=== PATIENT | male | born 1945 | race Caucasian/White ===

== ENCOUNTER 2016-07-05 16:38 | Emergency (ER) | payer MEDICARE, OTHER ==
[2016-07-05] MEDS ORDERED: BABY ASPIRIN 81 MG CHEW PO ONE (16:47)
[2016-07-05] MEDS ORDERED: Nitrostat 0.4 MG (ED) SL ONE ×2 (16:47→17:14)
--- NOTE | 2016-07-05 16:55 | ERPHSYRPT ---
- History of Present Illness Time Seen by Provider: 07/05/16 16:50 Historian: patient Exam Limitations: no limitations Physician History: Pt. presents with CP starting at 10:30AM today, dull, intermittent throughout the day lasting 5-10 min each time. States he also had SOB, nausea, weakness and palpitations, but not diaphoresis. States he tried mowing yard this afternoon as well which made the chest pain worse. Pt. with previous cardiac history and stents. Denies any recent illness or injuries. Timing/Duration: today Activities at Onset: activity (mowing yard), rest Quality: dullness Location: substernal Chest Pain Radiation: no radiation Severity of Pain-Max: mild Severity of Pain-Current: mild (3/10) Modifying Factors: Improves With: exertion (worsens) Associated Symptoms: nausea, palpitations, shortness of breath, No vomiting, No cough, No hurts to breathe, No edema Prior Chest Pain/Cardiac Workup: angina, cardiac cath Nitro Today/Relief: no nitro taken today Aspirin Treatment Today: 81 mg x 1 Allergies/Adverse Reactions: sulfamethoxazole [From Bactrim] Allergy (Intermediate, Verified 07/05/16 16:54) Hives Home Medications: Omeprazole 20 MG [Prilosec 20 mg] 20 mg PO DAILY 11/30/11 [History] Tamsulosin HCl 0.4 mg [Flomax 0.4 MG] 0.4 mg PO HS 11/30/11 [History] Methadone HCl 10 mg [DOLOPHINE 10MG Tablet] 20 mg PO BID 10/04/13 [History ] Aspirin 81 gm Chew [Baby Aspirin 81 mg Chew] 81 mg PO DAILY 12/18/13 [ History] Levetiracetam [Keppra] 750 mg PO BID 12/18/13 [History] Lisinopril [Zestril] 12.5 mg PO DAILY 12/18/13 [History] Pravastatin Sodium [Pravachol] 20 mg PO HS 10/17/15 [History] Quetiapine Fumarate 25 mg [Seroquel 25 MG] 12.5 mg PO DAILY 01/18/16 [ History] Hx Tetanus, Diphtheria Vaccination/Date Given: Yes (up to date) Hx Influenza Vaccination/Date Given: Yes Hx Pneumococcal Vaccination/Date Given: Yes - Review of Systems Constitutional: Lethargy, No Fever, No Chills Eyes: No Symptoms Ears, Nose, & Throat: No Symptoms Respiratory: No Cough Cardiac: Chest Pain, No Edema, No Syncope Abdominal/Gastrointestinal: No Abdominal Pain, No Nausea, No Vomiting, No Diarrhea Genitourinary Symptoms: No Dysuria Musculoskeletal: No Back Pain, No Neck Pain Skin: No Rash Neurological: No Dizziness, No Focal Weakness, No Sensory Changes Psychological: No Symptoms Endocrine: No Symptoms All Other Systems: Reviewed and Negative - Past Medical History Pertinent Past Medical History: Yes Neurological History: No Pertinent History ENT History: No Pertinent History Cardiac History: High Cholesterol, Hypertension, Myocardial Infarction ([place]) Respiratory History: No Pertinent History Endocrine Medical History: No Pertinent History Musculoskeletal History: Arthritis, Osteoarthritis GI Medical History: GERD, GI Bleed History: No Pertinent History Psycho-Social History: No Pertinent History Male Reproductive Disorders: No Pertinent History Other Medical History: Stents in heart and L leg, hx of prostate infections, 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 cardaic stents x2. lt leg stents x2 - Social History Smoking Status: Former smoker How long have you smoked: 40 years Exposure to second hand smoke: No Drug Use: none Patient Lives Alone: Yes - Physical Exam General Appearance: mild distress, alert Eye Exam: PERRL/EOMI, eyes nml inspection Ears, Nose, Throat Exam: normal ENT inspection, moist mucous membranes Neck Exam: normal inspection, non-tender, supple, full range of motion Respiratory Exam: normal breath sounds, lungs clear, No respiratory distress Cardiovascular Exam: regular rate/rhythm, normal heart sounds Gastrointestinal/Abdomen Exam: soft, No tenderness, No mass Back Exam: normal inspection, No CVA tenderness, No vertebral tenderness Extremity Exam: normal inspection, normal range of motion Neurologic Exam: alert, oriented x 3, cooperative, normal mood/affect, sensation nml, No motor deficits Skin Exam: normal color, warm, dry - Course Nursing assessment & vital signs reviewed: Yes EKG Interpreted by Me: RATE (97), Sinus Mir, Left [place] Deviation, LAFB, Right Bundle Branch Block, Non-specific ST Changes (flipped T's aVL) Ordered Tests: Active Orders 24 hr Category Date Time Status Licensed Massage Therapist STAT Care 07/05/16 16:47 Active EKG-ER Only STAT Care 07/05/16 16:47 Active IV Insertion STAT Care 07/05/16 16:47 Active Oxygen-ED Only NASAL CANNULA 2 lpm Care 07/05/16 16:47 Active CHEST 1 VIEW (PORTABLE) Stat Exams 07/05/16 16:48 Taken BMP Stat Lab 07/05/16 17:00 Completed CBC W DIFF Stat Lab 07/05/16 17:00 Completed CK-Creatinine Phosphokinase Stat Lab 07/05/16 17:00 Completed TROPONIN Q3H Lab 07/05/16 17:00 Completed TROPONIN Q3H Lab 07/05/16 20:00 Ordered TROPONIN Q3H Lab 07/05/16 23:00 Ordered TROPONIN Q3H Lab 07/06/16 02:00 Ordered TROPONIN Q3H Lab 07/06/16 05:00 Ordered Medication Summary Discontinued Medications Generic Name Dose Route Start Last Admin Trade Name Freq PRN Reason Stop Dose Admin Aspirin 324 mg 07/05/16 16:47 07/05/16 17:23 Baby Aspirin 81 Mg Chew PO 07/05/16 16:48 324 mg STAT ONE Administration Sodium Chloride 250 mls @ 999 mls/hr 07/05/16 16:47 07/05/16 17:17 Sodium Chloride 0.9% 1000 Ml IV 07/05/16 17:02 999 mls/hr .Q16M STA Administration Sodium Chloride Confirm 07/05/16 17:14 Sodium Chloride 0.9% 1000 Ml Administered 07/05/16 17:15 Dose 1,000 mls @ ud .ROUTE .STK-MED ONE Nitroglycerin 0.4 mg 07/05/16 16:47 07/05/16 17:17 Nitrostat 0.4 Mg (Ed) SL 07/05/16 16:48 0.4 mg STAT ONE Administration Nitroglycerin Confirm 07/05/16 17:14 Nitrostat 0.4 Mg (Ed) Administered 07/05/16 17:15 Dose 0.4 mg SL .STK-MED ONE Lab/Rad Data: Laboratory Result Diagrams 07/05/16 17:00 07/05/16 17:00 Laboratory Results 07/05/16 07/05/16 07/05/16 Range/Units 17:00 17:00 17:00 WBC 5.2 (4.0-10.5) K/mm3 RBC 3.66 L (4.1-5.6) M/mm3 Hgb 11.8 L (12.5-18.0) gm/dl Hct 35.9 L (42-50) % MCV 98.1 (78-100) fl MCH 32.2 H (26-32) pg MCHC 32.9 (32-36) g/dl RDW 12.6 (11.5-14.0) % Plt Count 122 L (150-450) K/mm3 MPV 10.8 H (6-9.5) fl Gran % 60.6 (36.0-66.0) % Lymphocytes % 29.3 (24.0-44.0) % Monocytes % 7.6 (0.0-12.0) % Eosinophils % 2.1 (0.00-5.0) % Basophils % 0.4 (0.0-0.4) % Basophils # 0.02 (0-0.4) Sodium 140 (136-145) mEq/L Potassium 4.1 (3.5-5.1) mEq/L Chloride 104 (98-107) mEq/L Carbon Dioxide 26.6 (21-32) mEq/L Anion Gap 13.7 (5-15) MEQ/L BUN 21 H (9-20) mg/dL Creatinine 1.49 H (0.55-1.30) mg/dl Estimated GFR 50 ML/MIN Glucose 116 H (70-110) MG/DL Calcium 9.4 (8.5-10.1) mg/dL Creatine Kinase 128 (39-308) U/L Troponin I < 0.017 (0.000-0.056) ng/ml - Progress Progress: improved Air Movement: good Progress Note: 07/05/16 18:10 Pt. given ASA X4, Nitro .4mg and IVF's with good relief of chest pain. Pt. stable and lying comfortably Discussed with Dr.: Other (Dr. Penn, hand patcher, agreed to accept at [facility]) - Departure Time of Disposition: 18:11 Departure Disposition: Transfer ([facility]) Clinical Impression: Chest pain Condition: Stable Critical Care Time: No
[2016-07-05 17:03] LABS: BASOPHIL % 0.4 % (0.0-0.4); Eosinophil % 2.1 % (0.00-5.0); Granulocytes % 60.6 % (36.0-66.0); Lymphocytes % 29.3 % (24.0-44.0); Mean Cell Volume 98.1 fl (78-100); Mean Corpuscular Hemoglobin 32.2 pg (26-32); Mean Platelet Volume 10.8 fl (6-9.5); Monocytes % 7.6 % (0.0-12.0); Platelet Count 122 K/mm3 (150-450); Red Blood Count 3.66 M/mm3 (4.1-5.6); Red Cell Distribution Width 12.6 % (11.5-14.0); White Blood Count 5.2 K/mm3 (4.0-10.5)
[2016-07-05] MEDS ORDERED: Sodium Chloride 0.9% 1000 ML 1,000 ML ONE (17:14)
[2016-07-05 17:30] LABS: ANION GAP 13.7 MEQ/L (5-15); Carbon Dioxide 26.6 mEq/L (21-32); Potassium 4.1 mEq/L (3.5-5.1)
[2016-07-05 19:16] VITALS: BP 141/74; PULSE 55; O2SAT 97
[2016-07-05] MEDS ORDERED: BABY ASPIRIN 81 MG CHEW ONE (20:17)
--- NOTE | 2016-07-06 08:37 | XRAY ---
Indication: Chest pain. Comparison: October 06, 2008. Portable chest remains clear again with incidental calcified granulomas. Heart and mediastinal structures within normal limits for AP portable projection. Bony thorax intact. Impression: Stable nonacute chest with again evidence for old granulomatous disease.
== END 2016-07-05 19:16 | disposition short-term general hospital (02) ==
LOC: ED 16:38
DX: R07.9 Chest pain, unspecified (principal); R11.0 Nausea; R00.2 Palpitations; R06.02 Shortness of breath; I25.2 Old myocardial infarction; I10 Essential (primary) hypertension; E78.00 Pure hypercholesterolemia, unspecified; Z79.82 Long term (current) use of aspirin; Z79.899 Other long term (current) drug therapy
CPT/HCPCS: 36000; 36415; 71010; 80048; 82550; 84484; 85025; 93005; 93041; 99285; A9270-GY

== ENCOUNTER 2017-11-29 15:40 | Emergency (ER) | payer MEDICARE, OTHER ==
[2017-11-29] MEDS ORDERED: Cardizem IV 50 MG/10 ML IV ONE ×3 (15:59→16:11)
[2017-11-29] MEDS ORDERED: CARDIZEM DRIP 100 MG/100 ML D5W 100 ML IV PRN ×2 (16:00→16:22)
[2017-11-29] MEDS ORDERED: Sodium Chloride 0.9% 1000 ML 1,000 ML IV SCH (16:00)
[2017-11-29] MEDS ORDERED: ENOXAPARIN SODIUM SQ ONE ×2 (16:03→16:10)
--- NOTE | 2017-11-29 16:17 | ERPHSYRPT ---
- History of Present Illness Time Seen by Provider: 11/29/17 16:00 Historian: patient Exam Limitations: clinical condition Patient Subjective Stated Complaint: has had CP since Saturday.. went to Dr Saleh office and they sent him here to be evaluated. is being weaned off of methadone. states pain increases with movment and deep breathing. no n/v + SOB Triage Nursing Assessment: alert and oriented. states CP since saturday. nothing has made oit better. lips slightly cyanotic on arrival../ Placed on 2L NC. staets slight SOB but denies n/v denies cough. Lungs clear bilaterally. states pain increases slightly with deep breathing and movement. no edema noted. Physician History: PATIENT WITH A HISTORY OF MYOCARDIAL INFARCTION, CORONARY STENTS, PERIPHERAL VASCULAR DISEASE, CHRONIC RENAL INSUFFICIENCY AND HYPERTENSION, COMPLAINS OF SUBSTERNAL ACHING PRESSURE DISCOMFORT PERSISTENT FOR 2 DAYS ASSOCIATED WITH DYSPNEA. DENIES COUGH, FEVER, PALPITATIONS, RADIATION OF PAIN TO NECK, JAW OR ARMS. PATIENT IS PRESENTLY BENG WEANED OFF METHADONE THROUGH THE [facility] SINCE 2017. Timing/Duration: day(s) Activities at Onset: none Quality: aching Location: substernal Chest Pain Radiation: no radiation Severity of Pain-Max: mild Severity of Pain-Current: mild Modifying Factors: Improves With: nothing Associated Symptoms: shortness of breath Prior Chest Pain/Cardiac Workup: cardiac cath, heart attack Nitro Today/Relief: 0.4 mg x 1, provided by ED Aspirin Treatment Today: 81 mg x 1, provided at home Allergies/Adverse Reactions: sulfamethoxazole [From Bactrim] Allergy (Intermediate, Verified 07/05/16 16:54) Hives Home Medications: Omeprazole 20 MG [Prilosec 20 mg] 20 mg PO DAILY 11/30/11 [History] Tamsulosin HCl 0.4 mg [Flomax 0.4 MG] 0.4 mg PO HS 11/30/11 [History] Methadone HCl 10 mg [DOLOPHINE 10MG Tablet] 2.5 mg PO QID 10/04/13 [ History] Aspirin 81 gm Chew [Baby Aspirin 81 mg Chew] 81 mg PO DAILY 12/18/13 [ History] Levetiracetam [Keppra] 750 mg PO BID 12/18/13 [History] Lisinopril [Zestril] 12.5 mg PO DAILY 12/18/13 [History] Pravastatin Sodium [Pravachol] 20 mg PO HS 10/17/15 [History] Quetiapine Fumarate 25 mg [Seroquel 25 MG] 12.5 mg PO DAILY 01/18/16 [ History] Hx Tetanus, Diphtheria Vaccination/Date Given: Yes (up to date) Hx Influenza Vaccination/Date Given: Yes Hx Pneumococcal Vaccination/Date Given: Yes - Review of Systems Constitutional: No Fever, No Chills Eyes: No Symptoms Ears, Nose, & Throat: No Symptoms Respiratory: No Symptoms, No Cough, No Dyspnea Cardiac: Chest Pain, No Edema, No Syncope Abdominal/Gastrointestinal: No Symptoms, No Abdominal Pain, No Nausea, No Vomiting, No Diarrhea Genitourinary Symptoms: No Symptoms, No Dysuria Musculoskeletal: No Symptoms, No Back Pain, No Neck Pain Skin: No Symptoms, No Rash Neurological: No Dizziness, No Focal Weakness, No Sensory Changes Psychological: No Symptoms Endocrine: No Symptoms All Other Systems: Reviewed and Negative - Past Medical History Pertinent Past Medical History: Yes Neurological History: No Pertinent History ENT History: No Pertinent History Cardiac History: High Cholesterol, Hypertension, Myocardial Infarction ([place]) Respiratory History: No Pertinent History Endocrine Medical History: No Pertinent History Musculoskeletal History: Arthritis, Osteoarthritis GI Medical History: GERD, GI Bleed History: No Pertinent History Psycho-Social History: No Pertinent History Male Reproductive Disorders: No Pertinent History Other Medical History: Stents in heart and L leg, hx of prostate infections, 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 cardaic stents x2. lt leg stents x2 - Social History Smoking Status: Former smoker How long have you smoked: 40 years Exposure to second hand smoke: No Drug Use: none Patient Lives Alone: No - Nursing Vital Signs Nursing Vital Signs: Initial Vital Signs Temperature 97.8 F 11/29/17 15:51 Pulse Rate 112 H 11/29/17 15:51 Respiratory Rate 18 11/29/17 15:51 Blood Pressure 136/95 11/29/17 15:51 O2 Sat by Pulse Oximetry 98 11/29/17 15:51 Pain Scale Pain Intensity 2 - Physical Exam SpO2: 98 Oxygen Delivery: Room Air - Course EKG Interpreted by Me: RATE, Left [place] Deviation (ATRIAL FIBRILLATION RATE 109) - Radiology Exams Chest X-ray Interpretation: Interpreted by me, Negative, No Infiltrates - CT Exams Chest CT Interpretation: Tele-radiologist Report (NO EVIDENCE OF PULMONARY EMBOLISM) Ordered Tests: Active Orders 24 hr Category Date Time Status Postal Support Employee STAT Care 11/29/17 15:59 Active EKG-ER Only STAT Care 11/29/17 15:58 Active IV Insertion STAT Care 11/29/17 15:58 Active Oxygen-ED Only NASAL CANNULA 2 lpm Care 11/29/17 15:58 Active CHEST 1 VIEW (PORTABLE) Stat Exams 11/29/17 15:59 Taken CHEST WITH CONTRAST [CT] Stat Exams 11/29/17 16:45 Taken CBC W DIFF Stat Lab 11/29/17 16:20 Completed CMP Stat Lab 11/29/17 16:20 Completed D-DIMER QUANTITATION Stat Lab 11/29/17 16:20 Completed NT PRO BNP Stat Lab 11/29/17 16:20 Completed PROTIME WITH INR Stat Lab 11/29/17 16:20 Completed TROPONIN Q3H Lab 11/29/17 16:20 Completed TROPONIN Q3H Lab 11/29/17 19:20 Received TROPONIN Q3H Lab 11/29/17 22:15 Ordered TROPONIN Q3H Lab 11/30/17 01:15 Ordered TROPONIN Q3H Lab 11/30/17 04:15 Ordered Medication Summary Generic Name Dose Route Start Last Admin Trade Name Freq PRN Reason Stop Dose Admin Sodium Chloride 1,000 mls @ 50 mls/hr 11/29/17 16:00 11/29/17 16:15 Sodium Chloride 0.9% 1000 Ml IV 12/29/17 15:59 50 mls/hr .Q20H HUNTER Administration Diltiazem HCl 100 mls @ 5 mls/hr 11/29/17 16:22 Cardizem Drip 100 Mg/100 Ml D5w IV 12/29/17 16:21 .Q20H PRN HEART RATE/ A-FIB Protocol 5 MG/HR Discontinued Medications Generic Name Dose Route Start Last Admin Trade Name Freq PRN Reason Stop Dose Admin Aspirin 243 mg 11/29/17 18:02 11/29/17 18:21 Baby Aspirin 81 Mg Chew PO 11/29/17 18:03 243 mg STAT ONE Administration Aspirin Confirm 11/29/17 18:20 Baby Aspirin 81 Mg Chew Administered 11/29/17 18:21 Dose 243 mg .ROUTE .STK-MED ONE Diltiazem HCl 15 mg 11/29/17 15:59 11/29/17 16:16 Cardizem Iv 50 Mg/10 Ml IV 11/29/17 16:00 15 mg STAT ONE Administration Diltiazem HCl Confirm 11/29/17 16:10 Cardizem Iv 50 Mg/10 Ml Administered 11/29/17 16:11 Dose 50 mg IV .STK-MED ONE Diltiazem HCl Confirm 11/29/17 16:11 Cardizem Iv 50 Mg/10 Ml Administered 11/29/17 16:12 Dose 50 mg IV .STK-MED ONE Enoxaparin Sodium 100 mg 11/29/17 16:03 11/29/17 16:27 Enoxaparin Sodium SQ 11/29/17 16:04 100 mg STAT ONE Administration Enoxaparin Sodium Confirm 11/29/17 16:10 Enoxaparin Sodium Administered 11/29/17 16:11 Dose 120 mg SQ .STK-MED ONE Diltiazem HCl 100 mls @ 10 mls/hr 11/29/17 16:00 11/29/17 16:23 Cardizem Drip 100 Mg/100 Ml D5w IV 12/29/17 15:59 10 mg/hr .Q10H PRN 10 mls/hr HEART RATE/ A-FIB Administration Protocol 10 MG/HR Nitroglycerin 1 gm 11/29/17 17:58 11/29/17 18:04 Nitro-Bid 2% Ud Packets TOP 11/29/17 17:59 1 gm STAT ONE Administration Nitroglycerin Confirm 11/29/17 18:01 Nitro-Bid 2% Ud Packets Administered 11/29/17 18:02 Dose 1 gm .ROUTE .STK-MED ONE Lab/Rad Data: Laboratory Result Diagrams 11/29/17 16:20 11/29/17 16:20 Laboratory Results 11/29/17 11/29/17 11/29/17 Range/Units 16:20 16:20 16:20 WBC (4.0-10.5) K/mm3 RBC (4.1-5.6) M/mm3 Hgb (12.5-18.0) gm/dl Hct (42-50) % MCV (78-100) fl MCH (26-32) pg MCHC (32-36) g/dl RDW (11.5-14.0) % Plt Count (150-450) K/mm3 MPV (6-9.5) fl Gran % (36.0-66.0) % Eos # (Auto) (0-0.5) Absolute Lymphs (auto) (1.0-4.6) Absolute Monos (auto) (0.0-1.3) Lymphocytes % (24.0-44.0) % Monocytes % (0.0-12.0) % Eosinophils % (0.00-5.0) % Basophils % (0.0-0.4) % Absolute Granulocytes (1.4-6.9) Basophils # (0-0.4) PT 12.7 (8.83-12.87) SECONDS INR 1.09 (0.8-3.0) D-Dimer 1417 H* (215-500) ng/mL Sodium 139 (137-145) mmol/L Potassium 4.5 (3.5-5.1) mmol/L Chloride 103 (98-107) mmol/L Carbon Dioxide 26 (22-30) mmol/L Anion Gap 15.1 H (5-15) MEQ/L BUN 16 (9-20) mg/dL Creatinine 1.33 H (0.66-1.25) mg/dL Estimated GFR 56.2 ML/MIN Glucose 99 (74-106) mg/dL Calcium 9.7 (8.4-10.2) mg/dL Total Bilirubin 1.10 (0.2-1.3) mg/dL AST 25 (17-59) U/L ALT 20 (0-50) U/L Alkaline Phosphatase 63 (38-126) U/L Troponin I < 0.012 (0.000-0.034) ng/mL NT-Pro-B Natriuret Pep 754 (0-900) pg/mL Serum Total Protein 7.4 (6.3-8.2) g/dL Albumin 4.3 (3.5-5.0) g/dL 11/29/17 Range/Units 16:20 WBC 5.3 (4.0-10.5) K/mm3 RBC 4.01 L (4.1-5.6) M/mm3 Hgb 13.2 (12.5-18.0) gm/dl Hct 38.3 L (42-50) % MCV 95.5 (78-100) fl MCH 32.9 H (26-32) pg MCHC 34.5 (32-36) g/dl RDW 12.1 (11.5-14.0) % Plt Count 151 (150-450) K/mm3 MPV 10.6 H (6-9.5) fl Gran % 54.8 (36.0-66.0) % Eos # (Auto) 0.13 (0-0.5) Absolute Lymphs (auto) 1.70 (1.0-4.6) Absolute Monos (auto) 0.51 (0.0-1.3) Lymphocytes % 32.4 (24.0-44.0) % Monocytes % 9.7 (0.0-12.0) % Eosinophils % 2.5 (0.00-5.0) % Basophils % 0.6 (0.0-0.4) % Absolute Granulocytes 2.88 (1.4-6.9) Basophils # 0.03 (0-0.4) PT (8.83-12.87) SECONDS INR (0.8-3.0) D-Dimer (215-500) ng/mL Sodium (137-145) mmol/L Potassium (3.5-5.1) mmol/L Chloride (98-107) mmol/L Carbon Dioxide (22-30) mmol/L Anion Gap (5-15) MEQ/L BUN (9-20) mg/dL Creatinine (0.66-1.25) mg/dL Estimated GFR ML/MIN Glucose (74-106) mg/dL Calcium (8.4-10.2) mg/dL Total Bilirubin (0.2-1.3) mg/dL AST (17-59) U/L ALT (0-50) U/L Alkaline Phosphatase (38-126) U/L Troponin I (0.000-0.034) ng/mL NT-Pro-B Natriuret Pep (0-900) pg/mL Serum Total Protein (6.3-8.2) g/dL Albumin (3.5-5.0) g/dL - Progress Progress: improved Progress Note: 11/29/17 16:46 ADMINISTERED CARDIZEM INFUSION 5MG/HR, LOVENOX 100MG SUBQ, DDIMER 1411 Discussed with : Other (DISCUSSED WITH DR GARCIA AT [address] [facility]IA [facility]) - Departure Time of Disposition: 19:30 Departure Disposition: Transfer Clinical Impression: ACUTE CHEST PAIN, NEW ONSET ATRIAL FIBRILLATION Condition: Stable Critical Care Time: No Referrals: PATRICIA PALACIO [Primary Care Provider] -
[2017-11-29 16:20] LABS: BASOPHIL % 0.6 % (0.0-0.4); Basophil (Absolute #) 0.03 (0-0.4); Eosinophil % 2.5 % (0.00-5.0); Eosinophil (Absolute #) 0.13 (0-0.5); Granulocyte Absolute (ANC) 2.88 (1.4-6.9); Granulocytes % 54.8 % (36.0-66.0); Hematocrit 38.3 % (42-50); Hemoglobin 13.2 gm/dl (12.5-18.0); Lymphocytes % 32.4 % (24.0-44.0); Mean Cell Volume 95.5 fl (78-100); Mean Corpuscular Hemoglobin 32.9 pg (26-32); Mean Corpuscular Hgb Concent. 34.5 g/dl (32-36); Mean Platelet Volume 10.6 fl (6-9.5); Monocyte (Absolute #) 0.51 (0.0-1.3); Monocytes % 9.7 % (0.0-12.0); Platelet Count 151 K/mm3 (150-450); Red Blood Count 4.01 M/mm3 (4.1-5.6); Red Cell Distribution Width 12.1 % (11.5-14.0); White Blood Count 5.3 K/mm3 (4.0-10.5)
[2017-11-29 16:35] LABS: INR 1.09 (0.8-3.0)
[2017-11-29 16:49] LABS: ALBUMIN 4.3 g/dL (3.5-5.0); ANION GAP 15.1 MEQ/L (5-15); BILIRUBIN,TOTAL 1.1 mg/dL (0.2-1.3); Calcium 9.7 mg/dL (8.4-10.2); Creatinine 1 1.33 mg/dL (0.66-1.25); Potassium 4.5 mmol/L (3.5-5.1); Total Protein 7.4 g/dL (6.3-8.2)
[2017-11-29] MEDS ORDERED: NITRO-BID 2% UD PACKETS TOP ONE (17:58)
[2017-11-29] MEDS ORDERED: NITRO-BID 2% UD PACKETS ONE (18:01)
[2017-11-29] MEDS ORDERED: BABY ASPIRIN 81 MG CHEW PO ONE (18:02)
[2017-11-29] MEDS ORDERED: BABY ASPIRIN 81 MG CHEW ONE (18:20)
[2017-11-29 19:43] VITALS: BP 128/76; PULSE 76; O2SAT 97
--- NOTE | 2017-11-29 20:51 | XRAY ---
Indication: Chest pain/pressure. Chills. Comparison: July 05, 2016. Portable chest remains clear again with a few incidental calcified granulomas. Heart is not enlarged. Bony thorax intact again with mild degenerative changes. No new/acute findings. Impression: Nonacute chest with chronic features.
--- NOTE | 2017-11-29 20:52 | XRAY ---
Indication: Chest pain. Elevated d-dimer. Atrial fibrillation. Multiple contiguous axial images obtained through the chest using 100 cc Isovue 370 contrast and PE protocol. Comparison: None There is good opacification of the pulmonary arteries to include the lobar and segmental branches. No filling defect or pulmonary embolus. Heart is not enlarged. Aorta is normal in course and caliber. Tiny precarinal and right hilar calcified nodes. No pathologic mediastinal/hilar lymphadenopathy. Examination of the lung parenchyma demonstrates a few tiny calcified granulomas. No suspicious pulmonary mass, infiltrate, or effusion. Bony thorax intact with mild degenerative changes throughout the spine. Limited upper abdomen demonstrates partially visualized bilateral renal cysts, largest on the right measuring 4.6 cm. Impression: 1. Negative pulmonary embolus. No acute cardiopulmonary abnormalities. 2. Evidence for old granulomatous disease. 3. Bilateral renal cysts. Comment: Preliminary interpretation was made by [facility]. No discrepancy. CTDI is 22.69
== END 2017-11-29 19:48 | disposition short-term general hospital (02) ==
LOC: ED 15:40
DX: R07.9 Chest pain, unspecified (principal); I48.91 Unspecified atrial fibrillation; R06.00 Dyspnea, unspecified; I10 Essential (primary) hypertension; I25.2 Old myocardial infarction; Z79.899 Other long term (current) drug therapy
CPT/HCPCS: 36000; 36415; 71045; 71260; 80053; 83880; 84484; 85025; 85379; 85610; 93005; 93041; 96360; 96365; 96372; 96374; 99285; J1650; A9270-GY

== ENCOUNTER 2018-02-08 10:37 | Emergency (ER) | payer MEDICARE, OTHER ==
--- NOTE | 2018-02-08 11:22 | ERPHSYRPT ---
- History of Present Illness Time Seen by Provider: 02/08/18 11:00 Source: patient, family Patient Subjective Stated Complaint: pt reports approx 2 months ago he was slowly weaned off his Keppra, states that 2 weeks ago he was completely off, states he was having trouble with sleep and had to resume taking the Keppra. pt states that he began having chest pain saturday02/04/18 and stayed overnight at [place] to be observed, reports he was released Saturday and has not slept any since then. pt states he saw JESSY Guevara yesterday and was given hydroxyzine which has not helped. Triage Nursing Assessment: pt is aox3, pupils perrl, afebrile, pt resps easy and non labored, radial pulses strong and equal, pt skin is pink warm dry. pt denies pain. Physician History: 72 y/o white male presents with anxiety and insomnia since saturday. pt was on keppra for sleep but was weaned off of this. pt has a cardiac hx and was evaluated and observed at [facility] this past Saturday over to Saturday. pt was seen by his pcp, Yina Hutchinson [employer], yesterday and given hydroxyzine without help in tx his insomnia. pt denies soa and cp today. pt specifically states he just needs something to help him sleep. Timing/Duration: day(s) (3) Severity: moderate Associated Symptoms: denies symptoms, No nausea, No vomiting, No abdominal pain , No shortness of breath, No chest pain, No loss of appetite Allergies/Adverse Reactions: sulfamethoxazole [From Bactrim] Allergy (Intermediate, Verified 02/08/18 11:14) Hives Home Medications: Tamsulosin HCl 0.4 mg [Flomax 0.4 MG] 0.4 mg PO HS 11/30/11 [History] Methadone HCl 10 mg [DOLOPHINE 10MG Tablet] 2.5 mg PO BID 10/04/13 [ History] Aspirin 81 gm Chew [Baby Aspirin 81 mg Chew] 81 mg PO DAILY 12/18/13 [ History] Levetiracetam [Keppra] 750 mg PO BID 12/18/13 [History] Lisinopril [Zestril] 12.5 mg PO DAILY 12/18/13 [History] Pravastatin Sodium [Pravachol] 40 mg PO HS 10/17/15 [History] Quetiapine Fumarate 25 mg [Seroquel 25 MG] 12.5 mg PO DAILY 01/18/16 [ History] Apixaban [Eliquis 2.5 mg Tablet] 2.5 mg PO BID 02/08/18 [History] Hydroxyzine HCl 25 mg [Atarax 25 mg] 25 mg PO HS 02/08/18 [History] Levothyroxine Sodium 25 Mcg [Synthroid 25 Mcg] 25 mcg PO DAILY 02/08/18 [ History] Metoprolol Tartrate 25 mg [Lopressor 25MG Tab] 25 mg PO BID 02/08/18 [ History] Sacubitril/Valsartan [Entresto 24 mg-26 mg Tablet] 24 mg PO BID 02/08/18 [ History] Hx Tetanus, Diphtheria Vaccination/Date Given: Yes Hx Influenza Vaccination/Date Given: Yes Hx Pneumococcal Vaccination/Date Given: Yes Immunizations Up to Date: Yes - Review of Systems Constitutional: No Symptoms, No Fever Eyes: No Symptoms Ears, Nose, & Throat: No Symptoms Respiratory: No Symptoms Cardiac: No Symptoms Abdominal/Gastrointestinal: No Symptoms Genitourinary Symptoms: No Symptoms Musculoskeletal: No Symptoms Skin: No Symptoms Neurological: No Symptoms Psychological: Anxiety, Other (insomnia) Endocrine: No Symptoms Hematologic/Lymphatic: No Symptoms Immunological/Allergic: No Symptoms All Other Systems: Reviewed and Negative - Past Medical History Pertinent Past Medical History: Yes Neurological History: No Pertinent History ENT History: No Pertinent History Cardiac History: High Cholesterol, Hypertension, Myocardial Infarction ([place]) Respiratory History: No Pertinent History Endocrine Medical History: No Pertinent History Musculoskeletal History: Arthritis, Osteoarthritis GI Medical History: GERD, GI Bleed History: No Pertinent History Psycho-Social History: No Pertinent History Male Reproductive Disorders: No Pertinent History Other Medical History: Stents in heart and L leg, hx of prostate infections, 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 cardaic stents x2. lt leg stents x2. heart cath 01/2018 - Social History Smoking Status: Never smoker How long have you smoked: 40 years Exposure to second hand smoke: No Drug Use: none Patient Lives Alone: No - Nursing Vital Signs Nursing Vital Signs: Initial Vital Signs Temperature 97.5 F 02/08/18 10:59 Pulse Rate 94 H 02/08/18 10:59 Respiratory Rate 20 02/08/18 10:59 Blood Pressure 135/87 02/08/18 10:59 O2 Sat by Pulse Oximetry 97 02/08/18 10:59 Pain Scale Pain Intensity 0 - Physical Exam General Appearance: mild distress, alert, anxiety Eye Exam: PERRL/EOMI, eyes nml inspection Ears, Nose, Throat Exam: normal ENT inspection, moist mucous membranes Neck Exam: normal inspection, non-tender, supple, full range of motion Respiratory Exam: normal breath sounds, lungs clear, airway intact, No chest tenderness, No respiratory distress, No accessory muscle use, No rhonchi, No wheezing, No stridor Cardiovascular Exam: regular rate/rhythm, normal heart sounds, normal peripheral pulses Gastrointestinal/Abdomen Exam: soft, normal bowel sounds, No tenderness, No guarding Rectal Exam: not done Back Exam: normal inspection, normal range of motion, No CVA tenderness, No vertebral tenderness Extremity Exam: normal inspection, normal range of motion, pelvis stable Neurologic Exam: alert, oriented x 3, cooperative, 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 follow up with your primary doctor for further management Prescriptions: Lorazepam 0.5 mg [Ativan 0.5 MG] 0.5 mg PO BID PRN #6 tablet PRN Reason: Insomnia
[2018-02-08 12:00] VITALS: BP 107/74; PULSE 64; O2SAT 95
== END 2018-02-08 12:00 | disposition home or self-care (01) ==
LOC: ED 10:37
DX: G47.00 Insomnia, unspecified (principal); F41.9 Anxiety disorder, unspecified; Z79.899 Other long term (current) drug therapy; Z79.01 Long term (current) use of anticoagulants; I10 Essential (primary) hypertension; I25.2 Old myocardial infarction
CPT/HCPCS: 99283

== ENCOUNTER 2018-03-30 16:07 | Emergency (ER) | payer MEDICARE, OTHER ==
[2018-03-30] MEDS ORDERED: Sodium Chloride 0.9% 1000 ML 1,000 ML IV STA (17:00)
--- NOTE | 2018-03-30 17:00 | ERPHSYRPT ---
- History of Present Illness Time Seen by Provider: 03/30/18 16:55 Source: patient Exam Limitations: no limitations Patient Subjective Stated Complaint: states started on amiordarone one week ago and since then has felt weak and dizzy. also having lower back pain with dark urine. Triage Nursing Assessment: ambulated to room per self. slightly unsteady on feet. resp easy. having lower back pain. Physician History: A 72-year-old male complaining of worsening overall weakness for the past one week. His urine has been very dark colored for the past week. He complains of chills. He also has a cough. Last week he started amiodarone for cardiac arrhythmia. His past medical history is significant for BPH, HTN, high cholesterol, hypothyroidism, cardiac arrhythmia, and seizure disorder. Timing/Duration: week(s) (1), gradual onset, worse Severity: severe Modifying Factors: Improves With: nothing Associated Symptoms: malaise, weakness Allergies/Adverse Reactions: sulfamethoxazole [From Bactrim] Allergy (Intermediate, Verified 03/30/18 16:27) Hives Home Medications: Tamsulosin HCl 0.4 mg [Flomax 0.4 MG] 0.4 mg PO HS 11/30/11 [History] Aspirin 81 gm Chew [Baby Aspirin 81 mg Chew] 81 mg PO DAILY 12/18/13 [ History] Levetiracetam [Keppra] 375 mg PO DAILY 12/18/13 [History] Pravastatin Sodium [Pravachol] 40 mg PO HS 10/17/15 [History] Quetiapine Fumarate 25 mg [Seroquel 25 MG] 25 mg PO TID 01/18/16 [History] Apixaban [Eliquis 2.5 mg Tablet] 2.5 mg PO BID 02/08/18 [History] Levothyroxine Sodium 25 Mcg [Synthroid 25 Mcg] 25 mcg PO DAILY 02/08/18 [ History] Metoprolol Tartrate 25 mg [Lopressor 25MG Tab] 25 mg PO BID 02/08/18 [ History] Sacubitril/Valsartan [Entresto 24 mg-26 mg Tablet] 24 mg PO BID 02/08/18 [ History] Amiodarone HCl 200 mg PO BID 03/30/18 [History] Hx Tetanus, Diphtheria Vaccination/Date Given: No Hx Influenza Vaccination/Date Given: Yes Hx Pneumococcal Vaccination/Date Given: Yes - Review of Systems Constitutional: Fatigue, Weakness Eyes: No Symptoms Ears, Nose, & Throat: No Symptoms Respiratory: Cough Cardiac: No Chest Pain, No Edema, No Syncope Abdominal/Gastrointestinal: No Abdominal Pain, No Nausea, No Vomiting, No Diarrhea Genitourinary Symptoms: Dysuria Musculoskeletal: No Back Pain, No Neck Pain Skin: No Rash Neurological: No Dizziness, No Focal Weakness, No Sensory Changes Psychological: No Symptoms Endocrine: No Symptoms Hematologic/Lymphatic: No Symptoms Immunological/Allergic: No Symptoms All Other Systems: Reviewed and Negative - Past Medical History Pertinent Past Medical History: Yes Neurological History: No Pertinent History ENT History: No Pertinent History Cardiac History: Arrhythmia, High Cholesterol, Hypertension, Myocardial Infarction ([place]) Respiratory History: No Pertinent History Endocrine Medical History: No Pertinent History Musculoskeletal History: Arthritis, Osteoarthritis GI Medical History: GERD, GI Bleed History: No Pertinent History Psycho-Social History: No Pertinent History Male Reproductive Disorders: No Pertinent History Other Medical History: Stents in heart and L leg, hx of prostate infections, 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 cardaic stents x2. lt leg stents x2. heart cath 01/2018 - Social History Smoking Status: Former smoker How long have you smoked: 40 years Exposure to second hand smoke: No Drug Use: none Patient Lives Alone: Yes - Nursing Vital Signs Nursing Vital Signs: Initial Vital Signs Pulse Rate 63 03/30/18 16:11 Respiratory Rate 18 03/30/18 16:11 Blood Pressure 129/79 03/30/18 16:11 O2 Sat by Pulse Oximetry 94 L 03/30/18 16:11 Pain Scale Pain Intensity 5 - Physical Exam General Appearance: moderate distress Eye Exam: PERRL/EOMI, eyes nml inspection Ears, Nose, Throat Exam: normal ENT inspection, TMs normal, pharynx normal, moist mucous membranes Neck Exam: normal inspection, non-tender, supple, full range of motion Respiratory Exam: normal breath sounds, lungs clear, No respiratory distress Cardiovascular Exam: regular rate/rhythm, normal heart sounds, normal peripheral pulses Gastrointestinal/Abdomen Exam: soft, normal bowel sounds, No tenderness, No mass Rectal Exam: not done Back Exam: normal inspection, normal range of motion, No CVA tenderness, No vertebral tenderness Extremity Exam: normal inspection, normal range of motion, pelvis stable Neurologic Exam: alert, oriented x 3, cooperative, normal mood/affect, nml cerebellar function, nml station & gait, sensation nml, No motor deficits Skin Exam: normal color, warm, dry, No rash Lymphatic Exam: No adenopathy SpO2 Interpretation: normal SpO2: 94 O2 Delivery: Room Air - Course EKG Interpreted by Me: RATE, Sinus Rhythm, Left [place] Deviation, NORMAL INTERVALS , NORMAL QRS, NORMAL ST-T, Other (comp EKG 12/08/17.) Ordered Tests: Active Orders 24 hr Category Date Time Status Clean Catch Urine Specimen STAT Care 03/30/18 17:00 Active EKG-ER Only STAT Care 03/30/18 17:00 Active IV Insertion STAT Care 03/30/18 17:00 Active CHEST 2 VIEWS (PA AND LAT) Stat Exams 03/30/18 17:01 Taken BLOOD CULTURE Stat Lab 03/30/18 17:35 Received CBC W DIFF Stat Lab 03/30/18 16:45 Completed CMP Stat Lab 03/30/18 16:45 Completed CULTURE,URINE Stat Lab 03/30/18 17:00 Received Lactic Acid Stat Lab 03/30/18 17:00 Completed TROPONIN Q3H Lab 03/30/18 16:45 Completed TROPONIN Q3H Lab 03/30/18 20:15 Ordered TROPONIN Q3H Lab 03/30/18 23:15 Ordered TROPONIN Q3H Lab 03/31/18 02:15 Ordered TROPONIN Q3H Lab 03/31/18 05:15 Ordered UA W/RFX UR CULTURE Stat Lab 03/30/18 17:00 Completed Medication Summary Generic Name Dose Route Start Last Admin Trade Name Freq PRN Reason Stop Dose Admin Ceftriaxone Sodium/Dextrose 1 g in 50 mls @ 100 mls/hr 03/30/18 18:26 Rocephin 1 Gm-D5w 50 Ml Bag IV 03/30/18 18:55 STAT STA Discontinued Medications Generic Name Dose Route Start Last Admin Trade Name Freq PRN Reason Stop Dose Admin Sodium Chloride 1,000 mls @ 999 mls/hr 03/30/18 17:00 03/30/18 18:20 Sodium Chloride 0.9% 1000 Ml IV 03/30/18 18:00 Infused .Q1H1M STA Infusion Sodium Chloride Confirm 03/30/18 17:04 Sodium Chloride 0.9% 1000 Ml Administered 03/30/18 17:05 Dose 1,000 mls @ ud .ROUTE .STK-MED ONE Lab/Rad Data: Laboratory Result Diagrams 03/30/18 16:45 03/30/18 16:45 Laboratory Results 03/30/18 03/30/18 03/30/18 Range/Units 17:00 17:00 16:45 WBC (4.0-10.5) K/mm3 RBC (4.1-5.6) M/mm3 Hgb (12.5-18.0) gm/dl Hct (42-50) % MCV (78-100) fl MCH (26-32) pg MCHC (32-36) g/dl RDW (11.5-14.0) % Plt Count (150-450) K/mm3 MPV (6-9.5) fl Gran % (36.0-66.0) % Eos # (Auto) (0-0.5) Absolute Lymphs (auto) (1.0-4.6) Absolute Monos (auto) (0.0-1.3) Lymphocytes % (24.0-44.0) % Monocytes % (0.0-12.0) % Eosinophils % (0.00-5.0) % Basophils % (0.0-0.4) % Absolute Granulocytes (1.4-6.9) Basophils # (0-0.4) Sodium (137-145) mmol/L Potassium (3.5-5.1) mmol/L Chloride (98-107) mmol/L Carbon Dioxide (22-30) mmol/L Anion Gap (5-15) MEQ/L BUN (9-20) mg/dL Creatinine (0.66-1.25) mg/dL Estimated GFR ML/MIN Glucose (74-106) mg/dL Lactic Acid 1.1 (0.4-2.0) Calcium (8.4-10.2) mg/dL Total Bilirubin (0.2-1.3) mg/dL AST (17-59) U/L ALT (0-50) U/L Alkaline Phosphatase (38-126) U/L Troponin I < 0.012 (0.000-0.034) ng/mL Serum Total Protein (6.3-8.2) g/dL Albumin (3.5-5.0) g/dL Urine Color RED (YELLOW) Urine Appearance CLOUDY (CLEAR) Urine pH 6.0 (5-6) Ur Specific [place] 1.019 (1.005-1.025) Urine Protein 100 (Negative) Urine Ketones NEGATIVE (NEGATIVE) Urine Blood LARGE (0-5) Rahul/ul Urine Nitrite NEGATIVE (NEGATIVE) Urine Bilirubin NEGATIVE (NEGATIVE) Urine Urobilinogen 2 (0-1) mg/dL Ur Leukocyte Esterase NEGATIVE (NEGATIVE) Urine WBC (Auto) 3-5 (0-5) /HPF Urine RBC (Auto) >101 (0-2) /HPF U Epithel Cells (Auto) NONE (FEW) /HPF Urine Bacteria (Auto) MODERATE (NEGATIVE) /HPF Urine Culture Reflexed YES (NO) Urine Glucose NEGATIVE (NEGATIVE) mg/dL 03/30/18 03/30/18 Range/Units 16:45 16:45 WBC 6.6 (4.0-10.5) K/mm3 RBC 4.00 L (4.1-5.6) M/mm3 Hgb 13.4 (12.5-18.0) gm/dl Hct 38.5 L (42-50) % MCV 96.3 (78-100) fl MCH 33.5 H (26-32) pg MCHC 34.8 (32-36) g/dl RDW 13.4 (11.5-14.0) % Plt Count 136 L (150-450) K/mm3 MPV 11.3 H (6-9.5) fl Gran % 62.3 (36.0-66.0) % Eos # (Auto) 0.08 (0-0.5) Absolute Lymphs (auto) 1.65 (1.0-4.6) Absolute Monos (auto) 0.74 (0.0-1.3) Lymphocytes % 25.0 (24.0-44.0) % Monocytes % 11.2 (0.0-12.0) % Eosinophils % 1.2 (0.00-5.0) % Basophils % 0.3 (0.0-0.4) % Absolute Granulocytes 4.12 (1.4-6.9) Basophils # 0.02 (0-0.4) Sodium 139 (137-145) mmol/L Potassium 4.2 (3.5-5.1) mmol/L Chloride 108 H (98-107) mmol/L Carbon Dioxide 20 L (22-30) mmol/L Anion Gap 14.8 (5-15) MEQ/L BUN 34 H (9-20) mg/dL Creatinine 1.85 H (0.66-1.25) mg/dL Estimated GFR 38.4 ML/MIN Glucose 95 (74-106) mg/dL Lactic Acid (0.4-2.0) Calcium 9.6 (8.4-10.2) mg/dL Total Bilirubin 1.90 H (0.2-1.3) mg/dL AST 22 (17-59) U/L ALT 19 (0-50) U/L Alkaline Phosphatase 53 (38-126) U/L Troponin I (0.000-0.034) ng/mL Serum Total Protein 7.6 (6.3-8.2) g/dL Albumin 4.3 (3.5-5.0) g/dL Urine Color (YELLOW) Urine Appearance (CLEAR) Urine pH (5-6) Ur Specific [place] (1.005-1.025) Urine Protein (Negative) Urine Ketones (NEGATIVE) Urine Blood (0-5) Rahul/ul Urine Nitrite (NEGATIVE) Urine Bilirubin (NEGATIVE) Urine Urobilinogen (0-1) mg/dL Ur Leukocyte Esterase (NEGATIVE) Urine WBC (Auto) (0-5) /HPF Urine RBC (Auto) (0-2) /HPF U Epithel Cells (Auto) (FEW) /HPF Urine Bacteria (Auto) (NEGATIVE) /HPF Urine Culture Reflexed (NO) Urine Glucose (NEGATIVE) mg/dL - Departure Time of Disposition: 18:29 Departure Disposition: Home Clinical Impression: UTI (urinary tract infection) Condition: Stable Critical Care Time: No Referrals: PATRICIA PALACIO [Primary Care Provider] - Additional Instructions: You have an infection in your urinary bladder. You were given Rocephin 1 g and fluids by IV in the ER. Take ciprofloxacin 500 mg 2 times a day for 7 days. Follow-up with your primary medical doctor within the week. Prescriptions: Ciprofloxacin HCl [Cipro] 500 mg PO BID #14 tablet
[2018-03-30] MEDS ORDERED: Sodium Chloride 0.9% 1000 ML 1,000 ML ONE (17:04)
[2018-03-30 17:15] LABS: BASOPHIL % 0.3 % (0.0-0.4); Basophil (Absolute #) 0.02 (0-0.4); Eosinophil % 1.2 % (0.00-5.0); Eosinophil (Absolute #) 0.08 (0-0.5); Granulocyte Absolute (ANC) 4.12 (1.4-6.9); Granulocytes % 62.3 % (36.0-66.0); Hematocrit 38.5 % (42-50); Hemoglobin 13.4 gm/dl (12.5-18.0); Lymphocyte (Absolute #) 1.65 (1.0-4.6); Mean Cell Volume 96.3 fl (78-100); Mean Corpuscular Hemoglobin 33.5 pg (26-32); Mean Corpuscular Hgb Concent. 34.8 g/dl (32-36); Mean Platelet Volume 11.3 fl (6-9.5); Monocyte (Absolute #) 0.74 (0.0-1.3); Monocytes % 11.2 % (0.0-12.0); Platelet Count 136 K/mm3 (150-450); Red Cell Distribution Width 13.4 % (11.5-14.0); White Blood Count 6.6 K/mm3 (4.0-10.5)
[2018-03-30 17:35] LABS: ALBUMIN 4.3 g/dL (3.5-5.0); ANION GAP 14.8 MEQ/L (5-15); BILIRUBIN,TOTAL 1.9 mg/dL (0.2-1.3); Calcium 9.6 mg/dL (8.4-10.2); Creatinine 1 1.85 mg/dL (0.66-1.25); Potassium 4.2 mmol/L (3.5-5.1); Total Protein 7.6 g/dL (6.3-8.2)
[2018-03-30 18:18] LABS: Appearance CLOUDY (CLEAR); Bacteria MODERATE /HPF (NEGATIVE); Bilirubin NEGATIVE (NEGATIVE); Blood LARGE Ery/ul (0-5); Glucose NEGATIVE (NEGATIVE); Ketones NEGATIVE (NEGATIVE); Leukocyte Esterase NEGATIVE (NEGATIVE); Nitrite NEGATIVE (NEGATIVE); Protein,Urine Dip 100 (Negative); Specific Gravity 1.019 (1.005-1.025); Urobilinogen 2 mg/dL (0-1)
[2018-03-30 18:20] LABS: RBC >101 /HPF (0-2)
[2018-03-30] MEDS ORDERED: ROCEPHIN 1 Gm-D5w 50 ml Bag** 1 G/50 ML IVPB IV STA (18:26)
[2018-03-30] MEDS ORDERED: ROCEPHIN 1 Gm-D5w 50 ml Bag** 1 G/50 ML IVPB IV ONE (18:30)
[2018-03-30 18:57] VITALS: BP 119/77; PULSE 56; O2SAT 95
--- NOTE | 2018-03-30 20:43 | XRAY ---
Indication: Cough and weakness. Comparison: January 27, 2018. PA/lateral chest remains clear again with incidental calcified granulomas. Heart and mediastinal structures within normal limits. Bony thorax intact. Impression: Stable nonacute chest with again evidence for old granulomatous disease.
== END 2018-03-30 19:10 | disposition home or self-care (01) ==
LOC: ED 16:07
DX: N39.0 Urinary tract infection, site not specified (principal); E78.00 Pure hypercholesterolemia, unspecified; I10 Essential (primary) hypertension; G40.909 Epilepsy, unspecified, not intractable, without status epilepticus; E03.9 Hypothyroidism, unspecified; M19.90 Unspecified osteoarthritis, unspecified site; K21.9 Gastro-esophageal reflux disease without esophagitis; Z79.01 Long term (current) use of anticoagulants; Z79.899 Other long term (current) drug therapy; I25.2 Old myocardial infarction
CPT/HCPCS: 36000; 36415; 71046; 80053; 81001; 83605; 84484; 85025; 87040; 87086; 93005; 96360; 96365; 99284; J0696

== ENCOUNTER 2018-05-13 09:28 | Emergency (ER) | payer MEDICARE, OTHER ==
--- NOTE | 2018-05-13 09:47 | ERPHSYRPT ---
- History of Present Illness Time Seen by Provider: 05/13/18 09:45 Historian: patient Exam Limitations: no limitations Physician History: 72 y/o white male presents with mild lower abd pain. pt has a h/o diverticulitis. he was tx 12 days ago with antibx for this. sx improved, however , pelvic tenderness persists. pt also has to sit down to urinate because he is having trouble discerning between passing flatus and solid stool. Timing/Duration: day(s) (4 or 5 days) Quality: aching, pressure Abdominal Pain Onset Location: suprapubic Pain Radiation: no radiation Severity of Pain-Max: mild Severity of Pain-Current: mild Modifying Factors: Improves With: defecating, urinating Associated Symptoms: No chest pain, No diaphoresis, No nausea, No vomiting Previous symptoms: same symptoms as today Allergies/Adverse Reactions: sulfamethoxazole [From Bactrim] Allergy (Intermediate, Verified 05/13/18 09:34) Hives Home Medications: Tamsulosin HCl 0.4 mg [Flomax 0.4 MG] 0.4 mg PO HS 11/30/11 [History] Aspirin 81 gm Chew [Baby Aspirin 81 mg Chew] 81 mg PO DAILY 12/18/13 [ History] Levetiracetam [Keppra] 375 mg PO DAILY 12/18/13 [History] Pravastatin Sodium [Pravachol] 40 mg PO HS 10/17/15 [History] Quetiapine Fumarate 25 mg [Seroquel 25 MG] 25 mg PO TID 01/18/16 [History] Apixaban [Eliquis 2.5 mg Tablet] 2.5 mg PO BID 02/08/18 [History] Levothyroxine Sodium 25 Mcg [Synthroid 25 Mcg] 25 mcg PO DAILY 02/08/18 [ History] Metoprolol Tartrate 25 mg [Lopressor 25MG Tab] 25 mg PO BID 02/08/18 [ History] Sacubitril/Valsartan [Entresto 24 mg-26 mg Tablet] 24 mg PO BID 02/08/18 [ History] Amiodarone HCl 200 mg PO BID 03/30/18 [History] Hx Tetanus, Diphtheria Vaccination/Date Given: No Hx Influenza Vaccination/Date Given: Yes Hx Pneumococcal Vaccination/Date Given: Yes - Review of Systems Constitutional: No Symptoms Eyes: No Symptoms Ears, Nose, & Throat: No Symptoms Respiratory: No Symptoms Cardiac: No Symptoms Abdominal/Gastrointestinal: Abdominal Pain (suprapubic), No Nausea, No Vomiting , No Diarrhea, No Constipation Genitourinary Symptoms: No Symptoms Musculoskeletal: No Symptoms Skin: No Symptoms Neurological: No Symptoms Psychological: No Symptoms Endocrine: No Symptoms Hematologic/Lymphatic: No Symptoms Immunological/Allergic: No Symptoms All Other Systems: Reviewed and Negative - Past Medical History Pertinent Past Medical History: Yes Neurological History: No Pertinent History ENT History: No Pertinent History Cardiac History: Arrhythmia, High Cholesterol, Hypertension, Myocardial Infarction ([place]) Respiratory History: No Pertinent History Endocrine Medical History: No Pertinent History Musculoskeletal History: Arthritis, Osteoarthritis GI Medical History: GERD, GI Bleed History: No Pertinent History Psycho-Social History: No Pertinent History Male Reproductive Disorders: No Pertinent History Other Medical History: Stents in heart and L leg, hx of prostate infections, 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 cardaic stents x2. lt leg stents x2. heart cath 01/2018 - Social History Smoking Status: Former smoker How long have you smoked: 40 years Exposure to second hand smoke: No Drug Use: none Patient Lives Alone: Yes - Nursing Vital Signs Nursing Vital Signs: Initial Vital Signs Temperature 97.3 F 05/13/18 09:39 Pulse Rate 54 L 05/13/18 09:39 Respiratory Rate 16 05/13/18 09:39 Blood Pressure 131/74 05/13/18 09:39 O2 Sat by Pulse Oximetry 97 05/13/18 09:39 Pain Scale Pain Intensity 3 - Physical Exam General Appearance: mild distress, alert, anxiety Eye Exam: PERRL/EOMI Ears, Nose, Throat Exam: normal ENT inspection, moist mucous membranes Neck Exam: normal inspection, non-tender, supple, full range of motion Respiratory Exam: normal breath sounds, lungs clear, airway intact, No chest tenderness, No respiratory distress Cardiovascular Exam: regular rate/rhythm, normal heart sounds, normal peripheral pulses Gastrointestinal/Abdomen Exam: soft, normal bowel sounds, tenderness (mild suprapubic), No guarding, No rebound Rectal Exam: not done Back Exam: normal inspection, normal range of motion, No CVA tenderness, No vertebral tenderness Extremity Exam: normal inspection, normal range of motion, pelvis stable Neurologic Exam: alert, oriented x 3, cooperative, credit assessment analyst II-XII nml as tested Skin Exam: normal color, warm, dry Lymphatic Exam: No adenopathy SpO2 Interpretation: normal O2 Delivery: Room Air Ordered Tests: Active Orders 24 hr Category Date Time Status Clean Catch Urine Specimen STAT Care 05/13/18 10:09 Active IV Insertion STAT Care 05/13/18 10:09 Active ABDOMEN AND PELVIS W/0 CONTRAS [CT] Stat Exams 05/13/18 10:11 Completed AMYLASE Stat Lab 05/13/18 10:00 Completed CBC W DIFF Stat Lab 05/13/18 10:00 Completed CMP Stat Lab 05/13/18 10:00 Completed LIPASE Stat Lab 05/13/18 10:00 Completed Lactic Acid Stat Lab 05/13/18 10:46 Completed UA W/RFX UR CULTURE Stat Lab 05/13/18 10:09 Uncollected Medication Summary Generic Name Dose Route Start Last Admin Trade Name Freq PRN Reason Stop Dose Admin Sodium Chloride 1,000 mls @ 999 mls/hr 05/13/18 10:09 05/13/18 10:51 Sodium Chloride 0.9% 1000 Ml IV 05/13/18 11:09 999 mls/hr .Q1H1M STA Administration Discontinued Medications Generic Name Dose Route Start Last Admin Trade Name Freq PRN Reason Stop Dose Admin Sodium Chloride Confirm 05/13/18 10:50 Sodium Chloride 0.9% 1000 Ml Administered 05/13/18 10:51 Dose 1,000 mls @ ud .ROUTE .STK-MED ONE Lab/Rad Data: Laboratory Result Diagrams 05/13/18 10:00 05/13/18 10:00 Laboratory Results 05/13/18 05/13/18 05/13/18 Range/Units 10:46 10:00 10:00 WBC 4.9 (4.0-10.5) K/mm3 RBC 3.80 L (4.1-5.6) M/mm3 Hgb 12.8 (12.5-18.0) gm/dl Hct 38.1 L (42-50) % MCV 100.3 H (78-100) fl MCH 33.6 H (26-32) pg MCHC 33.6 (32-36) g/dl RDW 13.9 (11.5-14.0) % Plt Count 144 L (150-450) K/mm3 MPV 11.7 H (6-9.5) fl Gran % 63.1 (36.0-66.0) % Eos # (Auto) 0.07 (0-0.5) Absolute Lymphs (auto) 1.24 (1.0-4.6) Absolute Monos (auto) 0.49 (0.0-1.3) Lymphocytes % 25.2 (24.0-44.0) % Monocytes % 9.9 (0.0-12.0) % Eosinophils % 1.4 (0.00-5.0) % Basophils % 0.4 (0.0-0.4) % Absolute Granulocytes 3.11 (1.4-6.9) Basophils # 0.02 (0-0.4) Sodium 138 (137-145) mmol/L Potassium 4.4 (3.5-5.1) mmol/L Chloride 109 H (98-107) mmol/L Carbon Dioxide 22 (22-30) mmol/L Anion Gap 11.3 (5-15) MEQ/L BUN 27 H (9-20) mg/dL Creatinine 1.73 H (0.66-1.25) mg/dL Estimated GFR 41.5 ML/MIN Glucose 103 (74-106) mg/dL Lactic Acid 1.1 (0.4-2.0) Calcium 9.4 (8.4-10.2) mg/dL Total Bilirubin 1.10 (0.2-1.3) mg/dL AST 31 (17-59) U/L ALT 26 (0-50) U/L Alkaline Phosphatase 30 L (38-126) U/L Serum Total Protein 6.8 (6.3-8.2) g/dL Albumin 3.8 (3.5-5.0) g/dL Amylase 76 (30-110) U/L Lipase 129 (23-300) U/L - Progress Progress: unchanged Progress Note: 05/13/18 11:07 ct scan abd/pelvis-left mid ureteral 5mm stone without hydronephrosis or hydroureter. Counseled pt/family regarding: lab results, diagnosis, need for follow-up, rad results - Departure Time of Disposition: 11:09 Departure Disposition: Home Clinical Impression: Left ureteral calculus Condition: Stable Critical Care Time: No Referrals: MARISA RAYO [Primary Care Provider] - Additional Instructions: drink plenty of fluids. add ibuprofen 3 times daily with food for pain. follow up with primary doctor for further management
[2018-05-13 09:50] VITALS: O2SAT 97
[2018-05-13] MEDS ORDERED: Sodium Chloride 0.9% 1000 ML 1,000 ML IV STA (10:09)
[2018-05-13 10:25] LABS: BASOPHIL % 0.4 % (0.0-0.4); Basophil (Absolute #) 0.02 (0-0.4); Eosinophil % 1.4 % (0.00-5.0); Eosinophil (Absolute #) 0.07 (0-0.5); Granulocyte Absolute (ANC) 3.11 (1.4-6.9); Granulocytes % 63.1 % (36.0-66.0); Hematocrit 38.1 % (42-50); Hemoglobin 12.8 gm/dl (12.5-18.0); Lymphocyte (Absolute #) 1.24 (1.0-4.6); Lymphocytes % 25.2 % (24.0-44.0); Mean Cell Volume 100.3 fl (78-100); Mean Corpuscular Hgb Concent. 33.6 g/dl (32-36); Mean Platelet Volume 11.7 fl (6-9.5); Monocyte (Absolute #) 0.49 (0.0-1.3); Monocytes % 9.9 % (0.0-12.0); Platelet Count 144 K/mm3 (150-450); Red Cell Distribution Width 13.9 % (11.5-14.0); White Blood Count 4.9 K/mm3 (4.0-10.5)
[2018-05-13 10:26] LABS: Mean Corpuscular Hemoglobin 33.6 pg (26-32)
[2018-05-13 10:33] LABS: ALBUMIN 3.8 g/dL (3.5-5.0); ANION GAP 11.3 MEQ/L (5-15); BILIRUBIN,TOTAL 1.1 mg/dL (0.2-1.3); Calcium 9.4 mg/dL (8.4-10.2); Creatinine 1 1.73 mg/dL (0.66-1.25); Potassium 4.4 mmol/L (3.5-5.1); Total Protein 6.8 g/dL (6.3-8.2)
[2018-05-13] MEDS ORDERED: Sodium Chloride 0.9% 1000 ML 1,000 ML ONE (10:50)
--- NOTE | 2018-05-13 11:01 | XRAY ---
Indication: Lower abdomen pain. Diverticulitis. Multiple contiguous axial images obtained through the abdomen and pelvis without contrast as ordered. Comparison: January 18, 2016. Lung bases demonstrate stable tiny bibasilar calcified granulomas. No infiltrate or effusion. Heart is not enlarged. New small hiatal hernia. Noncontrasted stomach and bowel loops appear nonobstructed. Normal appendix. Again mild diffuse scattered colonic fecal debris throughout. Mild descending/sigmoid diverticulosis without diverticulitis. No free fluid/air. New 5 mm left mid ureter calculus, approximately L5 level without hydronephrosis or hydroureter. Stable bilateral renal cysts, mild right hydronephrosis, nonobstructing left lower renal micro-calculi, and calcified splenic granulomas. Remaining liver, gallbladder, pancreas, spleen, adrenal glands, kidneys, ureters, and bladder appear unremarkable for noncontrast exam. Remains mild/moderate aortoiliac calcifications with distal 3.1 cm AAA. Osseous structures intact again with mild osteopenia and mild degenerative changes throughout the spine. Stable small fatty right inguinal hernia. Impression: 1. New 5 mm left mid ureter calculus without hydronephrosis/hydroureter. 2. New small hiatal hernia. 3. Again fecal stasis without obstruction and colonic diverticulosis without diverticulitis. 4. Stable bilateral renal cysts, nonobstructing left renal micro-calculi, chronic right hydronephrosis, small fatty right inguinal hernia, mild distal AAA, and evidence for granulomatous disease. CT DI 22.38
[2018-05-13] MEDS ORDERED: TORAdol 30 mg Injection IV ONE (11:08)
[2018-05-13 11:22] VITALS: BP 121/71; PULSE 49
[2018-05-13] MEDS ORDERED: TORAdol 30 mg Injection ONE (11:29)
[2018-05-13 11:36] LABS: Appearance CLEAR (CLEAR); Bilirubin NEGATIVE (NEGATIVE); Blood MODERATE Ery/ul (0-5); Glucose NEGATIVE (NEGATIVE); Ketones NEGATIVE (NEGATIVE); Leukocyte Esterase NEGATIVE (NEGATIVE); Nitrite NEGATIVE (NEGATIVE); Protein,Urine Dip NEGATIVE (Negative); RBC 26-50 /HPF (0-2); Specific Gravity 1.011 (1.005-1.025); Urobilinogen NEGATIVE mg/dL (0-1)
[2018-05-13 11:37] LABS: Bacteria FEW /HPF (NEGATIVE); Epithelial Cells FEW /HPF (FEW)
== END 2018-05-13 12:03 | disposition home or self-care (01) ==
LOC: ED 09:28
DX: N20.1 Calculus of ureter (principal); E78.00 Pure hypercholesterolemia, unspecified; I10 Essential (primary) hypertension; I25.2 Old myocardial infarction; K21.9 Gastro-esophageal reflux disease without esophagitis; M19.90 Unspecified osteoarthritis, unspecified site; Z79.01 Long term (current) use of anticoagulants; Z79.899 Other long term (current) drug therapy
CPT/HCPCS: 36000; 36415; 74176; 80053; 81001; 82150; 83605; 83690; 85025; 87086; 96360; 96374; 99284; J1885

== ENCOUNTER 2018-06-20 05:57 | Day surgery (SDC) | payer MEDICARE, OTHER ==
[2018-06-20] MEDS ORDERED: DIPRIVAN 200 MG/20 ML IV ONE (05:58)
[2018-06-20] MEDS ORDERED: Lactated Ringers 1,000 ML IV SCH (06:30)
[2018-06-20] MEDS ORDERED: Lactated Ringers 1,000 ML IV ONE ×2 (06:32→08:02)
[2018-06-20 08:45] VITALS: O2SAT 97
--- NOTE | 2018-06-20 08:51 | OP ---
SURGERY DATE/TIME: 06/20/2018 0733 PREOPERATIVE DIAGNOSIS: History of colon polyps. POSTOPERATIVE DIAGNOSIS: Proximal transverse colon polyp and sigmoid diverticulosis. PROCEDURE: Colonoscopy with polypectomy. SURGEON: Dr. Watson. ANESTHESIA: MAC. Medications given by anesthesia department. HISTORY: The patient is a 72 year-old white male patient presenting now for colonoscopic evaluation. He reports he had previous colonoscopy the first one he had colon polyps removed. The patient was felt the need to have endoscopic evaluation. He was appraised of the risks of the procedure including the risk of perforation, phlebitis, untoward reaction to medication, bleeding and missed lesions. The patient verbalized his understanding and desired to have the procedure performed. DESCRIPTION OF PROCEDURE: The patient was given the medications by the anesthesia department. He had continuous pulse oximetry, ECG monitoring, intermittent blood pressure monitoring and tidal CO2 monitoring during the examination. He was placed in the left lateral decubitus position. A digital rectal examination was performed and revealed normal anal sphincter tone, no masses and normal prostate. The flexible Olympus pediatric colonoscope was used to intubate the rectum. A view of the colon was developed sequentially to the cecum. Upon insertion and withdrawal was noted a small polyp in the transverse colon proximal area measuring approximately 1 cm in size. It was pedunculated. It was removed using polypectomy snare and electrocautery and retrieval of the polyp for pathologic evaluation. There was also noted to be mild sigmoid diverticulosis. No other mucosal lesions were encountered. The scope was removed from the patient who tolerated the procedure well and was sent back to OP recovery in good condition. The prep was noted to be fair to good.
[2018-06-20 08:53] VITALS: BP 129/70; PULSE 61
== END 2018-06-20 09:00 | disposition home or self-care (01) ==
LOC: SDC 05:57
PROVIDERS: ATTEND Family Medicine
DX: Z12.11 Encounter for screening for malignant neoplasm of colon (principal); D12.3 Benign neoplasm of transverse colon; K57.30 Diverticulosis of large intestine without perforation or abscess without bleeding; Z86.010 Personal history of colon polyps
CPT/HCPCS: 88305; 99100; J2704

== ENCOUNTER 2020-02-22 10:00 | Day surgery (SDC) | payer MEDICARE, OTHER ==
--- NOTE | 2020-02-22 08:31 | HP ---
DATE OF SURGERY: 02/22/2020 HISTORY OF PRESENT ILLNESS: The patient is a 74 year old who developed some pain and some increased discomfort when he walks in the right inguinal area four years ago. He had left inguinal hernia repair in the past. PAST MEDICAL HISTORY: Heart disease, chronic depression, epilepsy, coronary artery disease, atrial fibrillation in the past. History of Dupuytren's in the past. Hypercholesterolemia, hypertension. Pacemaker defibrillator in the past by cardiology. PAST SURGICAL HISTORY: Left inguinal hernia repair in the past. He had left little finger surgery in the past. Pacemaker in the past. Stents in the past. Endoscopy in the past. MEDICATIONS: Ventolin HFA for some lung disease. Pravastatin. Toprol. Aspirin. Loratadine. Levothyroxine for some hyperthyroidism. Hydrocodone. Fluoxetine. Flomax. Ezetimibe. Eliquis. Entresto in the past. ALLERGIES: BACTRIM. SULFA. FAMILY HISTORY: Diabetes, heart disease. SOCIAL HISTORY: No smoking or alcohol abuse. REVIEW OF SYSTEMS: Fourteen systems reviewed pertinent for as noted above and per admission assessment. No chest pain or palpitations. He received cardiac clearance from Dr. Hernandez. PHYSICAL EXAMINATION: GENERAL: No acute distress. HEENT: Sclerae nonicteric. NECK: No JVD. CHEST: Equal excursion, nonlabored breathing currently. CVS: Regular rate and rhythm. ABDOMEN: Soft. No peritoneal signs. Right inguinal hernia on exam. No evidence of left recurrence at the moment. EXTREMITIES: No significant edema. NEURO: Alert, oriented, moving extremities symmetrically. PSYCH: Appropriate mood and affect. IMPRESSION: Right inguinal hernia. Discussed options with the patient in detail of open versus laparoscopic or robotic-assisted laparoscopic. He prefers to proceed with open approach locally at [facility]. Risks and benefits explained in detail but not limited to. He was shown the risk sheet, explained the procedure in detail but not limited to bleeding or infection, risk of ingrown hair or suture reaction, risk of mesh infection possibly requiring removal of mesh, risk of swelling or firmness over the incision, risk of hematoma or seroma formation, risk of black, blue and bruising, risk of urinary retention, risk of hernia recurrence, risk of aches, pains, burning; numbness lower abdomen, groin, thigh or scrotal area possible skilled nursing or chronic in nature up to 10 to 12%, possibly high risk of intermittent aches or twinge possible worse chronic aches and pain, possibly interfering with sexual function from the pain standpoint with risk of sensory nerve irritation, scar formation, general risk of anesthesia, deep venous thrombosis, pulmonary embolism, pneumonia but not limited to as well as overall risk of hernia recurrence. He understands and agrees with the planned procedure. We had a long discussion of various options and prefers to proceed with open repair right inguinal hernia with mesh as an outpatient.
[~2020-02-22 10:00] MED LIST: Lactated Ringers 1,000 ML IV ONE; Sensorcaine 0.25% 10 ML ONE
[2020-02-22] MEDS ORDERED: CEFAZOLIN 2 GM-D5W BAG** 2 GM/50 ML ML IV SCH (10:30)
[2020-02-22] MEDS ORDERED: Lactated Ringers 1,000 ML IV SCH (10:30)
[2020-02-22] MEDS ORDERED: Zofran 4 MG/2 ML VIAL ONE (11:18)
[2020-02-22] MEDS ORDERED: SUBLIMAZE 100 MCG/2 ML ONE ×2 (11:18→13:32)
[2020-02-22] MEDS ORDERED: Xylocaine-Mpf 2% 5 Ml Vial ONE ×2 (11:18→11:47)
[2020-02-22] MEDS ORDERED: Decadron 4 MG INJ ONE (11:18)
[2020-02-22] MEDS ORDERED: DIPRIVAN 200 MG/20 ML IV ONE (11:18)
[2020-02-22] MEDS ORDERED: TORAdol 30 mg Injection ONE (11:19)
[2020-02-22] MEDS ORDERED: PHENYLEPHRINE HCL ONE (12:48)
[2020-02-22] MEDS ORDERED: Naropin 0.5% 30 ML VIAL ONE (13:14)
[2020-02-22] MEDS ORDERED: Hydromorphone 1 mg/ml Injection ONE (13:32)
[2020-02-22] MEDS ORDERED: MORPHINE SULFATE 10 MG/ML ONE (14:00)
[2020-02-22] MEDS ORDERED: Compazine 10 MG/2 ML ONE (14:09)
[2020-02-22 15:41] VITALS: PULSE 81
[2020-02-22 15:42] VITALS: BP 134/88; O2SAT 97
--- NOTE | 2020-02-23 08:09 | OP ---
SURGERY DATE/TIME: 02/22/2020 1141 PREOPERATIVE DIAGNOSIS: Right inguinal hernia. POSTOPERATIVE DIAGNOSIS: Right inguinal hernia including cord lipoma. PROCEDURES: 1) Repair of large right inguinal hernia with mesh. 2) Excision of cord lipoma. SURGEON: Dr. Darnell Worthington. ANESTHESIA: General. ESTIMATED BLOOD LOSS: Minimal. INDICATIONS: As noted above. Risks and benefits explained in detail and not limited to and consent obtained. The site was confirmed and marked with the patient. DESCRIPTION OF PROCEDURE AND FINDINGS: The patient is taken to the operating room. General anesthesia induced. He was prepped and draped in usual sterile fashion. After official time out and no disagreement with planned procedure, a transverse incision made right inguinal area. Dissection carried down through a large amount of adipose tissue down to the external oblique and split in the direction of its fibers towards the external ring. The visible ilioinguinal hypogastric nerve branch carefully protected. The cord was mobilized up off the pubic tubercle with Claire drain. The Cremasteric fibers . There were a couple of cord lipomas out laterally and actually one medially and these were isolated and high ligated with 3-0 Vicryl suture ligature and passed off. A large hernia sac was carefully from the cord structures. It was opened. It had a sliding component and large amount of adipose tissue hanging off the colon. This took some time to free this up. It was finally able to be reduced back in the abdomen this is high ligated with 0 Prolene. The direct hernia component was imbricated downwards with 0 PDS to a more normal sized internal ring. A 2 x 4 piece of mesh cut to appropriate dimensions with keyhole cuts secured to fascia overlying pubic tubercle with 0 Prolene run along Leodan's ligament, shelving portion of the inguinal ligament and laterally past the internal ring with 0 Prolene. 0 Prolene used to transfix the tails of the mesh laterally with the internal ring together with 0 Prolene used to transfix the aponeurosis to the rectus sheath medially. 0 Vicryl used to transfix the aponeurosis to the internal oblique superiorly avoiding the visible branch of the iliohypogastric nerve. The mesh is lying nice and flat in a tension-free manner. The new internal ring was felt to be not too tight. Copious amount of irrigation irrigating until clear. Good hemostasis noted. External oblique closed with 0 Vicryl, Nita closed with 3-0 Vicryl. Subcu closed with 3-0 Vicryl. Skin closed with 4-0 Vicryl. 0.25% Marcaine local injected along the skin incision back towards the origin of the inguinal nerve and back towards the anterior iliac spine transversus abdominal area. The patient tolerated the procedure well. There was no family available to discuss the findings with at this time.
== END 2020-02-22 15:50 | disposition home or self-care (01) ==
LOC: SDC 10:00
PROVIDERS: ATTEND Surgery
DX: K40.90 Unilateral inguinal hernia, without obstruction or gangrene, not specified as recurrent (principal); D17.6 Benign lipomatous neoplasm of spermatic cord; Z79.899 Other long term (current) drug therapy; Z79.01 Long term (current) use of anticoagulants
CPT/HCPCS: 49505; 55520; C1781; 99100; J0690; J1100; J1170; J1885; J2270; J2370; J2405; J2704; J2795; J3010

== ENCOUNTER 2020-08-07 21:07 | Emergency (ER) | payer MEDICARE, OTHER ==
[2020-08-07] MEDS ORDERED: Sodium Chloride 0.9% 1000 ML 1,000 ML IV SCH (21:15)
[2020-08-07] MEDS ORDERED: Sodium Chloride 0.9% 1000 ML 1,000 ML ONE (21:26)
[2020-08-07 21:46] LABS: Absolute Neutrophil Ct (ANC) 2.87 (1.4-6.9); BASOPHIL % 0.3 % (0.0-0.4); Basophil (Absolute #) 0.02 (0-0.4); Eosinophil (Absolute #) 0.18 (0-0.5); Hematocrit 36.5 % (42-50); Lymphocytes % 36.9 % (24.0-44.0); Mean Cell Volume 95.8 fl (78-100); Mean Corpuscular Hemoglobin 31.5 pg (26-32); Mean Corpuscular Hgb Concent. 32.9 g/dl (32-36); Mean Platelet Volume 10.5 fl (7.5-11.0); Monocyte (Absolute #) 0.69 (0.0-1.3); Monocytes % 11.6 % (0.0-12.0); Neutrophil % 48.2 % (36.0-66.0); Platelet Count 150 K/mm3 (150-450); Red Blood Count 3.81 M/mm3 (4.1-5.6); Red Cell Distribution Width 12.6 % (11.5-14.0)
--- NOTE | 2020-08-07 21:49 | ERPHSYRPT ---
- History of Present Illness Time Seen by Provider: 08/07/20 21:20 Source: patient Exam Limitations: no limitations Patient Subjective Stated Complaint: Patient states " I have been feeling like I can't catch my breath since I got up this morning around 0600." Triage Nursing Assessment: . Physician History: Kevin is a 74-year-old white male who presents with a complaint of shortness of air. He had a heart ablation 1 week ago at [facility] in [place]. He has a pacemaker and a defibrillator he is on Eliquis his medications also include aspirin 81 he denies any chest pain he has been very fatigued and short of breath with any exertion but denies any fever chills or sweats. He mowed the yard all day Saturday and thinks that he may have dehydrated himself causing the weakness and the shortness of breath. Timing/Duration: yesterday Activities at Onset: other (Mowing 2 days ago) Severity of Dyspnea-Max: moderate Severity of Dyspnea-Current: moderate Possible Cause: occasional episodes Modifying Factors: Improves With: activity, exertion Associated Symptoms: denies symptoms Allergies/Adverse Reactions: sulfamethoxazole [From Bactrim] Allergy (Intermediate, Verified 08/07/20 21:10) Hives Home Medications: Tamsulosin HCl 0.4 mg [Flomax 0.4 MG] 0.4 mg PO HS 11/30/11 [History] Pravastatin Sodium [Pravachol] 40 mg PO HS 10/17/15 [History] Levothyroxine Sodium 25 Mcg [Synthroid 25 Mcg] 25 mcg PO DAILY 02/08/18 [History] Metoprolol Tartrate 25 mg [Lopressor 25MG Tab] 12.5 mg PO BID 02/08/18 [History] Sacubitril/Valsartan [Entresto 24 mg-26 mg Tablet] 12 mg PO BID 02/08/18 [History] Fluoxetine HCl 20 mg [Prozac 20 MG] 10 mg PO DAILY 06/11/18 [History] Dofetilide [Tikosyn] 500 mcg PO BID 02/22/20 [History] Ezetimibe 10 mg [Zetia 10 MG] 10 mg PO DAILY 02/22/20 [History] Magnesium Oxide 400 mg [Mag-Ox 400] 400 mg PO BID 08/07/20 [History] Hx Tetanus, Diphtheria Vaccination/Date Given: Yes Hx Influenza Vaccination/Date Given: Yes Hx Pneumococcal Vaccination/Date Given: Yes Immunizations Up to Date: Yes Travel Risk - International Travel Have you traveled outside of the country in past 3 weeks: No - Coronavirus Screening Are you exhibiting any of the following symptoms?: Yes Symptoms: Cough: New Onset, Shortness of Breath, Headaches/Body Aches/Fatigue Close contact with a COVID-19 positive Pt in past 14-21 Days: No - Vaccine Status Have you recieved a Covid-19 vaccination: Yes 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[employer] - Vaccination Dates Date of 2cond Vaccination (if applicable): 05/08/20 - Review of Systems Constitutional: No Fever, No Chills Eyes: No Symptoms Ears, Nose, & Throat: No Symptoms Respiratory: Dyspnea, Dyspnea on Exertion (HENDRIX), No Cough Cardiac: No Chest Pain, No Edema, No Syncope Abdominal/Gastrointestinal: No Abdominal Pain, No Nausea, No Vomiting, No Diarrhea Genitourinary Symptoms: No Dysuria Musculoskeletal: No Back Pain, No Neck Pain Skin: No Rash Neurological: No Dizziness, No Focal Weakness, No Sensory Changes Psychological: No Symptoms Endocrine: No Symptoms All Other Systems: Reviewed and Negative - Past Medical History Pertinent Past Medical History: Yes Neurological History: Peripheral Neuropathy ENT History: No Pertinent History Cardiac History: High Cholesterol, Hypertension, Myocardial Infarction ([place]), Other Respiratory History: No Pertinent History Endocrine Medical History: Hypothyroidism Musculoskeletal History: Arthritis GI Medical History: GERD, GI Bleed History: No Pertinent History Psycho-Social History: No Pertinent History Male Reproductive Disorders: No Pertinent History Other Medical History: Pacemaker Defibrillator, Heart Ablasion (08/02/20), Cardiac Stents x3 (1999), 2 stents in LLE (2000) - Past Surgical History Past Surgical History: Yes Neuro Surgical History: No Pertinent History Cardiac: Cardiac Catheterization, Cardiac Stent Respiratory: No Pertinent History Gastrointestinal: Hernia Repair Genitourinary: Other Musculoskeletal: No Pertinent History Male Surgical History: No Pertinent History Other Surgical History: TURP - 2013. cardaic stents x2. lt leg stents x2. heart cath 01/2018 - Social History Smoking Status: Former smoker How long have you smoked: 40 years Exposure to second hand smoke: Yes Drug Use: none Patient Lives Alone: Yes - Nursing Vital Signs Nursing Vital Signs: Initial Vital Signs Temperature 97.6 F 08/07/20 21:09 Pulse Rate 70 08/07/20 21:09 Respiratory Rate 18 08/07/20 21:09 Blood Pressure 135/82 08/07/20 21:09 O2 Sat by Pulse Oximetry 97 08/07/20 21:09 Pain Scale Pain Intensity 0 - Physical Exam General Appearance: mild distress, alert Eye Exam: PERRL/EOMI Neck Exam: normal inspection, supple Respiratory Exam: normal breath sounds, lungs clear Cardiovascular/Chest Exam: normal heart sounds, regular rate/rhythm Abdominal/Gastrointestinal Exam: soft, No tenderness, No distention, No mass Extremity Exam: non-tender, normal range of motion, normal inspection, no calf tenderness, no pedal edema Neurologic Exam: alert, oriented x 3, cooperative, 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 tested, sensation nml, No motor deficits Skin Exam: normal color, warm, No dry SpO2 Interpretation: normal SpO2: 97 O2 Delivery: Room Air - Course EKG Interpreted by Me: RATE (70 paced rhythm), Left Bundle Branch Block - Radiology Exams Chest X-ray Interpretation: Interpreted by me, Other (CHF) - CT Exams Chest CT Interpretation: Tele-radiologist Report Ordered Tests: Active Orders 24 hr Category Date Time Status EKG-ER Only STAT Care 08/07/20 21:14 Active Oxygen-ED Only Nasal Cannula 2 lpm Care 08/07/20 21:14 Active CHEST 1 VIEW (PORTABLE) Stat Exams 08/07/20 21:14 Taken CHEST WITH CONTRAST [CT] Stat Exams 08/08/20 00:12 Taken AMYLASE Stat Lab 08/07/20 21:39 Completed CBC W DIFF Stat Lab 08/07/20 21:39 Completed CMP Stat Lab 08/07/20 21:39 Completed D-DIMER QUANTITATIVE Stat Lab 08/07/20 21:39 Completed LIPASE Stat Lab 08/07/20 21:39 Completed Lactic Acid Stat Lab 08/07/20 21:58 Completed MAGNESIUM Stat Lab 08/07/20 21:39 Completed NT PRO BNP Stat Lab 08/07/20 21:39 Completed PROTIME WITH INR Stat Lab 08/07/20 21:39 Completed TROPONIN Q3H Lab 08/07/20 21:39 Completed TROPONIN Q3H Lab 08/08/20 00:20 Completed TROPONIN Q3H Lab 08/08/20 03:15 Ordered TROPONIN Q3H Lab 08/08/20 06:15 Ordered TROPONIN Q3H Lab 08/08/20 09:15 Ordered UA W/RFX UR CULTURE Stat Lab 08/07/20 22:47 Completed Medication Summary Generic Name Dose Route Start Last Admin Trade Name Freq PRN Reason Stop Dose Admin Sodium Chloride 1,000 mls @ 50 mls/hr 08/07/20 21:15 08/07/20 21:28 Sodium Chloride 0.9% 1000 Ml IV 09/06/20 21:14 50 mls/hr .Q20H HUNTER Administration Discontinued Medications Generic Name Dose Route Start Last Admin Trade Name Freq PRN Reason Stop Dose Admin Furosemide 40 mg 08/07/20 22:53 08/07/20 23:29 Lasix 40 Mg/4 Ml IV 08/07/20 22:54 40 mg STAT ONE Administration Furosemide Confirm 08/07/20 23:28 Lasix 40 Mg/4 Ml Administered 08/07/20 23:29 Dose 40 mg .ROUTE .[employer] ONE Lab/Rad Data: Laboratory Result Diagrams 08/07/20 21:39 08/07/20 21:39 Laboratory Results 08/08/20 08/07/20 08/07/20 Range/Units 00:20 22:47 21:58 WBC (4.0-10.5) K/mm3 RBC (4.1-5.6) M/mm3 Hgb (12.5-18.0) gm/dl Hct (42-50) % MCV (78-100) fl MCH (26-32) pg MCHC (32-36) g/dl RDW (11.5-14.0) % Plt Count (150-450) K/mm3 MPV (7.5-11.0) fl Gran % (36.0-66.0) % Eos # (Auto) (0-0.5) Absolute Lymphs (auto) (1.0-4.6) Absolute Monos (auto) (0.0-1.3) Lymphocytes % (24.0-44.0) % Monocytes % (0.0-12.0) % Eosinophils % (0.00-5.0) % Basophils % (0.0-0.4) % Absolute Granulocytes (1.4-6.9) Basophils # (0-0.4) PT (9.4-12.5) SECONDS INR (0.8-3.0) D-Dimer (215-500) ng/mL Sodium (137-145) mmol/L Potassium (3.5-5.1) mmol/L Chloride (98-107) mmol/L Carbon Dioxide (22-30) mmol/L Anion Gap (5-15) MEQ/L BUN (9-20) mg/dL Creatinine (0.66-1.25) mg/dL Estimated GFR ML/MIN Glucose (74-106) mg/dL Lactic Acid 0.9 (0.4-2.0) Calcium (8.4-10.2) mg/dL Magnesium (1.6-2.3) mg/dL Total Bilirubin (0.2-1.3) mg/dL AST (17-59) U/L ALT (0-50) U/L Alkaline Phosphatase (38-126) U/L Troponin I 0.072 H* (0.000-0.034) ng/mL NT-Pro-B Natriuret Pep (0-900) pg/mL Serum Total Protein (6.3-8.2) g/dL Albumin (3.5-5.0) g/dL Amylase (30-110) U/L Lipase (23-300) U/L Urine Color YELLOW (YELLOW) Urine Appearance CLEAR (CLEAR) Urine pH 6.0 (5-6) Ur Specific [place] 1.009 (1.005-1.025) Urine Protein NEGATIVE (Negative) Urine Ketones NEGATIVE (NEGATIVE) Urine Blood NEGATIVE (0-5) Rahul/ul Urine Nitrite NEGATIVE (NEGATIVE) Urine Bilirubin NEGATIVE (NEGATIVE) Urine Urobilinogen NEGATIVE (0-1) mg/dL Ur Leukocyte Esterase NEGATIVE (NEGATIVE) Urine WBC (Auto) NONE SEEN (0-5) /HPF Urine RBC (Auto) NONE (0-2) /HPF U Epithel Cells (Auto) NONE (FEW) /HPF Urine Bacteria (Auto) NONE (NEGATIVE) /HPF Urine Mucus (Auto) SLIGHT (NEGATIVE) /HPF Urine Culture Reflexed NO (NO) Urine Glucose NEGATIVE (NEGATIVE) mg/dL 08/07/20 08/07/20 08/07/20 Range/Units 21:39 21:39 21:39 WBC (4.0-10.5) K/mm3 RBC (4.1-5.6) M/mm3 Hgb (12.5-18.0) gm/dl Hct (42-50) % MCV (78-100) fl MCH (26-32) pg MCHC (32-36) g/dl RDW (11.5-14.0) % Plt Count (150-450) K/mm3 MPV (7.5-11.0) fl Gran % (36.0-66.0) % Eos # (Auto) (0-0.5) Absolute Lymphs (auto) (1.0-4.6) Absolute Monos (auto) (0.0-1.3) Lymphocytes % (24.0-44.0) % Monocytes % (0.0-12.0) % Eosinophils % (0.00-5.0) % Basophils % (0.0-0.4) % Absolute Granulocytes (1.4-6.9) Basophils # (0-0.4) PT 18.8 H (9.4-12.5) SECONDS INR 1.59 (0.8-3.0) D-Dimer 687 H* (215-500) ng/mL Sodium 137 (137-145) mmol/L Potassium 4.4 (3.5-5.1) mmol/L Chloride 105 (98-107) mmol/L Carbon Dioxide 24 (22-30) mmol/L Anion Gap 12.8 (5-15) MEQ/L BUN 25 H (9-20) mg/dL Creatinine 1.15 (0.66-1.25) mg/dL Estimated GFR > 60.0 ML/MIN Glucose 114 H (74-106) mg/dL Lactic Acid (0.4-2.0) Calcium 9.5 (8.4-10.2) mg/dL Magnesium 1.9 (1.6-2.3) mg/dL Total Bilirubin 1.20 (0.2-1.3) mg/dL AST 39 (17-59) U/L ALT 24 (0-50) U/L Alkaline Phosphatase 53 (38-126) U/L Troponin I 0.076 H* (0.000-0.034) ng/mL NT-Pro-B Natriuret Pep 3670 H (0-900) pg/mL Serum Total Protein 6.9 (6.3-8.2) g/dL Albumin 4.0 (3.5-5.0) g/dL Amylase 68 (30-110) U/L Lipase 45 (23-300) U/L Urine Color (YELLOW) Urine Appearance (CLEAR) Urine pH (5-6) Ur Specific [place] (1.005-1.025) Urine Protein (Negative) Urine Ketones (NEGATIVE) Urine Blood (0-5) Rahul/ul Urine Nitrite (NEGATIVE) Urine Bilirubin (NEGATIVE) Urine Urobilinogen (0-1) mg/dL Ur Leukocyte Esterase (NEGATIVE) Urine WBC (Auto) (0-5) /HPF Urine RBC (Auto) (0-2) /HPF U Epithel Cells (Auto) (FEW) /HPF Urine Bacteria (Auto) (NEGATIVE) /HPF Urine Mucus (Auto) (NEGATIVE) /HPF Urine Culture Reflexed (NO) Urine Glucose (NEGATIVE) mg/dL 08/07/20 Range/Units 21:39 WBC 6.0 (4.0-10.5) K/mm3 RBC 3.81 L (4.1-5.6) M/mm3 Hgb 12.0 L (12.5-18.0) gm/dl Hct 36.5 L (42-50) % MCV 95.8 (78-100) fl MCH 31.5 (26-32) pg MCHC 32.9 (32-36) g/dl RDW 12.6 (11.5-14.0) % Plt Count 150 (150-450) K/mm3 MPV 10.5 (7.5-11.0) fl Gran % 48.2 (36.0-66.0) % Eos # (Auto) 0.18 (0-0.5) Absolute Lymphs (auto) 2.20 (1.0-4.6) Absolute Monos (auto) 0.69 (0.0-1.3) Lymphocytes % 36.9 (24.0-44.0) % Monocytes % 11.6 (0.0-12.0) % Eosinophils % 3.0 (0.00-5.0) % Basophils % 0.3 (0.0-0.4) % Absolute Granulocytes 2.87 (1.4-6.9) Basophils # 0.02 (0-0.4) PT (9.4-12.5) SECONDS INR (0.8-3.0) D-Dimer (215-500) ng/mL Sodium (137-145) mmol/L Potassium (3.5-5.1) mmol/L Chloride (98-107) mmol/L Carbon Dioxide (22-30) mmol/L Anion Gap (5-15) MEQ/L BUN (9-20) mg/dL Creatinine (0.66-1.25) mg/dL Estimated GFR ML/MIN Glucose (74-106) mg/dL Lactic Acid (0.4-2.0) Calcium (8.4-10.2) mg/dL Magnesium (1.6-2.3) mg/dL Total Bilirubin (0.2-1.3) mg/dL AST (17-59) U/L ALT (0-50) U/L Alkaline Phosphatase (38-126) U/L Troponin I (0.000-0.034) ng/mL NT-Pro-B Natriuret Pep (0-900) pg/mL Serum Total Protein (6.3-8.2) g/dL Albumin (3.5-5.0) g/dL Amylase (30-110) U/L Lipase (23-300) U/L Urine Color (YELLOW) Urine Appearance (CLEAR) Urine pH (5-6) Ur Specific [place] (1.005-1.025) Urine Protein (Negative) Urine Ketones (NEGATIVE) Urine Blood (0-5) Rahul/ul Urine Nitrite (NEGATIVE) Urine Bilirubin (NEGATIVE) Urine Urobilinogen (0-1) mg/dL Ur Leukocyte Esterase (NEGATIVE) Urine WBC (Auto) (0-5) /HPF Urine RBC (Auto) (0-2) /HPF U Epithel Cells (Auto) (FEW) /HPF Urine Bacteria (Auto) (NEGATIVE) /HPF Urine Mucus (Auto) (NEGATIVE) /HPF Urine Culture Reflexed (NO) Urine Glucose (NEGATIVE) mg/dL - Progress Progress: improved Air Movement: good Blood Culture(s) Obtained: No Antibiotics given: No - Departure Departure Disposition: Home Clinical Impression: Congestive heart failure (CHF) Condition: Stable Critical Care Time: Yes Critical Care Time(excluding separately billable procedures): Critical 30-74 mins Referrals: FABIENNE ZIEGLER [Primary Care Provider] - Instructions: Heart Failure, Shortness of Breath (Dyspnea) (DC) Prescriptions: Furosemide 20 mg [Lasix 20 mg] 20 mg PO DAILY 30 Days #30 tablet
[2020-08-07 21:56] LABS: INR 1.59 (0.8-3.0); PROTIME 18.8 SECONDS (9.4-12.5)
[2020-08-07 22:11] LABS: ALKALINE PHOSPHATASE 53 U/L (38-126); AMYLASE 68 U/L (30-110); ANION GAP 12.8 MEQ/L (5-15); BLOOD UREA NITROGEN 25 mg/dL (9-20); CHLORIDE 105 mmol/L (98-107); Calcium 9.5 mg/dL (8.4-10.2); Carbon Dioxide 24 mmol/L (22-30); Creatinine 1 1.15 mg/dL (0.66-1.25); EST GLOMERULAR FILTRATION RATE > 60.0 ML/MIN; Glucose 114 mg/dL (74-106); LIPASE 45 U/L (23-300); MAGNESIUM 1.9 mg/dL (1.6-2.3); NT PRO BNP 3670 pg/mL (0-900); Potassium 4.4 mmol/L (3.5-5.1); SGOT/AST 39 U/L (17-59); SGPT/ALT 24 U/L (0-50); SODIUM 137 mmol/L (137-145); Total Protein 6.9 g/dL (6.3-8.2)
[2020-08-07] MEDS ORDERED: Lasix 40 MG/4 ML IV ONE (22:53)
[2020-08-07 23:24] LABS: Appearance CLEAR (CLEAR); Bilirubin NEGATIVE (NEGATIVE); Blood NEGATIVE Ery/ul (0-5); Glucose NEGATIVE (NEGATIVE); Ketones NEGATIVE (NEGATIVE); Leukocyte Esterase NEGATIVE (NEGATIVE); Nitrite NEGATIVE (NEGATIVE); Protein,Urine Dip NEGATIVE (Negative); Specific Gravity 1.009 (1.005-1.025); Urobilinogen NEGATIVE mg/dL (0-1)
[2020-08-07] MEDS ORDERED: Lasix 40 MG/4 ML ONE (23:28)
[2020-08-07 23:35] LABS: Mucus SLIGHT /HPF (NEGATIVE); WBC NONE SEEN /HPF (0-5)
[2020-08-08 02:52] VITALS: O2SAT 97
[2020-08-08 04:05] VITALS: BP 99/75; PULSE 68
--- NOTE | 2020-08-08 08:56 | XRAY ---
Indication: Elevated d-dimer. Status post heart ablation 1 week ago. Multiple contiguous axial images obtained through the chest using 100 cc Isovue 370 contrast and PE protocol. Comparison: November 29, 2017. There is good opacification of the pulmonary arteries to include the lobar and segmental branches. No pulmonary embolus. Heart not enlarged with new left dual-lead pacemaker. Aorta minimally arteriosclerotic without aneurysm/dissection. Stable tiny precarinal and right hilar calcified nodes. No pathologic mediastinal/hilar lymphadenopathy. Lungs demonstrates new patchy right lung airspace disease with small effusion. Stable bilateral dependent atelectasis and tiny bilateral calcified granulomas. Bony thorax again with mild osteopenia and mild degenerative changes throughout the spine. Limited upper abdomen again demonstrates splenic calcified granulomas and partially visualized bilateral renal cysts. Impression: 1. Continued negative for pulmonary embolus. 2. New patchy right lung airspace disease with small effusion 3. Again incidental bilateral renal cysts, chronic bony findings, and old granulomatous disease.. Comment: Preliminary interpretation was made by [facility]. No critical discrepancy.
--- NOTE | 2020-08-08 09:14 | XRAY ---
Indication: Short of breath. Comparison: April 08, 2019. Portable chest less inflated with new patchy right lung airspace disease. Remaining heart and left lung unremarkable again with incidental left pacemaker and tiny calcified granulomas. Bony thorax intact again with osteopenia and degenerative changes.
== END 2020-08-08 03:20 | disposition home or self-care (01) ==
LOC: ED 21:07
DX: I50.9 Heart failure, unspecified (principal); Z95.810 Presence of automatic (implantable) cardiac defibrillator; Z79.899 Other long term (current) drug therapy; I10 Essential (primary) hypertension; G62.9 Polyneuropathy, unspecified; E78.00 Pure hypercholesterolemia, unspecified; I21.9 Acute myocardial infarction, unspecified; E03.9 Hypothyroidism, unspecified; M19.90 Unspecified osteoarthritis, unspecified site
CPT/HCPCS: 36415; 71045; 71260; 80053; 81001; 82150; 83605; 83690; 83735; 83880; 84484; 85025; 85379; 85610; 93005; 96360; 96361; 96374; 99285; 99291; J1940

== ENCOUNTER 2020-08-14 14:07 | Emergency (ER) | payer MEDICARE, OTHER ==
--- NOTE | 2020-08-14 15:06 | ERPHSYRPT ---
- History of Present Illness Time Seen by Provider: 08/14/20 14:30 Source: patient Exam Limitations: no limitations Patient Subjective Stated Complaint: pt here for cyst to left side of chest, he states it has been there for 2 years but has been getting bigger for 2-3 days and is painful Triage Nursing Assessment: pt alert, resp easy, skin w/d/p. face mask in place. has redness and swelling to left side of chest Physician History: Patient is a 74-year-old white male who presents with a complaint of a painful enlarging lesion on his left chest near the the left of margin of the sternum he has had a cystic-like lesion there for a long time but in the last 2 or 3 days it has begun to swell its more than tripled in size. It is very painful it is hot to the touch. Timing/Duration: day(s) (3) Quality: painful Severity: moderate Location: other Associated Symptoms: swelling/mass/lumps Allergies/Adverse Reactions: sulfamethoxazole [From Bactrim] Allergy (Intermediate, Verified 08/14/20 14:19) Hives Home Medications: Tamsulosin HCl 0.4 mg [Flomax 0.4 MG] 0.4 mg PO HS 11/30/11 [History] Pravastatin Sodium [Pravachol] 40 mg PO HS 10/17/15 [History] Levothyroxine Sodium 25 Mcg [Synthroid 25 Mcg] 25 mcg PO DAILY 02/08/18 [History] Metoprolol Tartrate 25 mg [Lopressor 25MG Tab] 12.5 mg PO BID 02/08/18 [History] Sacubitril/Valsartan [Entresto 24 mg-26 mg Tablet] 12 mg PO BID 02/08/18 [History] Fluoxetine HCl 20 mg [Prozac 20 MG] 10 mg PO DAILY 06/11/18 [History] Dofetilide [Tikosyn] 500 mcg PO BID 02/22/20 [History] Ezetimibe 10 mg [Zetia 10 MG] 10 mg PO DAILY 02/22/20 [History] Magnesium Oxide 400 mg [Mag-Ox 400] 400 mg PO BID 08/07/20 [History] Hx Tetanus, Diphtheria Vaccination/Date Given: Yes Hx Influenza Vaccination/Date Given: Yes Hx Pneumococcal Vaccination/Date Given: Yes Immunizations Up to Date: Yes Travel Risk - International Travel Have you traveled outside of the country in past 3 weeks: No - Coronavirus Screening Are you exhibiting any of the following symptoms?: No Close contact with a COVID-19 positive Pt in past 14-21 Days: No - Vaccine Status Have you recieved a Covid-19 vaccination: Yes 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: [employer] - Vaccination Dates Date of 2cond Vaccination (if applicable): 05/08 - Review of Systems Constitutional: No Fever, No Chills Eyes: No Symptoms Ears, Nose, & Throat: No Symptoms Respiratory: No Cough, No Dyspnea Cardiac: No Chest Pain, No Edema, No Syncope Abdominal/Gastrointestinal: No Abdominal Pain, No Nausea, No Vomiting, No Diarrhea Genitourinary Symptoms: No Dysuria Musculoskeletal: No Back Pain, No Neck Pain Skin: No Rash Neurological: No Dizziness, No Focal Weakness, No Sensory Changes Psychological: No Symptoms Endocrine: No Symptoms All Other Systems: Reviewed and Negative - Past Medical History Pertinent Past Medical History: Yes Neurological History: Peripheral Neuropathy ENT History: No Pertinent History Cardiac History: High Cholesterol, Hypertension, Myocardial Infarction ([place]), Other Respiratory History: No Pertinent History Endocrine Medical History: Hypothyroidism Musculoskeletal History: Arthritis GI Medical History: GERD, GI Bleed History: No Pertinent History Psycho-Social History: No Pertinent History Male Reproductive Disorders: No Pertinent History Other Medical History: Pacemaker Defibrillator, Heart Ablasion (08/02/20), Cardiac Stents x3 (1999), 2 stents in LLE (2000) - Past Surgical History Past Surgical History: Yes Neuro Surgical History: No Pertinent History Cardiac: Cardiac Catheterization, Cardiac Stent Respiratory: No Pertinent History Gastrointestinal: Hernia Repair Genitourinary: Other Musculoskeletal: No Pertinent History Male Surgical History: No Pertinent History Other Surgical History: TURP - 2013. cardaic stents x2. lt leg stents x2. heart cath 01/2018 - Social History Smoking Status: Former smoker How long have you smoked: 40 years Exposure to second hand smoke: Yes Drug Use: none Patient Lives Alone: Yes - Nursing Vital Signs Nursing Vital Signs: Initial Vital Signs Temperature 97.9 F 08/14/20 14:14 Pulse Rate 72 08/14/20 14:14 Respiratory Rate 18 08/14/20 14:14 Blood Pressure 130/82 08/14/20 14:14 Pain Scale Pain Intensity 4 - Physical Exam General Appearance: mild distress, alert Eye Exam: PERRL/EOMI, eyes nml inspection Ears, Nose, Throat Exam: normal ENT inspection, pharynx normal, moist mucous membranes Neck Exam: normal inspection, non-tender, supple, full range of motion Respiratory Exam: normal breath sounds, lungs clear, No respiratory distress Cardiovascular Exam: regular rate/rhythm, normal heart sounds Gastrointestinal/Abdomen Exam: soft, mass, No tenderness Back Exam: normal inspection, normal range of motion, No CVA tenderness, No vertebral tenderness Extremity Exam: normal inspection, normal range of motion Neurologic Exam: alert, oriented x 3, cooperative, normal mood/affect, sensation nml, No motor deficits Skin Exam: normal color, warm, dry, other (This left anterior chest at the left margin of the sternum center of the lesion is fluctuant) Procedures - Incision and Drainage Time of Procedure: 15:03 Anesthesia: 1% Lidocaine cc's of anesthesia: other (10) Blade Size: 11 I & D Procedure: hibiclens prep, sterile dressing applied, irrigated with normal saline, gauze wick placed Results: large amount pus - Course Nursing assessment & vital signs reviewed: Yes - Progress Progress: improved - Departure Departure Disposition: Home Clinical Impression: Abscess Condition: Good Critical Care Time: No Referrals: FABIENNE ZIEGLER [Primary Care Provider] - Instructions: Abscess Incision and Drainage (DC) Prescriptions: clindamycin HCL [Cleocin HCl] 300 mg PO TID 7 Days #21 capsule
[2020-08-14 15:11] VITALS: BP 123/77; PULSE 78; O2SAT 97
== END 2020-08-14 15:20 | disposition home or self-care (01) ==
LOC: ED 14:07
DX: L02.213 Cutaneous abscess of chest wall (principal); R07.89 Other chest pain; Z79.899 Other long term (current) drug therapy; E78.00 Pure hypercholesterolemia, unspecified; I10 Essential (primary) hypertension; I25.2 Old myocardial infarction; E03.9 Hypothyroidism, unspecified; Z98.61 Coronary angioplasty status
CPT/HCPCS: 10060; 87070; 99283

== ENCOUNTER 2020-12-18 16:57 | Emergency (ER) | payer MEDICARE, OTHER ==
[2020-12-18] MEDS ORDERED: Sodium Chloride 0.9% 1000 ML 1,000 ML IV SCH (17:15)
[2020-12-18 17:44] LABS: Absolute Neutrophil Ct (ANC) 2.24 (1.4-6.9); BASOPHIL % 0.4 % (0.0-0.4); Basophil (Absolute #) 0.02 (0-0.4); Eosinophil % 2.7 % (0.00-5.0); Eosinophil (Absolute #) 0.13 (0-0.5); Hematocrit 38.5 % (42-50); Hemoglobin 12.9 gm/dl (12.5-18.0); Lymphocyte (Absolute #) 1.81 (1.0-4.6); Lymphocytes % 38.1 % (24.0-44.0); Mean Corpuscular Hemoglobin 32.5 pg (26-32); Mean Corpuscular Hgb Concent. 33.5 g/dl (32-36); Mean Platelet Volume 10.5 fl (7.5-11.0); Monocyte (Absolute #) 0.55 (0.0-1.3); Monocytes % 11.6 % (0.0-12.0); Neutrophil % 47.2 % (36.0-66.0); Platelet Count 144 K/mm3 (150-450); Red Blood Count 3.97 M/mm3 (4.1-5.6); Red Cell Distribution Width 12.8 % (11.5-14.0); White Blood Count 4.8 K/mm3 (4.0-10.5)
--- NOTE | 2020-12-18 17:48 | ERPHSYRPT ---
- History of Present Illness Time Seen by Provider: 12/18/20 17:45 Source: patient Exam Limitations: no limitations Patient Subjective Stated Complaint: double vision, stiff neck, FUENTES x yesterday afternoon Triage Nursing Assessment: pt to ED c/o double vision, stiff neck and FUENTES onset yesterday afternoon. denies injury or trauma to areas. visual acuity 20/50 with both eyes and 20/50 for each eye separately. rates 5/10 neck pain and 2/10 FUENTES. denies hx cva or dm. A&Ox4. Physician History: Patient is 75-year-old male with significant past medical history of congestive heart failure atrial fibrillation ventricular arrhythmias hypertension coronary artery disease and patient is on Eliquis for anticoagulation started having a headache since yesterday and double vision since today morning. So he got concerned and came to the emergency room. He denies any nausea vomiting syncopal episode chest pain blood in the stool or urine. Patient did not have the same type of symptoms before. Patient says that when he closed 1 eye you can see a single reason he closed a I he still comes a single visit s/p open both of his eyes the vision becomes stacked means one on each other. Patient says the peripheral vision appears to be okay. Timing/Duration: yesterday Severity: mild Character of Deficits: vision problems, other (headache) Allergies/Adverse Reactions: sulfamethoxazole [From Bactrim] Allergy (Intermediate, Verified 08/14/20 14:19) Hives Home Medications: Tamsulosin HCl 0.4 mg [Flomax 0.4 MG] 0.4 mg PO HS 11/30/11 [History] Pravastatin Sodium [Pravachol] 40 mg PO HS 10/17/15 [History] Levothyroxine Sodium 25 Mcg [Synthroid 25 Mcg] 25 mcg PO DAILY 02/08/18 [History] Metoprolol Tartrate 25 mg [Lopressor 25MG Tab] 25 mg PO BID 02/08/18 [History] Sacubitril/Valsartan [Entresto 24 mg-26 mg Tablet] 12 mg PO BID 02/08/18 [History] Dofetilide [Tikosyn] 500 mcg PO BID 02/22/20 [History] Ezetimibe 10 mg [Zetia 10 MG] 10 mg PO DAILY 02/22/20 [History] Magnesium Oxide 400 mg [Mag-Ox 400] 400 mg PO BID 08/07/20 [History] Hx Tetanus, Diphtheria Vaccination/Date Given: Yes Hx Influenza Vaccination/Date Given: Yes Hx Pneumococcal Vaccination/Date Given: Yes Immunizations Up to Date: Yes Travel Risk - International Travel Have you traveled outside of the country in past 3 weeks: No - Coronavirus Screening Are you exhibiting any of the following symptoms?: Yes Symptoms: Headaches/Body Aches/Fatigue Close contact with a COVID-19 positive Pt in past 14-21 Days: No - Vaccine Status Have you recieved a Covid-19 vaccination: Yes 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[employer] - Vaccination Dates Date of 2cond Vaccination (if applicable): april - Review of Systems Constitutional: No Fever, No Chills Eyes: No Symptoms, Vision Changes Ears, Nose, & Throat: No Symptoms Respiratory: No Cough, No Dyspnea Cardiac: No Chest Pain, No Edema, No Syncope Abdominal/Gastrointestinal: No Abdominal Pain, No Nausea, No Vomiting, No Diarrhea Genitourinary Symptoms: No Dysuria Musculoskeletal: No Back Pain, No Neck Pain Skin: No Rash Neurological: No Dizziness, No Focal Weakness, No Sensory Changes Psychological: No Symptoms Endocrine: No Symptoms All Other Systems: Reviewed and Negative - Past Medical History Pertinent Past Medical History: Yes Neurological History: Peripheral Neuropathy ENT History: No Pertinent History Cardiac History: Arrhythmia, High Cholesterol, Hypertension, Myocardial Infarction ([place]), Other Respiratory History: No Pertinent History Endocrine Medical History: Hypothyroidism Musculoskeletal History: Arthritis GI Medical History: GERD, GI Bleed History: No Pertinent History Psycho-Social History: No Pertinent History Male Reproductive Disorders: No Pertinent History Other Medical History: Pacemaker Defibrillator, Heart Ablasion (08/02/20), Cardiac Stents x3 (1999), 2 stents in LLE (2000) - Past Surgical History Past Surgical History: Yes Neuro Surgical History: No Pertinent History Cardiac: Cardiac Catheterization, Cardiac Stent Respiratory: No Pertinent History Gastrointestinal: Hernia Repair Genitourinary: Other Musculoskeletal: No Pertinent History Male Surgical History: No Pertinent History Other Surgical History: TURP - 2013. cardaic stents x2. lt leg stents x2. heart cath 01/2018 - Social History Smoking Status: Former smoker How long have you smoked: 40 years Exposure to second hand smoke: Yes Drug Use: none Patient Lives Alone: Yes - Nursing Vital Signs Nursing Vital Signs: Initial Vital Signs Temperature 97.3 F 12/18/20 17:02 Pulse Rate 81 12/18/20 17:02 Respiratory Rate 18 12/18/20 17:02 Blood Pressure 169/99 12/18/20 17:02 O2 Sat by Pulse Oximetry 96 12/18/20 17:02 Pain Scale Pain Intensity 5 - [place] Coma Scale Best Eye Response (Jovana): (4) open spontaneously Best Verbal Response ([place]): (5) oriented Best Motor Response ([place]): (6) obeys commands J[place] Total: 15 - Physical Exam General Appearance: no apparent distress, alert Eye Exam: bilateral eye: PERRL, EOMI Ears, Nose, Throat Exam: normal ENT inspection, moist mucous membranes Neck Exam: normal inspection, non-tender, supple Respiratory: normal breath sounds, lungs clear, airway intact, No respiratory distress Cardiovascular: regular rate/rhythm, No edema Gastrointestinal: soft, No tenderness, No distention Back Exam: normal inspection Extremity Exam: normal inspection, No pedal edema 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, 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: 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 Coordination/Gait: normal finger to nose, normal gait Skin Exam: normal color, warm, dry, No rash SpO2: 96 - Course Nursing assessment & vital signs reviewed: Yes EKG Interpreted by Me: Non-specific ST Changes, Other - CT Exams Head CT Interpretation: Tele-radiologist Report, No/Intracranial Hemorrhag Ordered Tests: Active Orders 24 hr Category Date Time Status HEAD WITHOUT CONTRAST [CT] Stat Exams 12/18/20 17:24 Taken CBC W DIFF Stat Lab 12/18/20 17:40 Completed CMP Stat Lab 12/18/20 17:40 Completed Erythrocyte Sedimentation Rate Stat Lab 12/18/20 17:40 Completed PROTIME WITH INR Stat Lab 12/18/20 17:40 Completed TROPONIN Stat Lab 12/18/20 17:40 Completed Medication Summary Generic Name Dose Route Start Last Admin Trade Name Freq PRN Reason Stop Dose Admin Sodium Chloride 1,000 mls @ 50 mls/hr 12/18/20 17:15 12/18/20 17:53 Sodium Chloride 0.9% 1000 Ml IV 01/17/21 17:14 50 mls/hr .Q20H HUNTER Administration Lab/Rad Data: Laboratory Result Diagrams 12/18/20 17:40 12/18/20 17:40 Laboratory Results 12/18/20 12/18/20 12/18/20 Range/Units 17:40 17:40 17:40 WBC (4.0-10.5) K/mm3 RBC (4.1-5.6) M/mm3 Hgb (12.5-18.0) gm/dl Hct (42-50) % MCV (78-100) fl MCH (26-32) pg MCHC (32-36) g/dl RDW (11.5-14.0) % Plt Count (150-450) K/mm3 MPV (7.5-11.0) fl Gran % (36.0-66.0) % Eos # (Auto) (0-0.5) Absolute Lymphs (auto) (1.0-4.6) Absolute Monos (auto) (0.0-1.3) Lymphocytes % (24.0-44.0) % Monocytes % (0.0-12.0) % Eosinophils % (0.00-5.0) % Basophils % (0.0-0.4) % Absolute Granulocytes (1.4-6.9) Basophils # (0-0.4) ESR (0-15) mm/hr PT 16.5 H (9.4-12.5) SECONDS INR 1.40 (0.8-3.0) Sodium 141 (137-145) mmol/L Potassium 4.3 (3.5-5.1) mmol/L Chloride 106 (98-107) mmol/L Carbon Dioxide 25 (22-30) mmol/L Anion Gap 13.6 (5-15) MEQ/L BUN 24 H (9-20) mg/dL Creatinine 1.18 (0.66-1.25) mg/dL Estimated GFR > 60.0 ML/MIN Glucose 110 H (74-106) mg/dL Calcium 9.5 (8.4-10.2) mg/dL Total Bilirubin 0.80 (0.2-1.3) mg/dL AST 29 (17-59) U/L ALT 24 (0-50) U/L Alkaline Phosphatase 61 (38-126) U/L Troponin I < 0.012 (0.000-0.034) ng/mL Serum Total Protein 7.2 (6.3-8.2) g/dL Albumin 4.2 (3.5-5.0) g/dL 12/18/20 Range/Units 17:40 WBC 4.8 (4.0-10.5) K/mm3 RBC 3.97 L (4.1-5.6) M/mm3 Hgb 12.9 (12.5-18.0) gm/dl Hct 38.5 L (42-50) % MCV 97.0 (78-100) fl MCH 32.5 H (26-32) pg MCHC 33.5 (32-36) g/dl RDW 12.8 (11.5-14.0) % Plt Count 144 L (150-450) K/mm3 MPV 10.5 (7.5-11.0) fl Gran % 47.2 (36.0-66.0) % Eos # (Auto) 0.13 (0-0.5) Absolute Lymphs (auto) 1.81 (1.0-4.6) Absolute Monos (auto) 0.55 (0.0-1.3) Lymphocytes % 38.1 (24.0-44.0) % Monocytes % 11.6 (0.0-12.0) % Eosinophils % 2.7 (0.00-5.0) % Basophils % 0.4 (0.0-0.4) % Absolute Granulocytes 2.24 (1.4-6.9) Basophils # 0.02 (0-0.4) ESR 11 (0-15) mm/hr PT (9.4-12.5) SECONDS INR (0.8-3.0) Sodium (137-145) mmol/L Potassium (3.5-5.1) mmol/L Chloride (98-107) mmol/L Carbon Dioxide (22-30) mmol/L Anion Gap (5-15) MEQ/L BUN (9-20) mg/dL Creatinine (0.66-1.25) mg/dL Estimated GFR ML/MIN Glucose (74-106) mg/dL Calcium (8.4-10.2) mg/dL Total Bilirubin (0.2-1.3) mg/dL AST (17-59) U/L ALT (0-50) U/L Alkaline Phosphatase (38-126) U/L Troponin I (0.000-0.034) ng/mL Serum Total Protein (6.3-8.2) g/dL Albumin (3.5-5.0) g/dL - Progress Progress: unchanged Counseled pt/family regarding: lab results, diagnosis, need for follow-up (follow up with caretaker grounds pan), rad results - Departure Departure Disposition: Home Clinical Impression: Double vision with both eyes open Congestive heart failure (CHF) Qualifiers: Heart failure type: combined systolic and diastolic Heart failure chronicity: chronic Qualified Code(s): I50.42 - Chronic combined systolic (congestive) and diastolic (congestive) heart failure HTN (hypertension) Qualifiers: Hypertension type: primary hypertension Qualified Code(s): I10 - Essential (primary) hypertension CAD (coronary artery disease) Qualifiers: Coronary Disease-Associated Artery/Lesion type: [place] artery [place] vs. trans planted heart: [place] heart Associated angina: without angina Qualified Code(s): I25.10 - Atherosclerotic heart disease of [place] coronary artery without angina pectoris Condition: Stable Critical Care Time: Yes Critical Care Time(excluding separately billable procedures): Critical 30-74 mins Referrals: FABIENNE ZIEGLER MD [Primary Care Provider] - Follow Up with PCP (follow up with dr ziegler and Dr. Love(Business Instructor) Pan) Instructions: Heart Failure, Double Vision (DC) Additional Instructions: Discharge/Care Plan KAY DELACRUZ was seen on 12/18/20 in the Emergency Room. The patient was counseled regarding Diagnosis,Lab results, Imaging studies, need for follow up and when to return to the Emergency Room. Prescriptions given: Discharge Note I have spoken with the patient and/or caregivers. I have explained the patient's condition, diagnosis and treatment plan based on the information available to me at this time. I have answered the patient's and/or caregiver's questions and addressed any concerns. The patient and/or caregivers have as good understanding of the patient's diagnosis, condition and treatment plan as can be expected at this point. The vital signs have been stable. The patient's condition is stable and appropriate for discharge from the emergency department. The patient will pursue further outpatient evaluation with the primary care physician or other designated or consulting physician as outlined in the discharge instructions. The patient and/or caregivers are agreeable to this plan of care and follow-up instructions have been explained in detail. The patient and/or caregivers have received these instruction. The patient/and or caregivers are aware that any significant change in condition or worsening of symptoms should prompt an immediate return to this or the closest emergency department or call 911. KAY DELACRUZ was seen on 12/18/20 n the Emergency Room. At that time you were treated for an emergent condition, during your visit Laboratory, Radiology and/or other procedures may have been ordered. It is very important that you follow-up with your Primary Care Physician FABIENNE ZIEGLER within the next 24-48 hours to review your Emergency Room visit and the final results of testing that was ordered. Some test results such as Urine Cultures, Blood Cultures, and other cultures if ordered will not be finalized for 24-48 hours. If you do not have a Primary Care Provider please call the medical records department at [phone] to obtain a copy of your results or you may sign into our patient portal to obtain these results by visiting us @ [email or web address] and completing the following steps: 1. Click on the Patient Portal link 2. Click the Patient Self Enrollment Link to complete the enrollment form and entering your 3. Once the enrollment form is completed you will receive an email with a temporary ID and password at the email address you provided. 4. Next choose a user name and password. Your user name must be at least 4 characters long and your password must be at least 4 characters long. 5. Choose a security question from the list and provide your answer to the question. If you already have signed into the Health Portal you may access your Health Care Information 10/09 by the following steps: 1. Login to our website @ [email or web address] 2. Enter your original user name and password. FAQS The [facility] Health Portal is an online tool that contains your Lab Results, Ra diology Reports, Visit History, Discharge Instructions and Health Summary Lab and Radiology Results will not be available for 72 hours on the portal. The Portal is a secure site, passwords are encryted and URLs are re-written so they cannot be copied and pasted. You and authorized family members are the only ones who can access your Portal. Also there is a timeout feature that protects your information if you leave the Portal page open. If you have technical difficulty please use the Contact Us link on the page this will allow you to submit any questions you have regarding the Portal or you may contact the Medical Record Department at [phone].
[2020-12-18] MEDS ORDERED: Sodium Chloride 0.9% 1000 ML 1,000 ML ONE (17:51)
[2020-12-18 18:01] LABS: INR 1.4 (0.8-3.0); PROTIME 16.5 SECONDS (9.4-12.5)
[2020-12-18 18:02] LABS: Erythrocyte Sedimentation Rate 11 mm/hr (0-15)
[2020-12-18 18:07] LABS: ALBUMIN 4.2 g/dL (3.5-5.0); ALKALINE PHOSPHATASE 61 U/L (38-126); ANION GAP 13.6 MEQ/L (5-15); BLOOD UREA NITROGEN 24 mg/dL (9-20); CHLORIDE 106 mmol/L (98-107); Calcium 9.5 mg/dL (8.4-10.2); Carbon Dioxide 25 mmol/L (22-30); Creatinine 1 1.18 mg/dL (0.66-1.25); EST GLOMERULAR FILTRATION RATE > 60.0 ML/MIN; Glucose 110 mg/dL (74-106); Potassium 4.3 mmol/L (3.5-5.1); SGOT/AST 29 U/L (17-59); SGPT/ALT 24 U/L (0-50); SODIUM 141 mmol/L (137-145); Total Protein 7.2 g/dL (6.3-8.2)
[2020-12-18 18:51] VITALS: BP 118/75; PULSE 68; O2SAT 97
--- NOTE | 2020-12-18 19:48 | XRAY ---
Indication: Double vision. Stroke. Current blood thinner therapy. Multiple contiguous axial images obtained through the head without contrast. Comparison: None Age-appropriate global atrophy and minimal periventricular degenerative micro-ischemia bilaterally. No acute intracranial hemorrhage, abnormal extra-axial fluid collection, or mass effect. [place]-white matter differentiation preserved. Fourth ventricle is midline without hydrocephalus. Bony calvarium intact. Visualized paranasal sinuses and mastoid air cells are clear. Impression: Nonacute senile brain. Comment: Preliminary interpretation made by [facility]. No critical discrepancy.
== END 2020-12-18 18:51 | disposition critical access hospital (66) ==
LOC: ED 16:57
DX: I25.10 Atherosclerotic heart disease of native coronary artery without angina pectoris (principal); I10 Essential (primary) hypertension; I25.2 Old myocardial infarction; E78.00 Pure hypercholesterolemia, unspecified; E03.9 Hypothyroidism, unspecified; Z95.810 Presence of automatic (implantable) cardiac defibrillator
CPT/HCPCS: 36000; 36415; 70450; 80053; 84484; 85025; 85610; 85652; 99284; 99291

== ENCOUNTER 2021-06-14 14:17 | Observation (INO) | payer MEDICARE, OTHER ==
[2021-06-14] MEDS ORDERED: Magnesium 1 Gm / 100 Ml D5W*** 100 ML IV ONE ×2 (14:46→14:51)
[2021-06-14] MEDS ORDERED: DUONEB 0.5-3 MG/3 ml Neb IH ONE (14:49)
[2021-06-14] MEDS: DUONEB 0.5-3 MG/3 ml Neb IH ONE ×2 (15:07→15:13)
[2021-06-14 15:09] LABS: ALBUMIN 4.4 g/dL (3.5-5.0); ALKALINE PHOSPHATASE 59 U/L (38-126); ANION GAP 17.5 MEQ/L (5-15); Absolute Neutrophil Ct (ANC) 3.68 (1.4-6.9); BLOOD UREA NITROGEN 29 mg/dL (9-20); Basophil (Absolute #) 0.02 (0-0.4); CHLORIDE 106 mmol/L (98-107); Calcium 9.7 mg/dL (8.4-10.2); Carbon Dioxide 22 mmol/L (22-30); Creatinine 1 1.12 mg/dL (0.66-1.25); EST GLOMERULAR FILTRATION RATE > 60.0 ML/MIN; Eosinophil (Absolute #) 0.13 (0-0.5); Glucose 119 mg/dL (74-106); Hematocrit 42.6 % (42-50); Hemoglobin 14.8 gm/dl (12.5-18.0); Lymphocyte (Absolute #) 2.18 (1.0-4.6); Lymphocytes % 32.9 % (24.0-44.0); MAGNESIUM 1.8 mg/dL (1.6-2.3); Mean Cell Volume 93.4 fl (78-100); Mean Corpuscular Hemoglobin 32.5 pg (26-32); Mean Corpuscular Hgb Concent. 34.7 g/dl (32-36); Mean Platelet Volume 10.9 fl (7.5-11.0); Monocyte (Absolute #) 0.62 (0.0-1.3); Monocytes % 9.4 % (0.0-12.0); NT PRO BNP 522 pg/mL (0-1800); Neutrophil % 55.4 % (36.0-66.0); Platelet Count 157 K/mm3 (150-450); Potassium 4.2 mmol/L (3.5-5.1); Red Blood Count 4.56 M/mm3 (4.1-5.6); Red Cell Distribution Width 13.1 % (11.5-14.0); SGOT/AST 29 U/L (17-59); SGPT/ALT 24 U/L (0-50); SODIUM 141 mmol/L (137-145); Total Protein 7.3 g/dL (6.3-8.2); White Blood Count 6.6 K/mm3 (4.0-10.5)
--- NOTE | 2021-06-14 15:13 | XRAY ---
Indication: Short of breath. Comparison: August 07, 2020. Portable chest better inflated and now clear again with a few incidental calcified granulomas. Heart not enlarged again with left dual-lead pacemaker. Bony thorax intact again with osteopenia and degenerative changes. Impression: Nonacute chest with chronic features.
[2021-06-14 15:27] LABS: Bacteria RARE /HPF (NEGATIVE); Mucus MODERATE /HPF (NEGATIVE); RBC 0-2 /HPF (0-2)
[2021-06-14 15:33] LABS: Appearance CLEAR (CLEAR); Bilirubin NEGATIVE (NEGATIVE); Glucose NEGATIVE (NEGATIVE); Ketones NEGATIVE (NEGATIVE); Ph 5.5 (5-6); Protein,Urine Dip TRACE (Negative); RBC NEGATIVE Ery/ul (0-5); Specific Gravity 1.025 (1.005-1.025)
[2021-06-14 15:34] LABS: Nitrite NEGATIVE (NEGATIVE); Urine Cultured Indicated? NO; Urobilinogen 0.2 mg/dL (0-1)
[2021-06-14 15:35] LABS: Dipstick done @ ? MAIN LAB
--- NOTE | 2021-06-14 16:09 | ERPHSYRPT ---
- History of Present Illness Time Seen by Provider: 06/14/21 14:19 Source: patient Exam Limitations: no limitations Patient Subjective Stated Complaint: 'I have been short of breath since last night, last time this happened i had water on my lungs" Triage Nursing Assessment: patient states he feels short of breath but no chest pain since last night. 21 breaths /min. vitals othrwise within normal limits Physician History: 75-year-old male with a history of atrial fibrillation on Eliquis with pacemaker/defibrillator placement, hypertension, hyperlipidemia, hypothyroidism presented in the ER with chief complaint of shortness of breath/palpitations with resting and activity without any known significant aggravating or relieving factors. Patient reports this started last night and is going on intermittently. Has some chest tightness pressure generalized without any radiation. Also reports feeling dizzy and lightheaded with palpitations. Denies any cough fever or chills. Patient has PVCs/bigeminy on presentation. Taking Eliquis religiously. Timing/Duration: yesterday, constant, gradual onset, worse Activities at Onset: activity, rest Severity of Dyspnea-Max: moderate Severity of Dyspnea-Current: moderate Possible Cause: unknown cause Modifying Factors: Improves With: nothing Associated Symptoms: chest pain/discomfort, dizziness, heaviness, tightness, No cough, No painful breathing Allergies/Adverse Reactions: sulfamethoxazole [From Bactrim] Allergy (Intermediate, Verified 08/14/20 14:19) Hives Home Medications: Tamsulosin HCl 0.4 mg [Flomax 0.4 MG] 0.4 mg PO QAM 11/30/11 [History] Pravastatin Sodium [Pravachol] 40 mg PO HS 10/17/15 [History] Levothyroxine Sodium 25 Mcg [Synthroid 25 Mcg] 25 mcg PO DAILY 02/08/18 [History] Metoprolol Tartrate 25 mg [Lopressor 25MG Tab] 25 mg PO BID 02/08/18 [History] Sacubitril/Valsartan [Entresto 24 mg-26 mg Tablet] 0.5 tab PO BID 02/08/18 [History] Dofetilide [Tikosyn] 500 mcg PO BID 02/22/20 [History] Ezetimibe 10 mg [Zetia 10 MG] 10 mg PO DAILY 02/22/20 [History] Magnesium Oxide 400 mg [Mag-Ox 400] 400 mg PO DAILY 08/07/20 [History] Apixaban [Eliquis 5 mg Tablet] 5 mg PO BID 06/14/21 [History] Aspirin EC 81 mg [Ecotrin 81 mg] 81 mg PO DAILY 06/14/21 [History] Cholecalciferol (Vitamin D3) [Vitamin D] 1 each PO DAILY 06/14/21 [History] Furosemide 20 mg [Lasix 20 mg] 20 mg PO DAILY 06/14/21 [History] Hx Tetanus, Diphtheria Vaccination/Date Given: No Hx Influenza Vaccination/Date Given: No Hx Pneumococcal Vaccination/Date Given: Yes Travel Risk - International Travel Have you traveled outside of the country in past 3 weeks: No - Coronavirus Screening Are you exhibiting any of the following symptoms?: No Close contact with a COVID-19 positive Pt in past 14-21 Days: No - Vaccine Status Have you recieved a Covid-19 vaccination: Yes [employer]: Moderna - Vaccination Dates Date of 2cond Vaccination (if applicable): unknown - Review of Systems Constitutional: No Symptoms Eyes: No Symptoms Ears, Nose, & Throat: No Symptoms Respiratory: Dyspnea Cardiac: Chest Pain, Palpitations Abdominal/Gastrointestinal: No Symptoms Genitourinary Symptoms: No Symptoms Musculoskeletal: No Symptoms Skin: No Symptoms Psychological: No Symptoms Endocrine: No Symptoms Hematologic/Lymphatic: No Symptoms Immunological/Allergic: No Symptoms - Past Medical History Pertinent Past Medical History: Yes Neurological History: Peripheral Neuropathy ENT History: No Pertinent History Cardiac History: Arrhythmia, High Cholesterol, Hypertension, Myocardial Infarction ([place]), Other Respiratory History: No Pertinent History Endocrine Medical History: Hypothyroidism Musculoskeletal History: Arthritis GI Medical History: GERD, GI Bleed History: No Pertinent History Psycho-Social History: No Pertinent History Male Reproductive Disorders: No Pertinent History Other Medical History: Pacemaker Defibrillator, Heart Ablasion (08/02/20), Cardiac Stents x3 (1999), 2 stents in LLE (2000) - Past Surgical History Past Surgical History: Yes Neuro Surgical History: No Pertinent History Cardiac: Cardiac Catheterization, Cardiac Stent Respiratory: No Pertinent History Gastrointestinal: Hernia Repair Genitourinary: Other Musculoskeletal: No Pertinent History Male Surgical History: No Pertinent History Other Surgical History: TURP - 2013. cardaic stents x2. lt leg stents x2. heart cath 01/2018 - Social History Smoking Status: Former smoker How long have you smoked: 40 years Exposure to second hand smoke: Yes Drug Use: none Patient Lives Alone: Yes - Nursing Vital Signs Nursing Vital Signs: Initial Vital Signs Temperature 97.9 F 06/14/21 14:19 Pulse Rate 91 H 06/14/21 14:19 Respiratory Rate 20 06/14/21 14:19 Blood Pressure 142/78 06/14/21 14:19 O2 Sat by Pulse Oximetry 99 06/14/21 14:19 Pain Scale Pain Intensity 0 - Physical Exam General Appearance: no apparent distress, alert Eye Exam: PERRL/EOMI, eyes nml inspection Ears, Nose, Throat Exam: hearing grossly normal, normal ENT inspection, normal pharynx Neck Exam: normal inspection, non-tender, supple, full range of motion Respiratory Exam: normal breath sounds, rhonchi Cardiovascular/Chest Exam: normal heart sounds, regular rate/rhythm Abdominal/Gastrointestinal Exam: soft, normal bowel sounds, No tenderness Extremity Exam: non-tender, normal range of motion Neurologic Exam: alert, oriented x 3, cooperative Skin Exam: normal color SpO2 Interpretation: normal SpO2: 94 O2 Delivery: Room Air - Course EKG Interpreted by Me: RATE (89), A-fib, NORMAL AXIS, prolonged QT interval, Left Bundle Branch Block, Other (Ventricular bigeminy. Second EKG time 3:58 PM. Rate 72, rhythm sinus rhythm, left axis deviation, left bundle branch block, prolonged QT interval. PVC, ST depression in lateral leads) Ordered Tests: Active Orders 24 hr Category Date Time Status Bedrest ROUTINE Activity 06/14/21 18:34 Active Up With Assistance ROUTINE Activity 06/14/21 18:34 Active Glass Blower Helper STAT Care 06/14/21 14:45 Completed Code Status Order ROUTINE Care 06/14/21 18:34 Active EKG-ER Only STAT Care 06/14/21 14:44 Completed Fall Protocol Q1H Care 06/14/21 18:34 Active IV Care Q6H Care 06/14/21 18:34 Active IV Insertion STAT Care 06/14/21 14:[address] in Observation ROUTINE Care 06/14/21 18:34 Active Mau Hose, Apply ROUTINE Care 06/14/21 18:34 Active Weight,Daily 0600 Care 06/14/21 18:34 Active Heart-Healthy Diet Diet 06/14/21 Breakfast Active CHEST 1 VIEW (PORTABLE) Stat Exams 06/14/21 14:45 Completed CBC W DIFF AM.LAB Lab 06/15/21 04:00 Ordered CBC W DIFF Stat Lab 06/14/21 14:30 Completed CMP AM.LAB Lab 06/15/21 04:00 Ordered CMP Stat Lab 06/14/21 14:30 Completed MAG [MAGNESIUM] Stat Lab 06/14/21 14:30 Completed MAGNESIUM Stat Lab 06/14/21 14:30 Completed NT PRO BNP Stat Lab 06/14/21 14:30 Completed TROPONIN Q3H Lab 06/14/21 14:30 Completed TROPONIN Q3H Lab 06/14/21 17:15 Completed TROPONIN Q3H Lab 06/14/21 20:31 Completed TROPONIN Q3H Lab 06/14/21 23:28 Completed TROPONIN Q3H Lab 06/15/21 02:45 Ordered UA W/RFX CULTURE Stat Lab 06/14/21 14:57 Completed Transfer Order Routine Transfer 06/14/21 Completed Medication Summary Generic Name Dose Route Start Last Admin Trade Name Freq PRN Reason Stop Dose Admin Acetaminophen 650 mg 06/14/21 18:34 06/14/21 21:24 Acetaminophen 325 Mg Tablet PO 07/14/21 18:33 650 mg Q4H PRN PRN Administration PAIN AND/OR FEVER Albuterol/Ipratropium 3 ml 06/14/21 18:34 Ipratropium/Albuterol Sulfate 3 Ml Ampul.Neb IH 07/14/21 18:33 Q4HPRN PRN SHORTNESS OF BREATH/WHEEZING Apixaban 5 mg 06/14/21 22:00 06/14/21 21:24 Apixaban 2.5 Mg Tablet PO 07/14/21 21:59 5 mg BID HUNTER Administration Metoprolol Tartrate 25 mg 06/14/21 22:00 06/14/21 21:24 Metoprolol Tartrate 25 Mg Tab PO 07/14/21 21:59 25 mg BID HUNTER Administration Pantoprazole Sodium 40 mg 06/15/21 10:00 Pantoprazole 40 Mg Vial IV 07/15/21 09:59 Q24H10 HUNTER Sacubitril/Valsartan 0.5 tablet 06/14/21 22:00 06/14/21 21:24 Sacubitril/Valsartan 1 Tablet Tablet PO 07/14/21 21:59 0.5 tablet BID HUNTER Administration Simvastatin 40 mg 06/14/21 22:00 06/14/21 21:23 Simvastatin 20 Mg Tablet PO 07/14/21 21:59 40 mg HS HUNTER Administration Discontinued Medications Generic Name Dose Route Start Last Admin Trade Name Maria Teresa PRN Reason Stop Dose Admin Albuterol/Ipratropium 3 ml 06/14/21 14:44 06/14/21 15:13 Ipratropium/Albuterol Sulfate 3 Ml Ampul.Neb IH 06/14/21 14:45 3 ml STAT ONE Administration Albuterol/Ipratropium Confirm 06/14/21 14:49 Ipratropium/Albuterol Sulfate 3 Ml Ampul.Neb Administered 06/14/21 14:50 Dose 3 ml IH .STK-MED ONE Magnesium Sulfate/Dextrose 100 mls @ 200 mls/hr 06/14/21 14:46 06/14/21 14:54 Magnesium 1 Gm / 100 Ml D5w IV 06/14/21 15:15 200 mls/hr STAT ONE Administration Magnesium Sulfate/Dextrose Confirm 06/14/21 14:51 Magnesium 1 Gm / 100 Ml D5w Administered 06/14/21 14:52 Dose 100 mls @ ud IV .STK-MED ONE Lab/Rad Data: Laboratory Result Diagrams 06/14/21 14:30 06/14/21 14:30 Laboratory Results 06/14/21 06/14/21 06/14/21 Range/Units 17:15 17:10 14:57 WBC (4.0-10.5) K/mm3 RBC (4.1-5.6) M/mm3 Hgb (12.5-18.0) gm/dl Hct (42-50) % MCV (78-100) fl MCH (26-32) pg MCHC (32-36) g/dl RDW (11.5-14.0) % Plt Count (150-450) K/mm3 MPV (7.5-11.0) fl Gran % (36.0-66.0) % Eos # (Auto) (0-0.5) Absolute Lymphs (auto) (1.0-4.6) Absolute Monos (auto) (0.0-1.3) Lymphocytes % (24.0-44.0) % Monocytes % (0.0-12.0) % Eosinophils % (0.00-5.0) % Basophils % (0.0-0.4) % Absolute Granulocytes (1.4-6.9) Basophils # (0-0.4) Sodium (137-145) mmol/L Potassium (3.5-5.1) mmol/L Chloride (98-107) mmol/L Carbon Dioxide (22-30) mmol/L Anion Gap (5-15) MEQ/L BUN (9-20) mg/dL Creatinine (0.66-1.25) mg/dL Estimated GFR ML/MIN Glucose (74-106) mg/dL Calcium (8.4-10.2) mg/dL Magnesium (1.6-2.3) mg/dL Total Bilirubin (0.2-1.3) mg/dL AST (17-59) U/L ALT (0-50) U/L Alkaline Phosphatase (38-126) U/L Troponin I < 0.012 (0.000-0.034) ng/mL NT-Pro-B Natriuret Pep (0-1800) pg/mL Serum Total Protein (6.3-8.2) g/dL Albumin (3.5-5.0) g/dL Urinalys Dipstick Clnc MAIN LAB Urine Color YELLOW (YELLOW) Urine Appearance CLEAR (CLEAR) Urine pH 5.5 (5-6) Ur Specific [place] 1.025 (1.005-1.025) POC Urine Protein Conf TRACE (Negative) Urine Ketones NEGATIVE (NEGATIVE) Urine Nitrite NEGATIVE (NEGATIVE) Urine Bilirubin NEGATIVE (NEGATIVE) Urine Urobilinogen 0.2 (0-1) mg/dL Urine Leukocytes NEGATIVE (NEGATIVE) Urine WBC (Auto) 3-5 (0-5) /HPF Urine RBC (Auto) 0-2 (0-2) /HPF U Hyaline Cast (Auto) 6-10 (0-2) /LPF Urine Bacteria (Auto) RARE (NEGATIVE) /HPF Urine RBC NEGATIVE (0-5) Rahul/ul Urine Mucus (Auto) MODERATE (NEGATIVE) /HPF Ur Culture Indicated? NO Urine Glucose NEGATIVE (NEGATIVE) mg/dL Influenza Type A Ag NEGATIVE (NEGATIVE) Influenza Type B Ag NEGATIVE (NEGATIVE) RSV (PCR) NEGATIVE (Negative) SARS-CoV-2 (PCR) NEGATIVE (NEGATIVE) 06/14/21 06/14/21 06/14/21 Range/Units 14:30 14:30 14:30 WBC (4.0-10.5) K/mm3 RBC (4.1-5.6) M/mm3 Hgb (12.5-18.0) gm/dl Hct (42-50) % MCV (78-100) fl MCH (26-32) pg MCHC (32-36) g/dl RDW (11.5-14.0) % Plt Count (150-450) K/mm3 MPV (7.5-11.0) fl Gran % (36.0-66.0) % Eos # (Auto) (0-0.5) Absolute Lymphs (auto) (1.0-4.6) Absolute Monos (auto) (0.0-1.3) Lymphocytes % (24.0-44.0) % Monocytes % (0.0-12.0) % Eosinophils % (0.00-5.0) % Basophils % (0.0-0.4) % Absolute Granulocytes (1.4-6.9) Basophils # (0-0.4) Sodium 141 (137-145) mmol/L Potassium 4.2 (3.5-5.1) mmol/L Chloride 106 (98-107) mmol/L Carbon Dioxide 22 (22-30) mmol/L Anion Gap 17.5 H (5-15) MEQ/L BUN 29 H (9-20) mg/dL Creatinine 1.12 (0.66-1.25) mg/dL Estimated GFR > 60.0 ML/MIN Glucose 119 H (74-106) mg/dL Calcium 9.7 (8.4-10.2) mg/dL Magnesium 1.8 1.8 (1.6-2.3) mg/dL Total Bilirubin 1.20 (0.2-1.3) mg/dL AST 29 (17-59) U/L ALT 24 (0-50) U/L Alkaline Phosphatase 59 (38-126) U/L Troponin I < 0.012 (0.000-0.034) ng/mL NT-Pro-B Natriuret Pep 522 (0-1800) pg/mL Serum Total Protein 7.3 (6.3-8.2) g/dL Albumin 4.4 (3.5-5.0) g/dL Urinalys Dipstick Clnc Urine Color (YELLOW) Urine Appearance (CLEAR) Urine pH (5-6) Ur Specific [place] (1.005-1.025) POC Urine Protein Conf (Negative) Urine Ketones (NEGATIVE) Urine Nitrite (NEGATIVE) Urine Bilirubin (NEGATIVE) Urine Urobilinogen (0-1) mg/dL Urine Leukocytes (NEGATIVE) Urine WBC (Auto) (0-5) /HPF Urine RBC (Auto) (0-2) /HPF U Hyaline Cast (Auto) (0-2) /LPF Urine Bacteria (Auto) (NEGATIVE) /HPF Urine RBC (0-5) Rahul/ul Urine Mucus (Auto) (NEGATIVE) /HPF Ur Culture Indicated? Urine Glucose (NEGATIVE) mg/dL Influenza Type A Ag (NEGATIVE) Influenza Type B Ag (NEGATIVE) RSV (PCR) (Negative) SARS-CoV-2 (PCR) (NEGATIVE) 06/14/21 Range/Units 14:30 WBC 6.6 (4.0-10.5) K/mm3 RBC 4.56 (4.1-5.6) M/mm3 Hgb 14.8 (12.5-18.0) gm/dl Hct 42.6 (42-50) % MCV 93.4 (78-100) fl MCH 32.5 H (26-32) pg MCHC 34.7 (32-36) g/dl RDW 13.1 (11.5-14.0) % Plt Count 157 (150-450) K/mm3 MPV 10.9 (7.5-11.0) fl Gran % 55.4 (36.0-66.0) % Eos # (Auto) 0.13 (0-0.5) Absolute Lymphs (auto) 2.18 (1.0-4.6) Absolute Monos (auto) 0.62 (0.0-1.3) Lymphocytes % 32.9 (24.0-44.0) % Monocytes % 9.4 (0.0-12.0) % Eosinophils % 2.0 (0.00-5.0) % Basophils % 0.3 (0.0-0.4) % Absolute Granulocytes 3.68 (1.4-6.9) Basophils # 0.02 (0-0.4) Sodium (137-145) mmol/L Potassium (3.5-5.1) mmol/L Chloride (98-107) mmol/L Carbon Dioxide (22-30) mmol/L Anion Gap (5-15) MEQ/L BUN (9-20) mg/dL Creatinine (0.66-1.25) mg/dL Estimated GFR ML/MIN Glucose (74-106) mg/dL Calcium (8.4-10.2) mg/dL Magnesium (1.6-2.3) mg/dL Total Bilirubin (0.2-1.3) mg/dL AST (17-59) U/L ALT (0-50) U/L Alkaline Phosphatase (38-126) U/L Troponin I (0.000-0.034) ng/mL NT-Pro-B Natriuret Pep (0-1800) pg/mL Serum Total Protein (6.3-8.2) g/dL Albumin (3.5-5.0) g/dL Urinalys Dipstick Clnc Urine Color (YELLOW) Urine Appearance (CLEAR) Urine pH (5-6) Ur Specific [place] (1.005-1.025) POC Urine Protein Conf (Negative) Urine Ketones (NEGATIVE) Urine Nitrite (NEGATIVE) Urine Bilirubin (NEGATIVE) Urine Urobilinogen (0-1) mg/dL Urine Leukocytes (NEGATIVE) Urine WBC (Auto) (0-5) /HPF Urine RBC (Auto) (0-2) /HPF U Hyaline Cast (Auto) (0-2) /LPF Urine Bacteria (Auto) (NEGATIVE) /HPF Urine RBC (0-5) Rahul/ul Urine Mucus (Auto) (NEGATIVE) /HPF Ur Culture Indicated? Urine Glucose (NEGATIVE) mg/dL Influenza Type A Ag (NEGATIVE) Influenza Type B Ag (NEGATIVE) RSV (PCR) (Negative) SARS-CoV-2 (PCR) (NEGATIVE) - Progress Progress: improved, re-examined Air Movement: good Progress Note: 06/14/21 17:27 75-year-old is evaluated for palpitation/shortness of breath/chest discomfort. Patient is anticoagulated. EKG showed bigeminy. I have given him magnesium and it improved bigeminy and also his symptoms. Lab work grossly unremarkable including troponin. Patient is anticoagulated and do not need to work him up for PE and has oxygen saturation around 97% on room air, not tachypneic or tachycardic. Discussed with Dr. Blanchard, recommended consultation with Dr. Ontiveros before admission. I have discussed with Dr. Ontiveros recommended observation for chest pain and tele cardiology consultation if needed. Discussed with Dr. Blanchard again and patient is admitted. Blood Culture(s) Obtained: No Antibiotics given: No Discussed with Dr.: Pereira, Other Will see patient in: hospital (observation) Counseled pt/family regarding: lab results, diagnosis, rad results - Departure Departure Disposition: Observation Clinical Impression: Palpitations Chest pain Qualifiers: Chest pain type: unspecified Qualified Code(s): R07.9 - Chest pain, unspecified Condition: Stable Critical Care Time: No
[2021-06-14 17:54] LABS: INFLUENZA A NEGATIVE (NEGATIVE); INFLUENZA B NEGATIVE (NEGATIVE); RESPIRATORY SYNCTIAL VIRUS NEGATIVE (Negative); SARS-CoV-2 Xpert Express NEGATIVE (NEGATIVE)
[2021-06-14] MEDS ORDERED: TYLENOL 325 MG PO PRN (18:34)
[2021-06-14] MEDS ORDERED: DUONEB 0.5-3 MG/3 ml Neb IH PRN (18:34)
[2021-06-14] MEDS: ZOCOR 20MG PO SCH (21:23)
[2021-06-14] MEDS: ELIQUIS 2.5 MG TABLET PO SCH (21:24)
[2021-06-14] MEDS: Lopressor 25MG Tab PO SCH (21:24)
[2021-06-14] MEDS ORDERED: ENTRESTO 49 MG-51 MG TABLET PO SCH (22:00)
[2021-06-15 03:48] LABS: Basophil (Absolute #) 0.02 (0-0.4); Eosinophil % 1.8 % (0.00-5.0); Eosinophil (Absolute #) 0.11 (0-0.5); Hematocrit 39.5 % (42-50); Hemoglobin 13.6 gm/dl (12.5-18.0); Lymphocyte (Absolute #) 2.31 (1.0-4.6); Lymphocytes % 37.6 % (24.0-44.0); Mean Cell Volume 94.5 fl (78-100); Mean Corpuscular Hemoglobin 32.5 pg (26-32); Mean Corpuscular Hgb Concent. 34.4 g/dl (32-36); Monocyte (Absolute #) 0.61 (0.0-1.3); Monocytes % 9.9 % (0.0-12.0); Neutrophil % 50.4 % (36.0-66.0); Platelet Count 132 K/mm3 (150-450); Red Blood Count 4.18 M/mm3 (4.1-5.6); White Blood Count 6.2 K/mm3 (4.0-10.5)
[2021-06-15 04:00] LABS: ALBUMIN 3.9 g/dL (3.5-5.0); ALKALINE PHOSPHATASE 48 U/L (38-126); ANION GAP 14.2 MEQ/L (5-15); BLOOD UREA NITROGEN 30 mg/dL (9-20); CHLORIDE 108 mmol/L (98-107); Calcium 9.2 mg/dL (8.4-10.2); Carbon Dioxide 21 mmol/L (22-30); Creatinine 1 1.12 mg/dL (0.66-1.25); EST GLOMERULAR FILTRATION RATE > 60.0 ML/MIN; Glucose 110 mg/dL (74-106); Potassium 4.1 mmol/L (3.5-5.1); SGOT/AST 31 U/L (17-59); SGPT/ALT 22 U/L (0-50); SODIUM 139 mmol/L (137-145); Total Protein 6.7 g/dL (6.3-8.2)
[2021-06-15] MEDS ORDERED: MEDICATION INTERVENTION MC SCH (07:15)
[2021-06-15] MEDS: Flomax 0.4 MG PO SCH (09:20)
[2021-06-15] MEDS: SYNTHROID 25 MCG PO SCH (09:20)
[2021-06-15] MEDS: Zetia 10 MG PO SCH (09:20)
[2021-06-15] MEDS: ECOTRIN 81 MG PO SCH (09:20)
[2021-06-15] MEDS: ENTRESTO 49 MG-51 MG TABLET PO SCH ×2 (09:20→22:20)
[2021-06-15] MEDS: VITAMIN D PO SCH (09:20)
[2021-06-15] MEDS: LASIX 20 MG PO SCH (09:20)
[2021-06-15] MEDS: MAG-OX 400 PO SCH (09:20)
[2021-06-15] MEDS: ELIQUIS 2.5 MG TABLET PO SCH ×2 (09:20→22:21)
[2021-06-15] MEDS: PROTONIX 40 MG IV IV SCH (09:21)
[2021-06-15] MEDS: Lopressor 25MG Tab PO SCH ×2 (09:21→22:21)
[2021-06-15] MEDS ORDERED: DOFETILIDE 500 MCG PO SCH (10:00)
[2021-06-15] MEDS: PATIENT OWN MEDICATION PO SCH (22:21)
[2021-06-15] MEDS: ZOCOR 20MG PO SCH (22:21)
[2021-06-16 04:56] LABS: Hematocrit 40.1 % (42-50); Hemoglobin 13.4 gm/dl (12.5-18.0); Mean Cell Volume 96.2 fl (78-100); Mean Corpuscular Hemoglobin 32.1 pg (26-32); Mean Corpuscular Hgb Concent. 33.4 g/dl (32-36); Platelet Count 128 K/mm3 (150-450); Red Blood Count 4.17 M/mm3 (4.1-5.6); Red Cell Distribution Width 13.2 % (11.5-14.0); White Blood Count 6.5 K/mm3 (4.0-10.5)
[2021-06-16 05:02] LABS: ANION GAP 13.4 MEQ/L (5-15); BLOOD UREA NITROGEN 32 mg/dL (9-20); CHLORIDE 106 mmol/L (98-107); Calcium 9.3 mg/dL (8.4-10.2); Carbon Dioxide 26 mmol/L (22-30); EST GLOMERULAR FILTRATION RATE > 60.0 ML/MIN; Glucose 120 mg/dL (74-106); Potassium 4.5 mmol/L (3.5-5.1); SODIUM 141 mmol/L (137-145)
[2021-06-16 08:22] VITALS: BP 123/76; PULSE 108; O2SAT 96
[2021-06-16] MEDS: MAG-OX 400 PO SCH (08:52)
[2021-06-16] MEDS: PROTONIX 40 MG IV IV SCH (08:52)
[2021-06-16] MEDS: Flomax 0.4 MG PO SCH (08:52)
[2021-06-16] MEDS: PATIENT OWN MEDICATION PO SCH (08:52)
[2021-06-16] MEDS: ECOTRIN 81 MG PO SCH (08:53)
[2021-06-16] MEDS: Lopressor 25MG Tab PO SCH (08:53)
[2021-06-16] MEDS: VITAMIN D PO SCH (08:53)
[2021-06-16] MEDS: ENTRESTO 49 MG-51 MG TABLET PO SCH (08:53)
[2021-06-16] MEDS: SYNTHROID 25 MCG PO SCH (08:53)
[2021-06-16] MEDS: Zetia 10 MG PO SCH (08:53)
[2021-06-16] MEDS: LASIX 20 MG PO SCH (08:53)
[2021-06-16] MEDS: ELIQUIS 2.5 MG TABLET PO SCH (08:54)
--- NOTE | 2021-06-23 20:56 | PCM.SSS ---
History of Present Illness - Chief Complaint Chief Complaint: SOB Date: 06/16/21 History of Present Illness: is a 75 year old male. Pt. presented to ER for sob, pt. thought he may have chf, but in ER found to have bigeminy which was treated successfully with m ag iv. Pt. global marketing specialist recommended hospitalization at [facility] for repeat labs and observation. - Review of Systems Constitutional: No Fever, No Chills Eyes: No Symptoms Ears, Nose, & Throat: No Symptoms Respiratory: Short Of Breath, No Cough Cardiac: No Chest Pain, No Edema, No Syncope Abdominal/Gastrointestinal: No Abdominal Pain, No Nausea, No Vomiting, No Diarrhea Genitourinary Symptoms: No Dysuria Musculoskeletal: No Back Pain, No Neck Pain Skin: No Rash Neurological: No Dizziness, No Focal Weakness, No Sensory Changes Psychological: No Symptoms Endocrine: No Symptoms Hematologic/Lymphatic: No Symptoms Immunological/Allergic: No Symptoms Medications & Allergies Home Medications: Home Medication List Tamsulosin HCl 0.4 mg [Flomax 0.4 MG] 0.4 mg PO QAM 11/30/11 [History Conf irmed 06/14/21] Pravastatin Sodium [Pravachol] 40 mg PO HS 10/17/15 [History Confirmed 06/14/21] Levothyroxine Sodium 25 Mcg [Synthroid 25 Mcg] 25 mcg PO DAILY 02/08/18 [History Confirmed 06/14/21] Metoprolol Tartrate 25 mg [Lopressor 25MG Tab] 25 mg PO BID 02/08/18 [History Confirmed 06/14/21] Sacubitril/Valsartan [Entresto 24 mg-26 mg Tablet] 0.5 tab PO BID 02/08/18 [History Confirmed 06/14/21] Dofetilide [Tikosyn] 500 mcg PO BID 02/22/20 [History Confirmed 06/14/21] Ezetimibe 10 mg [Zetia 10 MG] 10 mg PO DAILY 02/22/20 [History Confirmed 06/14/21] Magnesium Oxide 400 mg [Mag-Ox 400] 400 mg PO DAILY 08/07/20 [History Confirmed 06/14/21] Apixaban [Eliquis 5 mg Tablet] 5 mg PO BID 06/14/21 [History Confirmed 06/14/21] Aspirin EC 81 mg [Ecotrin 81 mg] 81 mg PO DAILY 06/14/21 [History Confirmed 06/14/21] Cholecalciferol (Vitamin D3) [Vitamin D] 1 each PO DAILY 06/14/21 [History Confirmed 06/14/21] Furosemide 20 mg [Lasix 20 mg] 20 mg PO DAILY 06/14/21 [History Confirmed 06/14/21] Allergies/Adverse Reactions: Allergies Allergy/AdvReac Type Severity Reaction Status Date / Time sulfamethoxazole Allergy Intermediate Hives Verified 08/14/20 14:19 [From Bactrim] - Past Medical History Past Medical History: Yes Neurological History: Peripheral Neuropathy ENT History: No Pertinent History Cardiac History: Arrhythmia, High Cholesterol, Hypertension, Myocardial Infarction ([place]), Other Respiratory History: No Pertinent History Endocrine Medical History: Hypothyroidism Musculoskelatal History: Arthritis GI Medical History: GERD, GI Bleed History: No Pertinent History Pyscho-Social History: No Pertinent History Male Reproductive Disorders: No Pertinent History Comment: Pacemaker Defibrillator, Heart Ablasion (08/02/20), Cardiac Stents x3 (1999), 2 stents in LLE (2000) - Past Surgical History Past Surgical History: Yes Neuro Surgical History: No Pertinent History Cardiac History: Cardiac Catheterization, Cardiac Stent Respiratory Surgery: No Pertinent History GI Surgical History: Hernia Repair Genitourinary Surgical Hx: Other Musculskeletal Surgical Hx: No Pertinent History Male Surgical History: No Pertinent History Other Surgical History: TURP - 2013. cardaic stents x2. lt leg stents x2. heart cath 01/2018 - Social History Smoking Status: Former smoker How long have you smoked: 40 years Exposure to second hand smoke: Yes Alcohol: None Drug Use: none Assessment/Plan (1) Dyspnea Status: Acute Code(s): R06.00 - DYSPNEA, UNSPECIFIED (2) Palpitations Status: Acute Code(s): R00.2 - PALPITATIONS Hospital Summary - Hospital Course Hospital Course: Pt. admitted and symptoms resolved, further evaluations were negative and patient was stable for discharge to follow-up with his global marketing specialist. - Vitals & Intake/Output Vital Signs: Vital Signs Temperature 97.7 F 06/16/21 08:00 Pulse Rate 108 H 06/16/21 08:00 Respiratory Rate 17 06/16/21 08:00 Blood Pressure 123/76 06/16/21 08:00 O2 Sat by Pulse Oximetry 96 06/16/21 08:00 - Lab Result Diagrams: 06/16/21 04:15 06/16/21 04:15 - Procedures and Test Procedures and Tests throughout Hospitalization: Therapy Orders & Screens 06/14/21 15:15 Respiratory Therapy Assessment DAILY Comment: 06/14/21 23:36 Oxygen Nasal Cannula 2 lpm Comment: Diagnosis: SOB - Discharge Discharge Date: 06/16/21 Disposition: Home, Self-Care Condition: Stable Prescriptions: No Action Tamsulosin HCl 0.4 mg [Flomax 0.4 MG] 0.4 mg PO QAM Pravastatin Sodium [Pravachol] 40 mg PO HS Metoprolol Tartrate 25 mg [Lopressor 25MG Tab] 25 mg PO BID Levothyroxine Sodium 25 Mcg [Synthroid 25 Mcg] 25 mcg PO DAILY Sacubitril/Valsartan [Entresto 24 mg-26 mg Tablet] 0.5 tab PO BID Ezetimibe 10 mg [Zetia 10 MG] 10 mg PO DAILY Dofetilide [Tikosyn] 500 mcg PO BID Magnesium Oxide 400 mg [Mag-Ox 400] 400 mg PO DAILY Furosemide 20 mg [Lasix 20 mg] 20 mg PO DAILY Cholecalciferol (Vitamin D3) [Vitamin D] 1 each PO DAILY Apixaban [Eliquis 5 mg Tablet] 5 mg PO BID Aspirin EC 81 mg [Ecotrin 81 mg] 81 mg PO DAILY Instructions: Shortness of Breath (Dyspnea) (DC) Follow up with: FABIENNE ZIEGLER MD [Primary Care Provider] - 06/23/21 2:00 pm Forms: Discharge Instructions
== END 2021-06-16 09:17 | disposition home or self-care (01) ==
LOC: ED 14:17 → MED SURG 18:17
PROVIDERS: ADMIT Family Medicine; ATTEND Family Medicine
DX: R06.00 Dyspnea, unspecified (principal); R00.2 Palpitations; R07.9 Chest pain, unspecified; I48.91 Unspecified atrial fibrillation; I10 Essential (primary) hypertension; R42 Dizziness and giddiness; E78.00 Pure hypercholesterolemia, unspecified; I25.2 Old myocardial infarction; Z79.01 Long term (current) use of anticoagulants; Z79.899 Other long term (current) drug therapy; Z20.828 Contact with and (suspected) exposure to other viral communicable diseases
CPT/HCPCS: 0241U; 36000; 36415; 71045; 80048; 80053; 81015; 83735; 83880; 84484; 85025; 85027; 93005; 93041; 93268; 94640; 94760; 94762; 96374; 99285; G0378; J3475; A9270-GY

== ENCOUNTER 2021-09-15 08:42 | Emergency (ER) | payer MEDICARE, OTHER ==
--- NOTE | 2021-09-15 09:02 | ERPHSYRPT ---
- History of Present Illness Time Seen by Provider: 09/15/21 08:55 Source: patient, family Exam Limitations: no limitations Patient Subjective Stated Complaint: PT states "It all started on saturday. I get so short of breath when I lay down. Also I have had loose stool and diarrhea." Triage Nursing Assessment: Pt presented alert and oriented X 3, skin pwd. Pt ambulates with an upright steady gait, able to speak in clear full sentences pt in slightly tachypneic. Pt resting comfortably on the bed. Physician History: This is a 75-year-old white male patient of Dr. 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 Patient states everything started approximately 4 days ago in terms of the above symptoms. However he has had 2-3 work-ups for similar complaints in the last several weeks. Patient has been having diarrheal/loose stools. Patient was given a prescription of Levaquin (10-day supply) to help with those symptoms. He has approximately 4 to 5 tablets left. He is nauseated. He has had some mild abdominal cramping. Patient does have a history of CHF. He uses CPAP machine. He is not on any supplemental oxygen. He did not qualify after recent inpatient work-up and evaluation for similar complaints. Patient states that symptoms improved with oxygen. Patient states that he feels anxious especially in the last 4 days. Patient has a history of coronary artery disease and has had cardiac stents placed, he has a pacemaker placed, he has a diagnosis of atrial fibrillation and is on Eliquis. Patient has a history of hypothyroidism, hypertension, hyperlipidemia, gastroesophageal reflux disease and peripheral vascular disease (stents placed). Patient is a former smoker. Patient also complains of insomnia in the last 4 days. He presents with a room air oxygenation level of 99%. Timing/Duration: day(s) (Several), intermittent, other (More constant symptoms the last 4 days) Severity: mild Associated Symptoms: shortness of breath, chest pain Allergies/Adverse Reactions: sulfamethoxazole [From Bactrim] Allergy (Intermediate, Verified 08/14/20 14:19) Hives Home Medications: Tamsulosin HCl 0.4 mg [Flomax 0.4 MG] 0.4 mg PO QAM 11/30/11 [History] Pravastatin Sodium [Pravachol] 40 mg PO HS 10/17/15 [History] Levothyroxine Sodium 25 Mcg [Synthroid 25 Mcg] 25 mcg PO DAILY 02/08/18 [History] Metoprolol Tartrate 25 mg [Lopressor 25MG Tab] 25 mg PO BID 02/08/18 [History] Sacubitril/Valsartan [Entresto 24 mg-26 mg Tablet] 0.5 tab PO BID 02/08/18 [History] Dofetilide [Tikosyn] 500 mcg PO BID 02/22/20 [History] Ezetimibe 10 mg [Zetia 10 MG] 10 mg PO DAILY 02/22/20 [History] Magnesium Oxide 400 mg [Mag-Ox 400] 400 mg PO DAILY 08/07/20 [History] Apixaban [Eliquis 5 mg Tablet] 5 mg PO BID 06/14/21 [History] Aspirin EC 81 mg [Ecotrin 81 mg] 81 mg PO DAILY 06/14/21 [History] Cholecalciferol (Vitamin D3) [Vitamin D] 1 each PO DAILY 06/14/21 [History] Furosemide 20 mg [Lasix 20 mg] 20 mg PO DAILY 06/14/21 [History] Aspirin [Aspirin EC] 81 mg PO 09/15/21 [History] Levofloxacin [Levofloxacin 500 MG Tablet] 500 mg PO DAILY 09/15/21 [History] Hx Tetanus, Diphtheria Vaccination/Date Given: No Hx Influenza Vaccination/Date Given: No Hx Pneumococcal Vaccination/Date Given: Yes Immunizations Up to Date: Yes Travel Risk - International Travel Have you traveled outside of the country in past 3 weeks: No - Coronavirus Screening Are you exhibiting any of the following symptoms?: Yes Symptoms: Shortness of Breath, Vomiting/Diarrhea Close contact with a COVID-19 positive Pt in past 14-21 Days: No - Vaccine Status Have you recieved a Covid-19 vaccination: Yes Song Plugger: Moderna - Vaccination Dates Date of 2cond Vaccination (if applicable): unknown - Review of Systems Constitutional: No Symptoms Eyes: No Symptoms Ears, Nose, & Throat: No Symptoms Respiratory: No Symptoms Cardiac: Chest Pain Abdominal/Gastrointestinal: Abdominal Pain, Nausea, Diarrhea Genitourinary Symptoms: No Symptoms Musculoskeletal: No Symptoms Skin: No Symptoms Neurological: No Symptoms Psychological: Anxiety Endocrine: No Symptoms Hematologic/Lymphatic: No Symptoms Immunological/Allergic: No Symptoms All Other Systems: Reviewed and Negative - Past Medical History Pertinent Past Medical History: Yes Neurological History: Peripheral Neuropathy ENT History: No Pertinent History Cardiac History: Arrhythmia, High Cholesterol, Hypertension, Myocardial Infarction ([place]), Other Respiratory History: No Pertinent History Endocrine Medical History: Hypothyroidism Musculoskeletal History: Arthritis GI Medical History: GERD, GI Bleed History: No Pertinent History Psycho-Social History: No Pertinent History Male Reproductive Disorders: No Pertinent History Other Medical History: Pacemaker Defibrillator, Heart Ablasion (08/02/20), Cardiac Stents x3 (1999), 2 stents in LLE (2000) - Past Surgical History Past Surgical History: Yes Neuro Surgical History: No Pertinent History Cardiac: Cardiac Catheterization, Cardiac Stent Respiratory: No Pertinent History Gastrointestinal: Hernia Repair Genitourinary: Other Musculoskeletal: No Pertinent History Male Surgical History: No Pertinent History Other Surgical History: TURP - 2013. cardaic stents x2. lt leg stents x2. heart cath 01/2018 - Social History Smoking Status: Former smoker How long have you smoked: 40 years Exposure to second hand smoke: Yes Drug Use: none Patient Lives Alone: Yes - Nursing Vital Signs Nursing Vital Signs: Initial Vital Signs Temperature 98.0 F 09/15/21 08:45 Pulse Rate 52 L 09/15/21 08:45 Respiratory Rate 26 H 09/15/21 08:45 Blood Pressure 109/77 09/15/21 08:45 O2 Sat by Pulse Oximetry 99 09/15/21 08:45 Pain Scale Pain Intensity 5 - Physical Exam General Appearance: no apparent distress, alert, anxiety Eye Exam: PERRL/EOMI, eyes nml inspection Ears, Nose, Throat Exam: normal ENT inspection, moist mucous membranes Neck Exam: normal inspection, non-tender, supple, full range of motion Respiratory Exam: normal breath sounds, chest tenderness, lungs clear, airway intact, No respiratory distress Cardiovascular Exam: normal heart sounds, normal peripheral pulses, other (Paced rhythm) Gastrointestinal/Abdomen Exam: soft, normal bowel sounds, No tenderness, No guarding Rectal Exam: not done Back Exam: normal inspection, normal range of motion, No CVA tenderness, No vertebral tenderness Extremity Exam: normal inspection, normal range of motion, pelvis stable Neurologic Exam: alert, oriented x 3, cooperative, 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 No acute ischemic changes. Comparison EKG was performed on 06/14/2021. Today's EKG now shows atrial paced rhythm compared to a normal sinus rhythm and left bundle branch block that was present on the twelve-lead EKG dated 06/14/2021) Ordered Tests: Active Orders 24 hr Category Date Time Status EKG-ER Only STAT Care 09/15/21 09:04 Active IV Insertion STAT Care 09/15/21 09:02 Active ABDOMEN AND PELVIS W/0 CONTRAS [CT] Stat Exams 09/15/21 09:03 Completed AMYLASE Stat Lab 09/15/21 09:17 Completed CBC W DIFF Stat Lab 09/15/21 09:17 Completed CMP Stat Lab 09/15/21 09:17 Completed D-DIMER QUANTITATIVE Stat Lab 09/15/21 09:17 Completed LIPASE Stat Lab 09/15/21 09:17 Completed Lactic Acid Stat Lab 09/15/21 09:10 Completed MAG [MAGNESIUM] Stat Lab 09/15/21 10:03 Completed NT PRO BNP Stat Lab 09/15/21 09:17 Completed T4 (Thyroxine) Stat Lab 09/15/21 09:26 Completed TROPONIN Q3H Lab 09/15/21 09:17 Completed TROPONIN Q3H Lab 09/15/21 09:26 Received TROPONIN Q3H Lab 09/15/21 10:38 Completed TROPONIN Q3H Lab 09/15/21 15:15 Ordered TROPONIN Q3H Lab 09/15/21 18:15 Ordered TROPONIN Routine Lab 09/15/21 21:15 Ordered TSH [TSH, 3RD Generation] Stat Lab 09/15/21 09:26 Completed UA W/RFX CULTURE Stat Lab 09/15/21 09:26 Results Medication Summary Generic Name Dose Route Start Last Admin Trade Name Freq PRN Reason Stop Dose Admin Sodium Chloride 1,000 mls @ 100 mls/hr 09/15/21 09:15 09/15/21 09:13 Sodium Chloride 0.9% 1000 Ml IV 10/15/21 09:14 100 mls/hr .Q10H HUNTER Administration Lab/Rad Data: Laboratory Result Diagrams 09/15/21 09:17 09/15/21 09:17 Laboratory Results 09/15/21 09/15/21 09/15/21 Range/Units 10:38 10:03 09:26 WBC (4.0-10.5) x10^3/uL RBC (4.1-5.6) x10^6/uL Hgb (12.5-18.0) g/dL Hct (42-50) % MCV (78-100) fL MCH (26-32) pg MCHC (32-36) g/dL RDW (11.5-14.0) % Plt Count (150-450) x10^3/uL MPV (7.5-11.0) fL Gran % (36.0-66.0) % Immature Gran % (Auto) (0.00-0.4) % Nucleat RBC Rel Count (0.00-0.1) % Eos # (Auto) (0-0.5) x10^3/uL Immature Gran # (Auto) (0.00-0.03) x10^3u/L Absolute Lymphs (auto) (1.0-4.6) x10^3/uL Absolute Monos (auto) (0.0-1.3) x10^3/uL Absolute Nucleated RBC (0.00-0.01) x10^3u/L Lymphocytes % (24.0-44.0) % Monocytes % (0.0-12.0) % Eosinophils % (0.00-5.0) % Basophils % (0.0-0.4) % Absolute Granulocytes (1.4-6.9) x10^3/uL Basophils # (0-0.4) x10^3/uL D-Dimer (0.0-0.50) mg/L Sodium (137-145) mmol/L Potassium (3.5-5.1) mmol/L Chloride (98-107) mmol/L Carbon Dioxide (22-30) mmol/L Anion Gap (5-15) MEQ/L BUN (9-20) mg/dL Creatinine (0.66-1.25) mg/dL Estimated GFR ML/MIN Glucose (74-106) mg/dL Lactic Acid (0.4-2.0) Calcium (8.4-10.2) mg/dL Magnesium 2.0 (1.6-2.3) mg/dL Total Bilirubin (0.2-1.3) mg/dL AST (17-59) U/L ALT (0-50) U/L Alkaline Phosphatase (38-126) U/L Troponin I < 0.012 (0.000-0.034) ng/mL NT-Pro-B Natriuret Pep (0-1800) pg/mL Serum Total Protein (6.3-8.2) g/dL Albumin (3.5-5.0) g/dL Amylase (30-110) U/L Lipase (23-300) U/L Thyroxine (T4) 9.20 (5.53-10.96) ug/dL TSH 3rd Generation (0.47-4.68) mIU/L Urinalys Dipstick Clnc Urine Color (YELLOW) Urine Appearance (CLEAR) Urine pH (5-6) Ur Specific Cross[place] (1.005-1.025) POC Urine Protein Conf (Negative) Urine Ketones (NEGATIVE) Urine Nitrite (NEGATIVE) Urine Bilirubin (NEGATIVE) Urine Urobilinogen (0-1) mg/dL Urine Leukocytes (NEGATIVE) Urine WBC (Auto) (0-5) /HPF Urine RBC (Auto) (0-2) /HPF U Hyaline Cast (Auto) (0-2) /LPF U Epithel Cells (Auto) (FEW) /HPF Urine Bacteria (Auto) Urine RBC (0-5) Rahul/ul Urine Mucus (Auto) (NEGATIVE) /HPF Ur Culture Indicated? Urine Glucose (NEGATIVE) mg/dL Influenza Type A Ag (NEGATIVE) Influenza Type B Ag (NEGATIVE) RSV (PCR) (Negative) SARS-CoV-2 (PCR) (NEGATIVE) 09/15/21 09/15/21 09/15/21 Range/Units 09:26 09:26 09:17 WBC (4.0-10.5) x10^3/uL RBC (4.1-5.6) x10^6/uL Hgb (12.5-18.0) g/dL Hct (42-50) % MCV (78-100) fL MCH (26-32) pg MCHC (32-36) g/dL RDW (11.5-14.0) % Plt Count (150-450) x10^3/uL MPV (7.5-11.0) fL Gran % (36.0-66.0) % Immature Gran % (Auto) (0.00-0.4) % Nucleat RBC Rel Count (0.00-0.1) % Eos # (Auto) (0-0.5) x10^3/uL Immature Gran # (Auto) (0.00-0.03) x10^3u/L Absolute Lymphs (auto) (1.0-4.6) x10^3/uL Absolute Monos (auto) (0.0-1.3) x10^3/uL Absolute Nucleated RBC (0.00-0.01) x10^3u/L Lymphocytes % (24.0-44.0) % Monocytes % (0.0-12.0) % Eosinophils % (0.00-5.0) % Basophils % (0.0-0.4) % Absolute Granulocytes (1.4-6.9) x10^3/uL Basophils # (0-0.4) x10^3/uL D-Dimer (0.0-0.50) mg/L Sodium (137-145) mmol/L Potassium (3.5-5.1) mmol/L Chloride (98-107) mmol/L Carbon Dioxide (22-30) mmol/L Anion Gap (5-15) MEQ/L BUN (9-20) mg/dL Creatinine (0.66-1.25) mg/dL Estimated GFR ML/MIN Glucose (74-106) mg/dL Lactic Acid (0.4-2.0) Calcium (8.4-10.2) mg/dL Magnesium (1.6-2.3) mg/dL Total Bilirubin (0.2-1.3) mg/dL AST (17-59) U/L ALT (0-50) U/L Alkaline Phosphatase (38-126) U/L Troponin I (0.000-0.034) ng/mL NT-Pro-B Natriuret Pep (0-1800) pg/mL Serum Total Protein (6.3-8.2) g/dL Albumin (3.5-5.0) g/dL Amylase (30-110) U/L Lipase (23-300) U/L Thyroxine (T4) (5.53-10.96) ug/dL TSH 3rd Generation 6.900 H (0.47-4.68) mIU/L Urinalys Dipstick Clnc MAIN LAB Urine Color LT.YELLOW (YELLOW) Urine Appearance CLEAR (CLEAR) Urine pH 6.5 (5-6) Ur Specific [place] 1.015 (1.005-1.025) POC Urine Protein Conf NEGATIVE (Negative) Urine Ketones NEGATIVE (NEGATIVE) Urine Nitrite NEGATIVE (NEGATIVE) Urine Bilirubin NEGATIVE (NEGATIVE) Urine Urobilinogen 0.2 (0-1) mg/dL Urine Leukocytes NEGATIVE (NEGATIVE) Urine WBC (Auto) NONE (0-5) /HPF Urine RBC (Auto) NONE (0-2) /HPF U Hyaline Cast (Auto) 3-5 (0-2) /LPF U Epithel Cells (Auto) NONE (FEW) /HPF Urine Bacteria (Auto) Pending Urine RBC NEGATIVE (0-5) Rahul/ul Urine Mucus (Auto) SLIGHT (NEGATIVE) /HPF Ur Culture Indicated? Pending Urine Glucose NEGATIVE (NEGATIVE) mg/dL Influenza Type A Ag NEGATIVE (NEGATIVE) Influenza Type B Ag NEGATIVE (NEGATIVE) RSV (PCR) NEGATIVE (Negative) SARS-CoV-2 (PCR) NEGATIVE (NEGATIVE) 09/15/21 09/15/21 09/15/21 Range/Units 09:17 09:17 09:17 WBC (4.0-10.5) x10^3/uL RBC (4.1-5.6) x10^6/uL Hgb (12.5-18.0) g/dL Hct (42-50) % MCV (78-100) fL MCH (26-32) pg MCHC (32-36) g/dL RDW (11.5-14.0) % Plt Count (150-450) x10^3/uL MPV (7.5-11.0) fL Gran % (36.0-66.0) % Immature Gran % (Auto) (0.00-0.4) % Nucleat RBC Rel Count (0.00-0.1) % Eos # (Auto) (0-0.5) x10^3/uL Immature Gran # (Auto) (0.00-0.03) x10^3u/L Absolute Lymphs (auto) (1.0-4.6) x10^3/uL Absolute Monos (auto) (0.0-1.3) x10^3/uL Absolute Nucleated RBC (0.00-0.01) x10^3u/L Lymphocytes % (24.0-44.0) % Monocytes % (0.0-12.0) % Eosinophils % (0.00-5.0) % Basophils % (0.0-0.4) % Absolute Granulocytes (1.4-6.9) x10^3/uL Basophils # (0-0.4) x10^3/uL D-Dimer 0.24 (0.0-0.50) mg/L Sodium (137-145) mmol/L Potassium (3.5-5.1) mmol/L Chloride (98-107) mmol/L Carbon Dioxide (22-30) mmol/L Anion Gap (5-15) MEQ/L BUN (9-20) mg/dL Creatinine (0.66-1.25) mg/dL Estimated GFR ML/MIN Glucose (74-106) mg/dL Lactic Acid (0.4-2.0) Calcium (8.4-10.2) mg/dL Magnesium (1.6-2.3) mg/dL Total Bilirubin (0.2-1.3) mg/dL AST (17-59) U/L ALT (0-50) U/L Alkaline Phosphatase (38-126) U/L Troponin I 0.013 (0.000-0.034) ng/mL NT-Pro-B Natriuret Pep 1250 (0-1800) pg/mL Serum Total Protein (6.3-8.2) g/dL Albumin (3.5-5.0) g/dL Amylase (30-110) U/L Lipase (23-300) U/L Thyroxine (T4) (5.53-10.96) ug/dL TSH 3rd Generation (0.47-4.68) mIU/L Urinalys Dipstick Clnc Urine Color (YELLOW) Urine Appearance (CLEAR) Urine pH (5-6) Ur Specific [place] (1.005-1.025) POC Urine Protein Conf (Negative) Urine Ketones (NEGATIVE) Urine Nitrite (NEGATIVE) Urine Bilirubin (NEGATIVE) Urine Urobilinogen (0-1) mg/dL Urine Leukocytes (NEGATIVE) Urine WBC (Auto) (0-5) /HPF Urine RBC (Auto) (0-2) /HPF U Hyaline Cast (Auto) (0-2) /LPF U Epithel Cells (Auto) (FEW) /HPF Urine Bacteria (Auto) Urine RBC (0-5) Rahul/ul Urine Mucus (Auto) (NEGATIVE) /HPF Ur Culture Indicated? Urine Glucose (NEGATIVE) mg/dL Influenza Type A Ag (NEGATIVE) Influenza Type B Ag (NEGATIVE) RSV (PCR) (Negative) SARS-CoV-2 (PCR) (NEGATIVE) 09/15/21 09/15/21 09/15/21 Range/Units 09:17 09:17 09:10 WBC 6.0 (4.0-10.5) x10^3/uL RBC 4.27 (4.1-5.6) x10^6/uL Hgb 13.9 (12.5-18.0) g/dL Hct 40.8 L (42-50) % MCV 95.6 (78-100) fL MCH 32.6 H (26-32) pg MCHC 34.1 (32-36) g/dL RDW 12.8 (11.5-14.0) % Plt Count 147 L (150-450) x10^3/uL MPV 10.6 (7.5-11.0) fL Gran % 64.6 (36.0-66.0) % Immature Gran % (Auto) 0.3 (0.00-0.4) % Nucleat RBC Rel Count 0.0 (0.00-0.1) % Eos # (Auto) 0.12 (0-0.5) x10^3/uL Immature Gran # (Auto) 0.02 (0.00-0.03) x10^3u/L Absolute Lymphs (auto) 1.40 (1.0-4.6) x10^3/uL Absolute Monos (auto) 0.53 (0.0-1.3) x10^3/uL Absolute Nucleated RBC 0.00 (0.00-0.01) x10^3u/L Lymphocytes % 23.5 L (24.0-44.0) % Monocytes % 8.9 (0.0-12.0) % Eosinophils % 2.0 (0.00-5.0) % Basophils % 0.7 (0.0-0.4) % Absolute Granulocytes 3.86 (1.4-6.9) x10^3/uL Basophils # 0.04 (0-0.4) x10^3/uL D-Dimer (0.0-0.50) mg/L Sodium 137 (137-145) mmol/L Potassium 4.9 (3.5-5.1) mmol/L Chloride 107 (98-107) mmol/L Carbon Dioxide 18 L (22-30) mmol/L Anion Gap 17.5 H (5-15) MEQ/L BUN 25 H (9-20) mg/dL Creatinine 1.37 H (0.66-1.25) mg/dL Estimated GFR 53.8 ML/MIN Glucose 117 H (74-106) mg/dL Lactic Acid 1.4 (0.4-2.0) Calcium 9.7 (8.4-10.2) mg/dL Magnesium (1.6-2.3) mg/dL Total Bilirubin 2.00 H (0.2-1.3) mg/dL AST 43 (17-59) U/L ALT 23 (0-50) U/L Alkaline Phosphatase 59 (38-126) U/L Troponin I (0.000-0.034) ng/mL NT-Pro-B Natriuret Pep (0-1800) pg/mL Serum Total Protein 7.9 (6.3-8.2) g/dL Albumin 4.5 (3.5-5.0) g/dL Amylase 83 (30-110) U/L Lipase 56 (23-300) U/L Thyroxine (T4) (5.53-10.96) ug/dL TSH 3rd Generation (0.47-4.68) mIU/L Urinalys Dipstick Clnc Urine Color (YELLOW) Urine Appearance (CLEAR) Urine pH (5-6) Ur Specific [place] (1.005-1.025) POC Urine Protein Conf (Negative) Urine Ketones (NEGATIVE) Urine Nitrite (NEGATIVE) Urine Bilirubin (NEGATIVE) Urine Urobilinogen (0-1) mg/dL Urine Leukocytes (NEGATIVE) Urine WBC (Auto) (0-5) /HPF Urine RBC (Auto) (0-2) /HPF U Hyaline Cast (Auto) (0-2) /LPF U Epithel Cells (Auto) (FEW) /HPF Urine Bacteria (Auto) Urine RBC (0-5) Rahul/ul Urine Mucus (Auto) (NEGATIVE) /HPF Ur Culture Indicated? Urine Glucose (NEGATIVE) mg/dL Influenza Type A Ag (NEGATIVE) Influenza Type B Ag (NEGATIVE) RSV (PCR) (Negative) SARS-CoV-2 (PCR) (NEGATIVE) - Progress Progress Note: 09/15/21 09:37 CAT scan of the abdomen and pelvis without contrast shows no acute intra- abdominal or intrapelvic findings. There is no change from that similar study performed 1 week ago Counseled pt/family regarding: lab results, diagnosis, need for follow-up, rad results - Departure Departure Disposition: Home Clinical Impression: Anxiety about health, Insomnia, Shortness of breath Condition: Stable Critical Care Time: No Referrals: FABIENNE ZIEGLER MD [Primary Care Provider] - Follow up/PCP as directed Additional Instructions: Take your medication as prescribed. Follow-up with your retail management trainee today to make arrangements for follow-up appointment for further evaluation. Call your primary care provider's office today and make arrangements for follow-up appointment for further evaluation and management. Prescriptions: Lorazepam 1 mg [Ativan 1 MG] 1 mg PO Q8H PRN PRN #8 tablet PRN Reason: Anxiety
[2021-09-15] MEDS ORDERED: Sodium Chloride 0.9% 1000 ML 1,000 ML ONE (09:12)
[2021-09-15] MEDS ORDERED: Sodium Chloride 0.9% 1000 ML 1,000 ML IV SCH (09:15)
[2021-09-15 09:18] LABS: Absolute Neutrophil Ct (ANC) 3.86 x10^3/uL (1.4-6.9); Basophil (Absolute #) 0.04 x10^3/uL (0-0.4); Eosinophil (Absolute #) 0.12 x10^3/uL (0-0.5); Hematocrit 40.8 % (42-50); Hemoglobin 13.9 g/dL (12.5-18.0); Lymphocytes % 23.5 % (24.0-44.0); Mean Cell Volume 95.6 fL (78-100); Mean Corpuscular Hemoglobin 32.6 pg (26-32); Mean Corpuscular Hgb Concent. 34.1 g/dL (32-36); Mean Platelet Volume 10.6 fL (7.5-11.0); Monocyte (Absolute #) 0.53 x10^3/uL (0.0-1.3); Monocytes % 8.9 % (0.0-12.0); Neutrophil % 64.6 % (36.0-66.0); Platelet Count 147 x10^3/uL (150-450); Red Blood Count 4.27 x10^6/uL (4.1-5.6); Red Cell Distribution Width 12.8 % (11.5-14.0)
[2021-09-15 09:30] LABS: ALBUMIN 4.5 g/dL (3.5-5.0); ANION GAP 17.5 MEQ/L (5-15); Calcium 9.7 mg/dL (8.4-10.2); Creatinine 1 1.37 mg/dL (0.66-1.25); EST GLOMERULAR FILTRATION RATE 53.8 ML/MIN; Potassium 4.9 mmol/L (3.5-5.1); Total Protein 7.9 g/dL (6.3-8.2)
--- NOTE | 2021-09-15 09:35 | XRAY ---
Indication: Abdomen pain one month. Diarrhea. Multiple contiguous axial images obtained through the abdomen and pelvis without contrast. Comparison: September 08, 2021 Lung bases again demonstrates a few tiny calcified granulomas. No infiltrate or effusion. Heart not enlarged again with pacer leads. Noncontrasted stomach and bowel loops remain nonobstructed again with scattered descending/sigmoid diverticulosis without diverticulitis. Normal appendix. No free fluid/air. Stable splenic calcified granulomas and multiple bilateral renal cysts. Right kidney also demonstrates stable mild hydronephrosis with proximal ureteral distention again presumed chronic. Stable enlarged prostate gland. Remaining liver, gallbladder, pancreas, spleen, adrenal glands, kidneys, ureters, and bladder are unremarkable for noncontrast exam. Stable moderate scattered vascular calcifications and 3.1 cm distal AAA. Impression: No change compared to CT abdomen/pelvis 7 days ago. Again chronic mild right hydronephrosis/hydroureter, bilateral renal cysts, enlarged prostate gland, colonic diverticulosis, arteriosclerotic disease with distal AAA, and old granulomatous disease.
[2021-09-15 10:19] LABS: INFLUENZA A NEGATIVE (NEGATIVE); INFLUENZA B NEGATIVE (NEGATIVE); RESPIRATORY SYNCTIAL VIRUS NEGATIVE (Negative); SARS-CoV-2 Xpert Express NEGATIVE (NEGATIVE)
[2021-09-15 10:30] LABS: Mucus SLIGHT /HPF (NEGATIVE)
[2021-09-15 10:39] LABS: Appearance CLEAR (CLEAR); Bilirubin NEGATIVE (NEGATIVE); Dipstick done @ ? MAIN LAB; Glucose NEGATIVE (NEGATIVE); Ketones NEGATIVE (NEGATIVE); Nitrite NEGATIVE (NEGATIVE); Ph 6.5 (5-6); Protein,Urine Dip NEGATIVE (Negative); RBC NEGATIVE Ery/ul (0-5); Specific Gravity 1.015 (1.005-1.025); Urobilinogen 0.2 mg/dL (0-1)
[2021-09-15 12:03] LABS: Urine Cultured Indicated? NO
[2021-09-15 12:06] VITALS: BP 114/83; PULSE 73; O2SAT 97
== END 2021-09-15 12:35 | disposition home or self-care (01) ==
LOC: ED 08:42
DX: F45.9 Somatoform disorder, unspecified (principal); R06.02 Shortness of breath; G47.00 Insomnia, unspecified; R19.7 Diarrhea, unspecified; R07.9 Chest pain, unspecified; I10 Essential (primary) hypertension; E78.5 Hyperlipidemia, unspecified; I48.91 Unspecified atrial fibrillation; Z79.01 Long term (current) use of anticoagulants; Z79.899 Other long term (current) drug therapy; Z20.828 Contact with and (suspected) exposure to other viral communicable diseases
CPT/HCPCS: 0241U; 36000; 36415; 74176; 80053; 81015; 82150; 83605; 83690; 83735; 83880; 84436; 84443; 84484; 85025; 85379; 93005; 99284

== ENCOUNTER 2022-02-22 09:29 | Observation (INO) | payer MEDICARE, OTHER ==
[2022-02-22] MEDS ORDERED: Sodium Chloride 0.9% 1000 ML 1,000 ML IV STA (10:11)
[2022-02-22] MEDS ORDERED: Zofran 4 MG/2 ML VIAL IV ONE (10:11)
[2022-02-22] MEDS ORDERED: MORPHINE SULFATE 4 MG INJ IV ONE (10:11)
[2022-02-22] MEDS ORDERED: Sodium Chloride 0.9% 1000 ML 1,000 ML ONE (10:23)
[2022-02-22] MEDS ORDERED: MORPHINE SULFATE 4 MG INJ ONE (10:23)
[2022-02-22] MEDS ORDERED: Zofran 4 MG/2 ML VIAL ONE (10:23)
[2022-02-22 10:29] LABS: Absolute Neutrophil Ct (ANC) 10.32 x10^3/uL (1.4-6.9); Basophil (Absolute #) 0.03 x10^3/uL (0-0.4); Eosinophil % 0.4 % (0.00-5.0); Eosinophil (Absolute #) 0.05 x10^3/uL (0-0.5); Hematocrit 47.6 % (42-50); Hemoglobin 15.8 g/dL (12.5-18.0); Lymphocyte (Absolute #) 1.28 x10^3/uL (1.0-4.6); Lymphocytes % 10.4 % (24.0-44.0); Mean Cell Volume 96.4 fL (78-100); Mean Corpuscular Hgb Concent. 33.2 g/dL (32-36); Mean Platelet Volume 10.8 fL (7.5-11.0); Monocyte (Absolute #) 0.64 x10^3/uL (0.0-1.3); Monocytes % 5.2 % (0.0-12.0); Neutrophil % 83.6 % (36.0-66.0); Platelet Count 185 x10^3/uL (150-450); Red Blood Count 4.94 x10^6/uL (4.1-5.6); Red Cell Distribution Width 12.8 % (11.5-14.0); White Blood Count 12.4 x10^3/uL (4.0-10.5)
[2022-02-22 11:30] LABS: ANION GAP 16.4 MEQ/L (5-15); BILIRUBIN,TOTAL 1.5 mg/dL (0.2-1.3); Calcium 9.9 mg/dL (8.4-10.2); Creatinine 1 1.7 mg/dL (0.66-1.25); EST GLOMERULAR FILTRATION RATE 41.9 ML/MIN; Potassium 4.5 mmol/L (3.5-5.1); Total Protein 8.6 g/dL (6.3-8.2)
--- NOTE | 2022-02-22 12:17 | ERPHSYRPT ---
- History of Present Illness Time Seen by Provider: 02/22/22 10:00 Historian: patient Exam Limitations: no limitations Patient Subjective Stated Complaint: C/O right lower abdominal pain and mid abdominal pain with N/V and diarrhea. Denies fever. States his pain decreases slightly/he gets some temporary relief after vomiting but pain quickly increases back up to a #10. Triage Nursing Assessment: Patient ambulated back to ED holding right side of abdomen. Lips are dry. Patient using abdominal muscles to breath; labored breaths. Pain in mid abdomen with palpation. KAILA WNL. Patient is alert and oriented. Physician History: 76 years old male with multiple medical problems including hypertension, hyperlipidemia, hypothyroidism, atrial fibrillation on Eliquis pacemaker/defibrillator implant presented in the ER with chief complaint of abdominal pain with nausea vomiting and diarrhea. Patient reports having 2 days history of abdominal pain with associated nausea and nonprojectile, nonbilious vomiting without hematemesis. Also having loose watery stool. No fever or chills reported. Feels weak fatigued tired and dehydrated. Timing/Duration: day(s) (2), gradual onset, worse Activities at Onset: rest Quality: sharpness Abdominal Pain Onset Location: RLQ, periumbilical, flank Severity of Pain-Max: severe Severity of Pain-Current: moderate Modifying Factors: Worsens With: movement, palpation Associated Symptoms: diarrhea, fatigue, nausea, vomiting, No fever/chills, No shortness of breath, No testicular pain Allergies/Adverse Reactions: sulfamethoxazole [From Bactrim] Allergy (Intermediate, Verified 02/22/22 09:34) Hives Home Medications: Tamsulosin HCl 0.4 mg [Flomax 0.4 MG] 0.4 mg PO QAM 11/30/11 [History] Pravastatin Sodium [Pravachol] 40 mg PO HS 10/17/15 [History] Levothyroxine Sodium 25 Mcg [Synthroid 25 Mcg] 25 mcg PO 0600 02/08/18 [History] Metoprolol Tartrate 25 mg [Lopressor 25MG Tab] 12.5 mg PO DAILY 02/08/18 [History] Sacubitril/Valsartan [Entresto 24 mg-26 mg Tablet] 1 tab PO BID 02/08/18 [History] Dofetilide [Tikosyn] 500 mcg PO BID 02/22/20 [History] Ezetimibe 10 mg [Zetia 10 MG] 10 mg PO HS 02/22/20 [History] Magnesium Oxide 400 mg [Mag-Ox 400] 400 mg PO DAILY 08/07/20 [History] Apixaban [Eliquis 5 mg Tablet] 5 mg PO BID 06/14/21 [History] Cholecalciferol (Vitamin D3) [Vitamin D] 2,000 units PO DAILY 06/14/21 [History] Furosemide 20 mg [Lasix 20 mg] 20 mg PO DAILY 06/14/21 [History] Metoprolol Tartrate 25 mg [Lopressor 25MG Tab] 25 mg PO HS 02/22/22 [History] Hx Tetanus, Diphtheria Vaccination/Date Given: Yes Hx Influenza Vaccination/Date Given: No Hx Pneumococcal Vaccination/Date Given: Yes Immunizations Up to Date: Yes Travel Risk - International Travel Have you traveled outside of the country in past 3 weeks: No - Coronavirus Screening Are you exhibiting any of the following symptoms?: No Symptoms: Vomiting/Diarrhea Close contact with a COVID-19 positive Pt in past 14-21 Days: No - Vaccine Status Have you recieved a Covid-19 vaccination: Yes Risk Intern: Moderna - Vaccination Dates Date of 2cond Vaccination (if applicable): unknown - Review of Systems Constitutional: Fatigue, Weakness Eyes: No Symptoms Ears, Nose, & Throat: No Symptoms Respiratory: No Symptoms Cardiac: No Symptoms Abdominal/Gastrointestinal: Abdominal Pain, Nausea, Vomiting, Diarrhea Genitourinary Symptoms: No Symptoms Musculoskeletal: No Symptoms Skin: No Symptoms Neurological: No Symptoms Psychological: No Symptoms Endocrine: No Symptoms Hematologic/Lymphatic: No Symptoms Immunological/Allergic: No Symptoms - Past Medical History Pertinent Past Medical History: Yes Neurological History: Peripheral Neuropathy ENT History: No Pertinent History Cardiac History: Arrhythmia, High Cholesterol, Hypertension, Myocardial Infarction (SD), Other Respiratory History: No Pertinent History Endocrine Medical History: Hypothyroidism Musculoskeletal History: Arthritis GI Medical History: GERD, GI Bleed, Hernia History: No Pertinent History Psycho-Social History: No Pertinent History Male Reproductive Disorders: Prostate Problems Other Medical History: Heart Ablasion (08/02/20) - Past Surgical History Past Surgical History: Yes Neuro Surgical History: No Pertinent History Cardiac: Cardiac Catheterization, Cardiac Stent, Internal Defibrillator, P acemaker Respiratory: No Pertinent History Gastrointestinal: Hernia Repair Genitourinary: Other Musculoskeletal: No Pertinent History Male Surgical History: No Pertinent History Other Surgical History: TURP, lt leg stents x2 - Social History Smoking Status: Former smoker How long have you smoked: 40 years Exposure to second hand smoke: No Drug Use: none Patient Lives Alone: Yes - Nursing Vital Signs Nursing Vital Signs: Initial Vital Signs Temperature 97.8 F 02/22/22 09:36 Pulse Rate 72 02/22/22 09:36 Respiratory Rate 20 02/22/22 09:36 Blood Pressure 115/94 02/22/22 09:36 O2 Sat by Pulse Oximetry 99 02/22/22 09:36 Pain Scale Pain Intensity 4 - Physical Exam General Appearance: no apparent distress, alert Eye Exam: PERRL/EOMI Ears, Nose, Throat Exam: normal ENT inspection Neck Exam: normal inspection, non-tender, supple, full range of motion Respiratory Exam: normal breath sounds, lungs clear Cardiovascular Exam: regular rate/rhythm, normal heart sounds Gastrointestinal/Abdomen Exam: soft, normal bowel sounds, tenderness (Generalized more in the right flank) Back Exam: normal inspection, normal range of motion, No CVA tenderness Extremity Exam: normal inspection, normal range of motion, pelvis stable Neurologic Exam: alert, oriented x 3, cooperative, normal mood/affect Skin Exam: normal color SpO2 Interpretation: normal SpO2: 91 O2 Delivery: Room Air - Course EKG Interpreted by Me: RATE (70 atrial paced rhythm), Left Burt Deviation, NORMAL INTERVALS, Left Bundle Branch Block Ordered Tests: Active Orders 24 hr Category Date Time Status Bedrest ROUTINE Activity 02/22/22 15:25 Active Up With Assistance ROUTINE Activity 02/22/22 15:25 Active Code Status Order ROUTINE Care 02/22/22 15:25 Active Fall Protocol Q1H Care 02/22/22 15:25 Active IV Care Q6H Care 02/22/22 15:25 Active IV Insertion STAT Care 02/22/22 10:11 Completed NPO (ED) STAT Care 02/22/[address] 10:[address] in Observation ROUTINE Care 02/22/22 15:25 Active Mau Hose, Apply ROUTINE Care 02/22/22 15:25 Active Weight,Daily 0600 Care 02/22/22 15:25 Active ABDOMEN AND PELVIS W/0 CONTRAS [CT] Stat Exams 02/22/22 10:11 Completed CBC W DIFF AM.LAB Lab 02/23/22 04:00 Ordered CBC W DIFF Stat Lab 02/22/22 09:52 Completed CMP AM.LAB Lab 02/23/22 04:00 Ordered CMP Stat Lab 02/22/22 09:52 Completed CULTURE,URINE Stat Lab 02/22/22 12:09 Received LIPASE Stat Lab 02/22/22 09:52 Completed Lactic Acid Stat Lab 02/22/22 10:30 Completed Lactic Acid Stat Lab 02/22/22 12:40 Completed TROPONIN Q4H Lab 02/22/22 09:52 Completed TROPONIN Q4H Lab 02/22/22 13:00 Completed TROPONIN Q4H Lab 02/22/22 19:52 Completed UA W/RFX UR CULTURE Stat Lab 02/22/22 12:09 Completed Transfer Order Routine Transfer 02/22/22 Completed Medication Summary Generic Name Dose Route Start Last Admin Trade Name Freq PRN Reason Stop Dose Admin Acetaminophen 650 mg 02/22/22 15:25 Acetaminophen 325 Mg Tablet PO 03/24/22 15:24 Q4H PRN PRN PAIN AND/OR FEVER Apixaban 5 mg 02/22/22 22:00 02/22/22 21:36 Apixaban 2.5 Mg Tablet PO 03/24/22 21:59 5 mg BID HUNTER Administration Cholecalciferol 2,000 unit 02/23/22 10:00 Cholecalciferol (Vitamin D3) 1000 Unit Tablet PO 03/25/22 09:59 DAILY HUNTER Ezetimibe 10 mg 02/22/22 22:00 02/22/22 21:35 Ezetimibe 10 Mg Tab PO 03/24/22 21:59 10 mg HS HUNTER Administration Furosemide 20 mg 02/23/22 10:00 Furosemide 20 Mg Tablet PO 03/25/22 09:59 DAILY HUNTER Potassium Chloride/Sodium Chloride 1,000 mls @ 125 mls/hr 02/22/22 15:25 02/22/22 16:21 Sodium Chloride 0.9% W/ 20 Meq Kcl/Liter IV 03/24/22 15:24 125 mls/hr .Q8H HUNTER Administration Levothyroxine Sodium 25 mcg 02/23/22 06:00 Levothyroxine Sodium 25 Mcg Tablet PO 03/25/22 05:59 0600 HUNTER Loperamide HCl 2 mg 02/22/22 16:10 02/22/22 16:22 Loperamide Hcl 2 Mg Capsule PO 03/24/22 16:09 2 mg PRN PRN Administration DIARRHEA Magnesium Oxide 400 mg 02/23/22 10:00 Magnesium Oxide 400 Mg Tablet PO 03/25/22 09:59 DAILY HUNTER Metoprolol Tartrate 12.5 mg 02/23/22 10:00 Metoprolol Tartrate 25 Mg Tab PO 03/25/22 09:59 DAILY HUNTER Metoprolol Tartrate 25 mg 02/22/22 22:00 02/22/22 21:35 Metoprolol Tartrate 25 Mg Tab PO 03/24/22 21:59 25 mg HS HUNTER Administration Morphine Sulfate 4 mg 02/22/22 15:25 Morphine Sulfate 4 Mg/Ml Injection IV 02/27/22 15:24 Q4H PRN PRN PAIN Ondansetron HCl 4 mg 02/22/22 15:25 02/22/22 21:34 Ondansetron Hcl 4 Mg/2 Ml Vial IV 03/24/22 15:24 4 mg Q6H PRN PRN Administration NAUSEA/VOMITING Pantoprazole Sodium 40 mg 02/23/22 10:00 Pantoprazole 40 Mg Vial IV 03/25/22 09:59 Q24H10 HUNTER Dofetilide 500mcg 1 each 02/22/22 22:00 02/22/22 21:36 Capsule PO 03/24/22 21:59 1 each BID HUNTER Administration Sacubitril/Valsartan 0.5 tablet 02/22/22 22:00 02/22/22 21:35 Sacubitril/Valsartan 1 Tablet Tablet PO 03/24/22 21:59 0.5 tablet BID HUNTER Administration Simvastatin 40 mg 02/22/22 22:00 02/22/22 21:35 Simvastatin 20 Mg Tablet PO 03/24/22 21:59 40 mg HS HUNTER Administration Tamsulosin HCl 0.4 mg 02/23/22 10:00 Tamsulosin Hcl 0.4 Mg Cap PO 03/25/22 09:59 QAM HUNTER Discontinued Medications Generic Name Dose Route Start Last Admin Trade Name Freq PRN Reason Stop Dose Admin Albuterol/Ipratropium 3 ml 02/22/22 15:25 Ipratropium/Albuterol Sulfate 3 Ml Ampul.Neb IH 03/24/22 15:24 Q4HPRN PRN SHORTNESS OF BREATH/WHEEZING Sodium Chloride 1,000 mls @ 999 mls/hr 02/22/22 10:11 02/22/22 13:13 Sodium Chloride 0.9% 1000 Ml IV 02/22/22 11:11 Infused .Q1H1M STA Infusion Sodium Chloride Confirm 02/22/22 10:23 Sodium Chloride 0.9% 1000 Ml Administered 02/22/22 10:24 Dose 1,000 mls @ ud .ROUTE .STK-MED ONE Morphine Sulfate 4 mg 02/22/22 10:11 02/22/22 10:24 Morphine Sulfate 4 Mg/Ml Injection IV 02/22/22 10:12 4 mg STAT ONE Administration Morphine Sulfate Confirm 02/22/22 10:23 Morphine Sulfate 4 Mg/Ml Injection Administered 02/22/22 10:24 Dose 4 mg .ROUTE .STK-MED ONE Ondansetron HCl 4 mg 02/22/22 10:11 02/22/22 10:24 Ondansetron Hcl 4 Mg/2 Ml Vial IV 02/22/22 10:12 4 mg STAT ONE Administration Ondansetron HCl Confirm 02/22/22 10:23 Ondansetron Hcl 4 Mg/2 Ml Vial Administered 02/22/22 10:24 Dose 4 mg .ROUTE .STK-MED ONE Lab/Rad Data: Laboratory Result Diagrams 02/22/22 09:52 02/22/22 09:52 Laboratory Results 02/22/22 02/22/22 02/22/22 Range/Units 13:55 13:00 12:40 WBC (4.0-10.5) x10^3/uL RBC (4.1-5.6) x10^6/uL Hgb (12.5-18.0) g/dL Hct (42-50) % MCV (78-100) fL MCH (26-32) pg MCHC (32-36) g/dL RDW (11.5-14.0) % Plt Count (150-450) x10^3/uL MPV (7.5-11.0) fL Gran % (36.0-66.0) % Immature Gran % (Auto) (0.00-0.4) % Nucleat RBC Rel Count (0.00-0.1) % Eos # (Auto) (0-0.5) x10^3/uL Immature Gran # (Auto) (0.00-0.03) x10^3u/L Absolute Lymphs (auto) (1.0-4.6) x10^3/uL Absolute Monos (auto) (0.0-1.3) x10^3/uL Absolute Nucleated RBC (0.00-0.01) x10^3u/L Lymphocytes % (24.0-44.0) % Monocytes % (0.0-12.0) % Eosinophils % (0.00-5.0) % Basophils % (0.0-0.4) % Absolute Granulocytes (1.4-6.9) x10^3/uL Basophils # (0-0.4) x10^3/uL Sodium (137-145) mmol/L Potassium (3.5-5.1) mmol/L Chloride (98-107) mmol/L Carbon Dioxide (22-30) mmol/L Anion Gap (5-15) MEQ/L BUN (9-20) mg/dL Creatinine (0.66-1.25) mg/dL Estimated GFR ML/MIN Glucose (74-106) mg/dL Lactic Acid 1.3 (0.4-2.0) Calcium (8.4-10.2) mg/dL Total Bilirubin (0.2-1.3) mg/dL AST (17-59) U/L ALT (0-50) U/L Alkaline Phosphatase (38-126) U/L Troponin I < 0.012 (0.000-0.034) ng/mL Serum Total Protein (6.3-8.2) g/dL Albumin (3.5-5.0) g/dL Lipase (23-300) U/L Urine Color (Yellow) Urine Appearance (Clear) Urine pH (4.6-8.0) Ur Specific [place] (1.005-1.030) Urine Protein (Negative) Urine Ketones (Negative) Urine Blood (Negative) Urine Nitrite (Negative) Urine Bilirubin (Negative) Urine Urobilinogen (0.2) mg/dL Ur Leukocyte Esterase (Negative) U Hyaline Cast (Auto) (0-2) /LPF Urine Microscopic RBC (0-5) /HPF Urine Microscopic WBC (0-5) /HPF Ur Epithelial Cells (None Seen) /HPF Urine Bacteria (None Seen) /HPF Granular Casts (None Seen) /LPF Urine Culture Reflexed (NO) Urine Glucose (Negative) mg/dL C. difficile Screen (NEGATIVE) C.difficile 027-NAP1-B1 (NEGATIVE) Influenza Type A Ag NEGATIVE (NEGATIVE) Influenza Type B Ag NEGATIVE (NEGATIVE) RSV (PCR) NEGATIVE (Negative) SARS-CoV-2 (PCR) NEGATIVE (NEGATIVE) 02/22/22 02/22/22 02/22/22 Range/Units 12:09 11:45 10:30 WBC (4.0-10.5) x10^3/uL RBC (4.1-5.6) x10^6/uL Hgb (12.5-18.0) g/dL Hct (42-50) % MCV (78-100) fL MCH (26-32) pg MCHC (32-36) g/dL RDW (11.5-14.0) % Plt Count (150-450) x10^3/uL MPV (7.5-11.0) fL Gran % (36.0-66.0) % Immature Gran % (Auto) (0.00-0.4) % Nucleat RBC Rel Count (0.00-0.1) % Eos # (Auto) (0-0.5) x10^3/uL Immature Gran # (Auto) (0.00-0.03) x10^3u/L Absolute Lymphs (auto) (1.0-4.6) x10^3/uL Absolute Monos (auto) (0.0-1.3) x10^3/uL Absolute Nucleated RBC (0.00-0.01) x10^3u/L Lymphocytes % (24.0-44.0) % Monocytes % (0.0-12.0) % Eosinophils % (0.00-5.0) % Basophils % (0.0-0.4) % Absolute Granulocytes (1.4-6.9) x10^3/uL Basophils # (0-0.4) x10^3/uL Sodium (137-145) mmol/L Potassium (3.5-5.1) mmol/L Chloride (98-107) mmol/L Carbon Dioxide (22-30) mmol/L Anion Gap (5-15) MEQ/L BUN (9-20) mg/dL Creatinine (0.66-1.25) mg/dL Estimated GFR ML/MIN Glucose (74-106) mg/dL Lactic Acid 2.7 H (0.4-2.0) Calcium (8.4-10.2) mg/dL Total Bilirubin (0.2-1.3) mg/dL AST (17-59) U/L ALT (0-50) U/L Alkaline Phosphatase (38-126) U/L Troponin I (0.000-0.034) ng/mL Serum Total Protein (6.3-8.2) g/dL Albumin (3.5-5.0) g/dL Lipase (23-300) U/L Urine Color Dark Yellow (Yellow) Urine Appearance Cloudy A (Clear) Urine pH 5.0 (4.6-8.0) Ur Specific [place] 1.025 (1.005-1.030) Urine Protein 300 A (Negative) Urine Ketones 15 A (Negative) Urine Blood Negative (Negative) Urine Nitrite Negative (Negative) Urine Bilirubin Small A (Negative) Urine Urobilinogen 1.0 A (0.2) mg/dL Ur Leukocyte Esterase Negative (Negative) U Hyaline Cast (Auto) 26-50 A (0-2) /LPF Urine Microscopic RBC 11-15 A (0-5) /HPF Urine Microscopic WBC 0-2 (0-5) /HPF Ur Epithelial Cells Few (None Seen) /HPF Urine Bacteria None Seen (None Seen) /HPF Granular Casts 26-50 A (None Seen) /LPF Urine Culture Reflexed YES (NO) Urine Glucose Negative (Negative) mg/dL C. difficile Screen NEGATIVE (NEGATIVE) C.difficile 027-NAP1-B1 PRESUMPTIVE NEGATIVE (NEGATIVE) Influenza Type A Ag (NEGATIVE) Influenza Type B Ag (NEGATIVE) RSV (PCR) (Negative) SARS-CoV-2 (PCR) (NEGATIVE) 02/22/22 02/22/22 02/22/22 Range/Units 09:52 09:52 09:52 WBC 12.4 H (4.0-10.5) x10^3/uL RBC 4.94 (4.1-5.6) x10^6/uL Hgb 15.8 (12.5-18.0) g/dL Hct 47.6 (42-50) % MCV 96.4 (78-100) fL MCH 32.0 (26-32) pg MCHC 33.2 (32-36) g/dL RDW 12.8 (11.5-14.0) % Plt Count 185 (150-450) x10^3/uL MPV 10.8 (7.5-11.0) fL Gran % 83.6 H (36.0-66.0) % Immature Gran % (Auto) 0.2 (0.00-0.4) % Nucleat RBC Rel Count 0.0 (0.00-0.1) % Eos # (Auto) 0.05 (0-0.5) x10^3/uL Immature Gran # (Auto) 0.03 (0.00-0.03) x10^3u/L Absolute Lymphs (auto) 1.28 (1.0-4.6) x10^3/uL Absolute Monos (auto) 0.64 (0.0-1.3) x10^3/uL Absolute Nucleated RBC 0.00 (0.00-0.01) x10^3u/L Lymphocytes % 10.4 L (24.0-44.0) % Monocytes % 5.2 (0.0-12.0) % Eosinophils % 0.4 (0.00-5.0) % Basophils % 0.2 (0.0-0.4) % Absolute Granulocytes 10.32 H (1.4-6.9) x10^3/uL Basophils # 0.03 (0-0.4) x10^3/uL Sodium 140 (137-145) mmol/L Potassium 4.5 (3.5-5.1) mmol/L Chloride 108 H (98-107) mmol/L Carbon Dioxide 19 L (22-30) mmol/L Anion Gap 16.4 H (5-15) MEQ/L BUN 34 H (9-20) mg/dL Creatinine 1.70 H (0.66-1.25) mg/dL Estimated GFR 41.9 ML/MIN Glucose 159 H (74-106) mg/dL Lactic Acid (0.4-2.0) Calcium 9.9 (8.4-10.2) mg/dL Total Bilirubin 1.50 H (0.2-1.3) mg/dL AST 32 (17-59) U/L ALT 30 (0-50) U/L Alkaline Phosphatase 69 (38-126) U/L Troponin I < 0.012 (0.000-0.034) ng/mL Serum Total Protein 8.6 H (6.3-8.2) g/dL Albumin 5.0 (3.5-5.0) g/dL Lipase 70 (23-300) U/L Urine Color (Yellow) Urine Appearance (Clear) Urine pH (4.6-8.0) Ur Specific [place] (1.005-1.030) Urine Protein (Negative) Urine Ketones (Negative) Urine Blood (Negative) Urine Nitrite (Negative) Urine Bilirubin (Negative) Urine Urobilinogen (0.2) mg/dL Ur Leukocyte Esterase (Negative) U Hyaline Cast (Auto) (0-2) /LPF Urine Microscopic RBC (0-5) /HPF Urine Microscopic WBC (0-5) /HPF Ur Epithelial Cells (None Seen) /HPF Urine Bacteria (None Seen) /HPF Granular Casts (None Seen) /LPF Urine Culture Reflexed (NO) Urine Glucose (Negative) mg/dL C. difficile Screen (NEGATIVE) C.difficile 027-NAP1-B1 (NEGATIVE) Influenza Type A Ag (NEGATIVE) Influenza Type B Ag (NEGATIVE) RSV (PCR) (Negative) SARS-CoV-2 (PCR) (NEGATIVE) - Progress Progress: improved, pain not gone completely, re-examined Progress Note: 02/22/22 13:40 76 years old with multiple medical problems including atrial fibrillation on Eliquis/pacemaker defibrillator placement, hypertension, hypothyroidism presented with abdominal pain nausea vomiting diarrhea for last couple of days. Patient is given symptomatic treatment for pain and nausea along with fluid bolus. Has improvement in his nausea and vomiting but while in the ER he is having multiple episodes of loose stool. I have checked his C. difficile and is negative. Has a white count of 12, chemistry shows worsening of renal function with a baseline CKD 1.3 and today 1.7 creatinine and also elevation in BUN and low bicarb. Obtained CT abdomen pelvis which showed picture consistent with ileus versus enterocolitis. I believe it is more of a gastroenteritis related ileus and will continue with hydration. We will hold off on antibiotics for now. With his bad diarrhea and already having renal function worsening I eve sanders patient would benefit with IV hydration, monitoring of renal functions and symptomatic treatment. I have discussed with Dr. Blanchard, reviewed history, work-up and patient is being admitted. 02/22/22 13:43 Discussed with : Kelli Will see patient in: hospital (observation) Counseled pt/family regarding: lab results, diagnosis, rad results - Departure Departure Disposition: Observation Clinical Impression: Acute gastroenteritis, Renal failure (ARF), acute on chronic, Dehydration Condition: Stable Critical Care Time: No
--- NOTE | 2022-02-22 12:21 | XRAY ---
Indication: Abdomen pain, nausea, vomiting, and diarrhea. Multiple contiguous axial images obtained through the abdomen and pelvis without contrast. Comparison: September 08 and September 15, 2021. Lung bases again demonstrate a few tiny calcified granulomas. Heart is not enlarged again with pacer leads. Stomach is mildly distended with food/fluid. Noncontrasted stomach and bowel loops appear nonobstructed. Several small and large bowel loops are now mildly fluid distended with fluid leveling, ileus versus enterocolitis. Normal appendix. Again minimal descending/sigmoid diverticulosis without diverticulitis. No free fluid/air. Stable splenic calcific granulomas and multiple bilateral renal cysts. Remaining liver, gallbladder, pancreas, spleen, adrenal glands, kidneys, ureters, and bladder are unremarkable for noncontrast exam. Again moderate scattered aortoiliac calcifications with 3.1 cm distal AAA. Osseous structures intact again with mild osteopenia and mild degenerative changes throughout the spine. Impression: 1. New mild fluid distended small and large bowel loops with fluid leveling, ileus versus enterocolitis. 2. Again chronic findings including bilateral renal cysts, colonic diverticulosis, arteriosclerotic disease with 3.1 cm distal AAA, chronic bony findings, and old granulomatous disease.
[2022-02-22 12:42] LABS: ADD URINE CULTURE? YES (NO); Appearance Cloudy (Clear); Bacteria None Seen /HPF (None Seen); Bilirubin Small (Negative); Blood Negative (Negative); Epithelial Cells Few /HPF (None Seen); Glucose Negative (Negative); Hyaline Casts 26-50 /LPF (0-2); Ketones 15 (Negative); Leukocyte Esterase Negative (Negative); Nitrite Negative (Negative); Protein,Urine Dip 300 (Negative); Specific Gravity 1.025 (1.005-1.030); WBC 0-2 /HPF (0-5)
[2022-02-22 12:42] LABS: 027 TOX PROD PRESUMPTIVE NEGATIVE (NEGATIVE); TOXIGENIC C. DIFF ORG NEGATIVE (NEGATIVE)
[2022-02-22 12:44] LABS: Granular Casts 26-50 /LPF (None Seen)
[2022-02-22 14:40] LABS: INFLUENZA A NEGATIVE (NEGATIVE); INFLUENZA B NEGATIVE (NEGATIVE); RESPIRATORY SYNCTIAL VIRUS NEGATIVE (Negative); SARS-CoV-2 Xpert Express NEGATIVE (NEGATIVE)
[2022-02-22] MEDS ORDERED: DUONEB 0.5-3 MG/3 ml Neb IH PRN (15:25)
[2022-02-22] MEDS ORDERED: MORPHINE SULFATE 4 MG INJ IV PRN (15:25)
[2022-02-22] MEDS ORDERED: TYLENOL 325 MG PO PRN (15:25)
[2022-02-22] MEDS ORDERED: IMODIUM 2 MG PO PRN (16:10)
[2022-02-22] MEDS: Zofran 4 MG/2 ML VIAL IV PRN ×2 (16:21→21:34)
[2022-02-22] MEDS: Sodium Chloride 0.9% W/ 20 mEq KCl/LITER 1,000 ML IV SCH ×2 (16:21→23:03)
[2022-02-22] MEDS: ENTRESTO 49 MG-51 MG TABLET PO SCH (21:35)
[2022-02-22] MEDS: ELIQUIS 2.5 MG TABLET PO SCH (21:36)
[2022-02-22] MEDS: PATIENT OWN MEDICATION PO SCH (21:36)
[2022-02-22] MEDS ORDERED: Lopressor 25MG Tab PO SCH (22:00)
[2022-02-22] MEDS ORDERED: NON-FORMULARY ITEM (Sacubitril/Valsartan [Entresto 24 Mg-26 Mg Tablet] 1 EACH Tablet) PO SCH (22:00)
[2022-02-22] MEDS ORDERED: DOFETILIDE 500 MCG PO SCH (22:00)
[2022-02-22] MEDS ORDERED: NON-FORMULARY ITEM (Apixaban*** [Eliquis 5 Mg Tablet***] 5 MG Tablet) PO SCH (22:00)
[2022-02-22] MEDS ORDERED: NON-FORMULARY ITEM (Pravastatin Sodium [Pravachol] 20 MG Tablet) PO SCH (22:00)
[2022-02-22] MEDS ORDERED: Zetia 10 MG PO SCH (22:00)
[2022-02-22] MEDS ORDERED: ZOCOR 20MG PO SCH (22:00)
[2022-02-23] MEDS ORDERED: SYNTHROID 25 MCG PO SCH (06:00)
[2022-02-23] MEDS: Sodium Chloride 0.9% W/ 20 mEq KCl/LITER 1,000 ML IV SCH (06:02)
[2022-02-23 06:12] LABS: Basophil (Absolute #) 0.03 x10^3/uL (0-0.4); Eosinophil % 3.5 % (0.00-5.0); Eosinophil (Absolute #) 0.23 x10^3/uL (0-0.5); Hematocrit 37.3 % (42-50); Hemoglobin 11.9 g/dL (12.5-18.0); Lymphocyte (Absolute #) 1.55 x10^3/uL (1.0-4.6); Lymphocytes % 23.5 % (24.0-44.0); Mean Cell Volume 99.5 fL (78-100); Mean Corpuscular Hemoglobin 31.7 pg (26-32); Mean Corpuscular Hgb Concent. 31.9 g/dL (32-36); Mean Platelet Volume 10.6 fL (7.5-11.0); Monocyte (Absolute #) 0.68 x10^3/uL (0.0-1.3); Monocytes % 10.3 % (0.0-12.0); Platelet Count 125 x10^3/uL (150-450); Red Blood Count 3.75 x10^6/uL (4.1-5.6); White Blood Count 6.6 x10^3/uL (4.0-10.5)
[2022-02-23 07:27] LABS: ALBUMIN 3.8 g/dL (3.5-5.0); ANION GAP 10.7 MEQ/L (5-15); BILIRUBIN,TOTAL 1.3 mg/dL (0.2-1.3); Calcium 8.3 mg/dL (8.4-10.2); Creatinine 1 1.36 mg/dL (0.66-1.25); EST GLOMERULAR FILTRATION RATE 54.2 ML/MIN; Potassium 5.1 mmol/L (3.5-5.1); Total Protein 6.7 g/dL (6.3-8.2)
[2022-02-23] MEDS: ELIQUIS 2.5 MG TABLET PO SCH (09:31)
[2022-02-23] MEDS: ENTRESTO 49 MG-51 MG TABLET PO SCH (09:31)
[2022-02-23] MEDS: PATIENT OWN MEDICATION PO SCH (09:31)
[2022-02-23] MEDS ORDERED: LASIX 20 MG PO SCH (10:00)
[2022-02-23] MEDS ORDERED: FLUZONE HIGH-DOSE QUAD 2022-23 IM ONE (10:00)
[2022-02-23] MEDS ORDERED: PROTONIX 40 MG IV IV SCH (10:00)
[2022-02-23] MEDS ORDERED: Lopressor 25MG Tab PO SCH (10:00)
[2022-02-23] MEDS ORDERED: VITAMIN D PO SCH (10:00)
[2022-02-23] MEDS ORDERED: Flomax 0.4 MG PO SCH (10:00)
[2022-02-23] MEDS ORDERED: MAG-OX 400 PO SCH (10:00)
[2022-02-23 11:50] VITALS: BP 107/63; PULSE 69; O2SAT 93
== END 2022-02-23 12:55 | disposition home or self-care (01) ==
LOC: ED 09:29 → MED SURG 15:24
PROVIDERS: ADMIT Family Medicine; ATTEND Family Medicine
DX: K56.7 Ileus, unspecified (principal); E86.0 Dehydration; R19.7 Diarrhea, unspecified; I10 Essential (primary) hypertension; I48.91 Unspecified atrial fibrillation; E78.5 Hyperlipidemia, unspecified; E03.9 Hypothyroidism, unspecified; Z79.01 Long term (current) use of anticoagulants; Z79.899 Other long term (current) drug therapy; Z20.828 Contact with and (suspected) exposure to other viral communicable diseases
CPT/HCPCS: 0241U; 36415; 74176; 80053; 81001; 83605; 83690; 84484; 85025; 87086; 87493; 96374; 96375; 99285; 93268; J2270; J2405; A9270-GY; G0378

== ENCOUNTER 2022-10-21 12:31 | Emergency (ER) | payer MEDICARE, OTHER ==
[2022-10-21] MEDS ORDERED: BABY ASPIRIN 81 MG CHEW PO ONE (12:45)
[2022-10-21 12:58] VITALS: TEMP 97.5
[2022-10-21] MEDS ORDERED: BABY ASPIRIN 81 MG CHEW ONE (13:01)
[2022-10-21 13:10] LABS: Absolute Neutrophil Ct (ANC) 4.14 x10^3/uL (1.4-6.9); BASOPHIL % 0.6 % (0.0-0.4); Basophil (Absolute #) 0.04 x10^3/uL (0-0.4); Eosinophil % 2.3 % (0.00-5.0); Eosinophil (Absolute #) 0.16 x10^3/uL (0-0.5); Hematocrit 40.8 % (42-50); Hemoglobin 13.8 g/dL (12.5-18.0); IMMATURE GRAN # 0.02 x10^3u/L (0.00-0.03); IMMATURE GRAN % 0.3 % (0.00-0.4); Lymphocytes % 29.3 % (24.0-44.0); Mean Cell Volume 94.7 fL (78-100); Mean Corpuscular Hgb Concent. 33.8 g/dL (32-36); Mean Platelet Volume 10.7 fL (7.5-11.0); Monocyte (Absolute #) 0.46 x10^3/uL (0.0-1.3); Monocytes % 6.7 % (0.0-12.0); Neutrophil % 60.8 % (36.0-66.0); Platelet Count 151 x10^3/uL (150-450); Red Blood Count 4.31 x10^6/uL (4.1-5.6); Red Cell Distribution Width 12.4 % (11.5-14.0); White Blood Count 6.8 x10^3/uL (4.0-10.5)
[2022-10-21 13:25] LABS: ALBUMIN 4.4 g/dL (3.5-5.0); ANION GAP 16.7 MEQ/L (5-15); BILIRUBIN,TOTAL 1.4 mg/dL (0.2-1.3); Calcium 9.8 mg/dL (8.4-10.2); Creatinine 1 1.38 mg/dL (0.66-1.25); EST GLOMERULAR FILTRATION RATE 53.2 ML/MIN; Potassium 4.8 mmol/L (3.5-5.1); Total Protein 7.3 g/dL (6.3-8.2)
[2022-10-21 13:26] LABS: D-DIMER QUANTITATIVE 0.35 mg/L (0.0-0.50); INR 1.05 (0.8-3.0); PROTIME 11.4 SECONDS (9.4-12.5)
[2022-10-21] MEDS ORDERED: Zofran 4 MG/2 ML VIAL IV ONE (14:13)
[2022-10-21] MEDS ORDERED: MORPHINE SULFATE 4 MG INJ IV ONE (14:13)
--- NOTE | 2022-10-21 14:20 | ERPHSYRPT ---
- History of Present Illness Time Seen by Provider: 10/21/22 12:35 Historian: patient Exam Limitations: no limitations Patient Subjective Stated Complaint: C/O chest pain since yesterday morning. Patient states that pain is not severe, just constant. Pain is radiating into his neck. Came in today after yazdanism due to SOB associated with the pain. Triage Nursing Assessment: Patient brought back to ER in a W/C. He is alert and oriented. Some labored breathing noted. SOB subsided quickly once he transferred from W/C to ER bed. Patient reports an occassional cough but none noted during assessment. Skin tone is normal. Physician History: This is a 76-year-old white male patient who has significant cardiac history and presents with chest pain that he described as an achiness in the left anterior chest that radiated into his left neck and left shoulder. This started yesterday in the pain is only mild per his report. However it has been constant has persisted throughout the night and he did not sleep well. This morning it was still present but still mild. He became concerned when there was some shortness of breath associated with it. Patient does have a pacemaker defibrillator in place. He has a history of hypothyroidism. He is on Eliquis. He also has a history of CHF and hyperlipidemia. Timing/Duration: yesterday Activities at Onset: none Quality: aching Location: other (Left anterior chest achiness) Chest Pain Radiation: neck (Left side), arm (Left shoulder) Severity of Pain-Max: mild Severity of Pain-Current: mild Modifying Factors: Improves With: nothing Associated Symptoms: shortness of breath (Mild), No abdominal pain Prior Chest Pain/Cardiac Workup: cardiac cath, heart attack Nitro Today/Relief: no nitro taken today Aspirin Treatment Today: no aspirin today Allergies/Adverse Reactions: sulfamethoxazole [From Bactrim] Allergy (Intermediate, Verified 10/21/22 12:42) Hives Home Medications: Tamsulosin HCl 0.4 mg [Flomax 0.4 MG] 0.4 mg PO QAM 11/30/11 [History] Pravastatin Sodium [Pravachol] 40 mg PO HS 10/17/15 [History] Levothyroxine Sodium 25 Mcg [Synthroid 25 Mcg] 25 mcg PO 0600 02/08/18 [History] Metoprolol Tartrate 25 mg [Lopressor 25MG Tab] 12.5 mg PO DAILY 02/08/18 [History] Sacubitril/Valsartan [Entresto 24 mg-26 mg Tablet] 1 tab PO BID 02/08/18 [History] Dofetilide [Tikosyn] 500 mcg PO BID 02/22/20 [History] Ezetimibe 10 mg [Zetia 10 MG] 10 mg PO HS 02/22/20 [History] Magnesium Oxide 400 mg [Mag-Ox 400] 400 mg PO DAILY 08/07/20 [History] Apixaban [Eliquis 5 mg Tablet] 5 mg PO BID 06/14/21 [History] Cholecalciferol (Vitamin D3) [Vitamin D] 2,000 units PO DAILY 06/14/21 [History] Furosemide 20 mg [Lasix 20 mg] 20 mg PO DAILY 06/14/21 [History] Metoprolol Tartrate 25 mg [Lopressor 25MG Tab] 25 mg PO HS 02/22/22 [History] Hx Tetanus, Diphtheria Vaccination/Date Given: Yes Hx Influenza Vaccination/Date Given: Yes Hx Pneumococcal Vaccination/Date Given: Yes Immunizations Up to Date: Yes Travel Risk - International Travel Have you traveled outside of the country in past 3 weeks: No - Coronavirus Screening Are you exhibiting any of the following symptoms?: Yes Symptoms: Cough: New Onset - Vaccine Status Have you recieved a Covid-19 vaccination: Yes Tax Collection Coordinator: Moderna - Vaccination Dates Date of 2cond Vaccination (if applicable): unknown - Review of Systems Constitutional: No Symptoms Eyes: No Symptoms Ears, Nose, & Throat: No Symptoms Respiratory: Dyspnea Cardiac: Chest Pain (Mild mild achiness) Abdominal/Gastrointestinal: No Symptoms Genitourinary Symptoms: No Symptoms Musculoskeletal: No Symptoms Skin: No Symptoms Neurological: No Symptoms Psychological: No Symptoms Endocrine: No Symptoms Hematologic/Lymphatic: No Symptoms Immunological/Allergic: No Symptoms All Other Systems: Reviewed and Negative - Past Medical History Pertinent Past Medical History: Yes Neurological History: Peripheral Neuropathy ENT History: No Pertinent History Cardiac History: Arrhythmia, High Cholesterol, Hypertension, Myocardial Infarction ([place]), Other Respiratory History: No Pertinent History Endocrine Medical History: Hypothyroidism Musculoskeletal History: Arthritis GI Medical History: GERD, GI Bleed, Hernia History: No Pertinent History Psycho-Social History: No Pertinent History Male Reproductive Disorders: Prostate Problems Other Medical History: Heart Ablasion (08/02/20), Cosmetician: Dr. Hernandez - Past Surgical History Past Surgical History: Yes Neuro Surgical History: No Pertinent History Cardiac: Cardiac Catheterization, Cardiac Stent, Internal Defibrillator, Pacemaker Respiratory: No Pertinent History Gastrointestinal: Hernia Repair Genitourinary: Other Musculoskeletal: No Pertinent History Male Surgical History: No Pertinent History Other Surgical History: TURP, lt leg stents x2 - Social History Smoking Status: Former smoker How long have you smoked: 40 years Exposure to second hand smoke: No Drug Use: none Patient Lives Alone: Yes - Nursing Vital Signs Nursing Vital Signs: Initial Vital Signs Temperature 97.5 F 10/21/22 12:31 Pulse Rate 82 10/21/22 12:31 Respiratory Rate 18 10/21/22 12:31 Blood Pressure 136/86 10/21/22 12:31 O2 Sat by Pulse Oximetry 97 10/21/22 12:31 Pain Scale Pain Intensity 0 - Physical Exam General Appearance: no apparent distress, alert, anxiety Eye Exam: PERRL/EOMI, eyes nml inspection Ears, Nose, Throat Exam: normal ENT inspection, moist mucous membranes Neck Exam: normal inspection, non-tender, supple, full range of motion Respiratory Exam: normal breath sounds, chest tenderness, lungs clear, airway intact, No respiratory distress Cardiovascular Exam: regular rate/rhythm, normal heart sounds, normal peripheral pulses Gastrointestinal/Abdomen Exam: soft, normal bowel sounds, No tenderness Rectal Exam: not done Back Exam: normal inspection, normal range of motion, No CVA tenderness, No vertebral tenderness Extremity Exam: normal inspection, normal range of motion, pelvis stable Neurologic Exam: alert, oriented x 3, cooperative, food stand manager II-XII nml as tested, normal mood/affect, nml cerebellar function, nml station & gait, sensation nml Skin Exam: normal color, warm, dry Lymphatic Exam: adenopathy SpO2 Interpretation: normal SpO2: 97 O2 Delivery: Room Air - Course Nursing assessment & vital signs reviewed: Yes EKG Interpreted by Me: RATE (74), Left Bundle Branch Block, Other (There is atrial paced complexes and ventricular premature complexes. There is no evidence of any acute ischemic changes on today's initial twelve-lead EKG.) Ordered Tests: Active Orders 24 hr Category Date Time Status EKG-ER Only STAT Care 10/21/22 12:45 Active IV Insertion STAT Care 10/21/22 12:45 Active Pulse Oximetry (ED) STAT Care 10/21/22 12:45 Active CHEST 1 VIEW (PORTABLE) Stat Exams 10/21/22 13:04 Taken CBC W DIFF Stat Lab 10/21/22 12:45 Completed CMP Stat Lab 10/21/22 12:45 Completed D-DIMER QUANTITATIVE Stat Lab 10/21/22 12:45 Completed PROTIME WITH INR Stat Lab 10/21/22 12:45 Completed TROPONIN Q4H Lab 10/21/22 12:45 Completed TROPONIN Q4H Lab 10/21/22 15:41 Completed TROPONIN Q4H Lab 10/21/22 21:00 Ordered Medication Summary Discontinued Medications Generic Name Dose Route Start Last Admin Trade Name Freq PRN Reason Stop Dose Admin Aspirin 324 mg 10/21/22 12:45 10/21/22 13:03 Aspirin 81 Mg Tab.Chew PO 10/21/22 12:46 324 mg STAT ONE Administration Aspirin Confirm 10/21/22 13:01 Aspirin 81 Mg Tab.Chew Administered 10/21/22 13:02 Dose 324 mg .ROUTE .STK-MED ONE Morphine Sulfate 4 mg 10/21/22 14:13 10/21/22 14:23 Morphine Sulfate 4 Mg/Ml Injection IV 10/21/22 14:14 4 mg STAT ONE Administration Morphine Sulfate Confirm 10/21/22 14:21 Morphine Sulfate 4 Mg/Ml Injection Administered 10/21/22 14:22 Dose 4 mg .ROUTE .STK-MED ONE Ondansetron HCl 4 mg 10/21/22 14:13 10/21/22 14:32 Ondansetron Hcl 4 Mg/2 Ml Vial IV 10/21/22 14:14 4 mg STAT ONE Administration Ondansetron HCl Confirm 10/21/22 14:21 Ondansetron Hcl 4 Mg/2 Ml Vial Administered 10/21/22 14:22 Dose 4 mg .ROUTE .STK-MED ONE Lab/Rad Data: Laboratory Result Diagrams 10/21/22 12:45 10/21/22 12:45 Laboratory Results 10/21/22 10/21/22 10/21/22 Range/Units 15:41 12:45 12:45 WBC (4.0-10.5) x10^3/uL RBC (4.1-5.6) x10^6/uL Hgb (12.5-18.0) g/dL Hct (42-50) % MCV (78-100) fL MCH (26-32) pg MCHC (32-36) g/dL RDW (11.5-14.0) % Plt Count (150-450) x10^3/uL MPV (7.5-11.0) fL Gran % (36.0-66.0) % Immature Gran % (Auto) (0.00-0.4) % Nucleat RBC Rel Count (0.00-0.1) % Eos # (Auto) (0-0.5) x10^3/uL Immature Gran # (Auto) (0.00-0.03) x10^3u/L Absolute Lymphs (auto) (1.0-4.6) x10^3/uL Absolute Monos (auto) (0.0-1.3) x10^3/uL Absolute Nucleated RBC (0.00-0.01) x10^3u/L Lymphocytes % (24.0-44.0) % Monocytes % (0.0-12.0) % Eosinophils % (0.00-5.0) % Basophils % (0.0-0.4) % Absolute Granulocytes (1.4-6.9) x10^3/uL Basophils # (0-0.4) x10^3/uL PT 11.4 (9.4-12.5) SECONDS INR 1.05 (0.8-3.0) D-Dimer 0.35 (0.0-0.50) mg/L Sodium (137-145) mmol/L Potassium (3.5-5.1) mmol/L Chloride (98-107) mmol/L Carbon Dioxide (22-30) mmol/L Anion Gap (5-15) MEQ/L BUN (9-20) mg/dL Creatinine (0.66-1.25) mg/dL Estimated GFR ML/MIN Glucose (74-106) mg/dL Calcium (8.4-10.2) mg/dL Total Bilirubin (0.2-1.3) mg/dL AST (17-59) U/L ALT (0-50) U/L Alkaline Phosphatase (38-126) U/L Troponin I < 0.012 < 0.012 (0.000-0.034) ng/mL Serum Total Protein (6.3-8.2) g/dL Albumin (3.5-5.0) g/dL 10/21/22 10/21/22 Range/Units 12:45 12:45 WBC 6.8 (4.0-10.5) x10^3/uL RBC 4.31 (4.1-5.6) x10^6/uL Hgb 13.8 (12.5-18.0) g/dL Hct 40.8 L (42-50) % MCV 94.7 (78-100) fL MCH 32.0 (26-32) pg MCHC 33.8 (32-36) g/dL RDW 12.4 (11.5-14.0) % Plt Count 151 (150-450) x10^3/uL MPV 10.7 (7.5-11.0) fL Gran % 60.8 (36.0-66.0) % Immature Gran % (Auto) 0.3 (0.00-0.4) % Nucleat RBC Rel Count 0.0 (0.00-0.1) % Eos # (Auto) 0.16 (0-0.5) x10^3/uL Immature Gran # (Auto) 0.02 (0.00-0.03) x10^3u/L Absolute Lymphs (auto) 2.00 (1.0-4.6) x10^3/uL Absolute Monos (auto) 0.46 (0.0-1.3) x10^3/uL Absolute Nucleated RBC 0.00 (0.00-0.01) x10^3u/L Lymphocytes % 29.3 (24.0-44.0) % Monocytes % 6.7 (0.0-12.0) % Eosinophils % 2.3 (0.00-5.0) % Basophils % 0.6 (0.0-0.4) % Absolute Granulocytes 4.14 (1.4-6.9) x10^3/uL Basophils # 0.04 (0-0.4) x10^3/uL PT (9.4-12.5) SECONDS INR (0.8-3.0) D-Dimer (0.0-0.50) mg/L Sodium 138 (137-145) mmol/L Potassium 4.8 (3.5-5.1) mmol/L Chloride 104 (98-107) mmol/L Carbon Dioxide 22 (22-30) mmol/L Anion Gap 16.7 H (5-15) MEQ/L BUN 24 H (9-20) mg/dL Creatinine 1.38 H (0.66-1.25) mg/dL Estimated GFR 53.2 ML/MIN Glucose 117 H (74-106) mg/dL Calcium 9.8 (8.4-10.2) mg/dL Total Bilirubin 1.40 H (0.2-1.3) mg/dL AST 30 (17-59) U/L ALT 28 (0-50) U/L Alkaline Phosphatase 58 (38-126) U/L Troponin I (0.000-0.034) ng/mL Serum Total Protein 7.3 (6.3-8.2) g/dL Albumin 4.4 (3.5-5.0) g/dL - Progress Progress: improved, re-examined, unchanged Air Movement: good Progress Note: 10/21/22 14:22 Chest x-ray was interpreted by me. There is no evidence of any acute cardiopulmonary process. This patient's medical issue is 1 of moderate complexity. Level of complexity and the work-up performed is based on review of the patient's past medical history, review the patient's medication list, review the patient's drug allergy list, history present illness and physical findings on examination. The work- up in this patient includes chest x-ray, twelve-lead EKG, D-dimer level, troponin level, CBC, CMP. 10/21/22 17:00 I interpreted the chest x-ray and I do not see any acute cardiopulmonary process. I also reviewed and interpreted the patient's laboratory work-up. The patient has a normal D-dimer, 2 normal troponin levels and a repeat, 3-hour twelve-lead EKG that has improved over the normal first twelve-lead EKG. The second twelve-lead EKG was performed on 10/21/2022 at 1631. It shows a heart rate of 70 bpm it is normal sinus rhythm and is a normal axis deviation with a short NH interval there is a left bundle branch block present but no evidence of any acute ischemic changes. The patient has no chest pain and his shortness of breath has resolved. I will discharge him to home with instructions to call his eyelet row marker on 10/24/2019 3 in the morning to make arrangements for follow-up and further evaluation. If his symptoms recur he should return to the emergency department. Blood Culture(s) Obtained: No Antibiotics given: No Counseled pt/family regarding: lab results, diagnosis, rad results Medical Desision Making - Diagnostic Testing Diagnostic test were ordered, analyzed, and reviewed by me: Yes Radiological Interpretation: Interpreted by me - Risk of complications Low Risk: Low risk of morbidity from additional dx testing or treatment - Departure Departure Disposition: Home Clinical Impression: Chest pain Condition: Stable Critical Care Time: No Referrals: FABIENNE ZIEGLER MD [Primary Care Provider] - Follow up/PCP as directed Additional Instructions: Continue medication as prescribed. Follow-up with your eyelet row marker and primary care provider on the morning of 10/23/2022 to make arrangements for follow-up appointment in the next 3 days. Return to the emergency department if your symptoms recur.
[2022-10-21] MEDS ORDERED: Zofran 4 MG/2 ML VIAL ONE (14:21)
[2022-10-21] MEDS ORDERED: MORPHINE SULFATE 4 MG INJ ONE (14:21)
[2022-10-21 16:05] VITALS: PULSE 70
[2022-10-21 16:35] VITALS: RESP 12
[2022-10-21 17:04] VITALS: O2SAT 97
[2022-10-21 17:08] VITALS: BP 124/79
--- NOTE | 2022-10-21 20:56 | XRAY ---
Indication: Left chest pain. Comparison: February 01, 2022 Portable chest remains inflated and clear again with a few incidental tiny calcified granulomas. Heart not enlarged again with left pacemaker. Bony thorax intact again without osteopenia and mild degenerative changes. Impression: Continued nonacute chest with chronic features.
== END 2022-10-21 17:13 | disposition home or self-care (01) ==
LOC: ED 12:31
DX: R07.9 Chest pain, unspecified (principal); R06.02 Shortness of breath; E78.5 Hyperlipidemia, unspecified; I11.0 Hypertensive heart disease with heart failure; I50.9 Heart failure, unspecified; Z79.01 Long term (current) use of anticoagulants; Z79.899 Other long term (current) drug therapy
CPT/HCPCS: 36000; 36415; 71045; 80053; 84484; 85025; 85379; 85610; 93005; 94760; 96374; 96375; 99284; J2270; J2405; A9270-GY

== ENCOUNTER 2023-06-24 05:31 | Emergency (ER) | payer MEDICARE, OTHER ==
[2023-06-24 05:47] VITALS: TEMP 98.2
--- NOTE | 2023-06-24 06:04 | ERPHSYRPT ---
- History of Present Illness Source: patient Exam Limitations: no limitations Patient Subjective Stated Complaint: can't pee especially at night Triage Nursing Assessment: pt ambulated into ER without diff. Pt c/o not being able to urinate. Pt states, "I haven't peed since 2329 and I keep straining and can't get anything out". Pt c/o flank pain. Pt was seen in [facility] care on and was given an antibiotic for prostatitis. Bladder scan was done which only showed 3ml. Hx Tetanus, Diphtheria Vaccination/Date Given: Yes Hx Influenza Vaccination/Date Given: No Hx Pneumococcal Vaccination/Date Given: Yes <ANILA CASTELAN - Last Filed: 06/24/23 05:59> <GARCÍA CARABALLO - Last Filed: 06/24/23 07:43> - History of Present Illness Time Seen by Provider: 06/24/23 05:51 Physician History: Pt states he has been unable to urinate for the past 7 hours and has had constant low back pain for the past 4.5 hours; denies fever, chills, abdominal pain, chest pain, shorftness of air. LBM was today. (ANILA CASTELAN) Allergies/Adverse Reactions: sulfamethoxazole [From Bactrim] Allergy (Intermediate, Verified 06/24/23 05:54) Hives Home Medications: Tamsulosin HCl 0.4 mg [Flomax 0.4 MG] 0.4 mg PO BID 11/30/11 [History] Pravastatin Sodium [Pravachol] 80 mg PO DAILY 10/17/15 [History] Levothyroxine Sodium 25 Mcg [Synthroid 25 Mcg] 25 mcg PO 0600 02/08/18 [History] Metoprolol Tartrate 25 mg [Lopressor 25MG Tab] 12.5 mg PO DAILY 02/08/18 [History] Sacubitril/Valsartan [Entresto 24 mg-26 mg Tablet] 1 tab PO BID 02/08/18 [History] Dofetilide [Tikosyn] 500 mcg PO BID 02/22/20 [History] Ezetimibe 10 mg [Zetia 10 MG] 10 mg PO DAILY 02/22/20 [History] Magnesium Oxide 400 mg [Mag-Ox 400] 800 mg PO DAILY 08/07/20 [History] Apixaban [Eliquis 5 mg Tablet] 5 mg PO BID 06/14/21 [History] Cholecalciferol (Vitamin D3) [Vitamin D] 2,000 units PO UD 06/14/21 [History] Furosemide 20 mg [Lasix 20 mg] 20 mg PO DAILY 06/14/21 [History] Metoprolol Tartrate 25 mg [Lopressor 25MG Tab] 25 mg PO HS 02/22/22 [History] Doxycycline Hyclate 100 mg [Vibramycin 100 MG] 100 mg PO BID 06/24/23 [History] Travel Risk - International Travel Have you traveled outside of the country in past 3 weeks: No - Emerging Infectious Disease Are you exhibiting symptoms associated with any current EIDs: No <ANILA CASTELAN - Last Filed: 06/24/23 05:59> - Past Medical History Pertinent Past Medical History: Yes Neurological History: Peripheral Neuropathy ENT History: No Pertinent History Cardiac History: Arrhythmia, High Cholesterol, Hypertension, Myocardial Infarction ([place]), Other Respiratory History: No Pertinent History Endocrine Medical History: Hypothyroidism Musculoskeletal History: Arthritis GI Medical History: GERD, GI Bleed, Hernia History: No Pertinent History Psycho-Social History: No Pertinent History Male Reproductive Disorders: Prostate Problems Other Medical History: Heart Ablasion (08/02/20), Otc Clerk: Dr. Hernandez - Past Surgical History Past Surgical History: Yes Neuro Surgical History: No Pertinent History Cardiac: Cardiac Catheterization, Cardiac Stent, Internal Defibrillator, Pacemaker Respiratory: No Pertinent History Gastrointestinal: Hernia Repair Genitourinary: Other Musculoskeletal: No Pertinent History Male Surgical History: No Pertinent History Other Surgical History: lt leg stents x2 - Social History Smoking Status: Former smoker How long have you smoked: 40 years Exposure to second hand smoke: No Drug Use: none Patient Lives Alone: Yes <ANILA CASTELAN - Last Filed: 06/24/23 05:59> - Review of Systems Constitutional: No Fever, No Chills Ears, Nose, & Throat: No Ear Pain, No Throat Pain Respiratory: Cough (chronically for years), No Dyspnea Cardiac: No Chest Pain Abdominal/Gastrointestinal: No Abdominal Pain, No Nausea, No Vomiting, No Diarrh ea Genitourinary Symptoms: Urinary Retention Neurological: No Headache <ANILA CASTELAN - Last Filed: 06/24/23 05:59> - Physical Exam General Appearance: alert Eye Exam: eyes nml inspection Ears, Nose, Throat Exam: TMs normal, pharynx normal Neck Exam: normal inspection Respiratory Exam: lungs clear Cardiovascular Exam: normal heart sounds Gastrointestinal/Abdomen Exam: normal bowel sounds Male Genital Exam: no hernia, No scrotum tenderness (R), No scrotum tenderness (L), No urethral discharge Back Exam: normal inspection Extremity Exam: No pedal edema Neurologic Exam: alert, cooperative Skin Exam: warm, dry SpO2 Interpretation: normal SpO2: 96 O2 Delivery: Room Air <ANILA CASTELAN - Filed: 06/24/23 05:59> - Nursing Vital Signs Nursing Vital Signs: Initial Vital Signs Temperature 98.2 F 06/24/23 05:37 Pulse Rate 72 06/24/23 05:37 Respiratory Rate 18 06/24/23 05:37 Blood Pressure 128/79 06/24/23 05:37 O2 Sat by Pulse Oximetry 96 06/24/23 05:37 Pain Scale Pain Intensity 4 Ordered Tests: Active Orders 24 hr Category Date Time Status IV Insertion STAT Care 06/24/23 06:05 Active ABDOMEN AND PELVIS W/0 CONTRAS [CT] Stat Exams 06/24/23 06:05 Taken AMYLASE Stat Lab 06/24/23 06:07 Completed CBC W DIFF Stat Lab 06/24/23 06:07 Completed CMP Stat Lab 06/24/23 06:07 Completed LIPASE Stat Lab 06/24/23 06:07 Completed MAGNESIUM Stat Lab 06/24/23 06:07 Completed UA W/RFX UR CULTURE Stat Lab 06/24/23 07:22 Completed Medication Summary Discontinued Medications Generic Name Dose Route Start Last Admin Trade Name Freq PRN Reason Stop Dose Admin Sodium Chloride 1,000 mls @ 999 mls/hr 06/24/23 06:05 06/24/23 07:14 Sodium Chloride 0.9% 1000 Ml IV 06/24/23 07:05 Infused .Q1H1M STA Infusion Sodium Chloride Confirm 06/24/23 06:08 Sodium Chloride 0.9% 1000 Ml Administered 06/24/23 06:09 Dose 1,000 mls @ ud .ROUTE .STK-MED ONE Lab/Rad Data: Laboratory Result Diagrams 06/24/23 06:07 06/24/23 06:07 Laboratory Results 06/24/23 06/24/23 06/24/23 Range/Units 07:22 06:07 06:07 WBC 5.4 (4.0-10.5) x10^3/uL RBC 4.02 L (4.1-5.6) x10^6/uL Hgb 13.0 (12.5-18.0) g/dL Hct 37.3 L (42-50) % MCV 92.8 (78-100) fL MCH 32.3 H (26-32) pg MCHC 34.9 (32-36) g/dL RDW 12.0 (11.5-14.0) % Plt Count 121 L (150-450) x10^3/uL MPV 10.4 (7.5-11.0) fL Gran % 58.7 (36.0-66.0) % Immature Gran % (Auto) 0.2 (0.00-0.4) % Nucleat RBC Rel Count 0.0 (0.00-0.1) % Eos # (Auto) 0.13 (0-0.5) x10^3/uL Immature Gran # (Auto) 0.01 (0.00-0.03) x10^3u/L Absolute Lymphs (auto) 1.60 (1.0-4.6) x10^3/uL Absolute Monos (auto) 0.46 (0.0-1.3) x10^3/uL Absolute Nucleated RBC 0.00 (0.00-0.01) x10^3u/L Lymphocytes % 29.7 (24.0-44.0) % Monocytes % 8.6 (0.0-12.0) % Eosinophils % 2.4 (0.00-5.0) % Basophils % 0.4 (0.0-0.4) % Absolute Granulocytes 3.16 (1.4-6.9) x10^3/uL Basophils # 0.02 (0-0.4) x10^3/uL Sodium 137 (135-145) mmol/L Potassium 3.7 (3.5-5.1) mmol/L Chloride 108 H (98-107) mmol/L Carbon Dioxide 27 (22-30) mmol/L Anion Gap 5.7 (5-15) MEQ/L BUN 24 H (9-20) mg/dL Creatinine 1.26 H (0.66-1.25) mg/dL Estimated GFR 58.7 ML/MIN Glucose 134 H (74-106) mg/dL Calcium 9.3 (8.4-10.2) mg/dL Magnesium 1.8 (1.6-2.3) mg/dL Total Bilirubin 1.10 (0.2-1.3) mg/dL AST 30 (17-59) U/L ALT 26 (0-50) U/L Alkaline Phosphatase 53 (38-126) U/L Serum Total Protein 6.9 (6.3-8.2) g/dL Albumin 3.8 (3.5-5.0) g/dL Amylase 83 (30-110) U/L Lipase 77 (23-300) U/L Urine Color Yellow (Yellow) Urine Appearance Clear (Clear) Urine pH 6.0 (4.6-8.0) Ur Specific [place] 1.020 (1.005-1.030) Urine Protein Negative (Negative) Urine Glucose (UA) Negative (Negative) mg/dL Urine Ketones Negative (Negative) Urine Blood Negative (Negative) Urine Nitrite Negative (Negative) Urine Bilirubin Negative (Negative) Urine Urobilinogen 1.0 A (0.2) mg/dL Ur Leukocyte Esterase Negative (Negative) U Hyaline Cast (Auto) NONE SEEN (0-2) /LPF Urine Microscopic RBC 0-2 (0-5) /HPF Urine Microscopic WBC 0-2 (0-5) /HPF Ur Epithelial Cells None Seen (None Seen) /HPF Urine Bacteria None Seen (None Seen) /HPF Urine Culture Reflexed NO (NO) - Progress Progress: improved Counseled pt/family regarding: lab results, diagnosis, need for follow-up, tanvir arita <GARCÍA CARABALLO - Last Filed: 06/24/23 07:43> - Progress Progress Note: 06/24/23 07:41 I interpreted the patient's laboratory data results. There are no acute or emergent findings on his laboratory data results to suggest an emergency medical issue at this time. CT scan of the abdomen pelvis without contrast was compared to similar study dated 02/22/2022. There is stable, small hiatal hernia. There are bilateral nigel al cyst, diverticulosis and a 3.1 cm distal abdominal aortic aneurysm. There is mild multilevel degenerative disc disease. No new or acute findings. (GARCÍA CARABALLO) Medical Desision Making - Diagnostic Testing Diagnostic test were ordered, analyzed, and reviewed by me: Yes Radiological Interpretation: Reviewed by me, Teleradiologist Report - Risk of complications Low Risk: Low risk of morbidity from additional dx testing or treatment <GARCÍA CARABALLO - Last Filed: 06/24/23 07:43> <ANILA CASTELAN - Last Filed: 06/24/23 05:59> - Departure Departure Disposition: Home Critical Care Time: No <GARCÍA CARABALLO - Last Filed: 06/24/23 07:43> - Departure Clinical Impression: Urinary urgency Condition: Stable Referrals: FABIENNE ZIEGLER MD [Primary Care Provider] - Follow up/PCP as directed Additional Instructions: Drink plenty of fluids every day. Take your medications as prescribed. Call your urologist today, 06/24/2023, to make a follow-up appointment to be seen in the next 2 to 3 days.
[2023-06-24] MEDS ORDERED: Sodium Chloride 0.9% 1000 ML 1,000 ML ONE (06:08)
[2023-06-24] MEDS: Sodium Chloride 0.9% 1000 ML 1,000 ML IV STA (06:10)
[2023-06-24 06:13] LABS: Absolute Neutrophil Ct (ANC) 3.16 x10^3/uL (1.4-6.9); BASOPHIL % 0.4 % (0.0-0.4); Basophil (Absolute #) 0.02 x10^3/uL (0-0.4); Eosinophil % 2.4 % (0.00-5.0); Eosinophil (Absolute #) 0.13 x10^3/uL (0-0.5); Hematocrit 37.3 % (42-50); IMMATURE GRAN # 0.01 x10^3u/L (0.00-0.03); IMMATURE GRAN % 0.2 % (0.00-0.4); Lymphocytes % 29.7 % (24.0-44.0); Mean Cell Volume 92.8 fL (78-100); Mean Corpuscular Hemoglobin 32.3 pg (26-32); Mean Corpuscular Hgb Concent. 34.9 g/dL (32-36); Mean Platelet Volume 10.4 fL (7.5-11.0); Monocyte (Absolute #) 0.46 x10^3/uL (0.0-1.3); Monocytes % 8.6 % (0.0-12.0); Neutrophil % 58.7 % (36.0-66.0); Platelet Count 121 x10^3/uL (150-450); Red Blood Count 4.02 x10^6/uL (4.1-5.6); White Blood Count 5.4 x10^3/uL (4.0-10.5)
[2023-06-24 06:26] LABS: ALBUMIN 3.8 g/dL (3.5-5.0); ANION GAP 5.7 MEQ/L (5-15); BILIRUBIN,TOTAL 1.1 mg/dL (0.2-1.3); Calcium 9.3 mg/dL (8.4-10.2); Creatinine 1 1.26 mg/dL (0.66-1.25); EST GLOMERULAR FILTRATION RATE 58.7 ML/MIN; MAGNESIUM 1.8 mg/dL (1.6-2.3); Potassium 3.7 mmol/L (3.5-5.1); Total Protein 6.9 g/dL (6.3-8.2)
[2023-06-24 07:33] LABS: Appearance Clear (Clear); Bacteria None Seen /HPF (None Seen); Bilirubin Negative (Negative); Blood Negative (Negative); Epithelial Cells None Seen /HPF (None Seen); Glucose, Urine Negative (Negative); Hyaline Casts NONE SEEN /LPF (0-2); Ketones Negative (Negative); Leukocyte Esterase Negative (Negative); Nitrite Negative (Negative); Protein,Urine Dip Negative (Negative); RBC 0-2 /HPF (0-5); WBC 0-2 /HPF (0-5)
[2023-06-24 07:38] LABS: ADD URINE CULTURE? NO (NO)
[2023-06-24 08:10] VITALS: BP 134/98; PULSE 70; RESP 18; O2SAT 95
--- NOTE | 2023-06-24 08:51 | XRAY ---
Indication: Low back pain. Urinary retention. Multiple contiguous axial images obtained through the abdomen and pelvis without contrast. Comparison: February 22, 2022 Lung bases again demonstrate a few tiny calcific granulomas. No infiltrate or effusion. Heart not enlarged again with pacer leads. Stable small hiatal hernia. Noncontrasted stomach and bowel loops appear nonobstructed again with normal appendix. There remains scattered sigmoid and lesser degree descending colonic diverticulosis without diverticulitis. Stable bilateral renal cysts and splenic calcified granulomas. No free fluid/air. Remaining liver, gallbladder, pancreas, spleen, adrenal glands, kidneys, ureters, and bladder are unremarkable for noncontrast exam. Again moderate scattered aortoiliac calcifications with 3.1 cm distal AAA. Osseous structures intact again with osteopenia. There remains mild degenerative changes throughout the thoracolumbar spine and both hips. No ventral or inguinal hernias. Impression: 1. Again chronic findings including hiatal hernia, colonic diverticulosis, bilateral renal cysts, arteriosclerotic disease with distal AAA, chronic bony findings, and old granulomatous disease. 2. Remaining CT abdomen/pelvis without contrast exam continues to be negative.
== END 2023-06-24 08:02 | disposition home or self-care (01) ==
LOC: ED 05:31
DX: R39.15 Urgency of urination (principal); M54.50 Low back pain, unspecified; E78.5 Hyperlipidemia, unspecified; I10 Essential (primary) hypertension; Z79.01 Long term (current) use of anticoagulants; Z79.899 Other long term (current) drug therapy
CPT/HCPCS: 36000; 36415; 74176; 80053; 81001; 82150; 83690; 83735; 85025; 96360; 99284

== ENCOUNTER 2023-07-16 18:12 | Emergency (ER) | payer MEDICARE, OTHER ==
[2023-07-16 18:32] VITALS: BP 148/70; PULSE 78; RESP 16; TEMP 97; O2SAT 98
[2023-07-16] MEDS ORDERED: ARZOL Silver Nitrate Applicator TP ONE (18:37)
[2023-07-16] MEDS: ARZOL Silver Nitrate Applicator TP ONE (18:41)
--- NOTE | 2023-07-16 18:54 | ERPHSYRPT ---
- History of Present Illness Time Seen by Provider: 07/16/23 18:40 Source: patient Exam Limitations: no limitations Patient Subjective Stated Complaint: pt here bleeding from neck, he had 2 skin tags removed today at 0930. Triage Nursing Assessment: pt alert, resp easy, skin w/d/p. walked in, has 2 small areas to right side of neck minimal bleeding, pressure applied with gauze to neck Physician History: 77-year-old male presents to our ED for treatment of bleeding from skin tag. Patient had 2 skin tags removed today. Patient bleeding from the skin tag removed from his neck. The area has a slow ooze. No active pulsatile bleeding. Airway patent. Patient currently on Eliquis and Plavix. Patient otherwise asymptomatic. No dizziness no lightheadedness. No near syncope. No chest pain or shortness of breath. No nausea vomiting or diaphoresis. Patient otherwise feels well. He voices no other complaints or concerns at this time. Portions of this note were created with voice recognition technology. There may be grammatical, spelling, punctuation or sound alike errors Timing/Duration: today Severity: moderate Modifying Factors: Improves With: nothing Associated Symptoms: denies symptoms Allergies/Adverse Reactions: sulfamethoxazole [From Bactrim] Allergy (Intermediate, Verified 07/16/23 18:18) Hives Home Medications: Tamsulosin HCl 0.4 mg [Flomax 0.4 MG] 0.4 mg PO BID 11/30/11 [History] Pravastatin Sodium [Pravachol] 80 mg PO DAILY 10/17/15 [History] Levothyroxine Sodium 25 Mcg [Synthroid 25 Mcg] 25 mcg PO 0600 02/08/18 [History] Metoprolol Tartrate 25 mg [Lopressor 25MG Tab] 12.5 mg PO DAILY 02/08/18 [History] Sacubitril/Valsartan [Entresto 24 mg-26 mg Tablet] 1 tab PO BID 02/08/18 [History] Dofetilide [Tikosyn] 500 mcg PO BID 02/22/20 [History] Ezetimibe 10 mg [Zetia 10 MG] 10 mg PO DAILY 02/22/20 [History] Magnesium Oxide 400 mg [Mag-Ox 400] 800 mg PO DAILY 08/07/20 [History] Apixaban [Eliquis 5 mg Tablet] 5 mg PO BID 06/14/21 [History] Cholecalciferol (Vitamin D3) [Vitamin D] 2,000 units PO UD 06/14/21 [History] Furosemide 20 mg [Lasix 20 mg] 20 mg PO DAILY 06/14/21 [History] Metoprolol Tartrate 25 mg [Lopressor 25MG Tab] 25 mg PO HS 02/22/22 [History] Clopidogrel Bisulfate [PLAVIX Tablet] 75 mg PO DAILY 07/16/23 [History] Hx Tetanus, Diphtheria Vaccination/Date Given: Yes Hx Influenza Vaccination/Date Given: No Hx Pneumococcal Vaccination/Date Given: Yes Immunizations Up to Date: Yes Travel Risk - International Travel Have you traveled outside of the country in past 3 weeks: No - Emerging Infectious Disease Are you exhibiting symptoms associated with any current EIDs: No - Review of Systems Constitutional: No Symptoms, No Fever, No Chills Eyes: No Symptoms Ears, Nose, & Throat: No Symptoms Respiratory: No Symptoms, No Cough, No Dyspnea Cardiac: No Symptoms, No Chest Pain, No Edema, No Syncope Abdominal/Gastrointestinal: No Symptoms, No Abdominal Pain, No Nausea, No Vomiting, No Diarrhea Genitourinary Symptoms: No Symptoms, No Dysuria Musculoskeletal: No Symptoms, No Back Pain, No Neck Pain Skin: No Symptoms, No Rash Neurological: No Symptoms, No Dizziness, No Focal Weakness, No Sensory Changes Psychological: No Symptoms Endocrine: No Symptoms Hematologic/Lymphatic: No Symptoms Immunological/Allergic: No Symptoms All Other Systems: Reviewed and Negative - Past Medical History Pertinent Past Medical History: Yes Neurological History: Peripheral Neuropathy ENT History: No Pertinent History Cardiac History: Arrhythmia, High Cholesterol, Hypertension, Myocardial Infarction ([place]), Other Respiratory History: No Pertinent History Endocrine Medical History: Hypothyroidism Musculoskeletal History: Arthritis GI Medical History: GERD, GI Bleed, Hernia History: No Pertinent History Psycho-Social History: No Pertinent History Male Reproductive Disorders: Prostate Problems Other Medical History: Heart Ablasion (08/02/20), 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 - Past Surgical History Past Surgical History: Yes Neuro Surgical History: No Pertinent History Cardiac: Cardiac Catheterization, Cardiac Stent, Internal Defibrillator, Pacemaker Respiratory: No Pertinent History Gastrointestinal: Hernia Repair Genitourinary: Other Musculoskeletal: No Pertinent History Male Surgical History: No Pertinent History Other Surgical History: lt leg stents x2 - Social History Smoking Status: Former smoker How long have you smoked: 40 years Exposure to second hand smoke: No Drug Use: none Patient Lives Alone: Yes - Nursing Vital Signs Nursing Vital Signs: Initial Vital Signs Temperature 97.0 F 07/16/23 18:29 Pulse Rate 78 07/16/23 18:29 Respiratory Rate 16 07/16/23 18:29 Blood Pressure 148/70 07/16/23 18:29 O2 Sat by Pulse Oximetry 98 07/16/23 18:29 Pain Scale Pain Intensity 0 - Physical Exam General Appearance: no apparent distress, alert Eye Exam: PERRL/EOMI, eyes nml inspection Ears, Nose, Throat Exam: normal ENT inspection, moist mucous membranes Neck Exam: normal inspection, non-tender, supple, full range of motion, other (There is an area at the right side of neck with skin tag was removed. There is a slow ooze at this location. No pulsatile bleeding) Respiratory Exam: normal breath sounds, lungs clear, airway intact, No respiratory distress Cardiovascular Exam: regular rate/rhythm, normal heart sounds, normal peripheral pulses Gastrointestinal/Abdomen Exam: soft, normal bowel sounds, No tenderness, No mass Back Exam: normal inspection, normal range of motion, No CVA tenderness, No vertebral tenderness Extremity Exam: normal inspection, normal range of motion Neurologic Exam: alert, oriented x 3, cooperative, sensation nml, No motor deficits Skin Exam: normal color, warm, dry, No rash Lymphatic Exam: No adenopathy SpO2 Interpretation: normal SpO2: 98 O2 Delivery: Room Air - Course Nursing assessment & vital signs reviewed: Yes Ordered Tests: Medication Summary Discontinued Medications Generic Name Dose Route Start Last Admin Trade Name Freq PRN Reason Stop Dose Admin Silver Nitrate 1 pkt 07/16/23 18:36 07/16/23 18:41 Silver Nitrate 1 Pkt Each TP 07/16/23 18:37 1 pkt NOW ONE Administration Silver Nitrate Confirm 07/16/23 18:37 Silver Nitrate 1 Pkt Each Administered 07/16/23 18:38 Dose 1 pkt TP .STK-MED ONE - Progress Progress: improved Progress Note: 77-year-old male presents today for evaluation of bleeding from a skin tag removal location. We tried silver nitrate and that did not work. We applied Surgicel with resolution of bleeding. Dressing applied. Patient reassessed. No active bleeding. Will discharge at this time. Patient advised to keep the dressing on for 1 day. Patient otherwise feels well. No indication for further workup. Patient agrees to follow-up with his primary care doctor within 46 hours for reevaluation. Portions of this note were created with voice recognition technology. There may be grammatical, spelling, punctuation or sound alike errors Complexity problem addressed is low acute uncomplicated. No critical care time. Complexity of data reviewed and analyzed is none. No specialized testing ordered. Diagnosis made based on history and physical exam. Risk of complication and or risk morbidity/mortality patient management is low. Vital stable. Time spent to discharge patient is approximately 15 minutes. Plan of care established for shared decision making. No social determinants of health present impede follow-up. Portions of this note were created with voice recognition technology. There may be grammatical, spelling, punctuation or sound alike errors 07/16/23 19:07 Counseled pt/family regarding: diagnosis, need for follow-up - Departure Departure Disposition: Home Clinical Impression: bleed skin tag Condition: Stable Critical Care Time: No Referrals: FABIENNE ZIEGLER MD [Primary Care Provider] - Follow up/PCP as directed Additional Instructions: Discharge/Care Plan KAY DELACRUZ was seen on 07/16/23 in the Emergency Room. The patient was counseled regarding Diagnosis,Lab results, Imaging studies, need for follow up and when to return to the Emergency Room. Prescriptions given: Discharge Note I have spoken with the patient and/or caregivers. I have explained the patient's condition, diagnosis and treatment plan based on the information available to me at this time. I have answered the patient's and/or caregiver's questions and addressed any concerns. The patient and/or caregivers have as good understanding of the patient's diagnosis, condition and treatment plan as can be expected at this point. The vital signs have been stable. The patient's condition is stable and appropriate for discharge from the emergency department. The patient will pursue further outpatient evaluation with the primary care physician or other designated or consulting physician as outlined in the discharge instructions. The patient and/or caregivers are agreeable to this plan of care and follow-up instructions have been explained in detail. The patient and/or caregivers have received these instruction. The patient/and or caregivers are aware that any significant change in condition or worsening of symptoms should prompt an immediate return to this or the closest emergency department or call 911.
== END 2023-07-16 19:35 | disposition home or self-care (01) ==
LOC: ED 18:12
DX: L76.21 Postprocedural hemorrhage of skin and subcutaneous tissue following a dermatologic procedure (principal); E78.5 Hyperlipidemia, unspecified; I10 Essential (primary) hypertension; Z79.02 Long term (current) use of antithrombotics/antiplatelets; Z79.01 Long term (current) use of anticoagulants; Z79.899 Other long term (current) drug therapy
CPT/HCPCS: 99282; A9270-GY

== ENCOUNTER 2023-07-25 16:22 | Observation (INO) | payer MEDICARE, OTHER ==
[2023-07-25 17:04] LABS: Absolute Neutrophil Ct (ANC) 4.37 x10^3/uL (1.78-5.38); BASOPHIL % 0.6 % (0.2-1.2); Basophil (Absolute #) 0.04 x10^3/uL (0.01-0.08); Eosinophil % 2.3 % (0.8-7.0); Eosinophil (Absolute #) 0.16 x10^3/uL (0.04-0.54); Hematocrit 37.1 % (40.1-51.0); IMMATURE GRAN # 0.01 x10^3u/L (0.001-0.031); IMMATURE GRAN % 0.1 % (0.001-0.429); Lymphocyte (Absolute #) 1.74 x10^3/uL (1.32-3.57); Lymphocytes % 24.9 % (21.8-53.1); Mean Cell Volume 93.2 fL (79.0-92.2); Mean Corpuscular Hemoglobin 32.7 pg (25.7-32.2); Mean Platelet Volume 10.5 fL (9.4-12.4); Monocyte (Absolute #) 0.68 x10^3/uL (0.30-0.82); Monocytes % 9.7 % (5.3-12.2); Neutrophil % 62.4 % (34.0-67.9); Platelet Count 150 x10^3/uL (163-337); Red Blood Count 3.98 x10^6/uL (4.63-6.08); Red Cell Distribution Width 12.5 % (11.6-14.4)
[2023-07-25 17:28] LABS: ALBUMIN 4.6 g/dL (3.5-5.0); ALKALINE PHOSPHATASE 51 U/L (38-126); ANION GAP 14.5 MEQ/L (5-15); BLOOD UREA NITROGEN 25 mg/dL (9-20); CHLORIDE 106 mmol/L (98-107); CK-Creatinine Phosphokinase 106 U/L (55-170); Calcium 9.9 mg/dL (8.4-10.2); Carbon Dioxide 22 mmol/L (22-30); Creatinine 1 1.65 mg/dL (0.66-1.25); EST GLOMERULAR FILTRATION RATE 42.5 ML/MIN; Glucose 104 mg/dL (74-106); NT PRO BNPII 594 pg/mL (<300); Potassium 4.2 mmol/L (3.5-5.1); SGOT/AST 27 U/L (17-59); SGPT/ALT 21 U/L (0-50); SODIUM 138 mmol/L (135-145); TROPONIN < 0.012 ng/mL (0.000-0.033); Total Protein 7.6 g/dL (6.3-8.2)
--- NOTE | 2023-07-25 18:32 | ERPHSYRPT ---
- History of Present Illness Time Seen by Provider: 07/25/23 16:39 Historian: patient Exam Limitations: no limitations Patient Subjective Stated Complaint: Pt states "I have had chest pain since saturday and it just seems to be getting worse and now I am having a hard time b reathing." Triage Nursing Assessment: PT presented alert and oriented X 3, skin pwd. Pt ambulates with an upright steady gait, able to speak in clear full senences. pt slightly tachypneic. Physician History: 77-year-old with history of coronary artery disease with multiple stenting last 1 almost 9 months ago, hypertension, hypothyroidism, atrial fibrillation on Eliquis and a pacemaker implant presented in the ER with off-and-on substernal chest pain/pressure for the last 3 days with no significant aggravating or relieving factors. Reports associated feeling of dizziness/lightheadedness with chest pain and mild shortness of breath at times. No shortness of breath in between episodes of chest tightness/pressure. Denies any fever chills or cough. Nitro Today/Relief: no nitro taken today Aspirin Treatment Today: no aspirin today Allergies/Adverse Reactions: sulfamethoxazole [From Bactrim] Allergy (Intermediate, Verified 07/16/23 18:18) Hives Home Medications: Tamsulosin HCl 0.4 mg [Flomax 0.4 MG] 0.4 mg PO BID 11/30/11 [History] Pravastatin Sodium [Pravachol] 80 mg PO DAILY 10/17/15 [History] Levothyroxine Sodium 25 Mcg [Synthroid 25 Mcg] 25 mcg PO 0600 02/08/18 [History] Metoprolol Tartrate 25 mg [Lopressor 25MG Tab] 12.5 mg PO DAILY 02/08/18 [History] Sacubitril/Valsartan [Entresto 24 mg-26 mg Tablet] 1 tab PO BID 02/08/18 [History] Dofetilide [Tikosyn] 500 mcg PO BID 02/22/20 [History] Ezetimibe 10 mg [Zetia 10 MG] 10 mg PO DAILY 02/22/20 [History] Magnesium Oxide 400 mg [Mag-Ox 400] 800 mg PO DAILY 08/07/20 [History] Apixaban [Eliquis 5 mg Tablet] 5 mg PO BID 06/14/21 [History] Cholecalciferol (Vitamin D3) [Vitamin D] 2,000 units PO UD 06/14/21 [History] Furosemide 20 mg [Lasix 20 mg] 20 mg PO DAILY 06/14/21 [History] Metoprolol Tartrate 25 mg [Lopressor 25MG Tab] 25 mg PO HS 02/22/22 [History] Clopidogrel Bisulfate [PLAVIX Tablet] 75 mg PO DAILY 07/16/23 [History] Hx Tetanus, Diphtheria Vaccination/Date Given: Yes Hx Influenza Vaccination/Date Given: No Hx Pneumococcal Vaccination/Date Given: Yes Immunizations Up to Date: No Travel Risk - International Travel Have you traveled outside of the country in past 3 weeks: No - Emerging Infectious Disease Are you exhibiting symptoms associated with any current EIDs: No - Review of Systems Constitutional: No Symptoms Ears, Nose, & Throat: No Symptoms Respiratory: No Symptoms Cardiac: Chest Pain Abdominal/Gastrointestinal: No Symptoms Genitourinary Symptoms: No Symptoms Musculoskeletal: No Symptoms Skin: No Symptoms Neurological: No Symptoms Endocrine: No Symptoms Hematologic/Lymphatic: No Symptoms - Past Medical History Pertinent Past Medical History: Yes Neurological History: Peripheral Neuropathy ENT History: No Pertinent History Cardiac History: Arrhythmia, High Cholesterol, Hypertension, Myocardial Infarction ([place]), Other Respiratory History: No Pertinent History Endocrine Medical History: Hypothyroidism Musculoskeletal History: Arthritis GI Medical History: GERD, GI Bleed, Hernia History: No Pertinent History Psycho-Social History: No Pertinent History Male Reproductive Disorders: Prostate Problems Other Medical History: Heart Ablasion (08/02/20), 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 - Past Surgical History Past Surgical History: Yes Neuro Surgical History: No Pertinent History Cardiac: Cardiac Catheterization, Cardiac Stent, Internal Defibrillator, Pacemaker Respiratory: No Pertinent History Gastrointestinal: Hernia Repair Genitourinary: Other Musculoskeletal: No Pertinent History Male Surgical History: No Pertinent History Other Surgical History: lt leg stents x2 - Social History Smoking Status: Former smoker How long have you smoked: 40 years Exposure to second hand smoke: No Drug Use: none Patient Lives Alone: Yes - Social Determinants of Health Will the patient participate in the screening: Declined to provide - Nursing Vital Signs Nursing Vital Signs: Initial Vital Signs Temperature 97.6 F 06/06/24 16:22 Pulse Rate 80 07/25/23 16:22 Respiratory Rate 22 07/25/23 16:22 Blood Pressure 131/74 07/25/23 16:22 O2 Sat by Pulse Oximetry 96 07/25/23 16:22 Pain Scale Pain Intensity 4 - Physical Exam General Appearance: no apparent distress, alert Eye Exam: PERRL/EOMI Ears, Nose, Throat Exam: normal ENT inspection Neck Exam: normal inspection, full range of motion Respiratory Exam: normal breath sounds, lungs clear Cardiovascular Exam: regular rate/rhythm, normal heart sounds Gastrointestinal/Abdomen Exam: soft, normal bowel sounds, No tenderness Back Exam: normal inspection Extremity Exam: normal inspection, normal range of motion Neurologic Exam: alert, oriented x 3, cooperative Skin Exam: normal color SpO2 Interpretation: normal SpO2: 96 O2 Delivery: Room Air - Course EKG Interpreted by Me: RATE (72, atrial paced rhythm), Left [place] Deviation, Left Bundle Branch Block, Non-specific ST Changes, Other (PVCs) Ordered Tests: Active Orders 24 hr Category Date Time Status Orthostatic Vital Signs STAT Care 07/25/23 17:25 Active CHEST 1 VIEW (PORTABLE) Stat Exams 07/25/23 17:00 Taken CBC W DIFF Stat Lab 07/25/23 17:00 Completed CK-Creatinine Phosphokinase Stat Lab 07/25/23 17:00 Completed CMP Stat Lab 07/25/23 17:00 Completed NT PRO BNPII Stat Lab 07/25/23 17:00 Completed TROPONIN Q4H Lab 07/25/23 17:00 Completed TROPONIN Q4H Lab 07/25/23 21:00 Ordered TROPONIN Q4H Lab 07/26/23 01:00 Ordered Transfer Order Routine Transfer 07/25/23 Ordered Lab/Rad Data: Laboratory Result Diagrams 07/25/23 17:00 07/25/23 17:00 Laboratory Results 07/25/23 07/25/23 Range/Units 17:00 17:00 WBC 7.0 (4.23-9.07) x10^3/uL RBC 3.98 L (4.63-6.08) x10^6/uL Hgb 13.0 L (13.7-17.5) g/dL Hct 37.1 L (40.1-51.0) % MCV 93.2 H (79.0-92.2) fL MCH 32.7 H (25.7-32.2) pg MCHC 35.0 (32.3-36.5) g/dL RDW 12.5 (11.6-14.4) % Plt Count 150 L (163-337) x10^3/uL MPV 10.5 (9.4-12.4) fL Gran % 62.4 (34.0-67.9) % Immature Gran % (Auto) 0.1 (0.001-0.429) % Nucleat RBC Rel Count 0.0 (0.00-0.2) % Eos # (Auto) 0.16 (0.04-0.54) x10^3/uL Immature Gran # (Auto) 0.01 (0.001-0.031) x10^3u/L Absolute Lymphs (auto) 1.74 (1.32-3.57) x10^3/uL Absolute Monos (auto) 0.68 (0.30-0.82) x10^3/uL Absolute Nucleated RBC 0.00 (0.00-0.012) x10^3u/L Lymphocytes % 24.9 (21.8-53.1) % Monocytes % 9.7 (5.3-12.2) % Eosinophils % 2.3 (0.8-7.0) % Basophils % 0.6 (0.2-1.2) % Absolute Granulocytes 4.37 (1.78-5.38) x10^3/uL Basophils # 0.04 (0.01-0.08) x10^3/uL Sodium 138 (135-145) mmol/L Potassium 4.2 (3.5-5.1) mmol/L Chloride 106 (98-107) mmol/L Carbon Dioxide 22 (22-30) mmol/L Anion Gap 14.5 (5-15) MEQ/L BUN 25 H (9-20) mg/dL Creatinine 1.65 H (0.66-1.25) mg/dL Estimated GFR 42.5 ML/MIN Glucose 104 (74-106) mg/dL Calcium 9.9 (8.4-10.2) mg/dL Total Bilirubin 1.60 H (0.2-1.3) mg/dL AST 27 (17-59) U/L ALT 21 (0-50) U/L Alkaline Phosphatase 51 (38-126) U/L Creatine Kinase 106 (55-170) U/L Troponin I < 0.012 (0.000-0.033) ng/mL NT-Pro-B Natriuret Pep 594 (<300) pg/mL Serum Total Protein 7.6 (6.3-8.2) g/dL Albumin 4.6 (3.5-5.0) g/dL - Progress Progress: improved Air Movement: good Progress Note: 07/25/23 18:29 77-year-old with history of CAD with stenting, atrial fibrillation on Eliquis is evaluated for intermittent chest pain for 3 days. EKG is atrial paced rhythm with PVC but no ST elevations. Negative initial troponins. Normal white count, fairly unremarkable chemistries. Chest x-ray negative for any acute cardiopulmonary findings reviewed by me, official report is pending. Patient is recommended aspirin but he refused to have it. Has no chest pain on reevaluation. Patient has multiple risk factors with heart score greater than 4, discussed with Dr. Villanueva hospitalist on-call, reviewed history, workup and agreed with admission here and trending cardiac enzymes. I have discussed the results of workup with patient who understand and agrees with the plan of admission. 07/25/23 18:35 Blood Culture(s) Obtained: No Antibiotics given: No Discussed with : Fouzia Will see patient in: hospital (observation) Counseled pt/family regarding: lab results, diagnosis, need for follow-up, rad results Medical Desision Making - Discussion of managment Care discussed with:: hospitalist Reviewed:: Test results Agreed on:: Treatment plan, place in obs Will see patient: in hospital - Diagnostic Testing Diagnostic test were ordered, analyzed, and reviewed by me: Yes Radiological Interpretation: Interpreted by me, Reviewed by me - Risk of complications The pt has a high risk of morbidity or mortality based on: Decision regarding hospitilization or escalation of hosp level of care - Departure Departure Disposition: Observation Clinical Impression: Chest pain, rule out acute myocardial infarction Condition: Stable Critical Care Time: No Referrals: FABIENNE ZIEGLER MD [Primary Care Provider] - Follow up/PCP as directed
--- NOTE | 2023-07-25 21:33 | PCM.HP ---
History of Present Illness - Chief Complaint Chief Complaint: Chest pain rule out acute myocardial infarction History of Present Illness: is a 77 year old male with CAD s/p PCI, HTN who presents with 1 week of atypical chest pain. Reports chest that is present throughout the whole week, associated with shortness of breath. No edema. No fever. Also reports he has had increasing anxiety this week; though cannot ID any trigger. - Review of Systems Constitutional: No Fever, No Chills Eyes: No Symptoms Ears, Nose, & Throat: No Symptoms Respiratory: No Cough, No Short Of Breath Cardiac: Chest Pain, No Edema, No Syncope Abdominal/Gastrointestinal: No Abdominal Pain, No Nausea, No Vomiting, No Diarrhea Genitourinary Symptoms: No Dysuria Musculoskeletal: No Back Pain, No Neck Pain Skin: No Rash Neurological: No Dizziness, No Focal Weakness, No Sensory Changes Psychological: No Symptoms Endocrine: No Symptoms Hematologic/Lymphatic: No Symptoms Immunological/Allergic: No Symptoms Medications & Allergies Home Medications: Home Medication List Tamsulosin HCl 0.4 mg [Flomax 0.4 MG] 0.4 mg PO BID 11/30/11 [History Confirmed 07/25/23] Pravastatin Sodium [Pravachol] 80 mg PO DAILY 10/17/15 [History Confirmed 07/25/23] Levothyroxine Sodium 25 Mcg [Synthroid 25 Mcg] 25 mcg PO 0600 02/08/18 [History Confirmed 07/25/23] Metoprolol Tartrate 25 mg [Lopressor 25MG Tab] 12.5 mg PO DAILY 02/08/18 [History Confirmed 07/25/23] Sacubitril/Valsartan [Entresto 24 mg-26 mg Tablet] 1 tab PO BID 02/08/18 [History Confirmed 07/25/23] Dofetilide [Tikosyn] 500 mcg PO BID 02/22/20 [History Confirmed 07/25/23] Ezetimibe 10 mg [Zetia 10 MG] 10 mg PO DAILY 02/22/20 [History Confirmed 07/25/23] Magnesium Oxide 400 mg [Mag-Ox 400] 800 mg PO DAILY 08/07/20 [History Confirmed 07/25/23] Apixaban [Eliquis 5 mg Tablet] 5 mg PO BID 06/14/21 [History Confirmed 07/25/23] Cholecalciferol (Vitamin D3) [Vitamin D] 2,000 units PO UD 06/14/21 [History Confirmed 07/25/23] Furosemide 20 mg [Lasix 20 mg] 20 mg PO DAILY 06/14/21 [History Confirmed 07/25/23] Metoprolol Tartrate 25 mg [Lopressor 25MG Tab] 25 mg PO HS 02/22/22 [History Confirmed 07/25/23] Clopidogrel Bisulfate [PLAVIX Tablet] 75 mg PO DAILY 07/16/23 [History Confirmed 07/25/23] Allergies/Adverse Reactions: Allergies Allergy/AdvReac Type Severity Reaction Status Date / Time sulfamethoxazole Allergy Intermediate Hives Verified 07/25/23 21:12 [From Bactrim] - Past Medical History Past Medical History: Yes Neurological History: Peripheral Neuropathy ENT History: No Pertinent History Cardiac History: Arrhythmia, High Cholesterol, Hypertension, Myocardial Infarction ([place]), Other Respiratory History: No Pertinent History Endocrine Medical History: Hypothyroidism Musculoskelatal History: Arthritis GI Medical History: GERD, GI Bleed, Hernia History: No Pertinent History Pyscho-Social History: No Pertinent History Male Reproductive Disorders: Prostate Problems Comment: Heart Ablasion (08/02/20), 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 Hernandez - Past Surgical History Past Surgical History: Yes Neuro Surgical History: No Pertinent History Cardiac History: Cardiac Catheterization, Cardiac Stent, Internal Defibrillator, Pacemaker Respiratory Surgery: No Pertinent History GI Surgical History: Hernia Repair Genitourinary Surgical Hx: Other Musculskeletal Surgical Hx: No Pertinent History Male Surgical History: No Pertinent History Other Surgical History: lt leg stents x2 (1999) - Social History Smoking Status: Former smoker How long have you smoked: 40 years Exposure to second hand smoke: No Alcohol: None Drug Use: none - Social Determinants of Health Will the patient participate in the screening: Yes Do you worry about a steady place to live?: No Do you have any problems with any of the following?: No known problems In the past 12 months,have you had to go without utilities?: No Have you or anyone in your house had to go without enough: No Transportation Issues: No Has anyone in your support network made you feel unsafe?: No Does the patient want assistance with any of the above?: No - Physical Exam Vital Signs: Vital Signs - 24 hr Temp Pulse Pulse Resp BP BP Pulse Ox 07/25/23 20:58 70 16 96 07/25/23 20:50 97.2 F 91 H 20 127/65 96 07/25/23 20:00 65 12 148/88 96 07/25/23 19:30 76 12 148/90 96 07/25/23 19:00 72 12 136/85 95 07/25/23 18:36 96 07/25/23 18:30 74 12 141/86 96 07/25/23 18:00 76 15 134/81 07/25/23 17:30 72 18 127/82 07/25/23 17:00 73 18 110/76 07/25/23 16:30 71 15 113/74 07/25/23 16:23 88 07/25/23 16:22 97.6 F 80 22 131/74 96 Results - Labs Lab/Micro Results: Lab Results-Last 24 Hours 07/25/23 07/25/23 07/25/23 Range/Units 17:00 17:00 20:40 WBC 7.0 (4.23-9.07) x10^3/uL RBC 3.98 L (4.63-6.08) x10^6/uL Hgb 13.0 L (13.7-17.5) g/dL Hct 37.1 L (40.1-51.0) % MCV 93.2 H (79.0-92.2) fL MCH 32.7 H (25.7-32.2) pg MCHC 35.0 (32.3-36.5) g/dL RDW 12.5 (11.6-14.4) % Plt Count 150 L (163-337) x10^3/uL MPV 10.5 (9.4-12.4) fL Gran % 62.4 (34.0-67.9) % Immature Gran % (Auto) 0.1 (0.001-0.429) % Nucleat RBC Rel Count 0.0 (0.00-0.2) % Eos # (Auto) 0.16 (0.04-0.54) x10^3/uL Immature Gran # (Auto) 0.01 (0.001-0.031) x10^3u/L Absolute Lymphs (auto) 1.74 (1.32-3.57) x10^3/uL Absolute Monos (auto) 0.68 (0.30-0.82) x10^3/uL Absolute Nucleated RBC 0.00 (0.00-0.012) x10^3u/L Lymphocytes % 24.9 (21.8-53.1) % Monocytes % 9.7 (5.3-12.2) % Eosinophils % 2.3 (0.8-7.0) % Basophils % 0.6 (0.2-1.2) % Absolute Granulocytes 4.37 (1.78-5.38) x10^3/uL Basophils # 0.04 (0.01-0.08) x10^3/uL Sodium 138 (135-145) mmol/L Potassium 4.2 (3.5-5.1) mmol/L Chloride 106 (98-107) mmol/L Carbon Dioxide 22 (22-30) mmol/L Anion Gap 14.5 (5-15) MEQ/L BUN 25 H (9-20) mg/dL Creatinine 1.65 H (0.66-1.25) mg/dL Estimated GFR 42.5 ML/MIN Glucose 104 (74-106) mg/dL Calcium 9.9 (8.4-10.2) mg/dL Total Bilirubin 1.60 H (0.2-1.3) mg/dL AST 27 (17-59) U/L ALT 21 (0-50) U/L Alkaline Phosphatase 51 (38-126) U/L Creatine Kinase 106 (55-170) U/L Troponin I < 0.012 < 0.012 (0.000-0.033) ng/mL NT-Pro-B Natriuret Pep 594 (<300) pg/mL Serum Total Protein 7.6 (6.3-8.2) g/dL Albumin 4.6 (3.5-5.0) g/dL - Radiology Impressions Radiology Exams & Impressions: Radiology Procedures Category Date Time Status CHEST 1 VIEW (PORTABLE) Stat Exams 07/25/23 17:00 Taken Assessment/Plan (1) Chest pain, rule out acute myocardial infarction Current Visit: Yes Status: Acute Assessment & Plan: 1. EKG WNL and initial trop negative 2. Trend trop 3. If neg work up - can refer back to cardiology as an outpatient Code(s): R07.9 - CHEST PAIN, UNSPECIFIED Telemedicine Encounter - Telemedicine Encounter Telemedicine Encounter: The entirety of this encounter was performed via Telemedicine"
[2023-07-25] MEDS ORDERED: ENTRESTO 49 MG-51 MG TABLET ONE (22:48)
[2023-07-25] MEDS ORDERED: ELIQUIS 2.5 MG TABLET ONE (22:48)
[2023-07-25] MEDS: Lopressor 25MG Tab PO SCH (23:11)
[2023-07-25] MEDS: Flomax 0.4 MG PO SCH (23:11)
[2023-07-25] MEDS: ELIQUIS 2.5 MG TABLET PO SCH (23:12)
[2023-07-25] MEDS: ENTRESTO 49 MG-51 MG TABLET PO SCH (23:12)
[2023-07-25] MEDS: NON-FORMULARY ITEM PO SCH (23:13)
[2023-07-26 01:03] LABS: Hematocrit 34.7 % (40.1-51.0); Mean Cell Volume 94.3 fL (79.0-92.2); Mean Corpuscular Hemoglobin 32.6 pg (25.7-32.2); Mean Corpuscular Hgb Concent. 34.6 g/dL (32.3-36.5); Mean Platelet Volume 10.4 fL (9.4-12.4); Platelet Count 120 x10^3/uL (163-337); Red Blood Count 3.68 x10^6/uL (4.63-6.08); Red Cell Distribution Width 12.5 % (11.6-14.4); White Blood Count 5.6 x10^3/uL (4.23-9.07)
[2023-07-26 01:18] LABS: ALBUMIN 3.9 g/dL (3.5-5.0); BILIRUBIN,TOTAL 1.3 mg/dL (0.2-1.3); Calcium 9.4 mg/dL (8.4-10.2); Creatinine 1 1.56 mg/dL (0.66-1.25); EST GLOMERULAR FILTRATION RATE 45.5 ML/MIN; Total Protein 6.7 g/dL (6.3-8.2)
[2023-07-26] MEDS ORDERED: MEDICATION INTERVENTION MC SCH (07:30)
--- NOTE | 2023-07-26 08:14 | XRAY ---
Indication: Chest pain. Comparison: October 21, 2022 Portable chest less inflated again with a few incidental tiny calcified granulomas. No focal infiltrate, consolidation, or large effusion. Heart not enlarged again with left pacemaker. Bony thorax intact again with osteopenia and mild degenerative changes. Impression: Continued nonacute chest with chronic features.
[2023-07-26] MEDS: Cyclobenzaprine 10 MG PO ONE (09:24)
[2023-07-26] MEDS: MAG-OX 400 PO SCH (09:25)
[2023-07-26] MEDS: PLAVIX Tablet PO SCH (09:25)
[2023-07-26] MEDS: Zetia 10 MG PO SCH (09:26)
[2023-07-26] MEDS: Lopressor 25MG Tab PO SCH (09:27)
[2023-07-26] MEDS: LASIX 20 MG PO SCH (09:28)
[2023-07-26] MEDS: ZOCOR 20MG PO SCH (09:28)
[2023-07-26] MEDS: SYNTHROID 25 MCG PO SCH (09:30)
[2023-07-26 09:32] LABS: AMYLASE 63 U/L (30-110); LIPASE 74 U/L (23-300)
--- NOTE | 2023-07-26 09:52 | XRAY ---
Indication: Left upper quadrant pain. Comparison: June 30, 2018 KUB again nonacute and nonobstructed. Solid organs unremarkable. Osseous structures intact again with osteopenia and multilevel degenerative spondylosis. Stable left iliac stent graft and suture material overlying left hip. No new/acute findings.
[2023-07-26] MEDS ORDERED: NON-FORMULARY ITEM (Sacubitril/Valsartan [Entresto 24 Mg-26 Mg Tablet] 1 EACH Tablet) PO SCH (10:00)
[2023-07-26] MEDS ORDERED: DOFETILIDE 500 MCG PO SCH (10:00)
[2023-07-26] MEDS ORDERED: NON-FORMULARY ITEM (Apixaban*** [Eliquis 5 Mg Tablet***] 5 MG Tablet) PO SCH (10:00)
[2023-07-26] MEDS ORDERED: Flomax 0.4 MG PO SCH (10:00)
--- NOTE | 2023-07-26 11:37 | PCM.DS ---
Discharge Summary Date of Admission: 07/25/23 20:40 Date of Discharge: 07/26/23 Admitting Physician: CADENCE SANTIAGO MD Primary Care Provider: FABIENNE ZIEGLER Allergies Allergies sulfamethoxazole [From Bactrim] Allergy (Intermediate, Verified 07/25/23 21:12) [facility] Summary - Hospital Course Hospital Course: is a 77 year old male with CAD s/p PCI, HTN. He presented on 07/24 to ER with 1 week of atypical chest pain. Reports chest that is present throughout the whole week, associated with shortness of breath. No edema. No fever. Also reports he has had increasing anxiety this week; though cannot ID any trigger. Today he reports no CP, and troponins negative. He does admit to some left side pain that feels like a muscle spasm. Muscle relaxer gave and this helped somewhat. He also admits to some anxiety r/t and son passing. Discussed with case management and she is willing to provide information for [facility] to f/u about about grief sharing. denies homicidal or suicidal ideation. Wanted to know why he cannot get anxiety medication prescribed to him OP. Discussed risk vs. benefits of medication and that at his age risk outweigh benefits. He is wanting to go home today and is anxious to leave. Pt denies CP, SOB, N/V/D. - Vitals & Intake/Output Vital Signs: Vital Signs Temperature 98 F 07/26/23 07:10 Pulse Rate 72 07/26/23 07:10 Respiratory Rate 16 07/26/23 07:10 Blood Pressure 139/77 07/26/23 07:10 O2 Sat by Pulse Oximetry 96 07/26/23 07:10 Intake & Output: Intake & Output 07/23/23 07/24/23 07/25/23 07/26/23 11:59 11:59 11:59 11:59 Intake Total 780 Balance 780 Weight 104.6 kg - Lab Result Diagrams: 07/26/23 01:01 07/26/23 01:01 Lab Results-Last 24 Hrs: Lab Results-Last 24 Hours 07/25/23 07/25/23 07/25/23 Range/Units 17:00 17:00 20:40 WBC 7.0 (4.23-9.07) x10^3/uL RBC 3.98 L (4.63-6.08) x10^6/uL Hgb 13.0 L (13.7-17.5) g/dL Hct 37.1 L (40.1-51.0) % MCV 93.2 H (79.0-92.2) fL MCH 32.7 H (25.7-32.2) pg MCHC 35.0 (32.3-36.5) g/dL RDW 12.5 (11.6-14.4) % Plt Count 150 L (163-337) x10^3/uL MPV 10.5 (9.4-12.4) fL Gran % 62.4 (34.0-67.9) % Immature Gran % (Auto) 0.1 (0.001-0.429) % Nucleat RBC Rel Count 0.0 (0.00-0.2) % Eos # (Auto) 0.16 (0.04-0.54) x10^3/uL Immature Gran # (Auto) 0.01 (0.001-0.031) x10^3u/L Absolute Lymphs (auto) 1.74 (1.32-3.57) x10^3/uL Absolute Monos (auto) 0.68 (0.30-0.82) x10^3/uL Absolute Nucleated RBC 0.00 (0.00-0.012) x10^3u/L Lymphocytes % 24.9 (21.8-53.1) % Monocytes % 9.7 (5.3-12.2) % Eosinophils % 2.3 (0.8-7.0) % Basophils % 0.6 (0.2-1.2) % Absolute Granulocytes 4.37 (1.78-5.38) x10^3/uL Basophils # 0.04 (0.01-0.08) x10^3/uL Sodium 138 (135-145) mmol/L Potassium 4.2 (3.5-5.1) mmol/L Chloride 106 (98-107) mmol/L Carbon Dioxide 22 (22-30) mmol/L Anion Gap 14.5 (5-15) MEQ/L BUN 25 H (9-20) mg/dL Creatinine 1.65 H (0.66-1.25) mg/dL Estimated GFR 42.5 ML/MIN Glucose 104 (74-106) mg/dL Calcium 9.9 (8.4-10.2) mg/dL Total Bilirubin 1.60 H (0.2-1.3) mg/dL AST 27 (17-59) U/L ALT 21 (0-50) U/L Alkaline Phosphatase 51 (38-126) U/L Creatine Kinase 106 (55-170) U/L Troponin I < 0.012 < 0.012 (0.000-0.033) ng/mL NT-Pro-B Natriuret Pep 594 (<300) pg/mL Serum Total Protein 7.6 (6.3-8.2) g/dL Albumin 4.6 (3.5-5.0) g/dL Amylase (30-110) U/L Lipase (23-300) U/L 07/26/23 07/26/23 07/26/23 Range/Units 01:01 01:01 01:01 WBC 5.6 (4.23-9.07) x10^3/uL RBC 3.68 L (4.63-6.08) x10^6/uL Hgb 12.0 L (13.7-17.5) g/dL Hct 34.7 L (40.1-51.0) % MCV 94.3 H (79.0-92.2) fL MCH 32.6 H (25.7-32.2) pg MCHC 34.6 (32.3-36.5) g/dL RDW 12.5 (11.6-14.4) % Plt Count 120 L (163-337) x10^3/uL MPV 10.4 (9.4-12.4) fL Gran % (34.0-67.9) % Immature Gran % (Auto) (0.001-0.429) % Nucleat RBC Rel Count (0.00-0.2) % Eos # (Auto) (0.04-0.54) x10^3/uL Immature Gran # (Auto) (0.001-0.031) x10^3u/L Absolute Lymphs (auto) (1.32-3.57) x10^3/uL Absolute Monos (auto) (0.30-0.82) x10^3/uL Absolute Nucleated RBC (0.00-0.012) x10^3u/L Lymphocytes % (21.8-53.1) % Monocytes % (5.3-12.2) % Eosinophils % (0.8-7.0) % Basophils % (0.2-1.2) % Absolute Granulocytes (1.78-5.38) x10^3/uL Basophils # (0.01-0.08) x10^3/uL Sodium 138 (135-145) mmol/L Potassium 4.0 (3.5-5.1) mmol/L Chloride 106 (98-107) mmol/L Carbon Dioxide 25 (22-30) mmol/L Anion Gap 11.0 (5-15) MEQ/L BUN 26 H (9-20) mg/dL Creatinine 1.56 H (0.66-1.25) mg/dL Estimated GFR 45.5 ML/MIN Glucose 174 H (74-106) mg/dL Calcium 9.4 (8.4-10.2) mg/dL Total Bilirubin 1.30 (0.2-1.3) mg/dL AST 25 (17-59) U/L ALT 19 (0-50) U/L Alkaline Phosphatase 45 (38-126) U/L Creatine Kinase (55-170) U/L Troponin I < 0.012 (0.000-0.033) ng/mL NT-Pro-B Natriuret Pep (<300) pg/mL Serum Total Protein 6.7 (6.3-8.2) g/dL Albumin 3.9 (3.5-5.0) g/dL Amylase (30-110) U/L Lipase (23-300) U/L 07/25/ Range/Units 04:01 WBC (4.23-9.07) x10^3/uL RBC (4.63-6.08) x10^6/uL Hgb (13.7-17.5) g/dL Hct (40.1-51.0) % MCV (79.0-92.2) fL MCH (25.7-32.2) pg MCHC (32.3-36.5) g/dL RDW (11.6-14.4) % Plt Count (163-337) x10^3/uL MPV (9.4-12.4) fL Gran % (34.0-67.9) % Immature Gran % (Auto) (0.001-0.429) % Nucleat RBC Rel Count (0.00-0.2) % Eos # (Auto) (0.04-0.54) x10^3/uL Immature Gran # (Auto) (0.001-0.031) x10^3u/L Absolute Lymphs (auto) (1.32-3.57) x10^3/uL Absolute Monos (auto) (0.30-0.82) x10^3/uL Absolute Nucleated RBC (0.00-0.012) x10^3u/L Lymphocytes % (21.8-53.1) % Monocytes % (5.3-12.2) % Eosinophils % (0.8-7.0) % Basophils % (0.2-1.2) % Absolute Granulocytes (1.78-5.38) x10^3/uL Basophils # (0.01-0.08) x10^3/uL Sodium (135-145) mmol/L Potassium (3.5-5.1) mmol/L Chloride (98-107) mmol/L Carbon Dioxide (22-30) mmol/L Anion Gap (5-15) MEQ/L BUN (9-20) mg/dL Creatinine (0.66-1.25) mg/dL Estimated GFR ML/MIN Glucose (74-106) mg/dL Calcium (8.4-10.2) mg/dL Total Bilirubin (0.2-1.3) mg/dL AST (17-59) U/L ALT (0-50) U/L Alkaline Phosphatase (38-126) U/L Creatine Kinase (55-170) U/L Troponin I (0.000-0.033) ng/mL NT-Pro-B Natriuret Pep (<300) pg/mL Serum Total Protein (6.3-8.2) g/dL Albumin (3.5-5.0) g/dL Amylase 63 (30-110) U/L Lipase 74 (23-300) U/L - Radiology Exams Ordered Rad Exams-Entire Visit: Radiology Procedures Category Date Time Status CHEST 1 VIEW (PORTABLE) Stat Exams 07/25/23 17:00 Completed KUB Routine Exams 07/26/23 09:09 Completed - Procedures and Test Procedures and Tests throughout Hospitalization: Therapy Orders & Screens 07/25/23 20:41 Respiratory Therapy Consult ONCE Comment: Reason For Exam: 07/25/23 21:11 RT Screen per Nursing Assess ONCE Comment: Protocol Order Physician Instructions: Greater than 3 points order RT Admission Screen Reason For Exam: Triggered on Admission Diagnosis: Chest pain rule out acute myocardial infarction Diagnosis: Chest pain rule out acute myocardial infarction Pneumonia: No Home O2: No Asthma: No CHF: Yes Home CPAP/BIPAP: Yes: doesn't use it Home Nebs/MDI: No Total Points: 8 Discharge Exam General Appearance: no apparent distress, alert, obese Neurologic Exam: alert, oriented x 3, cooperative, normal mood/affect, nml cerebellar function, sensation nml, No motor deficits Eye Exam: PERRL, EOMI, eyes nml inspection Ears, Nose, Throat Exam: normal ENT inspection, pharynx normal, moist mucous membranes Neck Exam: normal inspection, non-tender, supple, full range of motion Respiratory Exam: normal breath sounds, lungs clear, No respiratory distress Cardiovascular Exam: regular rate/rhythm, normal heart sounds Gastrointestinal/Abdomen Exam: soft, tenderness (LUQ with palpation), No mass Male Genitalia Exam: deferred Rectal Exam: deferred Back Exam: normal inspection, normal range of motion, No CVA tenderness, No vertebral tenderness Extremity Exam: normal inspection, normal range of motion Skin Exam: normal color, warm, dry Comments: 07/26/23 11:38 -Left side pain with palpation of thoracic muscle Final Diagnosis/Problem List - Final Discharge Diagnosis/Problem (1) Chest pain Current Visit: No Status: Resolved Assessment & Plan: - resolved - EKG reviewed - Tele - trop x3 negative - refused ASA - f/u with cardiology OP - May be 2:2 anxiety or muscle spasm Code(s): R07.9 - CHEST PAIN, UNSPECIFIED (2) Anxiety and depression Current Visit: Yes Status: Acute Assessment & Plan: - Pt reports he lives alone, son and have passed - discussed [facility] f/u OP, CM to provide information - Muscle relaxer helped some with anxiety sxs. Code(s): F41.9 - ANXIETY DISORDER, UNSPECIFIED; F32.A - DEPRESSION, UNSPECIFIED (3) Obesity (BMI 30.0-34.9) Current Visit: Yes Status: Chronic Assessment & Plan: - advised diet and exercise control per cardiology recommendations Code(s): E66.9 - OBESITY, UNSPECIFIED (4) Abdominal pain Current Visit: No Status: Acute Assessment & Plan: - LUQ abd pain with palpation - KUB negative for acute concern - labs nonconcerning Code(s): R10.9 - UNSPECIFIED ABDOMINAL PAIN (5) HTN (hypertension) Current Visit: No Status: Chronic Assessment & Plan: - chronic, stable - continue home meds Code(s): I10 - ESSENTIAL (PRIMARY) HYPERTENSION (6) Muscle spasm Current Visit: Yes Status: Acute Assessment & Plan: -cyclobenzaprine 5mg - helped with pain in thoracic region of left side - Advised not to drive while taking medication as can cause sedation Code(s): M62.838 - OTHER MUSCLE SPASM - Discharge Discharge Date: 07/26/23 Disposition: Home, Self-Care Condition: Stable Prescriptions: Continue Tamsulosin HCl 0.4 mg [Flomax 0.4 MG] 0.4 mg PO BID Pravastatin Sodium [Pravachol] 80 mg PO DAILY Metoprolol Tartrate 25 mg [Lopressor 25MG Tab] 12.5 mg PO DAILY Levothyroxine Sodium 25 Mcg [Synthroid 25 Mcg] 25 mcg PO 0600 Sacubitril/Valsartan [Entresto 24 mg-26 mg Tablet] 1 tab PO BID Ezetimibe 10 mg [Zetia 10 MG] 10 mg PO DAILY Dofetilide [Tikosyn] 500 mcg PO BID Magnesium Oxide 400 mg [Mag-Ox 400] 800 mg PO DAILY Furosemide 20 mg [Lasix 20 mg] 20 mg PO DAILY Cholecalciferol (Vitamin D3) [Vitamin D] 2,000 units PO UD Apixaban [Eliquis 5 mg Tablet] 5 mg PO BID Metoprolol Tartrate 25 mg [Lopressor 25MG Tab] 25 mg PO HS Clopidogrel Bisulfate [PLAVIX Tablet] 75 mg PO DAILY Follow up with: FABIENNE ZIEGLER MD [Primary Care Provider] -
[2023-07-26 11:42] VITALS: BP 149/80; PULSE 71; RESP 18; TEMP 97.9; O2SAT 99
[2023-07-26] MEDS ORDERED: Lopressor 25MG Tab PO SCH (22:00)
[2023-07-27] MEDS ORDERED: VITAMIN D PO SCH (10:00)
== END 2023-07-26 11:59 | disposition home or self-care (01) ==
LOC: ED 16:22 → MED SURG 20:40
PROVIDERS: ADMIT Internal Medicine; ATTEND Internal Medicine
DX: R07.9 Chest pain, unspecified (principal); I10 Essential (primary) hypertension; F41.9 Anxiety disorder, unspecified; E66.9 Obesity, unspecified; R10.9 Unspecified abdominal pain; E78.5 Hyperlipidemia, unspecified; M62.838 Other muscle spasm; Z79.899 Other long term (current) drug therapy; Z79.01 Long term (current) use of anticoagulants
CPT/HCPCS: 36415; 71045; 74018; 80053; 82150; 82550; 83690; 83880; 84484; 85025; 85027; 93268; 94762; 99284; Q3014; A9270-GY; G0378

== ENCOUNTER 2024-07-01 14:10 | Emergency (ER) | payer MEDICARE, OTHER ==
--- NOTE | 2024-07-01 15:00 | ERPHSYRPT ---
- History of Present Illness Time Seen by Provider: 07/01/24 15:00 Source: patient, family Exam Limitations: no limitations Physician History: This is a 78-year-old white male patient who arrives by private vehicle and drove himself to the facility. Patient states that he has had right knee pain for the last couple of days. 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 He denies falling or twisting his right knee. However in the last couple of days the pain is worse and he feels like it is a little swollen. Patient is scheduled to see Trish Blackwood in the Ortho clinic tomorrow, 07/02/2024. Patient denies chest pain. Patient denies calf pain. Patient denies cough. Patient has a history of arrhythmia, hyperlipidemia, hypertension, coronary artery disease (cardiac stent, defibrillator pacemaker), hypothyroidism and gastroesophageal reflux disease Method of Injury: other (No injury) Occurred: days ago (Symptoms began approximately 2 days ago) Quality: aching Severity of Pain-Max: moderate Severity of Pain-Current: moderate Lower Extremities Pain: knee: right Modifying Factors: Improves With: movement Allergies/Adverse Reactions: sulfamethoxazole [From Bactrim] Allergy (Intermediate, Verified 07/01/24 15:05) Hives Home Medications: Tamsulosin HCl 0.4 mg [Flomax 0.4 MG] 0.4 mg PO BID 11/30/11 [History] Pravastatin Sodium [Pravachol] 80 mg PO DAILY 10/17/15 [History] Levothyroxine Sodium 25 Mcg [Synthroid 25 Mcg] 25 mcg PO 0600 02/08/18 [History] Metoprolol Tartrate 25 mg [Lopressor 25MG Tab] 12.5 mg PO DAILY 02/08/18 [History] Sacubitril/Valsartan [Entresto 24 mg-26 mg Tablet] 1 tab PO BID 02/08/18 [History] Dofetilide [Tikosyn] 500 mcg PO BID 02/22/20 [History] Ezetimibe 10 mg [Zetia 10 MG] 10 mg PO DAILY 02/22/20 [History] Magnesium Oxide 400 mg [Mag-Ox 400] 800 mg PO DAILY 08/07/20 [History] Apixaban [Eliquis 5 mg Tablet] 5 mg PO BID 06/14/21 [History] Cholecalciferol (Vitamin D3) [Vitamin D] 2,000 units PO UD 06/14/21 [History] Furosemide 20 mg [Lasix 20 mg] 20 mg PO DAILY 06/14/21 [History] Metoprolol Tartrate 25 mg [Lopressor 25MG Tab] 25 mg PO HS 02/22/22 [History] Hx Tetanus, Diphtheria Vaccination/Date Given: Yes Hx Influenza Vaccination/Date Given: No Hx Pneumococcal Vaccination/Date Given: Yes Travel Risk - International Travel Have you traveled outside of the country in past 3 weeks: No - Emerging Infectious Disease Are you exhibiting symptoms associated with any current EIDs: Yes Symptoms: Cough: New Onset, Shortness of Breath - Review of Systems Constitutional: No Symptoms Eyes: No Symptoms Ears, Nose, & Throat: No Symptoms Respiratory: No Symptoms Cardiac: No Symptoms Abdominal/Gastrointestinal: No Symptoms Genitourinary Symptoms: No Symptoms Musculoskeletal: No Symptoms Skin: No Symptoms Neurological: No Symptoms Psychological: No Symptoms Endocrine: No Symptoms Hematologic/Lymphatic: No Symptoms Immunological/Allergic: No Symptoms All Other Systems: Reviewed and Negative - Past Medical History Pertinent Past Medical History: Yes Neurological History: Peripheral Neuropathy ENT History: No Pertinent History Cardiac History: Arrhythmia, High Cholesterol, Hypertension, Myocardial Infarction ([place]), Other Respiratory History: No Pertinent History Endocrine Medical History: Hypothyroidism Musculoskeletal History: Arthritis GI Medical History: GERD, GI Bleed, Hernia History: No Pertinent History Psycho-Social History: No Pertinent History Male Reproductive Disorders: Prostate Problems Other Medical History: Heart Ablasion (08/02/20), 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 Hernandez - Past Surgical History Past Surgical History: Yes Neuro Surgical History: No Pertinent History Cardiac: Cardiac Catheterization, Cardiac Stent, Internal Defibrillator, Pacemaker Respiratory: No Pertinent History Gastrointestinal: Hernia Repair Genitourinary: Other Musculoskeletal: No Pertinent History Male Surgical History: No Pertinent History Other Surgical History: lt leg stents x2 (1999) - Social History Smoking Status: Former smoker How long have you smoked: 40 years Exposure to second hand smoke: No Drug Use: none - Social Determinants of Health Will the patient participate in the screening: Yes Do you worry about a steady place to live?: No In the past 12 months,have you had to go without utilities?: No Transportation Issues: No Has anyone in your support network made you feel unsafe?: No Have you or anyone in your house had to go w/o enough food: No - Nursing Vital Signs Nursing Vital Signs: Initial Vital Signs Pulse Rate 76 07/01/24 15:04 Respiratory Rate 16 07/01/24 15:04 Blood Pressure 111/71 07/01/24 15:04 O2 Sat by Pulse Oximetry 96 07/01/24 15:04 Pain Scale Pain Intensity 6 - Physical Exam General Appearance: no apparent distress, alert, obese Eyes, Ears, Nose, Throat Exam: normal ENT inspection, moist mucous membranes Neck Exam: normal inspection, non-tender, supple, full range of motion Cardiovascular/Respiratory Exam: chest non-tender, no respiratory distress Gastrointestinal/Abdominal Exam: non-tender Back Exam: normal inspection, normal range of motion, No CVA tenderness, No vertebral tenderness Hips Exam: bilateral: non-tender, normal inspection, normal range of motion, no evidence of injury Legs Exam: bilateral leg: non-tender, normal inspection, normal range of motion, no evidence of injury Knees Exam: right knee: bone tenderness (Anterior medial), soft tissue tenderness (Anterior medial), swelling (Mild old anterior medial), left knee: non-tender, bilateral knee: normal inspection, normal range of motion, no evidence of injury Ankle Exam: bilateral ankle: non-tender, normal inspection, normal range of motion, no evidence of injury Foot Exam: bilateral foot: non-tender, normal inspection, normal range of motion, no evidence of injury Neuro/Tendon Exam: normal sensation, normal motor functions, normal tendon functions, responds to pain, no evidence tendon injury Mental Status Exam: alert, oriented x 3, cooperative Skin Exam: normal color, warm, dry SpO2 Interpretation: normal O2 Delivery: Room Air - Course Nursing assessment & vital signs reviewed: Yes Ordered Tests: Active Orders 24 hr Category Date Time Status KNEE (3 VIEWS) Stat Exams 07/01/24 15:42 Completed - Progress Progress: unchanged Progress Note: 07/01/24 16:53 My medical decision making and the assignment of low complexity to this patient's medical issue today is based on review of the patient's past medical history, review the patient's medication list, reviewed patient drug allergy list, history present illness and physical findings on examination. The workup in this patient today includes three-view x-ray of the right knee. Differential diagnosis includes was not limited to fracture right knee, right knee sprain, dislocated right knee The preliminary X ray report of the patient's right knee was interpreted by me. I see no acute fracture or dislocation. Final report of right knee x-ray was interpreted by the radiologist and I reviewed the impression. Impression states unremarkable study of the right knee joint. Small joint effusion. The patient has no acute, emergent medical issue at this time. Patient already has an appointment to see Trish Blackwood at the orthopedic clinic tomorrow, 07/02/2024. We will remotely send prescription for medication to help with his pain symptoms to his pharmacy. Patient drove himself to the emergency department. Counseled pt/family regarding: diagnosis, need for follow-up, rad results Medical Desision Making - Diagnostic Testing Diagnostic test were ordered, analyzed, and reviewed by me: Yes Radiological Interpretation: Interpreted by me, Reviewed by me, Teleradiologist Report - Risk of complications The pt has a mod risk of morbidity or mortality based on: Need for prescription drug management - Departure Departure Disposition: Home Clinical Impression: Right anterior knee pain, Swelling of knee joint, right Condition: Stable Critical Care Time: No Referrals: FABIENNE ZIEGLER MD [Primary Care Provider, [facility]] - Follow up/PCP as directed Additional Instructions: Ice pack to right knee 3 times a day for the next 48 hours. Take your medications as prescribed. Keep your appointment with orthopedic clinic that you have scheduled for tomorrow, 07/02/2024. Prescriptions: Prednisone 10 mg [Deltasone 10 mg] 10 mg PO TID #12 tablet Orphenadrine Citrate 100 mg [Norflex 100 MG Tablet] 100 mg PO BID #10 tab
[2024-07-01 15:14] VITALS: TEMP 97.4
--- NOTE | 2024-07-01 16:44 | XRAY ---
CLINICAL HISTORY: Right knee pain COMPARISON: None. TECHNIQUE: X-ray of the right knee; anteroposterior, oblique, and lateral views. FINDINGS: The bones: Appears normal with no demonstrated acute fracture or focal lesion, or anatomical distortion. No marked degenerative changes. The joint: Appears preserved with no dislocation or subluxation. Small joint effusion. Soft tissue: Arterial calcifications are suggested. IMPRESSION: 1. Unremarkable study of the right knee joint. 2. Arterial calcifications are suggested. 3. Small joint effusion. DISCLAIMER:A subtle bone abnormality or fracture may not be readily apparent on x-rays, thus clinical correlation and further imaging including follow up CT, MRI, or follow up x-rays are advised as needed. Electronically Signed by: Wiley Woodall MD. (07/01/2024 16:40:22 EDT)
[2024-07-01 17:38] VITALS: BP 133/88; PULSE 73; RESP 25; O2SAT 97
== END 2024-07-01 17:36 | disposition home or self-care (01) ==
LOC: ED 14:10
DX: M25.561 Pain in right knee (principal); M25.461 Effusion, right knee; Z79.01 Long term (current) use of anticoagulants; Z79.52 Long term (current) use of systemic steroids; Z79.899 Other long term (current) drug therapy
CPT/HCPCS: 73562; 99283; 99284

== ENCOUNTER 2024-09-08 12:44 | Emergency (ER) | payer MEDICARE, OTHER ==
[2024-09-08 12:58] VITALS: TEMP 98
[2024-09-08 13:10] VITALS: O2SAT 97
[2024-09-08 13:41] LABS: BASOPHIL % 0.4 % (0.2-1.2); Basophil (Absolute #) 0.02 x10^3/uL (0.01-0.08); Eosinophil (Absolute #) 0.01 x10^3/uL (0.04-0.54); Hematocrit 39.4 % (40.1-51.0); Hemoglobin 13.5 g/dL (13.7-17.5); IMMATURE GRAN # 0.02 x10^3u/L (0.001-0.031); IMMATURE GRAN % 0.4 % (0.001-0.429); Lymphocyte (Absolute #) 0.76 x10^3/uL (1.32-3.57); Mean Corpuscular Hemoglobin 34.2 pg (25.7-32.2); Mean Corpuscular Hgb Concent. 34.3 g/dL (32.3-36.5); Monocyte (Absolute #) 0.30 x10^3/uL (0.30-0.82); NUCLEATED RBC # 0.00 x10^3u/L (0.00-0.012); NUCLEATED RBC % 0.0 % (0.00-0.2); Platelet Count 165 x10^3/uL (163-337); Red Blood Count 3.95 x10^6/uL (4.63-6.08); White Blood Count 5.0 x10^3/uL (4.23-9.07)
--- NOTE | 2024-09-08 14:00 | ERPHSYRPT ---
- History of Present Illness Historian: patient Exam Limitations: no limitations Patient Subjective Stated Complaint: lower abdominal pain, chills, weakness Triage Nursing Assessment: patient presents to ed with complaints of lower abdominal pain, patient has tenderness upon palpation, vitals WNL, patient experiencing chills and weakness Physician History: Patient began having abdominal pain about 2 in the morning. He is had fever and possibly chills as well 2. He has some nausea but no vomiting. He still having bowel movements although they are very small.Nothing makes his symptoms better. Movement and palpation make the symptoms worse.He has not had any abdominal surgeries. He looks very pale. He says that he has not had any melena or hematochezia.The pain started in the lower abdomen but is little bit more diffuse now. He has had no abdominal surgeries in the past. Timing/Duration: today Activities at Onset: none Allergies/Adverse Reactions: sulfamethoxazole [From Bactrim] Allergy (Intermediate, Verified 07/24/24 06:00) Hives Home Medications: Tamsulosin HCl 0.4 mg [Flomax 0.4 MG] 0.4 mg PO BID 11/30/11 [History] Pravastatin Sodium [Pravachol] 80 mg PO DAILY 10/17/15 [History] Sacubitril/Valsartan [Entresto 24 mg-26 mg Tablet] 1 tab PO BID 02/08/18 [History] Dofetilide [Tikosyn] 500 mcg PO BID 02/22/20 [History] Magnesium Oxide 400 mg [Mag-Ox 400] 800 mg PO DAILY 08/07/20 [History] Apixaban [Eliquis 5 mg Tablet] 5 mg PO BID 06/14/21 [History] Cholecalciferol (Vitamin D3) [Vitamin D] 2,000 units PO UD 06/14/21 [History] Metoprolol Tartrate 25 mg [Lopressor 25MG Tab] 25 mg PO HS 02/22/22 [History] Aspirin EC 81 mg [Ecotrin 81 mg] 1 tab PO DAILY 07/17/24 [History] Hx Tetanus, Diphtheria Vaccination/Date Given: Yes Hx Influenza Vaccination/Date Given: No Hx Pneumococcal Vaccination/Date Given: No Travel Risk - International Travel Have you traveled outside of the country in past 3 weeks: No - Emerging Infectious Disease Are you exhibiting symptoms associated with any current EIDs: No Symptoms: Cough: New Onset, Shortness of Breath - Review of Systems Constitutional: Fever, Chills Eyes: No Symptoms Ears, Nose, & Throat: No Symptoms Respiratory: No Symptoms Cardiac: No Symptoms Abdominal/Gastrointestinal: Abdominal Pain, Nausea, Constipation, No Vomiting, No Diarrhea Genitourinary Symptoms: No Symptoms Musculoskeletal: No Symptoms Skin: No Symptoms Neurological: No Symptoms All Other Systems: Reviewed and Negative - Past Medical History Pertinent Past Medical History: Yes Neurological History: Peripheral Neuropathy ENT History: Glaucoma Cardiac History: Arrhythmia, Coronary Artery Disease, High Cholesterol, Hypertension, Myocardial Infarction ([place]), Other Respiratory History: No Pertinent History Endocrine Medical History: Hypothyroidism Musculoskeletal History: Arthritis GI Medical History: GERD, GI Bleed, Hernia History: Renal Disease Psycho-Social History: No Pertinent History Male Reproductive Disorders: Prostate Problems Other Medical History: anemia - Past Surgical History Past Surgical History: Yes Neuro Surgical History: No Pertinent History Cardiac: Cardiac Catheterization, Cardiac Stent, Internal Defibrillator, Pacemaker Respiratory: No Pertinent History Gastrointestinal: Hernia Repair Genitourinary: Other Musculoskeletal: No Pertinent History Male Surgical History: No Pertinent History Other Surgical History: lt leg stents x2 (2000). cardiac ablation - Social History Smoking Status: Never smoker Exposure to second hand smoke: No Drug Use: none - Social Determinants of Health Will the patient participate in the screening: Yes Do you worry about a steady place to live?: No Do you have any problems with any of the following?: No known problems In the past 12 months,have you had to go without utilities?: No Transportation Issues: No Has anyone in your support network made you feel unsafe?: No Have you or anyone in your house had to go w/o enough food: No - Nursing Vital Signs Nursing Vital Signs: Initial Vital Signs Temperature 98.0 F 09/08/24 12:44 Pulse Rate 89 09/08/24 12:44 Respiratory Rate 16 09/08/24 12:44 Blood Pressure 123/77 09/08/24 12:44 O2 Sat by Pulse Oximetry 98 09/08/24 12:44 Pain Scale Pain Intensity 7 - Physical Exam General Appearance: no apparent distress Eye Exam: PERRL/EOMI, pale conjunctivae Respiratory Exam: normal breath sounds Cardiovascular Exam: regular rate/rhythm Gastrointestinal/Abdomen Exam: tenderness, guarding, No ecchymosis Rectal Exam: deferred Back Exam: normal inspection Neurologic Exam: alert, oriented x 3, cooperative Skin Exam: pale, No rash SpO2: 97 - Course Nursing assessment & vital signs reviewed: Yes Ordered Tests: Active Orders 24 hr Category Date Time Status EKG-ER Only STAT Care 09/08/24 13:55 Active ABDOMEN AND PELVIS W CONTRAST [CT] Stat Exams 09/08/24 13:55 Completed CBC W DIFF Stat Lab 09/08/24 13:05 Completed CBC W DIFF Stat Lab 09/08/24 14:15 Results CMP Stat Lab 09/08/24 13:05 Completed LIPASE Stat Lab 09/08/24 13:05 Completed LIPASE Stat Lab 09/08/24 14:15 Completed UA W/RFX UR CULTURE Stat Lab 09/08/24 13:05 Ordered Lab/Rad Data: Laboratory Result Diagrams 09/08/24 14:15 09/08/24 13:05 Laboratory Results 09/08/24 09/08/24 09/08/24 Range/Units 14:15 14:15 13:05 WBC 5.0 (4.23-9.07) x10^3/uL RBC 3.75 L (4.63-6.08) x10^6/uL Hgb 12.8 L (13.7-17.5) g/dL Hct 37.7 L (40.1-51.0) % MCV 100.5 H (79.0-92.2) fL MCH 34.1 H (25.7-32.2) pg MCHC 34.0 (32.3-36.5) g/dL RDW 13.1 (11.6-14.4) % Plt Count 151 L (163-337) x10^3/uL MPV 9.7 (9.4-12.4) fL Gran % 73.7 H (34.0-67.9) % Immature Gran % (Auto) 0.4 (0.001-0.429) % Nucleat RBC Rel Count 0.0 (0.00-0.2) % Eos # (Auto) 0.01 L (0.04-0.54) x10^3/uL Immature Gran # (Auto) 0.02 (0.001-0.031) x10^3u/L Absolute Lymphs (auto) 0.73 L (1.32-3.57) x10^3/uL Absolute Monos (auto) 0.54 (0.30-0.82) x10^3/uL Absolute Nucleated RBC 0.00 (0.00-0.012) x10^3u/L Lymphocytes % 14.7 L (21.8-53.1) % Monocytes % 10.8 (5.3-12.2) % Eosinophils % 0.2 L (0.8-7.0) % Basophils % 0.2 (0.2-1.2) % Absolute Granulocytes 3.67 (1.78-5.38) x10^3/uL Basophils # 0.01 (0.01-0.08) x10^3/uL Sodium (135-145) mmol/L Potassium (3.5-5.1) mmol/L Chloride (98-107) mmol/L Carbon Dioxide (22-30) mmol/L Anion Gap (5-15) MEQ/L BUN (9-20) mg/dL Creatinine (0.66-1.25) mg/dL Estimated GFR ML/MIN Glucose (74-106) mg/dL Calcium (8.4-10.2) mg/dL Total Bilirubin (0.2-1.3) mg/dL AST (17-59) U/L ALT (0-50) U/L Alkaline Phosphatase (38-126) U/L Serum Total Protein (6.3-8.2) g/dL Albumin (3.5-5.0) g/dL Lipase 30 41 (23-300) U/L 09/08/24 09/08/24 Range/Units 13:05 13:05 WBC 5.0 (4.23-9.07) x10^3/uL RBC 3.95 L (4.63-6.08) x10^6/uL Hgb 13.5 L (13.7-17.5) g/dL Hct 39.4 L (40.1-51.0) % MCV 99.7 H (79.0-92.2) fL MCH 34.2 H (25.7-32.2) pg MCHC 34.3 (32.3-36.5) g/dL RDW 13.1 (11.6-14.4) % Plt Count 165 (163-337) x10^3/uL MPV 9.8 (9.4-12.4) fL Gran % 77.7 H (34.0-67.9) % Immature Gran % (Auto) 0.4 (0.001-0.429) % Nucleat RBC Rel Count 0.0 (0.00-0.2) % Eos # (Auto) 0.01 L (0.04-0.54) x10^3/uL Immature Gran # (Auto) 0.02 (0.001-0.031) x10^3u/L Absolute Lymphs (auto) 0.76 L (1.32-3.57) x10^3/uL Absolute Monos (auto) 0.30 (0.30-0.82) x10^3/uL Absolute Nucleated RBC 0.00 (0.00-0.012) x10^3u/L Lymphocytes % 15.3 L (21.8-53.1) % Monocytes % 6.0 (5.3-12.2) % Eosinophils % 0.2 L (0.8-7.0) % Basophils % 0.4 (0.2-1.2) % Absolute Granulocytes 3.87 (1.78-5.38) x10^3/uL Basophils # 0.02 (0.01-0.08) x10^3/uL Sodium 140 (135-145) mmol/L Potassium 4.4 (3.5-5.1) mmol/L Chloride 104 (98-107) mmol/L Carbon Dioxide 26 (22-30) mmol/L Anion Gap 14.4 (5-15) MEQ/L BUN 30 H (9-20) mg/dL Creatinine 1.38 H (0.66-1.25) mg/dL Estimated GFR 52.3 ML/MIN Glucose 150 H (74-106) mg/dL Calcium 9.9 (8.4-10.2) mg/dL Total Bilirubin 1.50 H (0.2-1.3) mg/dL AST 25 (17-59) U/L ALT 22 (0-50) U/L Alkaline Phosphatase 57 (38-126) U/L Serum Total Protein 7.5 (6.3-8.2) g/dL Albumin 4.4 (3.5-5.0) g/dL Lipase (23-300) U/L - Progress Progress: unchanged Progress Note: Patient was stable throughout stay. He was not as anemic as he looked at. His hemoglobin was stable.I wentI would start him on Flagyl and Cipro and have him do the recommended diet. He is to return if symptoms worsen and follow-up with his primary doctor in 2 to 3 days 09/08/24 15:06 Medical Desision Making - Risk of complications The pt has a mod risk of morbidity or mortality based on: Need for prescription drug management - Departure Departure Disposition: Home Clinical Impression: Sigmoid diverticulitis Condition: Stable Critical Care Time: No Referrals: FABIENNE ZIEGLER MD [Primary Care Provider, [facility]] - Follow up/PCP as directed
[2024-09-08 14:04] LABS: Calcium 9.9 mg/dL (8.4-10.2); Carbon Dioxide 26.0 mmol/L (22-30); Creatinine 1 1.38 mg/dL (0.66-1.25); EST GLOMERULAR FILTRATION RATE 52.3 ML/MIN; Glucose 150.0 mg/dL (74-106); Potassium 4.4 mmol/L (3.5-5.1); SGOT/AST 25.0 U/L (17-59); SGPT/ALT 22.0 U/L (0-50); Total Protein 7.5 g/dL (6.3-8.2)
[2024-09-08 14:33] LABS: BASOPHIL % 0.2 % (0.2-1.2); Basophil (Absolute #) 0.01 x10^3/uL (0.01-0.08); Eosinophil (Absolute #) 0.01 x10^3/uL (0.04-0.54); Hematocrit 37.7 % (40.1-51.0); Hemoglobin 12.8 g/dL (13.7-17.5); IMMATURE GRAN # 0.02 x10^3u/L (0.001-0.031); IMMATURE GRAN % 0.4 % (0.001-0.429); Lymphocyte (Absolute #) 0.73 x10^3/uL (1.32-3.57); Mean Corpuscular Hemoglobin 34.1 pg (25.7-32.2); Mean Corpuscular Hgb Concent. 34.0 g/dL (32.3-36.5); Monocyte (Absolute #) 0.54 x10^3/uL (0.30-0.82); NUCLEATED RBC # 0.00 x10^3u/L (0.00-0.012); NUCLEATED RBC % 0.0 % (0.00-0.2); Platelet Count 151 x10^3/uL (163-337); Red Blood Count 3.75 x10^6/uL (4.63-6.08); White Blood Count 5.0 x10^3/uL (4.23-9.07)
--- NOTE | 2024-09-08 14:55 | XRAY ---
Indication: Abdominal pain. Multiple contiguous axial images obtained through the abdomen and pelvis using 80 cc Isovue 370 contrast. Comparison: November 15, 2023 Lung bases again hyperinflated with a few tiny calcified granulomas and minimal dependent atelectasis. No infiltrate or effusion. Heart not enlarged again with pacer leads. Stomach is distended with food. Noncontrasted stomach and bowel loops appear nonobstructed again with normal appendix. Again scattered descending and sigmoid diverticulosis. Proximal sigmoid now demonstrates small focus of moderate circumferential wall thickening with pericolonic stranding favoring acute diverticulitis. No free fluid/air. There remains bilateral renal cysts and splenic calcified granulomas. Remaining liver, gallbladder, pancreas, spleen, adrenal glands, kidneys, ureters, and bladder are unremarkable. Again moderate scattered aortoiliac calcifications with stable 3 cm distal AAA. Osseous structures intact again with osteopenia, mild degenerative changes throughout spine, and mild degenerative changes both hips. Impression: 1. Again colonic diverticulosis. New small focus noncomplicated acute diverticulitis proximal sigmoid colon. 2. Chronic findings including bilateral renal cysts, arteriosclerotic disease with distal AAA, chronic bony findings, and old granulomatous disease.
[2024-09-08 15:16] VITALS: BP 132/69; PULSE 82; RESP 15
[2024-09-08 16:12] LABS: Glucose, Urine Negative (Negative); Protein,Urine Dip Negative (Negative); RBC 0-2 /HPF (0-5); WBC 0-2 /HPF (0-5)
== END 2024-09-08 15:27 | disposition home or self-care (01) ==
LOC: ED 12:44
DX: K57.32 Diverticulitis of large intestine without perforation or abscess without bleeding (principal); R10.9 Unspecified abdominal pain; R11.0 Nausea; I10 Essential (primary) hypertension; Z79.01 Long term (current) use of anticoagulants; Z79.899 Other long term (current) drug therapy

== ENCOUNTER 2024-09-12 06:36 | Inpatient (IN) | payer MEDICARE, OTHER ==
--- NOTE | 2024-09-12 06:48 | ERPHSYRPT ---
- History of Present Illness Historian: patient Exam Limitations: no limitations Timing/Duration: day(s) (4), worse Activities at Onset: rest Quality: sharpness, stabbing Abdominal Pain Onset Location: generalized abdomen Pain Radiation: no radiation Severity of Pain-Max: moderate Severity of Pain-Current: moderate Modifying Factors: Improves With: nothing. Worsens With: palpation, vomiting Associated Symptoms: diarrhea, loss of appetite, nausea, vomiting, No chest pain, No fever/chills Previous symptoms: same symptoms as today Hx Tetanus, Diphtheria Vaccination/Date Given: Yes Hx Influenza Vaccination/Date Given: No Hx Pneumococcal Vaccination/Date Given: No <ALAINA PINA - Last Filed: 09/12/24 06:51> <FLOR WONG - Last Filed: 09/12/24 08:38> - History of Present Illness Time Seen by Provider: 09/12/24 06:47 Physician History: Patient presents with worsening abd pain, n/v/d. Denies blood in emesis or stool. No fevers. Unable to keep anything down. Last BM this AM. No CP or SOB. (ALAINA PINA) Allergies/Adverse Reactions: sulfamethoxazole [From Bactrim] Allergy (Intermediate, Verified 09/12/24 06:40) Hives Home Medications: Tamsulosin HCl 0.4 mg [Flomax 0.4 MG] 0.4 mg PO BID 11/30/11 [History] Pravastatin Sodium [Pravachol] 40 mg PO DAILY 10/17/15 [History] Sacubitril/Valsartan [Entresto 24 mg-26 mg Tablet] 1 tab PO BID 02/08/18 [History] Dofetilide [Tikosyn] 500 mcg PO BID 02/22/20 [History] Magnesium Oxide 400 mg [Mag-Ox 400] 800 mg PO DAILY 08/07/20 [History] Apixaban [Eliquis 5 mg Tablet] 5 mg PO BID 06/14/21 [History] Cholecalciferol (Vitamin D3) [Vitamin D] 2,000 units PO .EVERYOTHERDAY 06/14/21 [History] Metoprolol Tartrate 25 mg [Lopressor 25MG Tab] 25 mg PO HS 02/22/22 [History] Aspirin EC 81 mg [Ecotrin 81 mg] 1 tab PO DAILY 07/17/24 [History] Levothyroxine Sodium 25 Mcg [Synthroid 25 Mcg] 25 mcg PO DAILY 09/12/24 [History] Metoprolol Tartrate 25 mg [Lopressor 25MG Tab] 12.5 mg PO DAILY 09/12/24 [History] Travel Risk - Emerging Infectious Disease Are you exhibiting symptoms associated with any current EIDs: No Symptoms: Cough: New Onset, Shortness of Breath <ALAINA PINA - Last Filed: 09/12/24 06:51> - Review of Systems All Other Systems: Reviewed and Negative <ALAINA PINA - Last Filed: 09/12/24 06:51> - Past Medical History Pertinent Past Medical History: Yes Neurological History: Peripheral Neuropathy ENT History: Glaucoma Cardiac History: Arrhythmia, Coronary Artery Disease, High Cholesterol, Hypertension, Myocardial Infarction ([place]), Other Respiratory History: No Pertinent History Endocrine Medical History: Hypothyroidism Musculoskeletal History: Arthritis GI Medical History: GERD, GI Bleed, Hernia History: Renal Disease Psycho-Social History: No Pertinent History Male Reproductive Disorders: Prostate Problems Other Medical History: anemia - Past Surgical History Past Surgical History: Yes Neuro Surgical History: No Pertinent History Cardiac: Cardiac Catheterization, Cardiac Stent, Internal Defibrillator, Pacemaker Respiratory: No Pertinent History Gastrointestinal: Hernia Repair Genitourinary: Other Musculoskeletal: No Pertinent History Male Surgical History: No Pertinent History Other Surgical History: lt leg stents x2 (1999). cardiac ablation - Social History Smoking Status: Never smoker Exposure to second hand smoke: No Drug Use: none - Social Determinants of Health Will the patient participate in the screening: Yes Do you worry about a steady place to live?: No In the past 12 months,have you had to go without utilities?: No Transportation Issues: No Has anyone in your support network made you feel unsafe?: No Have you or anyone in your house had to go w/o enough food: No <ALAINA PINA - Last Filed: 09/12/24 06:51> - Physical Exam General Appearance: no apparent distress Gastrointestinal/Abdomen Exam: soft, normal bowel sounds, tenderness (diffuse), distention, guarding, rebound, No mass Neurologic Exam: alert, oriented x 3, cooperative Skin Exam: pale SpO2 Interpretation: normal O2 Delivery: Room Air <ALAINA PINADemetrius - Last Filed: 09/12/24 06:51> - Nursing Vital Signs Nursing Vital Signs: Initial Vital Signs Temperature 98.1 F 09/12/24 06:41 Pulse Rate 65 09/12/24 06:41 Respiratory Rate 17 09/12/24 06:41 Blood Pressure 107/83 09/12/24 06:41 O2 Sat by Pulse Oximetry 95 09/12/24 06:41 Pain Scale Pain Intensity 0 - Course Nursing assessment & vital signs reviewed: Yes <YOVANI,ALAINA Iraheta - Last Filed: 09/12/24 06:51> Ordered Tests: Active Orders 24 hr Category Date Time Status EKG-ER Only STAT Care 09/12/24 06:47 Active IV Insertion STAT Care 09/12/24 06:45 Active ABDOMEN AND PELVIS W/0 CONTRAS [CT] Stat Exams 09/12/24 06:46 Completed CBC W DIFF Stat Lab 09/12/24 06:58 Completed CMP Stat Lab 09/12/24 06:58 Completed LIPASE Stat Lab 09/12/24 06:58 Completed Lactic Acid Stat Lab 09/12/24 07:35 Completed UA W/RFX UR CULTURE Stat Lab 09/12/24 06:45 Ordered Medication Summary Discontinued Medications Generic Name Dose Route Start Last Admin Trade Name Emreq PRN Reason Stop Dose Admin Sodium Chloride 1,000 mls @ 999 mls/hr 09/12/24 06:45 09/12/24 08:17 Sodium Chloride 0.9% 1000 Ml IV 09/12/24 07:45 Infused .Q1H1M STA Infusion Sodium Chloride Confirm 09/12/24 06:57 Sodium Chloride 0.9% 1000 Ml Administered 09/12/24 06:58 Dose 1,000 mls @ ud .ROUTE .STK-MED ONE Morphine Sulfate 2 mg 09/12/24 07:01 09/12/24 07:12 Morphine Sulfate 2 Mg/Ml Inj IV 09/12/24 07:02 Not Given STAT ONE Morphine Sulfate Confirm 09/12/24 07:07 Morphine Sulfate 2 Mg/Ml Inj Administered 09/12/24 07:08 Dose 2 mg .ROUTE .STK-MED ONE Lab/Rad Data: Laboratory Result Diagrams 09/12/24 06:58 09/12/24 06:58 Laboratory Results 09/12/24 09/12/24 09/12/24 Range/Units 07:35 06:58 06:58 WBC 9.4 H (4.23-9.07) x10^3/uL RBC 3.81 L (4.63-6.08) x10^6/uL Hgb 12.8 L (13.7-17.5) g/dL Hct 37.1 L (40.1-51.0) % MCV 97.4 H (79.0-92.2) fL MCH 33.6 H (25.7-32.2) pg MCHC 34.5 (32.3-36.5) g/dL RDW 13.2 (11.6-14.4) % Plt Count 186 (163-337) x10^3/uL MPV 10.1 (9.4-12.4) fL Gran % 79.4 H (34.0-67.9) % Immature Gran % (Auto) 0.4 (0.001-0.429) % Nucleat RBC Rel Count 0.0 (0.00-0.2) % Eos # (Auto) 0.06 (0.04-0.54) x10^3/uL Immature Gran # (Auto) 0.04 H (0.001-0.031) x10^3u/L Absolute Lymphs (auto) 0.82 L (1.32-3.57) x10^3/uL Absolute Monos (auto) 0.99 H (0.30-0.82) x10^3/uL Absolute Nucleated RBC 0.00 (0.00-0.012) x10^3u/L Lymphocytes % 8.7 L (21.8-53.1) % Monocytes % 10.6 (5.3-12.2) % Eosinophils % 0.6 L (0.8-7.0) % Basophils % 0.3 (0.2-1.2) % Absolute Granulocytes 7.44 H (1.78-5.38) x10^3/uL Basophils # 0.03 (0.01-0.08) x10^3/uL Sodium 137 (135-145) mmol/L Potassium 3.7 (3.5-5.1) mmol/L Chloride 102 (98-107) mmol/L Carbon Dioxide 24 (22-30) mmol/L Anion Gap 14.8 (5-15) MEQ/L BUN 43 H (9-20) mg/dL Creatinine 1.66 H (0.66-1.25) mg/dL Estimated GFR 41.9 ML/MIN Glucose 195 H (74-106) mg/dL Lactic Acid 1.7 (0.4-2.0) Calcium 9.3 (8.4-10.2) mg/dL Total Bilirubin 1.10 (0.2-1.3) mg/dL AST 26 (17-59) U/L ALT 21 (0-50) U/L Alkaline Phosphatase 56 (38-126) U/L Serum Total Protein 6.2 L (6.3-8.2) g/dL Albumin 3.7 (3.5-5.0) g/dL Lipase 138 (23-300) U/L <ALAINA PINA - Last Filed: 09/12/24 06:51> - Progress Discussed with Dr.: Zion, Other (edmund) Will see patient in: hospital (observation) <FLOR WONG - Last Filed: 09/12/24 08:38> - Progress Progress Note: 09/12/24 06:59 labs, CT abd/pelvis ordered. EKG obtained to determine if safe to give Droperidol, but QTc 541 so deferred at this time. Signing over to Dr. Wong. (ALAINA PINA) Patient was turned over to me at shift change. It looks like he has a resolving diverticulitis however he has a small bowel ileus. He is not had any abdominal surgeries. I contacted the hospitalist and they agreed to admit him with the provision that surgery could consult if needed. I contacted Dr. Wellington he agreed to consult on the patient. At this time and was going to put an NG tube in him and probably switch his medications toIV. He is also in [place] and is going to require some hydration.He does have a prolonged QTc. He is complaining of nausea but I do not think there is enough need to add any agents that may further prolong his QTc. 09/12/24 08:35 (FLOR WONG) <ALAINA PINA - Last Filed: 09/12/24 06:51> - Departure Departure Disposition: Observation Critical Care Time: No <FLOR WONG - Last Filed: 09/12/24 08:38> - Departure Clinical Impression: Dehydration, Ileus, Diverticulitis large intestine Condition: Stable Referrals: FABIENNE ZIEGLER MD [Primary Care Provider, [facility]] - Follow up/PCP as directed
[2024-09-12 07:00] LABS: BASOPHIL % 0.3 % (0.2-1.2); Basophil (Absolute #) 0.03 x10^3/uL (0.01-0.08); Eosinophil (Absolute #) 0.06 x10^3/uL (0.04-0.54); Hematocrit 37.1 % (40.1-51.0); Hemoglobin 12.8 g/dL (13.7-17.5); IMMATURE GRAN # 0.04 x10^3u/L (0.001-0.031); IMMATURE GRAN % 0.4 % (0.001-0.429); Lymphocyte (Absolute #) 0.82 x10^3/uL (1.32-3.57); Mean Corpuscular Hemoglobin 33.6 pg (25.7-32.2); Mean Corpuscular Hgb Concent. 34.5 g/dL (32.3-36.5); Monocyte (Absolute #) 0.99 x10^3/uL (0.30-0.82); NUCLEATED RBC # 0.00 x10^3u/L (0.00-0.012); NUCLEATED RBC % 0.0 % (0.00-0.2); Platelet Count 186 x10^3/uL (163-337); Red Blood Count 3.81 x10^6/uL (4.63-6.08); White Blood Count 9.4 x10^3/uL (4.23-9.07)
[2024-09-12] MEDS ORDERED: MORPHINE SULFATE 2 MG INJ ONE (07:07)
[2024-09-12] MEDS: MORPHINE SULFATE 2 MG INJ IV ONE (07:12)
[2024-09-12 07:33] LABS: Calcium 9.3 mg/dL (8.4-10.2); Carbon Dioxide 24.0 mmol/L (22-30); Creatinine 1 1.66 mg/dL (0.66-1.25); EST GLOMERULAR FILTRATION RATE 41.9 ML/MIN; Glucose 195.0 mg/dL (74-106); Potassium 3.7 mmol/L (3.5-5.1); SGOT/AST 26.0 U/L (17-59); SGPT/ALT 21.0 U/L (0-50); Total Protein 6.2 g/dL (6.3-8.2)
--- NOTE | 2024-09-12 08:04 | XRAY ---
CLINICAL HISTORY: abd pain COMPARISON: 13:26:12 [employer]ING[employer] TECHNIQUE: Contiguous axial images were obtained from the level of the diaphragm to the pubic symphysis without intravenous or oral contrast. Coronal and sagittal reconstructions were likewise performed and indicated to increase the sensitivity for detecting clinically relevant pathology. CT scan was performed according to ALARA (as low as reasonable achievable). FINDINGS: The visualized lung bases are clear. Evaluation of the abdominal and pelvic visceral organs is limited without intravenous contrast. The unenhanced liver, pancreas, and adrenal glands are grossly unremarkable. Multiple calcified splenic granuloma.-stable. The gallbladder is present. The kidneys are normal in size and attenuation without obvious calcification. There is no hydronephrosis or perinephric stranding. Few simple cortical cyst are noted in both kidneys -stable. The ureters are normal in caliber. The urinary bladder is normal in contour. Pelvic viscera are grossly unremarkable. Multiple small colonic diverticulosis, associated with mild inflammatory wall thickening with adjacent fat stranding in proximal sigmoid colon - suggest diverticulitis. There is mild reactive enhancing wall thickening of adjacent ileal loops with evidence of dilated small bowel loops involving the lower quadrant of abdomen ( maximum diameter measures about 4.5 cm)- suggestive of small bowel obstruction Without obvious acute transition point - possibility of ileus. No adenopathy or fluid collections are seen. Diffuse atherosclerotic calcification is noted involving aorta iliac arteries. Multifocal ectasia is noted involving abdominal aorta with maximum diameter measures about 31 mm involving infrarenal aorta. Degenerative changes involving spine in the form of multilevel marginal osteophytes, disc space reduction and facetal arthrosis.-stable. IMPRESSION: 1. Multiple small uncomplicated colonic diverticulosis, associated with mild inflammatory wall thickening with adjacent fat stranding in proximal sigmoid colon - suggest diverticulitis.-stable. 2. Evidence of dilated small bowel loops involving the lower quadrant of abdomen ( maximum diameter measures about 4.5 cm)- suggestive of small bowel obstruction Without obvious acute transition point - possibility of ileus.-new finding. 3. Evidence of Infrarenal aortic aneurysm-stable. 4. Remaining Miscellaneous findings as mentioned above are stable since prior. Electronically Signed by: Juan Carlos Shelton MD. (09/12/2024 08:01:28 EDT)
[2024-09-12] MEDS: Hydromorphone 1 mg/ml Injection IV ONE (08:46)
[2024-09-12] MEDS ORDERED: Hydromorphone 1 mg/ml Injection ONE (08:46)
--- NOTE | 2024-09-12 09:53 | PCM.HP ---
<PRISCA SINGH - Last Filed: 09/12/24 10:50> History of Present Illness - Chief Complaint Chief Complaint: ileus diverticulitis Date: 09/12/24 History of Present Illness: Mr. Ambrocio is a 78-year-old male with a past medical history of CHF (reported EF of 30% by patient), AFIB (Eliquis), hypertension, coronary artery disease status post PCI, hyperlipidemia, arrhythmia, hypothyroidism, peripheral neuropathy, and chronic kidney disease (baseline creatinine approximately 1.31.4), who presented on September 12, 2024, with complaints of progressively worsening abdominal pain and distention, along with persistent nausea, vomiting, and diarrhea. He reports an inability to tolerate any oral intake, although he did have a bowel movement earlier in the day. Of note, he was evaluated in the emergency department on September 08, 2024, for similar symptoms and was diagnosed with diverticulitis. At that time, he was discharged home on oral ciprofloxacin and metronidazole. He states that his symptoms initially improved with treatment but began to worsen again yesterday, with the return of nausea, vomiting, and diarrhea. By this morning, he experienced significant abdominal distention and discomfort. He took Pepto-Bismol in an attempt to alleviate symptoms, with minimal relief. He denies any hematemesis or hematochezia. Upon return to the ED today, his vital signs were stable. CT imaging of the abdomen and pelvis demonstrated persistent diverticulosis with mild inflammatory changes in the proximal sigmoid colon consistent with stable diverticulitis. New findings included dilated small bowel loops in the lower abdomen with a maximal diameter of approximately 4.5 cm, without a clear transition point, suggesting a possible ileus or early small bowel obstruction. An incidental infrarenal abdominal aortic aneurysm was again noted and remains unchanged from prior imaging. Laboratory evaluation showed a mildly elevated WBC at 9.4, hemoglobin at baseline (12.8), and an elevated creatinine of 1.66, slightly above his baseline. Initial management in the ED included intravenous fluid resuscitation and pain control. NG placed in ED to LIS- will obtain xray for NG placement. - Review of Systems Constitutional: No Symptoms Eyes: No Symptoms Respiratory: Short Of Breath Cardiac: No Symptoms Abdominal/Gastrointestinal: Abdominal Pain, Nausea, Vomiting, Diarrhea Musculoskeletal: No Symptoms Skin: No Symptoms Neurological: No Symptoms Psychological: No Symptoms Endocrine: No Symptoms Hematologic/Lymphatic: No Symptoms Immunological/Allergic: No Symptoms Medications & Allergies Home Medications: Home Medication List Tamsulosin HCl 0.4 mg [Flomax 0.4 MG] 0.4 mg PO BID 11/30/11 [History Confirmed 09/12/24] Pravastatin Sodium [Pravachol] 40 mg PO DAILY 10/17/15 [History Confirmed 09/12/24] Sacubitril/Valsartan [Entresto 24 mg-26 mg Tablet] 1 tab PO BID 02/08/18 [History Confirmed 09/12/24] Dofetilide [Tikosyn] 500 mcg PO BID 02/22/20 [History Confirmed 09/12/24] Magnesium Oxide 400 mg [Mag-Ox 400] 800 mg PO DAILY 08/07/20 [History Confirmed 09/12/24] Apixaban [Eliquis 5 mg Tablet] 5 mg PO BID 06/14/21 [History Confirmed 09/12/24] Cholecalciferol (Vitamin D3) [Vitamin D] 2,000 units PO .EVERYDAY 06/14/21 [History Confirmed 09/12/24] Metoprolol Tartrate 25 mg [Lopressor 25MG Tab] 25 mg PO HS 02/22/22 [History Confirmed 09/12/24] Aspirin EC 81 mg [Ecotrin 81 mg] 1 tab PO DAILY 07/17/24 [History Confirmed 09/12/24] Ciprofloxacin HCl [Cipro] 500 mg PO BID #20 tablet 09/08/24 [Rx Confirmed 09/12/24] Metronidazole 500 mg [Flagyl 500 MG] 500 mg PO TID #30 tablet 09/08/24 [Rx Confirmed 09/12/24] Levothyroxine Sodium 25 Mcg [Synthroid 25 Mcg] 25 mcg PO DAILY 09/12/24 [History Confirmed 09/12/24] Metoprolol Tartrate 25 mg [Lopressor 25MG Tab] 12.5 mg PO DAILY 09/12/24 [History Confirmed 09/12/24] Allergies/Adverse Reactions: Allergies Allergy/AdvReac Type Severity Reaction Status Date / Time sulfamethoxazole Allergy Intermediate Hives Verified 09/12/24 06:40 [From Bactrim] - Past Medical History Past Medical History: Yes Neurological History: Peripheral Neuropathy ENT History: Glaucoma Cardiac History: Arrhythmia, Coronary Artery Disease, High Cholesterol, Hypertension, Myocardial Infarction ([place]), Other Respiratory History: No Pertinent History Endocrine Medical History: Hypothyroidism Musculoskelatal History: Arthritis GI Medical History: GERD, GI Bleed, Hernia History: Renal Disease Pyscho-Social History: No Pertinent History Male Reproductive Disorders: Prostate Problems Comment: anemia - Past Surgical History Past Surgical History: Yes Neuro Surgical History: No Pertinent History Cardiac History: Cardiac Catheterization, Cardiac Stent, Internal Defibrillator, Pacemaker Respiratory Surgery: No Pertinent History GI Surgical History: Hernia Repair Genitourinary Surgical Hx: Other Musculskeletal Surgical Hx: No Pertinent History Male Surgical History: No Pertinent History Other Surgical History: lt leg stents x2 (1999). cardiac ablation Significant Family History: cancer, diabetes - Social History Smoking Status: Never smoker How long have you smoked: 40 years Exposure to second hand smoke: No Alcohol: None Drug Use: none - Social Determinants of Health Will the patient participate in the screening: Yes Do you worry about a steady place to live?: No Do you have any problems with any of the following?: No known problems In the past 12 months,have you had to go without utilities?: No Have you or anyone in your house had to go without enough: No Transportation Issues: No Has anyone in your support network made you feel unsafe?: No Does the patient want assistance with any of the above?: No - Physical Exam Vital Signs: Vital Signs - 24 hr Temp Pulse Resp BP BP Pulse Ox 09/12/24 09:00 82 125/89 95 09/12/24 08:45 133/86 93 L 09/12/24 08:31 67 18 119/83 98 09/12/24 08:15 77 18 100/32 95 09/12/24 08:00 129/89 93 L 09/12/24 07:45 74 18 110/70 97 09/12/24 07:30 68 18 106/70 94 L 09/12/24 07:28 127/47 94 L 09/12/24 07:15 105/78 96 09/12/24 07:06 103/75 93 L 09/12/24 07:00 92/79 96 09/12/24 06:43 88 19 107/83 94 L 09/12/24 06:41 98.1 F 65 17 107/83 95 General Appearance: no apparent distress Neurologic Exam: alert, oriented x 3, cooperative Eye Exam: PERRL/EOMI Ears, Nose, Throat Exam: normal ENT inspection Neck Exam: normal inspection Respiratory Exam: normal breath sounds, lungs clear Cardiovascular Exam: irregular Gastrointestinal/Abdomen Exam: normal bowel sounds, distention Rectal Exam: deferred Back Exam: normal inspection Extremity Exam: normal inspection Skin Exam: normal color Results - Labs Lab/Micro Results: Lab Results-Last 24 Hours 09/12/24 09/12/24 09/12/24 Range/Units 06:58 06:58 07:35 WBC 9.4 H (4.23-9.07) x10^3/uL RBC 3.81 L (4.63-6.08) x10^6/uL Hgb 12.8 L (13.7-17.5) g/dL Hct 37.1 L (40.1-51.0) % MCV 97.4 H (79.0-92.2) fL MCH 33.6 H (25.7-32.2) pg MCHC 34.5 (32.3-36.5) g/dL RDW 13.2 (11.6-14.4) % Plt Count 186 (163-337) x10^3/uL MPV 10.1 (9.4-12.4) fL Gran % 79.4 H (34.0-67.9) % Immature Gran % (Auto) 0.4 (0.001-0.429) % Nucleat RBC Rel Count 0.0 (0.00-0.2) % Eos # (Auto) 0.06 (0.04-0.54) x10^3/uL Immature Gran # (Auto) 0.04 H (0.001-0.031) x10^3u/L Absolute Lymphs (auto) 0.82 L (1.32-3.57) x10^3/uL Absolute Monos (auto) 0.99 H (0.30-0.82) x10^3/uL Absolute Nucleated RBC 0.00 (0.00-0.012) x10^3u/L Lymphocytes % 8.7 L (21.8-53.1) % Monocytes % 10.6 (5.3-12.2) % Eosinophils % 0.6 L (0.8-7.0) % Basophils % 0.3 (0.2-1.2) % Absolute Granulocytes 7.44 H (1.78-5.38) x10^3/uL Basophils # 0.03 (0.01-0.08) x10^3/uL Sodium 137 (135-145) mmol/L Potassium 3.7 (3.5-5.1) mmol/L Chloride 102 (98-107) mmol/L Carbon Dioxide 24 (22-30) mmol/L Anion Gap 14.8 (5-15) MEQ/L BUN 43 H (9-20) mg/dL Creatinine 1.66 H (0.66-1.25) mg/dL Estimated GFR 41.9 ML/MIN Glucose 195 H (74-106) mg/dL Lactic Acid 1.7 (0.4-2.0) Calcium 9.3 (8.4-10.2) mg/dL Total Bilirubin 1.10 (0.2-1.3) mg/dL AST 26 (17-59) U/L ALT 21 (0-50) U/L Alkaline Phosphatase 56 (38-126) U/L Serum Total Protein 6.2 L (6.3-8.2) g/dL Albumin 3.7 (3.5-5.0) g/dL Lipase 138 (23-300) U/L - Radiology Impressions Radiology Exams & Impressions: Radiology Procedures Category Date Time Status ABDOMEN AND PELVIS W/0 CONTRAS [CT] Stat Exams 09/12/24 06:46 Completed Assessment/Plan (1) Diverticulitis large intestine Current Visit: Yes Status: Acute Assessment & Plan: -Ongoing symptoms despite recent outpatient treatment with ciprofloxacin/flagyl. -CT abdomen/ pelvis confirms mild inflammatory changes consistent with stable, uncomplicated diverticulitis -Admit for IV antibiotics Zosyn -Monitor for complications: perforation, abscess, or progression -Pain control (avoid NSAIDs) -Advance diet as tolerated upon symptom resolution Code(s): K57.32 - DVTRCLI OF LG INT W/O PERFORATION OR ABSCESS W/O BLEEDING (2) Ileus Current Visit: Yes Status: Acute Assessment & Plan: -CT abdomen shows dilated small bowel loops without clear transition point; clinical picture and imaging favor partial SBO or ileus -NPO status -NG tube placed in ED to low intermittent suction - need XR to confirm placement- clamped for now -IVF -Serial abdominal exams -Monitor for flatus or bowel movement to assess for resolution -Discussed case with general surgery Dr. Matthew Wellington- agree with plan for NPO/bowel rest, IV abx, IVF, NG- they with follow Code(s): K56.7 - ILEUS, UNSPECIFIED (3) [id number] kidney injury Current Visit: Yes Status: Acute Assessment & Plan: -Creatinine elevated from baseline at 1.66 (baseline 1.31.4) -Likely pre-renal due to GI losses -IVF -monitor for fluid overload with CHF -Monitor renal function daily -Hold nephrotoxic meds Code(s): N17.9 - ACUTE KIDNEY FAILURE, UNSPECIFIED; N18.9 - CHRONIC KIDNEY DISEASE, UNSPECIFIED (4) HTN (hypertension) Current Visit: Yes Status: Acute Assessment & Plan: -continue home meds via NG Code(s): I10 - ESSENTIAL (PRIMARY) HYPERTENSION (5) CAD (coronary artery disease) Current Visit: Yes Status: Acute Assessment & Plan: -No acute ischemic symptoms -Continue statin -Telemetry monitoring for arrhythmias Code(s): I25.10 - ATHSCL HEART DISEASE OF [place] CORONARY ARTERY W/O ANG PCTRS (6) Hypothyroid Current Visit: Yes Status: Acute Assessment & Plan: -Continue levothyroxine Code(s): E03.9 - HYPOTHYROIDISM, UNSPECIFIED (7) HLD (hyperlipidemia) Current Visit: Yes Status: Acute Assessment & Plan: Continue statin Code(s): E78.5 - HYPERLIPIDEMIA, UNSPECIFIED (8) Peripheral neuropathy Current Visit: Yes Status: Acute Assessment & Plan: -Continue home neuropathy regimen Code(s): G62.9 - POLYNEUROPATHY, UNSPECIFIED (9) Afib Current Visit: Yes Status: Acute Assessment & Plan: -Pacemaker/defib -Continue home Metoprolol -Hold Eliquis until surgery okays to resume EKG with no ischemia - ventricular paced complexes LBBB Code(s): I48.91 - UNSPECIFIED ATRIAL FIBRILLATION (10) CHF (congestive heart failure) Current Visit: Yes Status: Acute Assessment & Plan: -No echo on file - per pt report last EF was 30-35%- follows with Dr. Cotto- on Entresto -continue entresto -Monitor fluid status for overload -Strict I&O and daily weights -BNP Code(s): I50.9 - HEART FAILURE, UNSPECIFIED (11) Obesity (BMI 30.0-34.9) Current Visit: No Status: Chronic Assessment & Plan: -advised diet exercise VTE: SCD- Hold anticoag PPI: protonix Dispo: 1-2 days Code status: Full code Code(s): E66.9 - OBESITY, UNSPECIFIED <GEORGE MACARIO - Last Filed: 09/12/24 23:35> History of Present Illness - Chief Complaint History of Present Illness: is a 78 year old male. - Physical Exam Vital Signs: Vital Signs - 24 hr Temp Pulse Resp BP BP Pulse Ox 09/12/24 23:26 97.7 F 80 18 140/88 95 09/12/24 19:33 97.0 F 82 18 130/73 93 L 09/12/24 16:00 97.3 F 83 17 121/69 92 L 09/12/24 09:45 97.3 F 79 17 132/80 92 L 09/12/24 09:00 82 125/89 95 09/12/24 08:45 133/86 93 L 09/12/24 08:31 67 18 119/83 98 09/12/24 08:15 77 18 100/32 95 09/12/24 08:00 129/89 93 L 09/12/24 07:45 74 18 110/70 97 09/12/24 07:30 68 18 106/70 94 L 09/12/24 07:28 127/47 94 L 09/12/24 07:15 105/78 96 09/12/24 07:06 103/75 93 L 09/12/24 07:00 92/79 96 09/12/24 06:43 88 19 107/83 94 L 09/12/24 06:41 98.1 F 65 17 107/83 95 Results - Labs Lab/Micro Results: Lab Results-Last 24 Hours 09/12/24 09/12/24 09/12/24 Range/Units 06:58 06:58 06:58 WBC 9.4 H (4.23-9.07) x10^3/uL RBC 3.81 L (4.63-6.08) x10^6/uL Hgb 12.8 L (13.7-17.5) g/dL Hct 37.1 L (40.1-51.0) % MCV 97.4 H (79.0-92.2) fL MCH 33.6 H (25.7-32.2) pg MCHC 34.5 (32.3-36.5) g/dL RDW 13.2 (11.6-14.4) % Plt Count 186 (163-337) x10^3/uL MPV 10.1 (9.4-12.4) fL Gran % 79.4 H (34.0-67.9) % Immature Gran % (Auto) 0.4 (0.001-0.429) % Nucleat RBC Rel Count 0.0 (0.00-0.2) % Eos # (Auto) 0.06 (0.04-0.54) x10^3/uL Immature Gran # (Auto) 0.04 H (0.001-0.031) x10^3u/L Absolute Lymphs (auto) 0.82 L (1.32-3.57) x10^3/uL Absolute Monos (auto) 0.99 H (0.30-0.82) x10^3/uL Absolute Nucleated RBC 0.00 (0.00-0.012) x10^3u/L Lymphocytes % 8.7 L (21.8-53.1) % Monocytes % 10.6 (5.3-12.2) % Eosinophils % 0.6 L (0.8-7.0) % Basophils % 0.3 (0.2-1.2) % Absolute Granulocytes 7.44 H (1.78-5.38) x10^3/uL Basophils # 0.03 (0.01-0.08) x10^3/uL Sodium 137 (135-145) mmol/L Potassium 3.7 (3.5-5.1) mmol/L Chloride 102 (98-107) mmol/L Carbon Dioxide 24 (22-30) mmol/L Anion Gap 14.8 (5-15) MEQ/L BUN 43 H (9-20) mg/dL Creatinine 1.66 H (0.66-1.25) mg/dL Estimated GFR 41.9 ML/MIN Glucose 195 H (74-106) mg/dL Lactic Acid (0.4-2.0) Calcium 9.3 (8.4-10.2) mg/dL Magnesium (1.6-2.3) mg/dL Total Bilirubin 1.10 (0.2-1.3) mg/dL AST 26 (17-59) U/L ALT 21 (0-50) U/L Alkaline Phosphatase 56 (38-126) U/L NT-Pro-B Natriuret Pep 408 (<300) pg/mL Serum Total Protein 6.2 L (6.3-8.2) g/dL Albumin 3.7 (3.5-5.0) g/dL Lipase 138 (23-300) U/L 09/12/24 09/12/24 Range/Units 06:58 07:35 WBC (4.23-9.07) x10^3/uL RBC (4.63-6.08) x10^6/uL Hgb (13.7-17.5) g/dL Hct (40.1-51.0) % MCV (79.0-92.2) fL MCH (25.7-32.2) pg MCHC (32.3-36.5) g/dL RDW (11.6-14.4) % Plt Count (163-337) x10^3/uL MPV (9.4-12.4) fL Gran % (34.0-67.9) % Immature Gran % (Auto) (0.001-0.429) % Nucleat RBC Rel Count (0.00-0.2) % Eos # (Auto) (0.04-0.54) x10^3/uL Immature Gran # (Auto) (0.001-0.031) x10^3u/L Absolute Lymphs (auto) (1.32-3.57) x10^3/uL Absolute Monos (auto) (0.30-0.82) x10^3/uL Absolute Nucleated RBC (0.00-0.012) x10^3u/L Lymphocytes % (21.8-53.1) % Monocytes % (5.3-12.2) % Eosinophils % (0.8-7.0) % Basophils % (0.2-1.2) % Absolute Granulocytes (1.78-5.38) x10^3/uL Basophils # (0.01-0.08) x10^3/uL Sodium (135-145) mmol/L Potassium (3.5-5.1) mmol/L Chloride (98-107) mmol/L Carbon Dioxide (22-30) mmol/L Anion Gap (5-15) MEQ/L BUN (9-20) mg/dL Creatinine (0.66-1.25) mg/dL Estimated GFR ML/MIN Glucose (74-106) mg/dL Lactic Acid 1.7 (0.4-2.0) Calcium (8.4-10.2) mg/dL Magnesium 2.0 (1.6-2.3) mg/dL Total Bilirubin (0.2-1.3) mg/dL AST (17-59) U/L ALT (0-50) U/L Alkaline Phosphatase (38-126) U/L NT-Pro-B Natriuret Pep (<300) pg/mL Serum Total Protein (6.3-8.2) g/dL Albumin (3.5-5.0) g/dL Lipase (23-300) U/L - Radiology Impressions Radiology Exams & Impressions: Radiology Procedures Category Date Time Status ABDOMEN AND PELVIS W/0 CONTRAS [CT] Stat Exams 09/12/24 06:46 Completed CHEST 1 VIEW (PORTABLE) Stat Exams 09/12/24 10:07 Completed CHEST 1 VIEW (PORTABLE) Stat Exams 09/12/24 12:20 Completed ORLY Encounter - ORLY Encounter Attestation ORLY Encounter Attestation: "LashandapersonallyseenandexKAY Kramer andhavediscussed pertinent aspects of their care with Prisca Matt agree with the history, physical exam (any modifications based on my personal exam will be noted below), assessment, and plan as outlined in original note. Please see immediately below for my summary of findings and additional assessment and plan along with any meaningful corrections/explanations to the Subjective/Objective portions of the ORLY note will be noted." My portion of the encounter took place via telemedicine. -Patient with recent onset of diverticulitis now presenting with SBO vs ileus. Surgery consulted, recommend conservative management with NG tube, IVF, bowel rest/NPO. Continue antibiotics for diverticulitis.
[2024-09-12] MEDS ORDERED: PHARMACY RENAL DOSING MC ONE (11:15)
--- NOTE | 2024-09-12 11:50 | XRAY ---
CLINICAL HISTORY: sob, ng tube placement COMPARISON: 07/24/2024. TECHNIQUE: An X-ray image of the chest is obtained in AP projection. FINDINGS: The tip of the nasogastric tube seen at the level of the diaphragmatic copula, needs advanced insertion with 15 cm. Pulmonary Parenchyma: Two small pulmonary nodules were seen at the right mid and lower lung zones, measuring about 7 and 3 mm. No evidence of consolidation, collapse, or focal opacities. No evidence of pleural effusion or pleural thickening. Heart and Mediastinum: Dual lead cardiac pacemaker seen (unchanged). Heart size and shape are normal. No mediastinal widening or masses. No hilar or mediastinal lymphadenopathy. Bony Thorax: Bony thorax appears intact without fractures or deformities. Soft Tissues: Soft tissues overlying the chest wall are unremarkable. IMPRESSION: 1. Suboptimal nasogastric tube position with the tip projecting above the gastroesophageal junction. needs advanced insertion with 15 cm. 2. Unchanged small right pulmonary nodules (7 mm and 3 mm). 3. Dual-lead cardiac pacemaker unchanged from previous imaging. 4. No radiographic evidence of acute pulmonary disease. [facility] was called at [phone] at 10:42 AM FORMS ANALYSIS MANAGER, 09/12/2024, and Jeison, Borough Coordinator, was informed regarding the presence of critical medical findings in the reports. He confirmed that he will going to inform the physician regarding the findings. Electronically Signed by: Guillaume Moreno MD. (09/12/2024 11:48:09 EDT)
[2024-09-12] MEDS ORDERED: MEDICATION INTERVENTION MC SCH (12:15)
[2024-09-12] MEDS: ELIQUIS 2.5 MG TABLET PO SCH (12:23)
[2024-09-12] MEDS: ENTRESTO 49 MG-51 MG TABLET PO SCH (12:24)
[2024-09-12] MEDS: SYNTHROID 25 MCG PO SCH (12:24)
[2024-09-12] MEDS: MAG-OX 400 PO SCH (12:24)
[2024-09-12] MEDS: Protonix 40MG Tablet PO SCH (12:24)
[2024-09-12] MEDS: ECOTRIN 81 MG PO SCH (12:24)
[2024-09-12] MEDS: Flomax 0.4 MG PO SCH (12:24)
[2024-09-12] MEDS: Lopressor 25MG Tab PO SCH ×2 (12:25→21:54)
[2024-09-12] MEDS: ZOCOR 20MG PO SCH (12:25)
[2024-09-12] MEDS: Piperacillin/Tazobactam 2.25 GM 2.25 GM in Sodium Chloride 0.9% 100 ML IV SCH (12:33)
--- NOTE | 2024-09-12 14:06 | XRAY ---
CLINICAL HISTORY: NG placement COMPARISON: X-ray on the same day TECHNIQUE: An X-ray image of the chest is obtained in AP projection. FINDINGS: The tip of the nasogastric tube is seen at the left hypochondrium, likely in the gastric air bubble (in place) Pulmonary Parenchyma: Two small pulmonary nodules were seen at the right mid and lower lung zones, measuring about 7 and 3 mm. No evidence of consolidation, collapse, or focal opacities. No evidence of pleural effusion or pleural thickening. Heart and Mediastinum: Dual lead cardiac pacemaker seen (unchanged). Heart size and shape are normal. No mediastinal widening or masses. No hilar or mediastinal lymphadenopathy. Bony Thorax: Bony thorax appears intact without fractures or deformities. Soft Tissues: Soft tissues overlying the chest wall are unremarkable. IMPRESSION: 1. The nasogastric tube tip is projecting at the left hypochondrium, likely in the gastric air bubble (in place) 2. Unchanged small right pulmonary nodules (7 mm and 3 mm). 3. Dual-lead cardiac pacemaker unchanged from previous imaging. 4. No radiographic evidence of acute pulmonary disease. Electronically Signed by: Guillaume Moreno MD. (09/12/2024 14:04:38 EDT)
[2024-09-12] MEDS: Hydromorphone 1 mg/ml Injection IV PRN (21:52)
[2024-09-12] MEDS: PATIENT OWN MEDICATION PO SCH (21:54)
[2024-09-12] MEDS ORDERED: DOFETILIDE 500 MCG PO SCH (22:00)
[2024-09-12] MEDS ORDERED: NON-FORMULARY ITEM (Sacubitril/Valsartan [Entresto 24 Mg-26 Mg Tablet] 1 EACH Tablet) PO SCH (22:00)
[2024-09-12] MEDS ORDERED: NON-FORMULARY ITEM (Apixaban*** [Eliquis 5 Mg Tablet***] 5 MG Tablet) PO SCH (22:00)
--- NOTE | 2024-09-13 05:40 | PCM.NOTE ---
Date and Time: 09/13/24 0536 Subjective Assessment: Mr. Ambrocio is a 78-year-old male with a past medical history of CHF (reported EF of 30% by patient), AFIB (Eliquis), hypertension, coronary artery disease status post PCI, hyperlipidemia, arrhythmia, hypothyroidism, peripheral neuropathy, and chronic kidney disease (baseline creatinine approximately 1.31.4), who presented on September 12, 2024, with complaints of progressively worsening abdominal pain and distention, along with persistent nausea, vomiting, and diarrhea. He reports an inability to tolerate any oral intake, although he did have a bowel movement earlier in the day. Of note, he was evaluated in the emergency department on September 08, 2024, for similar symptoms and was diagnosed with diverticulitis. At that time, he was discharged home on oral ciprofloxacin and metronidazole. He states that his symptoms initially improved with treatment but began to worsen again yesterday, with the return of nausea, vomiting, and diarrhea. By this morning, he experienced significant abdominal distention and discomfort. He took Pepto-Bismol in an attempt to alleviate symptoms, with minimal relief. He denies any hematemesis or hematochezia. Upon return to the ED today, his vital signs were stable. CT imaging of the abdomen and pelvis demonstrated persistent diverticulosis with mild inflammatory changes in the proximal sigmoid colon consistent with stable diverticulitis. New findings included dilated small bowel loops in the lower abdomen with a maximal diameter of approximately 4.5 cm, without a clear transition point, suggesting a possible ileus or early small bowel obstruction. An incidental infrarenal abdominal aortic aneurysm was again noted and remains unchanged from prior imaging. Labora tory evaluation showed a mildly elevated WBC at 9.4, hemoglobin at baseline (12.8), and an elevated creatinine of 1.66, slightly above his baseline. Initial management in the ED included intravenous fluid resuscitation and pain control. NG placed in ED to LIS- will obtain xray for NG placement. Surgery consulted- discussed case- plans for conservative management - per surgery team okay to continue his Eliquis. 09/13: Met with patient bedside. Much improved today. No nausea, vomiting, abdominal distention, and LLQ pain resolved. +flatulence, +BS x 4 quads, and + BM this morning. Dr. Wellington advised discontinuation of NG tube and start a trial of CLD. Continue Zosyn. ADAT. Denies fever,cough, sob, cp, abdominal pain, FUENTES, dizziness, N/V/D. - Review of Systems Constitutional: No Symptoms Eyes: No Symptoms Ears, Nose, & Throat: No Symptoms Respiratory: No Symptoms Cardiac: No Symptoms Abdominal/Gastrointestinal: No Symptoms Genitourinary Symptoms: No Symptoms Musculoskeletal: No Symptoms Skin: No Symptoms Neurological: No Symptoms Psychological: No Symptoms Endocrine: No Symptoms Hematologic/Lymphatic: No Symptoms Immunological/Allergic: No Symptoms Objective Exam General Appearance: no apparent distress Neurologic Exam: alert, oriented x 3, cooperative Skin Exam: normal color Eye Exam: PERRL Ears, Nose, Throat Exam: normal ENT inspection Neck Exam: normal inspection Respiratory Exam: normal breath sounds, lungs clear Cardiovascular Exam: regular rate/rhythm, normal heart sounds Gastrointestinal/Abdomen Exam: soft, normal bowel sounds Extremity Exam: normal inspection Back Exam: normal inspection Male Genitalia Exam: deferred Rectal Exam: deferred Objective Data Vital Signs: Vital Signs - 24 hr Temp Pulse Resp BP BP Pulse Ox 09/13/24 04:00 97.3 F 86 17 131/95 93 L 09/12/24 23:26 97.7 F 80 18 140/88 95 09/12/24 19:33 97.0 F 82 18 130/73 93 L 09/12/24 16:00 97.3 F 83 17 121/69 92 L 09/12/24 09:45 97.3 F 79 17 132/80 92 L 09/12/24 09:00 82 125/89 95 09/12/24 08:45 133/86 93 L 09/12/24 08:31 67 18 119/83 98 09/12/24 08:15 77 18 100/32 95 09/12/24 08:00 129/89 93 L 09/12/24 07:45 74 18 110/70 97 09/12/24 07:30 68 18 106/70 94 L 09/12/24 07:28 127/47 94 L 09/12/24 07:15 105/78 96 09/12/24 07:06 103/75 93 L 09/12/24 07:00 92/79 96 09/12/24 06:43 88 19 107/83 94 L 09/12/24 06:41 98.1 F 65 17 107/83 95 Pain Assessment - Last Documented Pain Intensity 5 Pain Scale Used 0-10 Pain Scale Intake and Output: Intake & Output 09/10/24 09/11/24 09/12/24 09/13/24 11:59 11:59 11:59 11:59 Intake Total 1693 Output Total 0 2950 Balance 0 -1257 Weight 104.6 kg Lab Results: Lab Results-Last 24 Hours 09/12/24 09/12/24 09/12/24 Range/Units 06:58 06:58 06:58 WBC 9.4 H (4.23-9.07) x10^3/uL RBC 3.81 L (4.63-6.08) x10^6/uL Hgb 12.8 L (13.7-17.5) g/dL Hct 37.1 L (40.1-51.0) % MCV 97.4 H (79.0-92.2) fL MCH 33.6 H (25.7-32.2) pg MCHC 34.5 (32.3-36.5) g/dL RDW 13.2 (11.6-14.4) % Plt Count 186 (163-337) x10^3/uL MPV 10.1 (9.4-12.4) fL Gran % 79.4 H (34.0-67.9) % Immature Gran % (Auto) 0.4 (0.001-0.429) % Nucleat RBC Rel Count 0.0 (0.00-0.2) % Eos # (Auto) 0.06 (0.04-0.54) x10^3/uL Immature Gran # (Auto) 0.04 H (0.001-0.031) x10^3u/L Absolute Lymphs (auto) 0.82 L (1.32-3.57) x10^3/uL Absolute Monos (auto) 0.99 H (0.30-0.82) x10^3/uL Absolute Nucleated RBC 0.00 (0.00-0.012) x10^3u/L Lymphocytes % 8.7 L (21.8-53.1) % Monocytes % 10.6 (5.3-12.2) % Eosinophils % 0.6 L (0.8-7.0) % Basophils % 0.3 (0.2-1.2) % Absolute Granulocytes 7.44 H (1.78-5.38) x10^3/uL Basophils # 0.03 (0.01-0.08) x10^3/uL Sodium 137 (135-145) mmol/L Potassium 3.7 (3.5-5.1) mmol/L Chloride 102 (98-107) mmol/L Carbon Dioxide 24 (22-30) mmol/L Anion Gap 14.8 (5-15) MEQ/L BUN 43 H (9-20) mg/dL Creatinine 1.66 H (0.66-1.25) mg/dL Estimated GFR 41.9 ML/MIN Glucose 195 H (74-106) mg/dL Lactic Acid (0.4-2.0) Calcium 9.3 (8.4-10.2) mg/dL Magnesium (1.6-2.3) mg/dL Total Bilirubin 1.10 (0.2-1.3) mg/dL AST 26 (17-59) U/L ALT 21 (0-50) U/L Alkaline Phosphatase 56 (38-126) U/L NT-Pro-B Natriuret Pep 408 (<300) pg/mL Serum Total Protein 6.2 L (6.3-8.2) g/dL Albumin 3.7 (3.5-5.0) g/dL Lipase 138 (23-300) U/L 09/12/24 09/12/24 Range/Units 06:58 07:35 WBC (4.23-9.07) x10^3/uL RBC (4.63-6.08) x10^6/uL Hgb (13.7-17.5) g/dL Hct (40.1-51.0) % MCV (79.0-92.2) fL MCH (25.7-32.2) pg MCHC (32.3-36.5) g/dL RDW (11.6-14.4) % Plt Count (163-337) x10^3/uL MPV (9.4-12.4) fL Gran % (34.0-67.9) % Immature Gran % (Auto) (0.001-0.429) % Nucleat RBC Rel Count (0.00-0.2) % Eos # (Auto) (0.04-0.54) x10^3/uL Immature Gran # (Auto) (0.001-0.031) x10^3u/L Absolute Lymphs (auto) (1.32-3.57) x10^3/uL Absolute Monos (auto) (0.30-0.82) x10^3/uL Absolute Nucleated RBC (0.00-0.012) x10^3u/L Lymphocytes % (21.8-53.1) % Monocytes % (5.3-12.2) % Eosinophils % (0.8-7.0) % Basophils % (0.2-1.2) % Absolute Granulocytes (1.78-5.38) x10^3/uL Basophils # (0.01-0.08) x10^3/uL Sodium (135-145) mmol/L Potassium (3.5-5.1) mmol/L Chloride (98-107) mmol/L Carbon Dioxide (22-30) mmol/L Anion Gap (5-15) MEQ/L BUN (9-20) mg/dL Creatinine (0.66-1.25) mg/dL Estimated GFR ML/MIN Glucose (74-106) mg/dL Lactic Acid 1.7 (0.4-2.0) Calcium (8.4-10.2) mg/dL Magnesium 2.0 (1.6-2.3) mg/dL Total Bilirubin (0.2-1.3) mg/dL AST (17-59) U/L ALT (0-50) U/L Alkaline Phosphatase (38-126) U/L NT-Pro-B Natriuret Pep (<300) pg/mL Serum Total Protein (6.3-8.2) g/dL Albumin (3.5-5.0) g/dL Lipase (23-300) U/L Radiology Exams: Radiology Procedures Category Date Time Status ABDOMEN AND PELVIS W/0 CONTRAS [CT] Stat Exams 09/12/24 06:46 Completed CHEST 1 VIEW (PORTABLE) Stat Exams 09/12/24 10:07 Completed CHEST 1 VIEW (PORTABLE) Stat Exams 09/12/24 12:20 Completed Medications: Medications Generic Name Dose Route Start Last Admin Trade Name Freq PRN Reason Stop Dose Admin Apixaban 5 mg 09/12/24 13:00 09/12/24 21:54 Apixaban 2.5 Mg Tablet PO 10/12/24 12:59 5 mg BID HUNTER Administration Aspirin 81 mg 09/12/24 13:00 09/12/24 12:24 Aspirin 81 Mg Tablet.Ec PO 10/12/24 12:59 81 mg DAILY HUNTER Administration Cholecalciferol 2,000 unit 09/13/24 10:00 Cholecalciferol (Vitamin D3) 1000 Unit Tablet PO 10/13/24 09:59 Q48H HUNTER Hydromorphone HCl 0.5 mg 09/12/24 11:18 09/12/24 21:52 Hydromorphone 1 Mg/1ml Inj IV 09/17/24 11:17 0.5 mg Q4H PRN PRN Administration PAIN Sodium Chloride 1,000 mls @ 100 mls/hr 09/12/24 11:15 09/12/24 23:56 Sodium Chloride 0.9% 1000 Ml IV 10/12/24 11:14 100 mls/hr .Q10H HUNTER Administration Piperacillin Sod/Tazobactam 100 mls @ 200 mls/hr 09/12/24 13:00 09/12/24 23:56 Sod 2.25 gm/ Sodium Chloride IV 10/12/24 12:59 200 mls/hr Q6HT HUNTER Administration Levothyroxine Sodium 25 mcg 09/12/24 13:00 09/12/24 12:24 Levothyroxine Sodium 25 Mcg Tablet PO 10/12/24 12:59 25 mcg DAILY HUNTER Administration Magnesium Oxide 800 mg 09/12/24 13:00 09/12/24 12:24 Magnesium Oxide 400 Mg Tablet PO 10/12/24 12:59 800 mg DAILY HUNTER Administration Metoprolol Tartrate 12.5 mg 09/12/24 13:00 09/12/24 12:25 Metoprolol Tartrate 25 Mg Tab PO 10/12/24 12:59 12.5 mg DAILY HUNTER Administration Metoprolol Tartrate 25 mg 09/12/24 22:00 09/12/24 21:54 Metoprolol Tartrate 25 Mg Tab PO 10/12/24 21:59 25 mg HS HUNTER Administration Ondansetron HCl 4 mg 09/12/24 11:15 Ondansetron Hcl 4 Mg/2 Ml Vial IV 10/12/24 11:14 Q6H PRN PRN NAUSEA/VOMITING Pantoprazole Sodium 40 mg 09/12/24 13:00 09/12/24 12:24 Protonix (Pantoprazole) 40 Mg Tablet PO 10/12/24 12:59 40 mg DAILY HUNTER Administration Dofetilide 500 Mcg - 1 each 09/12/24 22:00 09/12/24 21:54 Patient Own Med PO 10/12/24 21:59 1 each Misc BID HUNTER Administration Sacubitril/Valsartan 0.5 tablet 09/12/24 13:00 09/12/24 21:53 Sacubitril/Valsartan 1 Tablet Tablet PO 10/12/24 12:59 0.5 tablet BID HUNTER Administration Simvastatin 40 mg 09/12/24 13:00 09/12/24 12:25 Simvastatin 20 Mg Tablet PO 10/12/24 12:59 40 mg DAILY HUNTER Administration Tamsulosin HCl 0.4 mg 09/12/24 13:00 09/12/24 21:55 Tamsulosin Hcl 0.4 Mg Cap PO 10/12/24 12:59 0.4 mg BID HUNTER Administration Discontinued Medications Generic Name Dose Route Start Last Admin Trade Name Freq PRN Reason Stop Dose Admin Hydromorphone HCl 1 mg 09/12/24 08:44 09/12/24 08:46 Hydromorphone 1 Mg/1ml Inj IV 09/12/24 08:45 1 mg STAT ONE Administration Hydromorphone HCl Confirm 09/12/24 08:46 Hydromorphone 1 Mg/1ml Inj Administered 09/12/24 08:47 Dose 1 mg .ROUTE .STK-MED ONE Sodium Chloride 1,000 mls @ 999 mls/hr 09/12/24 06:45 09/12/24 08:17 Sodium Chloride 0.9% 1000 Ml IV 09/12/24 07:45 Infused .Q1H1M STA Infusion Sodium Chloride Confirm 09/12/24 06:57 Sodium Chloride 0.9% 1000 Ml Administered 09/12/24 06:58 Dose 1,000 mls @ ud .ROUTE .STK-MED ONE Miscellaneous Information 1 each 09/12/24 12:15 Medication Intervention 1 Each Each 10/12/24 12:14 .RN TO CHECK HUNTER Morphine Sulfate 2 mg 09/12/24 07:01 09/12/24 07:12 Morphine Sulfate 2 Mg/Ml Inj IV 09/12/24 07:02 Not Given STAT ONE Morphine Sulfate Confirm 09/12/24 07:07 Morphine Sulfate 2 Mg/Ml Inj Administered 09/12/24 07:08 Dose 2 mg .ROUTE .STK-MED ONE Non-Formulary Medication 1 each 09/12/24 11:15 Pharmacy Dosing Request 09/12/24 11:16 STAT ONE Assessment/Plan (1) Diverticulitis large intestine Current Visit: Yes Status: Acute Assessment & Plan: -Ongoing symptoms despite recent outpatient treatment with ciprofloxacin/flagyl. -CT abdomen/ pelvis confirms mild inflammatory changes consistent with stable, uncomplicated diverticulitis -Admit for IV antibiotics Zosyn -Monitor for complications: perforation, abscess, or progression -Pain control (avoid NSAIDs) -Advance diet as tolerated upon symptom resolution 09/13: -Discussed case with surgery 09/12- no plans for surgical intervention -continue IV abx -CMP/CBC reviewed and unremarkable Code(s): K57.32 - DVTRCLI OF LG INT W/O PERFORATION OR ABSCESS W/O BLEEDING (2) Ileus Current Visit: Yes Status: Acute Assessment & Plan: -CT abdomen shows dilated small bowel loops without clear transition point; clinical picture and imaging favor partial SBO or ileus -NPO status -NG tube placed in ED to low intermittent suction - need XR to confirm placement- clamped for now -IVF -Serial abdominal exams -Monitor for flatus or bowel movement to assess for resolution -Discussed case with general surgery Dr. Matthew Wellington- agree with plan for NPO/bowel rest, IV abx, IVF, NG- they with follow 09/13: -Okay to continue home meds po including Eliquis per Dr. Wellington- no immediate plans for surgery -+BM, +flatulence, surgery following - okay to discontinue NG tube start on CLD- ADAT Code(s): K56.7 - ILEUS, UNSPECIFIED (3) [id number]-[id number] kidney injury Current Visit: Yes Status: Acute Assessment & Plan: -Creatinine elevated from baseline at 1.66 (baseline 1.31.4) -Likely pre-renal due to GI losses -IVF -monitor for fluid overload with CHF -Monitor renal function daily -Hold nephrotoxic meds 09/13: -Creat improved to 1.47 near baseline, dc IVF Code(s): N17.9 - ACUTE KIDNEY FAILURE, UNSPECIFIED; N18.9 - CHRONIC KIDNEY DISEASE, UNSPECIFIED (4) HTN (hypertension) Current Visit: Yes Status: Acute Assessment & Plan: -continue home meds via NG Code(s): I10 - ESSENTIAL (PRIMARY) HYPERTENSION (5) CAD (coronary artery disease) Current Visit: Yes Status: Acute Assessment & Plan: -No acute ischemic symptoms -Continue statin -Telemetry monitoring for arrhythmias Code(s): I25.10 - ATHSCL HEART DISEASE OF [place] CORONARY ARTERY W/O ANG PCTRS (6) Hypothyroid Current Visit: Yes Status: Acute Assessment & Plan: -Continue levothyroxine Code(s): E03.9 - HYPOTHYROIDISM, UNSPECIFIED (7) HLD (hyperlipidemia) Current Visit: Yes Status: Acute Assessment & Plan: Continue statin Code(s): E78.5 - HYPERLIPIDEMIA, UNSPECIFIED (8) Peripheral neuropathy Current Visit: Yes Status: Acute Assessment & Plan: -Continue home neuropathy regimen Code(s): G62.9 - POLYNEUROPATHY, UNSPECIFIED (9) Afib Current Visit: Yes Status: Acute Assessment & Plan: -Pacemaker/defib -Continue home Metoprolol -Hold Eliquis until surgery okays to resume EKG with no ischemia - ventricular paced complexes LBBB 09/13: -Per surgery team okay to continue home meds PO including Eliquis - no surgical plans Code(s): I48.91 - UNSPECIFIED ATRIAL FIBRILLATION (10) CHF (congestive heart failure) Current Visit: Yes Status: Acute Assessment & Plan: -No echo on file - per pt report last EF was 30-35%- follows with Dr. Cotto- on Entresto -continue entresto -Monitor fluid status for overload -Strict I&O and daily weights -BNP Code(s): I50.9 - HEART FAILURE, UNSPECIFIED (11) Obesity (BMI 30.0-34.9) Current Visit: No Status: Chronic Assessment & Plan: -advised diet exercise VTE: Eliquis PPI: protonix Dispo: 1-2 days Code status: Full code Code(s): K57.32 - DVTRCLI OF LG INT W/O PERFORATION OR ABSCESS W/O BLEEDING (2) Ileus Current Visit: Yes Status: Acute Code(s): K56.7 - ILEUS, UNSPECIFIED (3) [id number] kidney injury Current Visit: Yes Status: Acute Code(s): N17.9 - ACUTE KIDNEY FAILURE, UNSPECIFIED; N18.9 - CHRONIC KIDNEY DISEASE, UNSPECIFIED (4) HTN (hypertension) Current Visit: Yes Status: Acute Code(s): I10 - ESSENTIAL (PRIMARY) HYPERTENSION (5) CAD (coronary artery disease) Current Visit: Yes Status: Acute Code(s): I25.10 - ATHSCL HEART DISEASE OF [place] CORONARY ARTERY W/O ANG PCTRS (6) Hypothyroid Current Visit: Yes Status: Acute Code(s): E03.9 - HYPOTHYROIDISM, UNSPECIFIED (7) HLD (hyperlipidemia) Current Visit: Yes Status: Acute Code(s): E78.5 - HYPERLIPIDEMIA, UNSPECIFIED (8) Peripheral neuropathy Current Visit: Yes Status: Acute Code(s): G62.9 - POLYNEUROPATHY, UNSPECIFIED (9) Afib Current Visit: Yes Status: Acute Code(s): I48.91 - UNSPECIFIED ATRIAL FIBRILLATION (10) CHF (congestive heart failure) Current Visit: Yes Status: Acute Code(s): I50.9 - HEART FAILURE, UNSPECIFIED (11) Obesity (BMI 30.0-34.9) Current Visit: No Status: Chronic Code(s): E66.9 - OBESITY, UNSPECIFIED
[2024-09-13 05:45] LABS: Glucose, Urine Negative (Negative); Protein,Urine Dip 30 (Negative); RBC 0-2 /HPF (0-5); WBC 0-2 /HPF (0-5)
[2024-09-13 06:29] LABS: BASOPHIL % 0.4 % (0.2-1.2); Basophil (Absolute #) 0.03 x10^3/uL (0.01-0.08); Eosinophil (Absolute #) 0.09 x10^3/uL (0.04-0.54); Hematocrit 36.0 % (40.1-51.0); Hemoglobin 11.6 g/dL (13.7-17.5); IMMATURE GRAN # 0.03 x10^3u/L (0.001-0.031); IMMATURE GRAN % 0.4 % (0.001-0.429); Lymphocyte (Absolute #) 1.09 x10^3/uL (1.32-3.57); Mean Corpuscular Hemoglobin 32.6 pg (25.7-32.2); Mean Corpuscular Hgb Concent. 32.2 g/dL (32.3-36.5); Monocyte (Absolute #) 0.86 x10^3/uL (0.30-0.82); NUCLEATED RBC # 0.00 x10^3u/L (0.00-0.012); NUCLEATED RBC % 0.0 % (0.00-0.2); Platelet Count 171 x10^3/uL (163-337); Red Blood Count 3.56 x10^6/uL (4.63-6.08); White Blood Count 7.9 x10^3/uL (4.23-9.07)
[2024-09-13 06:58] LABS: Calcium 9.2 mg/dL (8.4-10.2); Carbon Dioxide 29.0 mmol/L (22-30); Creatinine 1 1.47 mg/dL (0.66-1.25); EST GLOMERULAR FILTRATION RATE 48.5 ML/MIN; Glucose 121.0 mg/dL (74-106); Potassium 3.8 mmol/L (3.5-5.1); SGOT/AST 25.0 U/L (17-59); SGPT/ALT 17.0 U/L (0-50); Total Protein 6.4 g/dL (6.3-8.2)
[2024-09-13] MEDS: VITAMIN D PO SCH (09:06)
[2024-09-13] MEDS ORDERED: NON-FORMULARY ITEM (Pravastatin Sodium [Pravachol] 20 MG Tablet) PO SCH (10:00)
[2024-09-14 05:16] LABS: BASOPHIL % 0.3 % (0.2-1.2); Basophil (Absolute #) 0.02 x10^3/uL (0.01-0.08); Eosinophil (Absolute #) 0.09 x10^3/uL (0.04-0.54); Hematocrit 32.3 % (40.1-51.0); Hemoglobin 10.6 g/dL (13.7-17.5); IMMATURE GRAN # 0.06 x10^3u/L (0.001-0.031); IMMATURE GRAN % 0.8 % (0.001-0.429); Lymphocyte (Absolute #) 1.08 x10^3/uL (1.32-3.57); Mean Corpuscular Hemoglobin 32.9 pg (25.7-32.2); Mean Corpuscular Hgb Concent. 32.8 g/dL (32.3-36.5); Monocyte (Absolute #) 0.79 x10^3/uL (0.30-0.82); NUCLEATED RBC # 0.00 x10^3u/L (0.00-0.012); NUCLEATED RBC % 0.0 % (0.00-0.2); Platelet Count 153 x10^3/uL (163-337); Red Blood Count 3.22 x10^6/uL (4.63-6.08); White Blood Count 7.2 x10^3/uL (4.23-9.07)
[2024-09-14 05:50] LABS: Calcium 8.7 mg/dL (8.4-10.2); Carbon Dioxide 27.0 mmol/L (22-30); Creatinine 1 1.3 mg/dL (0.66-1.25); EST GLOMERULAR FILTRATION RATE 56.2 ML/MIN; Glucose 126.0 mg/dL (74-106); Potassium 3.6 mmol/L (3.5-5.1); SGOT/AST 22.0 U/L (17-59); SGPT/ALT 15.0 U/L (0-50); Total Protein 5.6 g/dL (6.3-8.2)
[2024-09-14] MEDS: Zofran 4 MG/2 ML VIAL IV PRN (07:45)
--- NOTE | 2024-09-14 09:49 | CONS ---
HISTORY: He was recently in the hospital with episode of diverticulitis. He was doing well until yesterday morning and he had some acute exacerbation of pain. His CT scan is basically a little better than it was last time. PHYSICAL EXAMINATION: On abdominal examination, he is mildly distended and he is mildly tender over the sigmoid area. He is alert and oriented. He is elderly. He seems modestly uncomfortable but moderately comfortable. He has nasogastric tube in place. It has not sucked much out. Question ileus on his CT, which would make sense with his diverticulitis. IMPRESSION AND PLAN: GI rest, IV antibiotics, reexamination. I am not expecting that he will require surgical intervention. He may need a colonoscopy at some point, usually we will wait 6 weeks.
--- NOTE | 2024-09-14 10:18 | PCM.NOTE ---
Date and Time: 09/14/24 1012 Subjective Assessment: The patient is a 78-year-old male with a complex medical history including CHF (EF ~30%), atrial fibrillation on Eliquis, hypertension, coronary artery disease post-PCI, hyperlipidemia, arrhythmia, hypothyroidism, peripheral neuropathy, and chronic kidney disease (baseline creatinine ~1.31.4), who presented on September 12, 2024, with worsening abdominal pain and distention, along with persistent nausea, vomiting, and diarrhea. He reported an inability to tolerate oral intake but had a bowel movement earlier that day. He had previously been seen in the ED on September 08 for similar symptoms and diagnosed with diverticulitis, discharged on oral ciprofloxacin and metronidazole, with initial improvement before symptoms recurred. On return to the ED, vital signs were stable. CT abdomen/pelvis showed persistent diverticulosis with stable inflammatory changes in the sigmoid colon, and new dilated small bowel loops (up to 4.5 cm) without a clear transition point, concerning for ileus or early small bowel obstruction. An incidental infrarenal abdominal aortic aneurysm was again noted and unchanged. Labs revealed a WBC of 9.4, hemoglobin 12.8, and a creatinine of 1.66, slightly above baseline. He received IV fluids, pain control, and had an NG tube placed to LIS. Surgery was consulted and recommended conservative management; he was cleared to continue Eliquis. On 09/13, the patient reported significant improvement with resolution of nausea, vomiting, and abdominal distention. LLQ pain resolved, bowel sounds were present in all quadrants, and he passed gas and had a BM. Dr. Wellington recommended removal of the NG tube and a trial of clear liquids, with Zosyn continued and ADAT. On 09/14, the patient was sitting up in a chair but complained of intermittent sharp LLQ pain, worsened with palpation. He felt that the NG tube was removed too soon and expressed frustration over not receiving pain or nausea medications overnight. Day shift nurse provided medications, resulting in improvement in symptoms. A KUB was ordered, and Gas-X was given. The patient is currently NPO pending imaging results. Surgery has signed off the case, and he will continue IV antibiotics for diverticulitis. - Review of Systems Constitutional: No Fever, No Chills Eyes: No Symptoms Ears, Nose, & Throat: No Symptoms Respiratory: No Cough, No Short Of Breath Cardiac: No Chest Pain, No Edema, No Syncope Abdominal/Gastrointestinal: Abdominal Pain, Nausea, No Vomiting, No Diarrhea Genitourinary Symptoms: No Dysuria Musculoskeletal: No Back Pain, No Neck Pain Skin: No Rash Neurological: No Dizziness, No Focal Weakness, No Sensory Changes Psychological: No Symptoms Endocrine: No Symptoms Hematologic/Lymphatic: No Symptoms Immunological/Allergic: No Symptoms Objective Exam General Appearance: no apparent distress, alert, obese Neurologic Exam: alert, oriented x 3, cooperative, normal mood/affect, nml cerebellar function, sensation nml, No motor deficits Skin Exam: normal color, warm, dry Eye Exam: PERRL, EOMI, eyes nml inspection Ears, Nose, Throat Exam: normal ENT inspection, pharynx normal, moist mucous membranes Neck Exam: normal inspection, non-tender, supple, full range of motion Respiratory Exam: normal breath sounds, lungs clear, No respiratory distress Cardiovascular Exam: regular rate/rhythm, normal heart sounds Gastrointestinal/Abdomen Exam: soft, tenderness (LLQ, BS X4- hyperactive), No mass Extremity Exam: normal inspection, normal range of motion Back Exam: normal inspection, normal range of motion, No CVA tenderness, No vertebral tenderness Male Genitalia Exam: deferred Rectal Exam: deferred Objective Data Vital Signs: Vital Signs - 24 hr Temp Pulse Resp BP Pulse Ox 09/14/24 07:21 98.5 F 54 L 16 112/69 90 L 09/14/24 04:00 97.7 F 73 19 110/57 95 09/14/24 00:00 97.0 F 64 18 113/75 96 09/13/24 20:00 97.3 F 100 H 20 125/58 96 09/13/24 16:00 97.5 F 86 18 123/78 96 09/13/24 12:00 97.5 F 76 18 109/60 93 L Pain Assessment - Last Documented Pain Intensity 5 Pain Scale Used 0-10 Pain Scale Intake and Output: Intake & Output 09/11/24 09/12/24 09/13/24 09/14/24 11:59 11:59 11:59 11:59 Intake Total 2293 3809 Output Total 0 4151 Balance 0 -1858 3809 Weight 104.6 kg 104.6 kg Lab Results: Lab Results-Last 24 Hours 09/14/24 09/14/24 Range/Units 04:30 04:30 WBC 7.2 (4.23-9.07) x10^3/uL RBC 3.22 L (4.63-6.08) x10^6/uL Hgb 10.6 L (13.7-17.5) g/dL Hct 32.3 L (40.1-51.0) % MCV 100.3 H (79.0-92.2) fL MCH 32.9 H (25.7-32.2) pg MCHC 32.8 (32.3-36.5) g/dL RDW 13.2 (11.6-14.4) % Plt Count 153 L (163-337) x10^3/uL MPV 10.0 (9.4-12.4) fL Gran % 71.6 H (34.0-67.9) % Immature Gran % (Auto) 0.8 H (0.001-0.429) % Nucleat RBC Rel Count 0.0 (0.00-0.2) % Eos # (Auto) 0.09 (0.04-0.54) x10^3/uL Immature Gran # (Auto) 0.06 H (0.001-0.031) x10^3u/L Absolute Lymphs (auto) 1.08 L (1.32-3.57) x10^3/uL Absolute Monos (auto) 0.79 (0.30-0.82) x10^3/uL Absolute Nucleated RBC 0.00 (0.00-0.012) x10^3u/L Lymphocytes % 15.0 L (21.8-53.1) % Monocytes % 11.0 (5.3-12.2) % Eosinophils % 1.3 (0.8-7.0) % Basophils % 0.3 (0.2-1.2) % Absolute Granulocytes 5.16 (1.78-5.38) x10^3/uL Basophils # 0.02 (0.01-0.08) x10^3/uL Sodium 139 (135-145) mmol/L Potassium 3.6 (3.5-5.1) mmol/L Chloride 104 (98-107) mmol/L Carbon Dioxide 27 (22-30) mmol/L Anion Gap 10.6 (5-15) MEQ/L BUN 29 H (9-20) mg/dL Creatinine 1.30 H (0.66-1.25) mg/dL Estimated GFR 56.2 ML/MIN Glucose 126 H (74-106) mg/dL Calcium 8.7 (8.4-10.2) mg/dL Total Bilirubin 0.80 (0.2-1.3) mg/dL AST 22 (17-59) U/L ALT 15 (0-50) U/L Alkaline Phosphatase 47 (38-126) U/L Serum Total Protein 5.6 L (6.3-8.2) g/dL Albumin 3.0 L (3.5-5.0) g/dL Radiology Exams: Radiology Procedures Category Date Time Status CHEST 1 VIEW (PORTABLE) Stat Exams 09/12/24 10:07 Completed CHEST 1 VIEW (PORTABLE) Stat Exams 09/12/24 12:20 Completed KUB Routine Exams 09/14/24 10:10 Ordered Medications: Medications Generic Name Dose Route Start Last Admin Trade Name Freq PRN Reason Stop Dose Admin Apixaban 5 mg 09/12/24 13:00 09/14/24 09:31 Apixaban 2.5 Mg Tablet PO 10/12/24 12:59 5 mg BID HUNTER Administration Aspirin 81 mg 09/12/24 13:00 09/14/24 09:32 Aspirin 81 Mg Tablet.Ec PO 10/12/24 12:59 81 mg DAILY HUNTER Administration Cholecalciferol 2,000 unit 09/13/24 10:00 09/13/24 09:06 Cholecalciferol (Vitamin D3) 1000 Unit Tablet PO 10/13/24 09:59 2,000 unit Q48H HUNTER Administration Hydromorphone HCl 0.5 mg 09/12/24 11:18 09/14/24 07:46 Hydromorphone 1 Mg/1ml Inj IV 09/17/24 11:17 0.5 mg Q4H PRN PRN Administration PAIN Piperacillin Sod/Tazobactam 100 mls @ 200 mls/hr 09/13/24 12:00 09/14/24 05:27 Sod 3.375 gm/ Sodium Chloride IV 09/16/24 11:59 200 mls/hr Q6HT HUNTER Administration Levothyroxine Sodium 25 mcg 09/12/24 13:00 09/14/24 09:31 Levothyroxine Sodium 25 Mcg Tablet PO 10/12/24 12:59 25 mcg DAILY HUNTER Administration Magnesium Oxide 800 mg 09/12/24 13:00 09/14/24 09:30 Magnesium Oxide 400 Mg Tablet PO 10/12/24 12:59 800 mg DAILY HUNTER Administration Metoprolol Tartrate 12.5 mg 09/12/24 13:00 09/14/24 09:31 Metoprolol Tartrate 25 Mg Tab PO 10/12/24 12:59 12.5 mg DAILY HUNTER Administration Metoprolol Tartrate 25 mg 09/12/24 22:00 09/13/24 21:21 Metoprolol Tartrate 25 Mg Tab PO 10/12/24 21:59 25 mg HS HUNTER Administration Ondansetron HCl 4 mg 09/12/24 11:15 09/14/24 07:45 Ondansetron Hcl 4 Mg/2 Ml Vial IV 10/12/24 11:14 4 mg Q6H PRN PRN Administration NAUSEA/VOMITING Pantoprazole Sodium 40 mg 09/12/24 13:00 09/14/24 09:32 Protonix (Pantoprazole) 40 Mg Tablet PO 10/12/24 12:59 40 mg DAILY HUNTER Administration Dofetilide 500 Mcg - 1 each 09/12/24 22:00 09/14/24 09:41 Patient Own Med PO 10/12/24 21:59 1 each Misc BID HUNTER Administration Sacubitril/Valsartan 0.5 tablet 09/12/24 13:00 09/14/24 09:30 Sacubitril/Valsartan 1 Tablet Tablet PO 10/12/24 12:59 0.5 tablet BID HUNTER Administration Simethicone 80 mg 09/14/24 10:11 Simethicone 80 Mg Tab.Chew PO 10/14/24 10:10 QID PRN PRN GAS Simvastatin 40 mg 09/12/24 13:00 09/14/24 09:32 Simvastatin 20 Mg Tablet PO 10/12/24 12:59 40 mg DAILY HUNTER Administration Tamsulosin HCl 0.4 mg 09/12/24 13:00 09/14/24 09:30 Tamsulosin Hcl 0.4 Mg Cap PO 10/12/24 12:59 0.4 mg BID HUNTER Administration Discontinued Medications Generic Name Dose Route Start Last Admin Trade Name Freq PRN Reason Stop Dose Admin Hydromorphone HCl 1 mg 09/12/24 08:44 09/12/24 08:46 Hydromorphone 1 Mg/1ml Inj IV 09/12/24 08:45 1 mg STAT ONE Administration Hydromorphone HCl Confirm 09/12/24 08:46 Hydromorphone 1 Mg/1ml Inj Administered 09/12/24 08:47 Dose 1 mg .ROUTE .STK-MED ONE Sodium Chloride 1,000 mls @ 999 mls/hr 09/12/24 06:45 09/12/24 08:17 Sodium Chloride 0.9% 1000 Ml IV 09/12/24 07:45 Infused .Q1H1M STA Infusion Sodium Chloride Confirm 09/12/24 06:57 Sodium Chloride 0.9% 1000 Ml Administered 09/12/24 06:58 Dose 1,000 mls @ ud .ROUTE .STK-MED ONE Sodium Chloride 1,000 mls @ 100 mls/hr 09/12/24 11:15 09/13/24 19:40 Sodium Chloride 0.9% 1000 Ml IV 10/12/24 11:14 Not Given .Q10H HUNTER Piperacillin Sod/Tazobactam 100 mls @ 200 mls/hr 09/12/24 13:00 09/13/24 05:49 Sod 2.25 gm/ Sodium Chloride IV 10/12/24 12:59 200 mls/hr Q6HT HUNTER Administration Miscellaneous Information 1 each 09/12/24 12:15 Medication Intervention 1 Each Each 10/12/24 12:14 .RN TO CHECK HUNTER Morphine Sulfate 2 mg 09/12/24 07:01 09/12/24 07:12 Morphine Sulfate 2 Mg/Ml Inj IV 09/12/24 07:02 Not Given STAT ONE Morphine Sulfate Confirm 09/12/24 07:07 Morphine Sulfate 2 Mg/Ml Inj Administered 09/12/24 07:08 Dose 2 mg .ROUTE .STK-MED ONE Non-Formulary Medication 1 each 09/12/24 11:15 Pharmacy Dosing Request 09/12/24 11:16 STAT ONE Assessment/Plan (1) Diverticulitis large intestine Current Visit: Yes Status: Acute Assessment & Plan: -Ongoing symptoms despite recent outpatient treatment with ciprofloxacin/flagyl. -CT abdomen/ pelvis confirms mild inflammatory changes consistent with stable, uncomplicated diverticulitis -Admit for IV antibiotics Zosyn -Monitor for complications: perforation, abscess, or progression -Pain control (avoid NSAIDs) -Advance diet as tolerated upon symptom resolution -Discussed case with surgery 09/12- no plans for surgical intervention -continue IV abx -CMP/CBC reviewed and unremarkable - KUB today- pending - Gas-x Code(s): K57.32 - DVTRCLI OF LG INT W/O PERFORATION OR ABSCESS W/O BLEEDING (2) Afib Current Visit: Yes Status: Chronic Assessment & Plan: -Pacemaker/defib -Continue home Metoprolol, Eliquis Code(s): I48.91 - UNSPECIFIED ATRIAL FIBRILLATION (3) Renal failure (ARF), acute on chronic Current Visit: No Status: Acute Assessment & Plan: - Creat 1.30- BL normal- trend - Labs have improved since admission daily Code(s): N17.9 - ACUTE KIDNEY FAILURE, UNSPECIFIED; N18.9 - CHRONIC KIDNEY DISEASE, UNSPECIFIED (4) CAD (coronary artery disease) Current Visit: Yes Status: Chronic Assessment & Plan: -No acute ischemic symptoms -Continue statin -Telemetry monitoring for arrhythmias Code(s): I25.10 - ATHSCL HEART DISEASE OF [place] CORONARY ARTERY W/O ANG PCTRS (5) HLD (hyperlipidemia) Current Visit: Yes Status: Chronic Assessment & Plan: - Continue statin Code(s): E78.5 - HYPERLIPIDEMIA, UNSPECIFIED (6) Hypothyroid Current Visit: Yes Status: Chronic Assessment & Plan: -Continue levothyroxine Code(s): E03.9 - HYPOTHYROIDISM, UNSPECIFIED (7) Ileus Current Visit: Yes Status: Acute Assessment & Plan: -CT abdomen shows dilated small bowel loops without clear transition point; clinical picture and imaging favor partial SBO or ileus -NG tube placed in ED to low intermittent suction - need XR to confirm placement- clamped for now - d/c'd 09/13 -IVF -Serial abdominal exams -Monitor for flatus or bowel movement to assess for resolution -Okay to continue home meds po including Eliquis per Dr. Wellington- no immediate plans for surgery- 09/13 - +BM, +flatulence, surgery following - okay to discontinue NG tube start on CLD- ADAT - KUB today- pending- NPO until results are back - IV narcotic pain med PRN Code(s): K56.7 - ILEUS, UNSPECIFIED (8) Peripheral neuropathy Current Visit: Yes Status: Chronic Assessment & Plan: -Continue home neuropathy regimen Code(s): G62.9 - POLYNEUROPATHY, UNSPECIFIED (9) HTN (hypertension) Current Visit: No Status: Chronic Qualifiers: Hypertension type: primary hypertension Qualified Code(s): I10 - Essential (primary) hypertension Assessment & Plan: - Continue home meds- trend Code(s): I10 - ESSENTIAL (PRIMARY) HYPERTENSION (10) Obesity (BMI 30.0-34.9) Current Visit: No Status: Chronic Assessment & Plan: - advised diet and exercise control VTE: Eliquis PPI: protonix Dispo: 1-2 days Code status: Full code Next of KIN: Estela Ambrocio- [phone] Time for plan of care: > 32 minutes Code(s): E66.9 - OBESITY, UNSPECIFIED
[2024-09-14] MEDS: Mylicon 80MG PO PRN (11:13)
--- NOTE | 2024-09-14 11:25 | XRAY ---
Indication: Abdomen pain. Comparison: August 25, 2023 KUB again nonacute and nonobstructed. No focal bowel dilatation or large free air. Stable left iliac stent and suture material overlying left hip. Solid organs unremarkable. Osseous structures intact again with osteopenia and multilevel degenerative spondylosis.
[2024-09-14] MEDS: Metamucil PACKET PO SCH (14:43)
[2024-09-14] MEDS ORDERED: PIPERACILLIN/TAZOBACTAM IV ONE (17:09)
[2024-09-15 05:14] LABS: Hematocrit 31.2 % (40.1-51.0); Hemoglobin 10.2 g/dL (13.7-17.5); Mean Corpuscular Hemoglobin 32.8 pg (25.7-32.2); Mean Corpuscular Hgb Concent. 32.7 g/dL (32.3-36.5); Platelet Count 178 x10^3/uL (163-337); Red Blood Count 3.11 x10^6/uL (4.63-6.08); White Blood Count 7.7 x10^3/uL (4.23-9.07)
[2024-09-15 05:28] LABS: Calcium 8.6 mg/dL (8.4-10.2); Carbon Dioxide 28.0 mmol/L (22-30); Creatinine 1 1.37 mg/dL (0.66-1.25); EST GLOMERULAR FILTRATION RATE 52.8 ML/MIN; Glucose 127.0 mg/dL (74-106); Potassium 3.8 mmol/L (3.5-5.1)
[2024-09-15 07:20] VITALS: BP 116/56; PULSE 86; RESP 20; TEMP 98.6; O2SAT 93
[2024-09-15] MEDS ORDERED: DULCOLAX 5 MG PO PRN (09:20)
--- NOTE | 2024-09-15 09:23 | PCM.DS ---
Discharge Summary Date of Admission: 09/12/24 12:20 Date of Discharge: 09/15/24 Admitting Physician: GEORGE MACARIO MD Consults: Consults on Case 09/12/24 09:39 Consult Surgery ROUTINE Primary Care Provider: FABIENNE ZIEGLER Allergies Allergies sulfamethoxazole [From Bactrim] Allergy (Intermediate, Verified 09/12/24 06:40) [facility] Summary - Hospital Course Hospital Course: The patient is a 78-year-old male with a complex medical history including CHF (EF ~30%), atrial fibrillation on Eliquis, hypertension, coronary artery disease post-PCI, hyperlipidemia, arrhythmia, hypothyroidism, peripheral neuropathy, and chronic kidney disease (baseline creatinine ~1.31.4), who presented on September 12, 2024, with worsening abdominal pain and distention, along with persistent nausea, vomiting, and diarrhea. He reported an inability to tolerate oral intake but had a bowel movement earlier that day. He had previously been seen in the ED on September 08 for similar symptoms and diagnosed with diverticulitis, discharged on oral ciprofloxacin and metronidazole, with initial improvement before symptoms recurred. On return to the ED, vital signs were stable. CT abdomen/pelvis showed persistent diverticulosis with stable inflammatory changes in the sigmoid colon, and new dilated small bowel loops (up to 4.5 cm) without a clear transition point, concerning for ileus or early small bowel obstruction. An incidental infrarenal abdominal aortic aneurysm was again noted and unchanged. Labs revealed a WBC of 9.4, hemoglobin 12.8, and a creatinine of 1.66, slightly above baseline. He received IV fluids, pain control, and had an NG tube placed to LIS. Surgery was consulted and recommended conservative management; he was cleared to continue Eliquis. On 09/13, the patient reported significant improvement with resolution of nausea, vomiting, and abdominal distention. LLQ pain resolved, bowel sounds were present in all quadrants, and he passed gas and had a BM. Dr. Wellington recommended removal of the NG tube and a trial of clear liquids, with Zosyn continued and ADAT. On 09/14, the patient was sitting up in a chair but complained of intermittent sharp LLQ pain, worsened with palpation. He felt that the NG tube was removed too soon and expressed frustration over not receiving pain or nausea medications overnight. Day shift nurse provided medications, resulting in improvement in symptoms. A KUB was ordered, and Gas-X was given. The patient is currently NPO pending imaging results. Surgery has signed off the case, and he will continue IV antibiotics for diverticulitis. 09/15 Patient was observed sitting up in the chair this morning and reported feeling much better. He refuses a CT scan of abd and feels pain has improved. He requested discharge home today. Laboratory and radiology results were reviewed with the patient. He reported feeling bloated and noted that he has not had a bowel movement since admission; a stool softener will be provided. He denies any further concerns at this time. - Vitals & Intake/Output Vital Signs: Vital Signs Temperature 98.6 F 09/15/24 07:19 Pulse Rate 86 09/15/24 07:19 Respiratory Rate 20 09/15/24 07:19 Blood Pressure 116/56 09/15/24 07:19 O2 Sat by Pulse Oximetry 93 L 09/15/24 07:19 Intake & Output: Intake & Output 09/12/24 09/13/24 09/14/24 09/15/24 11:59 11:59 11:59 11:59 Intake Total 2293 4289 1560 Output Total 0 4151 675 Balance 0 -1858 4289 885 Weight 104.6 kg 104.6 kg 109.5 kg - Lab Result Diagrams: 09/15/24 04:35 09/15/24 04:35 Lab Results-Last 24 Hrs: Lab Results-Last 24 Hours 09/15/24 09/15/24 Range/Units 04:35 04:35 WBC 7.7 (4.23-9.07) x10^3/uL RBC 3.11 L (4.63-6.08) x10^6/uL Hgb 10.2 L (13.7-17.5) g/dL Hct 31.2 L (40.1-51.0) % MCV 100.3 H (79.0-92.2) fL MCH 32.8 H (25.7-32.2) pg MCHC 32.7 (32.3-36.5) g/dL RDW 13.2 (11.6-14.4) % Plt Count 178 (163-337) x10^3/uL MPV 10.2 (9.4-12.4) fL Sodium 134 L (135-145) mmol/L Potassium 3.8 (3.5-5.1) mmol/L Chloride 101 (98-107) mmol/L Carbon Dioxide 28 (22-30) mmol/L Anion Gap 8.6 (5-15) MEQ/L BUN 24 H (9-20) mg/dL Creatinine 1.37 H (0.66-1.25) mg/dL Estimated GFR 52.8 ML/MIN Glucose 127 H (74-106) mg/dL Calcium 8.6 (8.4-10.2) mg/dL Micro Results-Entire Visit: Microbiology 09/13/24 05:03 Urine Culture - Final Clean Catch Midstream MIXED TUNG; 3 OR MORE TYPES. NO PREDOMINANT ORGANISM. NO FURTHER WORKUP. PLEASE RESUBMIT IF CLINICALLY INDICATED. - Radiology Exams Ordered Rad Exams-Entire Visit: Radiology Procedures Category Date Time Status KUB Routine Exams 09/14/24 10:10 Completed Discharge Exam General Appearance: no apparent distress, alert, obese Neurologic Exam: alert, oriented x 3, cooperative, normal mood/affect, nml cerebellar function, sensation nml, No motor deficits Eye Exam: PERRL, EOMI, eyes nml inspection Ears, Nose, Throat Exam: normal ENT inspection, pharynx normal, moist mucous membranes Neck Exam: normal inspection, non-tender, supple, full range of motion Respiratory Exam: normal breath sounds, lungs clear, No respiratory distress Cardiovascular Exam: regular rate/rhythm, normal heart sounds Gastrointestinal/Abdomen Exam: soft, distention, No tenderness, No mass Male Genitalia Exam: deferred Rectal Exam: deferred Back Exam: normal inspection, normal range of motion, No CVA tenderness, No vertebral tenderness Extremity Exam: normal inspection, normal range of motion Skin Exam: normal color, warm, dry Final Diagnosis/Problem List - Final Discharge Diagnosis/Problem (1) Diverticulitis large intestine Current Visit: Yes Status: Acute Code(s): K57.32 - DVTRCLI OF LG INT W/O PERFORATION OR ABSCESS W/O BLEEDING (2) Afib Current Visit: Yes Status: Chronic Code(s): I48.91 - UNSPECIFIED ATRIAL FIBRILLATION (3) Renal failure (ARF), acute on chronic Current Visit: No Status: Acute Code(s): N17.9 - ACUTE KIDNEY FAILURE, UNSPECIFIED; N18.9 - CHRONIC KIDNEY DISEASE, UNSPECIFIED (4) CAD (coronary artery disease) Current Visit: Yes Status: Chronic Code(s): I25.10 - ATHSCL HEART DISEASE OF [place] CORONARY ARTERY W/O ANG PCTRS (5) HLD (hyperlipidemia) Current Visit: Yes Status: Chronic Code(s): E78.5 - HYPERLIPIDEMIA, UNSPECIFIED (6) Hypothyroid Current Visit: Yes Status: Chronic Code(s): E03.9 - HYPOTHYROIDISM, UNSPECIFIED (7) Ileus Current Visit: Yes Status: Acute Code(s): K56.7 - ILEUS, UNSPECIFIED (8) Peripheral neuropathy Current Visit: Yes Status: Chronic Code(s): G62.9 - POLYNEUROPATHY, UNSPECIFIED (9) HTN (hypertension) Current Visit: No Status: Chronic Code(s): I10 - ESSENTIAL (PRIMARY) HYPERTENSION (10) Obesity (BMI 30.0-34.9) Current Visit: No Status: Chronic Assessment & Plan: (1) Diverticulitis large intestine Current Visit: Yes Status: Acute Assessment & Plan: -Ongoing symptoms despite recent outpatient treatment with ciprofloxacin/flagyl. -CT abdomen/ pelvis confirms mild inflammatory changes consistent with stable, uncomplicated diverticulitis -Admit for IV antibiotics Zosyn -Monitor for complications: perforation, abscess, or progression -Pain control (avoid NSAIDs) -Advance diet as tolerated upon symptom resolution -Discussed case with surgery 09/12- no plans for surgical intervention -continue IV abx -CMP/CBC reviewed and unremarkable - KUB today- pending - Gas-x 09/06 - D/C with antibiotics - CBC, CMP reviewed - Stool softner Code(s): K57.32 - DVTRCLI OF LG INT W/O PERFORATION OR ABSCESS W/O BLEEDING (2) Afib Current Visit: Yes Status: Chronic Assessment & Plan: -Pacemaker/defib -Continue home Metoprolol, Eliquis Code(s): I48.91 - UNSPECIFIED ATRIAL FIBRILLATION (3) Renal failure (ARF), acute on chronic Current Visit: No Status: Acute Assessment & Plan: - Creat 1.30- BL normal- trend - Labs have improved since admission daily 09/15 - CMP reviewed Code(s): N17.9 - ACUTE KIDNEY FAILURE, UNSPECIFIED; N18.9 - CHRONIC KIDNEY DISEASE, UNSPECIFIED (4) CAD (coronary artery disease) Current Visit: Yes Status: Chronic Assessment & Plan: -No acute ischemic symptoms -Continue statin -Telemetry monitoring for arrhythmias Code(s): I25.10 - ATHSCL HEART DISEASE OF [place] CORONARY ARTERY W/O ANG PCTRS (5) HLD (hyperlipidemia) Current Visit: Yes Status: Chronic Assessment & Plan: - Continue statin Code(s): E78.5 - HYPERLIPIDEMIA, UNSPECIFIED (6) Hypothyroid Current Visit: Yes Status: Chronic Assessment & Plan: -Continue levothyroxine Code(s): E03.9 - HYPOTHYROIDISM, UNSPECIFIED (7) Ileus Current Visit: Yes Status: Acute Assessment & Plan: -CT abdomen shows dilated small bowel loops without clear transition point; clinical picture and imaging favor partial SBO or ileus -NG tube placed in ED to low intermittent suction - need XR to confirm placement- clamped for now - d/c'd 09/13 -IVF -Serial abdominal exams -Monitor for flatus or bowel movement to assess for resolution -Okay to continue home meds po including Eliquis per Dr. Wellington- no immediate plans for surgery- 09/13 - +BM, +flatulence, surgery following - okay to discontinue NG tube start on CLD- ADAT - KUB today- pending- NPO until results are back 09/15 - Eating and drinking well- diet advanced - IV narcotic pain med stopped - resolved - Pt did have a BM today Code(s): K56.7 - ILEUS, UNSPECIFIED (8) Peripheral neuropathy Current Visit: Yes Status: Chronic Assessment & Plan: -Continue home neuropathy regimen Code(s): G62.9 - POLYNEUROPATHY, UNSPECIFIED (9) HTN (hypertension) Current Visit: No Status: Chronic Qualifiers: Hypertension type: primary hypertension Qualified Code(s): I10 - Essential (primary) hypertension Assessment & Plan: - Continue home meds- trend Code(s): I10 - ESSENTIAL (PRIMARY) HYPERTENSION (10) Obesity (BMI 30.0-34.9) Current Visit: No Status: Chronic Assessment & Plan: - advised diet and exercise control Code(s): E66.9 - OBESITY, UNSPECIFIED - Discharge Discharge Date: 09/15/24 Disposition: Home, Self-Care Condition: Stable Prescriptions: New Amox Tr/Potass Clav. 875 mg [Augmentin 875-125 Tablet] 875 mg PO BID 7 Days #14 tablet Continue Tamsulosin HCl 0.4 mg [Flomax 0.4 MG] 0.4 mg PO BID Pravastatin Sodium [Pravachol] 40 mg PO DAILY Sacubitril/Valsartan [Entresto 24 mg-26 mg Tablet] 1 tab PO BID Dofetilide [Tikosyn] 500 mcg PO BID Magnesium Oxide 400 mg [Mag-Ox 400] 800 mg PO DAILY Cholecalciferol (Vitamin D3) [Vitamin D] 2,000 units PO .EVERYOTHERDAY Apixaban [Eliquis 5 mg Tablet] 5 mg PO BID Metoprolol Tartrate 25 mg [Lopressor 25MG Tab] 25 mg PO HS Aspirin EC 81 mg [Ecotrin 81 mg] 1 tab PO DAILY Levothyroxine Sodium 25 Mcg [Synthroid 25 Mcg] 25 mcg PO DAILY Metoprolol Tartrate 25 mg [Lopressor 25MG Tab] 12.5 mg PO DAILY Discontinued Ciprofloxacin HCl [Cipro] 500 mg PO BID #20 tablet Metronidazole 500 mg [Flagyl 500 MG] 500 mg PO TID #30 tablet Instructions: Obesity, Adult, Diverticulitis - Discharge instructions Additional Instructions: If Augmentin causes diarrhea you can take probiotics OTC. Follow up with: FABIENNE ZIEGLER MD [Primary Care Provider, [facility]] - 09/23/24 11:00 am TENNILLE WELLINGTON [ACTIVE STAFF, GENERAL SURGERY] - 09/24/24 11:30 am Referral Note: Patient will be seen in the [facility] for his initial visit to set up the colonoscopy with Dr. Esequiel Wellington's HEALTHCARE PROF, Kinza Adams.
[2024-09-15] MEDS ORDERED: Metamucil PACKET PO SCH (10:00)
--- NOTE | 2024-09-15 11:26 | CONS ---
HISTORY: The patient is seen again today. He was seen yesterday. He had diverticulitis, a bad episode about 3 weeks ago. He has been in the hospital. He has had IV antibiotics. He had p.o. antibiotics. He was doing well and then he had acute pain, readmitted to the hospital. Since admission, he was started on IV fluids. He was started on IV antibiotics. He had a nasogastric tube, GI rest. He subsequently had bowel movement. The NG has been pulled. He is taking clear liquids. He says he did have a little more additional bowel movements today. He is feeling much better. On clear liquids, and they have ordered a regular breakfast for tomorrow. PHYSICAL EXAMINATION: His abdomen is soft and nontender. He still has a little residual pelvic discomfort. IMPRESSION: Patient had continuation episode of his previous diverticulitis that seems to be quieting. He is on IV antibiotics. He is advancing towards a regular diet. I think he should be discharged on p.o. antibiotics for another week to 10 days. He gets consideration of a colonoscopy by our group in about 6 weeks for followup. He has not had once since 2019 probably. Probably would be good to assess the diameter to make sure there is not a stricture, make sure nothing else is going on.
--- NOTE | 2024-09-16 09:43 | CONS ---
Patient is being followed by Dr. Wellington for diverticulitis. Patient is passing flatus. Tolerated p.o. He is feeling better than he did on admission. His abdomen is very soft. No rebound, no guarding, no peritoneal signs. His vital signs are stable. No acute surgery necessary. Continue medical management. Disposition per the medical physicians. His last white count was okay. He will follow up in the office with Dr. Matthew Wellington post discharge.
== END 2024-09-15 10:40 | disposition home or self-care (01) | DRG 392 ==
LOC: ED 06:36 → MED SURG 09:39 → OBSVTOIN 12:20
PROVIDERS: ADMIT Internal Medicine; ATTEND Internal Medicine
DX: K57.32 Diverticulitis of large intestine without perforation or abscess without bleeding (principal); N17.9 Acute kidney failure, unspecified; I13.0 Hypertensive heart and chronic kidney disease with heart failure and stage 1 through stage 4 chronic kidney disease, or unspecified chronic kidney disease; K56.7 Ileus, unspecified; I48.91 Unspecified atrial fibrillation; I13.10 Hypertensive heart and chronic kidney disease without heart failure, with stage 1 through stage 4 chronic kidney disease, or unspecified chronic kidney disease; I50.9 Heart failure, unspecified; N18.9 Chronic kidney disease, unspecified; I25.10 Atherosclerotic heart disease of native coronary artery without angina pectoris; E78.5 Hyperlipidemia, unspecified; E03.9 Hypothyroidism, unspecified; G62.9 Polyneuropathy, unspecified; E66.9 Obesity, unspecified; Z79.01 Long term (current) use of anticoagulants; Z79.899 Other long term (current) drug therapy